=== PATIENT | female | born 1960 | race Caucasian/White ===

== ENCOUNTER → 2016-06-18 | Outpatient (CLI) | payer MEDICARE ==
[~2016-06-18] MED LIST: AMIT25TA PO; ASPI325T PO; ATOR1TAB21 PO; BACL10TA2 PO; BENA25CA2 PO; CIPR500T89 PO; CLOP75TA2 PO; FLAG500T PO; LISI-542 PO; LOMO2.5T PO; METO-207 PO; METO12TA PO; MORP15TASA PO; NEUR300C PO; NORC7.5T PO; OXYB5TA PO; PROA1AER INH; TOPR50TA PO; TRAM50TA2 PO; TYLE1TAB5 PO
== END ==
LOC: M PAIN 14:20
PROVIDERS: ATTEND Anesthesiology
DX: Z53.29 Procedure and treatment not carried out because of patient's decision for other reasons (principal)

== ENCOUNTER → 2016-06-27 | Outpatient (CLI) | payer MEDICARE ==
[~2016-06-27] MED LIST changes: +BUPIVACAINE HCL 0.25% 30 ML VIAL As Ordered ONE; +ISOVUE-M 300 61% 15ML VIAL (Q9967) As Ordered ONE; +LIDOCAINE 1% SDV INJ 30 ML VIAL As Ordered ONE; +TRIAMCINOLONE ACETONIDE SUSP 40 MG/ML VIAL (J3301) As Ordered ONE; +diazePAM 5 MG TAB As Ordered ONE; +oxyCODONE 5MG TAB As Ordered ONE
--- NOTE | 2016-06-27 17:26 | REP ---
FLUOROSCOPIC GUIDANCE FOR PIRIFORMIS MUSCLE BLOCK RIGHT HIP, 06/27/2016. Clinical history. Right hip pain. Four images from C-arm fluoroscopy provided to Dr. Rueda of the pain clinic for piriformis muscle block are reviewed. The needle projects over the greater trochanteric region with contrast evident on the first three images. The needle is removed on the fourth image. There is a right hip arthroplasty evident. Fluoroscopy time 9 seconds. Signed by Jamal Navarro MD 06/27/2016 08:14 P
--- NOTE | 2016-07-05 00:30 | ECWPNPC ---
PATIENT NAME: JUAN MIGUEL VALENCIA : 1960 GENDER: FEMALE VISIT DATE: 06/27/2016 DISCHARGE DATE: 06/27/16 1607 VISIT LOCKED DATE TIME: PHYSICIAN: SUSANNE AMOR RESOURCE: SUSANNE AMOR REASON FOR APPOINTMENT 1. PIRIFORMIS INJECTION HISTORY OF PRESENT ILLNESS HISTORY OF PRESENT ILLNESS: PAIN THE PATIENT DESCRIBES THE PAIN... FALL RISK SCREENING: SCREENING :NO FALLS IN THE PAST YEAR CURRENT MEDICATIONS TAKING OXYBUTYNIN CHLORIDE 5 MG TABLET 1 TABLET ORALLY TWICE A DAY, NOTES: 06-27-16699 TAKING ASPIRIN 325 MG TABLET DELAYED RELEASE 1 TABLET ORALLY ONCE A DAY, NOTES: 06-27-16699 TAKING DIPHENOXYLATE-ATROPINE 2.5-0.025 MG TABLET 5 ML NEEDED ORALLY FOUR TIMES A DAY, NOTES: NONE TAKING DIPHENHYDRAMINE HCL 25 MG CAPSULE 1 CAPSULE NEEDED ORALLY BEFORE BEDTIME, NOTES: NONE TAKING METOPROLOL SUCCINATE ER 50 MG TABLET EXTENDED RELEASE 24 HOUR 1 TABLET ORALLY ONCE A DAY, NOTES: 06-27-16699 TAKING LISINOPRIL 5 MG TABLET 1 TABLET ORALLY ONCE A DAY, NOTES: 06-27-16699 TAKING GABAPENTIN 300 MG CAPSULE 1 CAPSULE ORALLY QID FOR PAIN, NOTES: 06-27-16699 TAKING AMITRIPTYLINE HCL 25 MG TABLET 1 TABLET ORALLY BEFORE BEDTIME NEEDED FOR PAIN MDD1, NOTES: [id number] TAKING NORCO 7.5-325 MG TABLET 1 TABLET NEEDED ORALLY EVERY 6 HRS PRN FOR PAIN MDD3, NOTES: 06-27-16699 TAKING BACLOFEN 10 MG TABLET 1 TABLET WITH FOOD OR MILK ORALLY PRN THREE TIMES A DAY FOR SPASMS AND PAIN, NOTES: 06-27-16699 MEDICATION LIST REVIEWED AND RECONCILED WITH THE PATIENT PAST MEDICAL HISTORY HEPATITIS C SYNCOPE ULCERATIVE COLITIS CHRONIC BACK PAIN MILD HEART ATTACK ACUTE TOXIC ENCEPHALOPATHY SECONDARY TO OPIATES ALLERGIES CEFAZOLIN SODIUM: RASH: ALLERGY SOCIAL HISTORY GENERAL: TOBACCO USE ARE YOU A:NONSMOKER LEARNING BARRIERS / SPECIAL NEEDS ORIENTED TO PLAN OF CARE: PATIENT, PAIN MANAGEMENT PATIENT, ORIENTED TO PLAN OF CARE: PATIENT, PAIN MANAGEMENT PATIENT. NEW PATIENT PAIN DIARY TODAY'S VISITNOTES FROM 0-10, WHAT LEVEL IS YOUR PAIN TODAY?0 PAIN CLINIC PFS, CLERGY, PUBLIC HEALTH REFERRALS PFS REFERRAL NEEDED?NO CLERGY REFERRAL NEEDED?NO PUBLIC HEALTH REFERRAL NEEDED?NO WAS THE PROVIDER NOTIFIED OF ANY PERTINENT INFO?NO PFS REFERRAL NEEDED?NO CLERGY REFERRAL NEEDED?NO PUBLIC HEALTH REFERRAL NEEDED?NO WAS THE PROVIDER NOTIFIED OF ANY PERTINENT INFO?NO REVIEW OF SYSTEMS CONSTITUTIONAL: ANY CHANGE IN YOUR MEDICAL CONDITION? NO . CHILLS NO . FEVER NO . INFECTION: DO YOU HAVE NEW INFECTIONS? NO . DO YOU HAVE HISTORY OF MRSA? NO . MUSCULOSKELETAL: ANY NEW PATTERNS OF PAIN OR NUMBNESS? NO . GASTROENTEROLOGY: ANY NEW CHANGE IN BOWEL CONTROL? NO . GENITOURINARY: ANY NEW CHANGE IN BLADDER CONTROL? NO . IS THERE A CHANCE YOU COULD BE ? NO . HEMATOLOGY/LYMPH: DO YOU TAKE ANY BLOOD THINNERS? (FOR EXAMPLE- COUMADIN, PLAVIX, AGGRENOX, PLATEL, PRADAXA, OR XARELTO) NO . WHEN WAS YOUR LAST DOSE? DATE: TIME: . NEUROLOGY: HAVE YOU FALLEN IN THE PAST 6 MONTHS? NO . ANY NEW EXTREMITY NUMBNESS OR WEAKNESS? NO . CARDIOLOGY: DO YOU HAVE A PACEMAKER OR DEFIBRILLATOR? NO . RESPIRATORY: HAVE YOU BEEN SICK IN THE PAST WEEK? NO . FEVER NO . FLU LIKE SYMPTOMS? NO . COUGH NO . INTEGUMENTARY: DO YOU HAVE ANY RASHES OR OPEN SORES? NO . ALLERGIC/IMMUNO: ARE YOU ALLERGIC TO SHELLFISH OR IV DYE? NO . ANY NEW ALLERGIES? NO . PSYCHIATRIC: DO YOU HAVE THOUGHTS OF HURTING YOURSELF OR SOMEONE ELSE? NO . ARE YOU ABUSED, NEGLECTED, OR IN AN UNSAFE ENVIRONMENT? NO . ENDOCRINOLOGY: ARE YOU DIABETIC? NO . OTHER: DO YOU NEED ANY PRESCRIPTIONS? NO . IF YES, PLEASE LIST: ____ . ANY NEW PROBLEMS WITH YOUR MEDICATIONS? NO . WHEN DID YOU LAST EAT? 06-27-16699 . WHEN DID YOU LAST DRINK? 06-27-16699 . WHAT DID YOU LAST DRINK? WATER WITH MEDS . NAME OF PERSON DRIVING YOU HOME? NAY . DO YOU HAVE ANY OTHER QUESTIONS OR CONCERNS NO . REVIEWED BY: PROVIDER: . VITAL SIGNS WT 162 LBS, HT 69", BMI 23.92 INDEX, BP 152/82 MM HG, HR 96 /MIN, RR 16 /MIN, TEMP 97.4 F, OXYGEN SAT % 100, NA INITIALS TL 1419. 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 PROCEDURES PREOPERATIVE DIAGNOSIS:RIGHT PIRIFORMIS SYNDROME. MYALGIAPOSTOPERATIVE DIAGNOSIS: RIGHT PIRIFORMIS SYNDROME. MYALGIAPROCEDURE: RIGHT PIRIFORMIS MUSCLE BLOCK UNDER FLUOROSCOPIC GUIDANCE.ANESTHESIA: LOCAL.SURGEON: SUSANNE ARREAGA M.D.PREOPERATIVE NOTE: THE PATIENT HAS HISTORY OFCHRONIC LOW BACK PAIN. I EVALUATED THE PATIENT AND REVIEWED THE CHART. WE BOTH AGREED ON PERFORMING A RIGHT PIRIFORMIS MUSCLE BLOCK UNDER FLUOROSCOPIC GUIDANCE. I WENT THROUGH THE RISKS, ALTERNATIVES AND BENEFITS ASSOCIATED WITH THIS PROCEDURE AND THE PATIENT EXPRESSED THAT SHE WOULD LIKE TO PROCEED. THE PATIENT DENIES UNEXPLAINABLE WEIGHT LOSS, FEVER, CHILLS, OR CHANGES IN URINARY OR BOWEL CONTROL.PROCEDURE NOTE: AFTER CONSENT WAS TAKEN, THE PATIENT WAS BROUGHT TO THE PROCEDURE ROOM AND THE PATIENT WAS PLACED IN THE PRONE POSITION. THE LUMBOSACRAL AREA WASCLEANED WITH CHLORAPREP SOLUTION AND DRAPED ASEPTICALLY. THE PROCEDURE WAS DONE UNDER STERILE CONDITIONS. LATERALITY WAS CHECK WITH THE PATIENT AND THE STAFF AT THE TIME OF TIME OUT. UNDER FLUOROSCOPIC GUIDANCE, THE TARGET POINT WAS SELECTED AT THE MIDDLE AREA BETWEEN THE RIGHT GREATER TROCHANTER OF THE FEMUR AND THE BORDER OF THE SACRUM. LIDOCAINE WAS USED TO NUMB THE SKIN AND THESUBCUTANEOUS TISSUE BELOW IT. A SPINAL NEEDLE 22 GAUGE, WAS ADVANCED UNDER FLUOROSCOPIC GUIDANCE TO THE SUBSTANCE OF THE RIGHT PIRIFORMIS MUSCLE. WHEN APPROPRIATE POSITION OF THE NEEDLE WAS ACHIEVED, ISOVUE-M DYE 30%,0.25 ML, WAS INJECTED SHOWING ADEQUATE SPREAD OF THE DYE. THEN A SOLUTION OF 30 ML OF BUPIVACAINE, 0.25%, AND KENALOG 40 MG WAS INJECTED. THERE WAS NO EVIDENCEOF BLOOD, PARESTHESIAS OR CEREBROSPINAL FLUID. THE PATIENT WAS SENT TO THE RECOVERY ROOM WHERE SHE WAS MOVING HER EXTREMITIES AND DOING WELL. THERE WERE NO COMPLICATIONS DURING THE PROCEDURE. FLUOROSCOPY TIME WAS 9 SECONDS.POSTOPERATIVE NOTE: I DISCUSSED ALTERNATIVES WITH THE PATIENT. I AM LOOKING FOR LONG-LASTING PAIN RELIEF WITH THIS INTERVENTION. THERE WERE NO COMPLICATIONS. FURTHER RECOMMENDATIONS DEPEND ON HOW THE PATIENT DOES. INSTRUCTIONS WERE GIVEN QUESTIONS WERE ANSWERED PATIENT REPORTS UNDERSTANDING AND AGREES WITH THE PLAN.INSTRUCTIONS WERE GIVEN, QUESTIONS WERE ANSWERED, PATIENT REPORTS UNDERSTANDING AND AGREES WITH THE PLAN. I, DAMIAN LUNA, DOCUMENTED THE ABOVE INFORMATION ACTING A SCRIBE FOR DR. AMOR. I HAVE REVIEWED THE ABOVE DOCUMENT, WRITTEN BY DAMIAN JOSEPH AND I VERIFY THAT IT IS ACCURATE. [facility] FLUORO GUIDANCE (PAIN)[id number] PROCEDURE CODES 68510 INJ TRIGGER POINT 1/2 MUSCL 07132 NEEDLE LOCALIZATION BY XRAY 6045F RADXPS IN END [id number] PXD FOLLOW UP 3 WEEKS ELECTRONICALLY SIGNED BY SUSANNE AMOR MD ON 07/04/2016 AT 04:28 PM EST DISCLAIMER : THIS IS A VISIT SUMMARY EXTRACTED FROM THE [employer] CHART. IT IS NOT A COPY OF THE [employer] PROGRESS NOTE. MTDD
== END ==
LOC: M PAIN 14:00
PROVIDERS: ATTEND Anesthesiology
DX: G89.29 Other chronic pain (principal); M79.1 Myalgia; M54.5 Low back pain; B20 Human immunodeficiency virus [HIV] disease; Z88.8 Allergy status to other drugs, medicaments and biological substances; Z79.82 Long term (current) use of aspirin; Z79.891 Long term (current) use of opiate analgesic; Z79.899 Other long term (current) drug therapy; Z87.19 Personal history of other diseases of the digestive system; Z86.79 Personal history of other diseases of the circulatory system; Z87.898 Personal history of other specified conditions
CPT/HCPCS: 20552; 77002; J3301; Q9967

== ENCOUNTER → 2016-07-08 | Outpatient (CLI) | payer MEDICARE ==
[~2016-07-08] MED LIST changes: -BUPIVACAINE HCL 0.25% 30 ML VIAL As Ordered ONE; -ISOVUE-M 300 61% 15ML VIAL (Q9967) As Ordered ONE; -LIDOCAINE 1% SDV INJ 30 ML VIAL As Ordered ONE; -TRIAMCINOLONE ACETONIDE SUSP 40 MG/ML VIAL (J3301) As Ordered ONE; -diazePAM 5 MG TAB As Ordered ONE; -oxyCODONE 5MG TAB As Ordered ONE
== END ==
LOC: M PAIN 13:20
PROVIDERS: ATTEND Nurse Practitioner Family
DX: Z09 Encounter for follow-up examination after completed treatment for conditions other than malignant neoplasm (principal); G89.29 Other chronic pain; M96.1 Postlaminectomy syndrome, not elsewhere classified; K51.90 Ulcerative colitis, unspecified, without complications; Z88.8 Allergy status to other drugs, medicaments and biological substances; Z79.82 Long term (current) use of aspirin; Z79.891 Long term (current) use of opiate analgesic; Z79.899 Other long term (current) drug therapy; Z86.19 Personal history of other infectious and parasitic diseases; Z86.79 Personal history of other diseases of the circulatory system; Z86.61 Personal history of infections of the central nervous system

== ENCOUNTER → 2016-09-02 | Outpatient (REF) | payer MEDICARE ==
[2016-09-02 15:49] LABS: BASO % 0.4 % (0.0-1.0); EOS # 0.1 K/mm3 (0.0-0.50); EOS % 2.6 % (0.0-3.0); LARGE UNSTAINED CELL # 0.1 K/mm3 (0.0-0.4); LARGE UNSTAINED CELL % 2.5 % (0.0-4.0); LYMPH # 1.6 K/mm3 (1.5-4.5); LYMPH % 30.7 % (24.0-44.0); MEAN CORPUSCULAR HEMOGLOBIN 33.1 pg (27.0-33.0); MEAN CORPUSCULAR VOLUME 97.3 fl (80.0-96.0); MONO # 0.4 K/mm3 (0.0-0.8); MONO % 6.8 % (0.0-5.0); PLATELET COUNT, AUTOMATED 258 k/mm3 (150-450); RED CELL DISTRIBUTION WIDTH 12.1 % (11.5-14.5); WHITE BLOOD COUNT 5.3 K/mm3 (4.0-10.0)
[2016-09-02 16:07] LABS: ALBUMIN 3.9 GM/DL (3.2-5.2); ALBUMIN/GLOBULIN RATIO 1.05 (1.00-1.93); BILIRUBIN,DIRECT 0.3 MG/DL (0.0-0.2); BILIRUBIN,TOTAL 1.1 MG/DL (0.2-1.0); TOTAL PROTEIN 7.6 GM/DL (6.4-8.2)
[2016-09-05 10:15] LABS: HEPATITIS C QUANTITATION HCV Not Detected IU/mL (.)
== END ==
LOC: M SFHCPLAZ 12:35
PROVIDERS: ATTEND Internal Medicine Infectious Disease
DX: B18.2 Chronic viral hepatitis C (principal)

== ENCOUNTER → 2016-09-05 | Outpatient (CLI) | payer MEDICARE ==
--- NOTE | 2016-09-06 01:58 | ECWPNPC ---
PATIENT NAME: JUAN MIGUEL VALENCIA : 1960 GENDER: FEMALE VISIT DATE: 09/05/2016 DISCHARGE DATE: 09/05/16 1451 VISIT LOCKED DATE TIME: PHYSICIAN: RAGHAVENDRA SAN RESOURCE: RAGHAVENDRA SAN REASON FOR APPOINTMENT 1. BACK HISTORY OF PRESENT ILLNESS HISTORY OF PRESENT ILLNESS: HERE FOR POST PROCEDURE F/U AND MANAGEMENT OF CHRONIC LBP.RATING PAIN VAS 7/10.PAIN RADIATES DOWN RIGHT LEG.HISTORY OF LUMBAR SURGERY 2004.FINDS MEDICATION SOMEWHAT HELPFUL.CONTINUES WITH POOR SLEEP. FALL RISK SCREENING: SCREENING :NO FALLS IN THE PAST YEAR CURRENT MEDICATIONS TAKING GABAPENTIN 300 MG CAPSULE 1 CAPSULE ORALLY QID FOR PAIN TAKING AMITRIPTYLINE HCL 25 MG TABLET 1 TABLET ORALLY ONCE A DAY TAKING NORCO 7.5-325 MG TABLET 1 TABLET NEEDED ORALLY EVERY 6 HRS PRN FOR PAIN MDD3 TAKING BACLOFEN 10 MG TABLET 1 TABLET WITH FOOD OR MILK ORALLY PRN THREE TIMES A DAY FOR SPASMS AND PAIN TAKING METOPROLOL SUCCINATE ER 50 MG TABLET EXTENDED RELEASE 24 HOUR 1 TABLET ORALLY ONCE A DAY TAKING LISINOPRIL 5 MG TABLET 1 TABLET ORALLY ONCE A DAY TAKING OXYBUTYNIN CHLORIDE 5 MG TABLET 1 TABLET ORALLY TWICE A DAY TAKING ASPIRIN 325 MG TABLET DELAYED RELEASE 1 TABLET ORALLY ONCE A DAY TAKING DIPHENOXYLATE-ATROPINE 2.5-0.025 MG TABLET 5 ML NEEDED ORALLY FOUR TIMES A DAY, NOTES: NONE TAKING DIPHENHYDRAMINE HCL 25 MG CAPSULE 1 CAPSULE NEEDED ORALLY BEFORE BEDTIME, NOTES: NONE TAKING HARVONI 90/400 MG TABLET DIRECTED ORALLY ONCE A DAY TAKING ZANTAC 150 MG TABLET 1 TABLET AT BEDTIME ORALLY ONCE A DAY DISCONTINUED HARVONI 90-400 MG TABLET 1 TABLET ORALLY ONCE A DAY MEDICATION LIST REVIEWED AND RECONCILED WITH THE PATIENT PAST MEDICAL HISTORY HEPATITIS C SYNCOPE ULCERATIVE COLITIS CHRONIC BACK PAIN MILD HEART ATTACK ACUTE TOXIC ENCEPHALOPATHY SECONDARY TO OPIATES ALLERGIES CEFAZOLIN SODIUM: RASH: ALLERGY REVIEW OF SYSTEMS CONSTITUTIONAL: ANY CHANGE IN YOUR MEDICAL CONDITION? NO . CHILLS NO . FEVER NO . INFECTION: DO YOU HAVE NEW INFECTIONS? NO . DO YOU HAVE HISTORY OF MRSA? NO . MUSCULOSKELETAL: ANY NEW PATTERNS OF PAIN OR NUMBNESS? YES PT REPORTS SHE HAD RELIEF FROM PIRIFORMIS INJECTION FOR A FEW WEEKS, BUT NOW PAIN HAS RETURNED, NOW FEELS PRESSURE AND PAIN IN GROIN, BUTTOCKS . GASTROENTEROLOGY: ANY NEW CHANGE IN BOWEL CONTROL? NO . GENITOURINARY: ANY NEW CHANGE IN BLADDER CONTROL? NO . IS THERE A CHANCE YOU COULD BE ? NO . HEMATOLOGY/LYMPH: DO YOU TAKE ANY BLOOD THINNERS? (FOR EXAMPLE- COUMADIN, PLAVIX, AGGRENOX, PLATEL, PRADAXA, OR XARELTO) NO . WHEN WAS YOUR LAST DOSE? DATE: TIME: . NEUROLOGY: HAVE YOU FALLEN IN THE PAST 6 MONTHS? NO . ANY NEW EXTREMITY NUMBNESS OR WEAKNESS? NO . CARDIOLOGY: DO YOU HAVE A PACEMAKER OR DEFIBRILLATOR? NO . RESPIRATORY: HAVE YOU BEEN SICK IN THE PAST WEEK? NO . FEVER NO . FLU LIKE SYMPTOMS? NO . COUGH NO . INTEGUMENTARY: DO YOU HAVE ANY RASHES OR OPEN SORES? NO . ALLERGIC/IMMUNO: ARE YOU ALLERGIC TO SHELLFISH OR IV DYE? NO . ANY NEW ALLERGIES? NO . PSYCHIATRIC: DO YOU HAVE THOUGHTS OF HURTING YOURSELF OR SOMEONE ELSE? NO . ARE YOU ABUSED, NEGLECTED, OR IN AN UNSAFE ENVIRONMENT? NO . ENDOCRINOLOGY: ARE YOU DIABETIC? NO . OTHER: DO YOU NEED ANY PRESCRIPTIONS? YES . IF YES, PLEASE LIST: ____GABAPENTIN . ANY NEW PROBLEMS WITH YOUR MEDICATIONS? NO . WHEN DID YOU LAST EAT? ____ . WHEN DID YOU LAST DRINK? ____ . WHAT DID YOU LAST DRINK? ____ . NAME OF PERSON DRIVING YOU HOME? ____ . DO YOU HAVE ANY OTHER QUESTIONS OR CONCERNS NO . REVIEWED BY: PROVIDER: RAGHAVENDRA LE . VITAL SIGNS WT 161 LBS, HT 69", BMI 23.77 INDEX, BP 135/76 MM HG, HR 89 /MIN, RR 18 /MIN, TEMP 99.0 F, OXYGEN SAT % 97%, SAFE IN ENV? (Y/N) YES, NA INITIALS SC 14:14, REVIEWED BY: MEREDITH. ASSESSMENTS POST LAMINECTOMY SYNDROME - M96.1 (PRIMARY) CHRONIC PRESCRIPTION OPIATE USE - Z79.891 TREATMENT POST LAMINECTOMY SYNDROME INCREASE AMITRIPTYLINE HCL TABLET, 25 MG, 2, ORALLY, ONCE A DAY, 30 DAY(S), 60, REFILLS 2 REFILL NORCO TABLET, 7.5-325 MG, 1 TABLET NEEDED, ORALLY, Q6H PRN PAIN MDD4, 30 DAY(S), 120, REFILLS 0 REFILL BACLOFEN TABLET, 10 MG, 1 TABLET WITH FOOD OR MILK, ORALLY PRN, THREE TIMES A DAY FOR SPASMS AND PAIN, 30 DAY(S), 90, REFILLS 2 REFILL GABAPENTIN CAPSULE, 300 MG, 1 CAPSULE, ORALLY, QID FOR PAIN, 30 DAY(S), 120, REFILLS 2 PROCEDURE CODES G8730 PAIN ASSESS POS TOOL F/U PLAN DOC G8427 DOC MEDS VERIFIED W/PT OR RE DISPOSITION & COMMUNICATION FOLLOW UP 2 MONTHS ELECTRONICALLY SIGNED BY REY CROCKETT ON 09/05/2016 AT 02:48 PM EDT DISCLAIMER : THIS IS A VISIT SUMMARY EXTRACTED FROM THE [employer] CHART. IT IS NOT A COPY OF THE [employer] PROGRESS NOTE. ROSY
== END | disposition home or self-care (01) ==
LOC: M PAIN 14:00
PROVIDERS: ATTEND Nurse Practitioner Family
DX: Z09 Encounter for follow-up examination after completed treatment for conditions other than malignant neoplasm (principal); G89.29 Other chronic pain; M96.1 Postlaminectomy syndrome, not elsewhere classified; B19.20 Unspecified viral hepatitis C without hepatic coma; M51.16 Intervertebral disc disorders with radiculopathy, lumbar region; M51.17 Intervertebral disc disorders with radiculopathy, lumbosacral region; M51.36 Other intervertebral disc degeneration, lumbar region; G92 Toxic encephalopathy; Z86.73 Personal history of transient ischemic attack (TIA), and cerebral infarction without residual deficits; Z79.899 Other long term (current) drug therapy; Z79.82 Long term (current) use of aspirin; Z88.8 Allergy status to other drugs, medicaments and biological substances

== ENCOUNTER → 2016-11-05 | Outpatient (CLI) | payer MEDICARE ==
--- NOTE | 2016-11-06 02:48 | ECWPNPC ---
PATIENT NAME: JUAN MIGUEL VALENCIA : 1960 GENDER: FEMALE VISIT DATE: 11/05/2016 DISCHARGE DATE: 11/05/16 1448 VISIT LOCKED DATE TIME: PHYSICIAN: RAGHAVENDRA SAN RESOURCE: RAGHAVENDRA SAN REASON FOR APPOINTMENT 1. FOLLOWUP HISTORY OF PRESENT ILLNESS HISTORY OF PRESENT ILLNESS: HERE FOR POST PROCEDURE F/U AND MANAGEMENT OF CHRONIC LBP.RATING PAIN VAS 7/10.PAIN RADIATES DOWN RIGHT LEG.HISTORY OF LUMBAR SURGERY 2004.FINDS MEDICATION SOMEWHAT HELPFUL.REPORTING IMPROVED SLEEP WITH INCREASE OF AMITRIPTYLINE AT LAST VISIT. PAIN THE PATIENT DESCRIBES THE PAIN... THE PATIENT DESCRIBES THE PAIN... FALL RISK SCREENING: SCREENING :NO FALLS IN THE PAST YEAR CURRENT MEDICATIONS TAKING NORCO 7.5-325 MG TABLET 1 TABLET NEEDED ORALLY Q6H PRN PAIN MDD4 TAKING BACLOFEN 10 MG TABLET 1 TABLET WITH FOOD OR MILK ORALLY PRN THREE TIMES A DAY FOR SPASMS AND PAIN TAKING GABAPENTIN 300 MG CAPSULE 1 CAPSULE ORALLY QID FOR PAIN TAKING AMITRIPTYLINE HCL 25 MG TABLET 2 ORALLY ONCE A DAY TAKING OXYBUTYNIN CHLORIDE 5 MG TABLET 1 TABLET ORALLY TWICE A DAY TAKING DIPHENHYDRAMINE HCL 25 MG CAPSULE 1 CAPSULE NEEDED ORALLY BEFORE BEDTIME, NOTES: NONE TAKING ZANTAC 150 MG TABLET 1 TABLET AT BEDTIME ORALLY ONCE A DAY TAKING TOPAMAX 25 MG TABLET 1 TABLET ORALLY TWICE A DAY TAKING METOPROLOL SUCCINATE ER 50 MG TABLET EXTENDED RELEASE 24 HOUR 1 TABLET ORALLY ONCE A DAY TAKING LISINOPRIL 5 MG TABLET 1 TABLET ORALLY ONCE A DAY TAKING ASPIRIN 81 MG TABLET DELAYED RELEASE 1 TABLET ORALLY ONCE A DAY TAKING CLARITIN 10 MG TABLET 1 TABLET ORALLY ONCE A DAY NOT-TAKING HARVONI 90/400 MG TABLET DIRECTED ORALLY ONCE A DAY NOT-TAKING DIPHENOXYLATE-ATROPINE 2.5-0.025 MG TABLET 5 ML NEEDED ORALLY FOUR TIMES A DAY, NOTES: NONE MEDICATION LIST REVIEWED AND RECONCILED WITH THE PATIENT PAST MEDICAL HISTORY HEPATITIS C ULCERATIVE COLITIS : SHARATH CHRONIC BACK PAIN MILD HEART ATTACK ACUTE TOXIC ENCEPHALOPATHY SECONDARY TO OPIATES ALLERGIES CEFAZOLIN SODIUM: RASH: ALLERGY SURGICAL HISTORY TONSILS/ADENOIDS/TUBES HYSTERECTOMY BILATERAL CARPAL TUNNEL BACK SURGERY DORSAL COLUMN STIMULATOR TOTAL HIP REPLACEMENT RIGHT D & C X2 COLONOSCOPY: SHARATH: DIVERTICULOSIS 05/2016 EGD: SHARATH: SMALL HIATAL HERNIA 05/2016 HOSPITALIZATION/MAJOR DIAGNOSTIC PROCEDURE SYNCOPAL EPISODE 03/09-03/12/2016 JAUNDICE, ELECTROLYTE IMBALANCE 03/2016 REVIEW OF SYSTEMS CONSTITUTIONAL: ANY CHANGE IN YOUR MEDICAL CONDITION? NO . CHILLS NO . FEVER NO . INFECTION: DO YOU HAVE NEW INFECTIONS? NO . DO YOU HAVE HISTORY OF MRSA? NO . MUSCULOSKELETAL: ANY NEW PATTERNS OF PAIN OR NUMBNESS? YES, NECK PAIN. PT STATES SHE HAD INJECTION TO RIGHT HIP A FEW MONTHS AGO, PT STATES INJECTION HELPED PAIN. PT STATES PRE PROCEDURE PAIN WAAS 8/10, THEN POST PROCEDURE PAIN 2-310. PAIN HAS BEEN CREEPING TO BASELINE OF -12/16. . GASTROENTEROLOGY: ANY NEW CHANGE IN BOWEL CONTROL? NO . GENITOURINARY: ANY NEW CHANGE IN BLADDER CONTROL? NO . IS THERE A CHANCE YOU COULD BE ? NO . HEMATOLOGY/LYMPH: DO YOU TAKE ANY BLOOD THINNERS? (FOR EXAMPLE- COUMADIN, PLAVIX, AGGRENOX, PLATEL, PRADAXA, OR XARELTO) NO . WHEN WAS YOUR LAST DOSE? DATE: TIME: . NEUROLOGY: HAVE YOU FALLEN IN THE PAST 6 MONTHS? NO . ANY NEW EXTREMITY NUMBNESS OR WEAKNESS? NO . CARDIOLOGY: DO YOU HAVE A PACEMAKER OR DEFIBRILLATOR? NO . RESPIRATORY: HAVE YOU BEEN SICK IN THE PAST WEEK? YES SINUS CONGESTION . FEVER NO . FLU LIKE SYMPTOMS? NO . COUGH NO . INTEGUMENTARY: DO YOU HAVE ANY RASHES OR OPEN SORES? NO . ALLERGIC/IMMUNO: ARE YOU ALLERGIC TO SHELLFISH OR IV DYE? NO . ANY NEW ALLERGIES? NO . PSYCHIATRIC: DO YOU HAVE THOUGHTS OF HURTING YOURSELF OR SOMEONE ELSE? NO . ARE YOU ABUSED, NEGLECTED, OR IN AN UNSAFE ENVIRONMENT? NO . ENDOCRINOLOGY: ARE YOU DIABETIC? NO . OTHER: DO YOU NEED ANY PRESCRIPTIONS? NO . IF YES, PLEASE LIST: ____ . ANY NEW PROBLEMS WITH YOUR MEDICATIONS? NO . WHEN DID YOU LAST EAT? ____ . WHEN DID YOU LAST DRINK? ____ . WHAT DID YOU LAST DRINK? ____ . NAME OF PERSON DRIVING YOU HOME? ____ . DO YOU HAVE ANY OTHER QUESTIONS OR CONCERNS NO . REVIEWED BY: PROVIDER: RAGHAVENDRA LE . VITAL SIGNS WT 165 LBS, HT 69", BMI 24.36 INDEX, BP 157/86 MM HG, HR 80 /MIN, RR 18 /MIN, TEMP 97.9 F, OXYGEN SAT % 97%, NA INITIALS SC 14:07. EXAMINATION GENERAL EXAMINATION: LUNGS:LUNG SOUNDS ARE CLEAR. HEART:HEART RATE REGULAR. MUSCULOSKELETAL:*, MUSCLE STRENGTH TESTING 4/5 BILATERAL LOWER EXTREMITIES., PALPATION: POSITIVE FOR MILD DISCOMFORT OVER L/S SPINE. POSITIVE FOR MILD DISCOMFORT OVER L/S PARASPINALS.. DIAGNOSTIC: . ASSESSMENTS POST LAMINECTOMY SYNDROME - M96.1 (PRIMARY) CHRONIC PRESCRIPTION OPIATE USE - Z79.891 TREATMENT POST LAMINECTOMY SYNDROME REFILL NORCO TABLET, 7.5-325 MG, 1 TABLET NEEDED, ORALLY, Q6H PRN PAIN MDD4, 30 DAY(S), 120, REFILLS 0 CONTINUE BACLOFEN TABLET, 10 MG, 1 TABLET WITH FOOD OR MILK, ORALLY PRN, THREE TIMES A DAY FOR SPASMS AND PAIN CONTINUE GABAPENTIN CAPSULE, 300 MG, 1 CAPSULE, ORALLY, QID FOR PAIN CONTINUE AMITRIPTYLINE HCL TABLET, 25 MG, 2, ORALLY, ONCE A DAY NOTES: ISTOP REGISTRY REVIEWED AND DEMNOSTRATES COMPLLIANCE. BRINGS IN MEDICATIONS WHICH IS APPROPRIATE FOR WHAT WAS DISPENSED. RECENT URINE TOXICOLOGY REVIEWED. NO UNAUTHORIZED MEDICATIONS. NO ILLICIT SUBSTANCES AND PRESCRIBED MEDICATIONS WERE PRESENT. , RISKS AND BENEFITS OF NARCOTIC/OPIOD MEDICATIONS WERE REVIEWED WITH PATIENT - THIS INCLUDES BUT IS NOT LIMITED TO RISK OF DEPENDANCE/DEVELOPMENT OF ADDICTION, MOOD DISTURBANCE AND DEPRESSION, OSTEOPOROSIS, HORMONAL AND LABIDAL CHANGES, RESPIRATORY DEPRESSION AND . PATIENT IS ADVISED NOT TO DRIVE WHILE ON THESE MEDICATIONSREQUEST RIGHT PRIFORMIS STEROID INJECTION. PROCEDURE CODES FA211 ESTABILISHED PATIENT [facility] FACILITY CHARGE G8585 PAIN ASSESS POS TOOL F/U PLAN DOC G8427 DOC MEDS VERIFIED W/PT OR RE G8783 BP SCR PRFRM RCMDD DEFIND SCR INTVL 3016F PT SCRND UNHLTHY [place] USE 1100F PTFALLS ASSESS-DOC'D GE2+/YR 1124F ACP DISCUSS-NO DSCNMKR DOCD 1036F TOBACCO NON-USER G8420 BMI<30 AND >=22 CALC & DOCU DISPOSITION & COMMUNICATION FOLLOW UP 2 WK POST (REASON: REQUEST RIGHT PRIFORMIS STEROID INJECTION) ELECTRONICALLY SIGNED BY REY CROCKETT ON 11/05/2016 AT 05:30 PM EDT DISCLAIMER : THIS IS A VISIT SUMMARY EXTRACTED FROM THE [facility] CHART. IT IS NOT A COPY OF THE [employer] PROGRESS NOTE. MTDD
== END | disposition home or self-care (01) ==
LOC: M PAIN 14:20
PROVIDERS: ATTEND Nurse Practitioner Family
DX: G89.29 Other chronic pain (principal); M96.1 Postlaminectomy syndrome, not elsewhere classified; B18.2 Chronic viral hepatitis C; Z86.73 Personal history of transient ischemic attack (TIA), and cerebral infarction without residual deficits; F11.21 Opioid dependence, in remission; Z79.899 Other long term (current) drug therapy; Z79.82 Long term (current) use of aspirin; Z88.1 Allergy status to other antibiotic agents

== ENCOUNTER → 2016-11-13 | Outpatient (CLI) | payer MEDICARE ==
[~2016-11-13] MED LIST changes: +BUPIVACAINE HCL 0.25% 30 ML VIAL As Ordered ONE; +ISOVUE-M 300 61% 15ML VIAL (Q9967) As Ordered ONE; +LIDOCAINE 1% SDV INJ 30 ML VIAL As Ordered ONE; +TRIAMCINOLONE ACETONIDE SUSP 40 MG/ML VIAL (J3301) As Ordered ONE; +diazePAM 5 MG TAB As Ordered ONE; +oxyCODONE 5MG TAB As Ordered ONE
--- NOTE | 2016-11-13 15:21 | REP ---
PARTIAL RIGHT HIP SERIES: 14 views presented. HISTORY: Piriformis block for pain. 22 seconds of fluoroscopy time is reported. FINDINGS: A sequence of 14 last image hold fluoroscopic spot radiographs are presented documenting needle position and contrast injection associated with injection procedure. No laterality markers. A prosthetic hip is seen. Signed by Garret Still MD 11/13/2016 04:32 P
--- NOTE | 2016-11-26 01:18 | ECWPNPC ---
PATIENT NAME: JUAN MIGUEL VALENCIA : 1960 GENDER: FEMALE VISIT DATE: 11/13/2016 DISCHARGE DATE: 11/13/16 1306 VISIT LOCKED DATE TIME: PHYSICIAN: SUSANNE AMOR RESOURCE: SUSANNE AMOR REASON FOR APPOINTMENT 1. RIGHT PRIFORMIS STEROID INJECTION HISTORY OF PRESENT ILLNESS HISTORY OF PRESENT ILLNESS: PAIN THE PATIENT DESCRIBES THE PAIN... FALL RISK SCREENING: SCREENING :NO FALLS IN THE PAST YEAR CURRENT MEDICATIONS TAKING OXYBUTYNIN CHLORIDE 5 MG TABLET 1 TABLET ORALLY TWICE A DAY, NOTES: 11/12/162129 TAKING DIPHENHYDRAMINE HCL 25 MG CAPSULE 1 CAPSULE NEEDED ORALLY BEFORE BEDTIME, NOTES: NONE RECENT TAKING ZANTAC 150 MG TABLET 1 TABLET AT BEDTIME ORALLY ONCE A DAY, NOTES: NONE RECENT TAKING TOPAMAX 25 MG TABLET 1 TABLET ORALLY TWICE A DAY, NOTES: 11/12/162129 TAKING METOPROLOL SUCCINATE ER 50 MG TABLET EXTENDED RELEASE 24 HOUR 1 TABLET ORALLY ONCE A DAY, NOTES: TAKING LISINOPRIL 5 MG TABLET 1 TABLET ORALLY ONCE A DAY, NOTES: 11/12/162129 TAKING ASPIRIN 81 MG TABLET DELAYED RELEASE 1 TABLET ORALLY ONCE A DAY, NOTES: 11/12/162129 TAKING CLARITIN 10 MG TABLET 1 TABLET ORALLY ONCE A DAY, NOTES: 11/12/162129 TAKING NORCO 7.5-325 MG TABLET 1 TABLET NEEDED ORALLY Q6H PRN PAIN MDD4, NOTES: 11/13/16299 TAKING BACLOFEN 10 MG TABLET 1 TABLET WITH FOOD OR MILK ORALLY PRN THREE TIMES A DAY FOR SPASMS AND PAIN, NOTES: 11/12/162129 TAKING GABAPENTIN 300 MG CAPSULE 1 CAPSULE ORALLY QID FOR PAIN, NOTES: 11/12/162129 TAKING AMITRIPTYLINE HCL 25 MG TABLET 2 ORALLY ONCE A DAY, NOTES: 11/12/162129 NOT-TAKING HARVONI 90/400 MG TABLET DIRECTED ORALLY ONCE A DAY NOT-TAKING DIPHENOXYLATE-ATROPINE 2.5-0.025 MG TABLET 5 ML NEEDED ORALLY FOUR TIMES A DAY, NOTES: NONE MEDICATION LIST REVIEWED AND RECONCILED WITH THE PATIENT PAST MEDICAL HISTORY HEPATITIS C ULCERATIVE COLITIS : SHARATH CHRONIC BACK PAIN MILD HEART ATTACK ACUTE TOXIC ENCEPHALOPATHY SECONDARY TO OPIATES ALLERGIES CEFAZOLIN SODIUM: RASH: ALLERGY SURGICAL HISTORY TONSILS/ADENOIDS/TUBES HYSTERECTOMY BILATERAL CARPAL TUNNEL BACK SURGERY DORSAL COLUMN STIMULATOR TOTAL HIP REPLACEMENT RIGHT D & C X2 COLONOSCOPY: SHARATH: DIVERTICULOSIS 05/2016 EGD: SHARATH: SMALL HIATAL HERNIA 05/2016 HOSPITALIZATION/MAJOR DIAGNOSTIC PROCEDURE SYNCOPAL EPISODE 03/09-03/12/2016 JAUNDICE, ELECTROLYTE IMBALANCE 03/2016 REVIEW OF SYSTEMS CONSTITUTIONAL: ANY CHANGE IN YOUR MEDICAL CONDITION? NO . CHILLS NO . FEVER NO . INFECTION: DO YOU HAVE NEW INFECTIONS? NO . DO YOU HAVE HISTORY OF MRSA? NO . MUSCULOSKELETAL: ANY NEW PATTERNS OF PAIN OR NUMBNESS? NO . GASTROENTEROLOGY: ANY NEW CHANGE IN BOWEL CONTROL? NO . GENITOURINARY: ANY NEW CHANGE IN BLADDER CONTROL? NO . IS THERE A CHANCE YOU COULD BE ? NO . HEMATOLOGY/LYMPH: DO YOU TAKE ANY BLOOD THINNERS? (FOR EXAMPLE- COUMADIN, PLAVIX, AGGRENOX, PLATEL, PRADAXA, OR XARELTO) NO . WHEN WAS YOUR LAST DOSE? DATE: TIME: . NEUROLOGY: HAVE YOU FALLEN IN THE PAST 6 MONTHS? NO . ANY NEW EXTREMITY NUMBNESS OR WEAKNESS? NO . CARDIOLOGY: DO YOU HAVE A PACEMAKER OR DEFIBRILLATOR? NO . RESPIRATORY: HAVE YOU BEEN SICK IN THE PAST WEEK? NO . FEVER NO . FLU LIKE SYMPTOMS? NO . COUGH NO . INTEGUMENTARY: DO YOU HAVE ANY RASHES OR OPEN SORES? NO . ALLERGIC/IMMUNO: ARE YOU ALLERGIC TO SHELLFISH OR IV DYE? NO . ANY NEW ALLERGIES? NO . PSYCHIATRIC: DO YOU HAVE THOUGHTS OF HURTING YOURSELF OR SOMEONE ELSE? NO . ARE YOU ABUSED, NEGLECTED, OR IN AN UNSAFE ENVIRONMENT? NO . ENDOCRINOLOGY: ARE YOU DIABETIC? NO . OTHER: DO YOU NEED ANY PRESCRIPTIONS? NO . IF YES, PLEASE LIST: ____ . ANY NEW PROBLEMS WITH YOUR MEDICATIONS? NO . WHEN DID YOU LAST EAT? 11/12/16 . WHEN DID YOU LAST DRINK? 11/13/16 0930 . WHAT DID YOU LAST DRINK? SIP OF GATORADE WITH MEDS . NAME OF PERSON DRIVING YOU HOME? FATHER-NAY . DO YOU HAVE ANY OTHER QUESTIONS OR CONCERNS NO . REVIEWED BY: PROVIDER: . VITAL SIGNS WT 160 LBS, HT 69", BMI 23.63 INDEX, BP 132/59 MM HG, HR 70 /MIN, RR 18 /MIN, TEMP 99.1 F, OXYGEN SAT % 97%, NA INITIALS ID [id number], REVIEWED BY: LON. ASSESSMENTS MYALGIA - M79.1 (PRIMARY) TREATMENT MYALGIA NOTES: PREOPERATIVE DIAGNOSIS: RIGHT PIRIFORMIS SYNDROME. MYALGIA POSTOPERATIVE DIAGNOSIS: RIGHT PIRIFORMIS SYNDROME. MYALGIA PROCEDURE: RIGHT PIRIFORMIS MUSCLE BLOCK UNDER FLUOROSCOPIC GUIDANCE. ANESTHESIA: LOCAL. SURGEON: SUSANNE ARREAGA M.D. PREOPERATIVE NOTE: THE PATIENT HAS HISTORY OF CHRONIC LOW BACK PAIN. I EVALUATED THE PATIENT AND REVIEWED THE CHART. WE BOTH AGREED ON PERFORMING A RIGHT PIRIFORMIS MUSCLE BLOCK UNDER FLUOROSCOPIC GUIDANCE. I WENT THROUGH THE RISKS, ALTERNATIVES AND BENEFITS ASSOCIATED WITH THIS PROCEDURE AND THE PATIENT EXPRESSED THAT SHE WOULD LIKE TO PROCEED. THE PATIENT DENIES UNEXPLAINABLE WEIGHT LOSS, FEVER, CHILLS, OR CHANGES IN URINARY OR BOWEL CONTROL. PROCEDURE NOTE: AFTER CONSENT WAS TAKEN, THE PATIENT WAS BROUGHT TO THE PROCEDURE ROOM AND THE PATIENT WAS PLACED IN THE PRONE POSITION. THE LUMBOSACRAL AREA WAS CLEANED WITH CHLORAPREP SOLUTION AND DRAPED ASEPTICALLY. THE PROCEDURE WAS DONE UNDER STERILE CONDITIONS. LATERALITY WAS CHECK WITH THE PATIENT AND THE STAFF AT THE TIME OF TIME OUT. UNDER FLUOROSCOPIC GUIDANCE, THE TARGET POINT WAS SELECTED AT THE MIDDLE AREA BETWEEN THE RIGHT GREATER TROCHANTER OF THE FEMUR AND THE BORDER OF THE SACRUM. LIDOCAINE WAS USED TO NUMB THE SKIN AND THE SUBCUTANEOUS TISSUE BELOW IT. A SPINAL NEEDLE 22 GAUGE, WAS ADVANCED UNDER FLUOROSCOPIC GUIDANCE TO THE SUBSTANCE OF THE LEFT PIRIFORMIS MUSCLE. WHEN APPROPRIATE POSITION OF THE NEEDLE WAS ACHIEVED, ISOVUE-M DYE 30%, 0.25 ML, WAS INJECTED SHOWING ADEQUATE SPREAD OF THE DYE. THEN A SOLUTION OF 30 ML OF BUPIVACAINE, 0.25%, AND KENALOG 40 MG WAS INJECTED. THERE WAS NO EVIDENCE OF BLOOD, PARESTHESIAS OR CEREBROSPINAL FLUID. THE PATIENT WAS SENT TO THE RECOVERY ROOM WHERE SHE WAS MOVING HER EXTREMITIES AND DOING WELL. THERE WERE NO COMPLICATIONS DURING THE PROCEDURE. FLUOROSCOPY TIME WAS 22 SECONDS. POSTOPERATIVE NOTE: I DISCUSSED ALTERNATIVES WITH THE PATIENT. I AM LOOKING FOR LONG-LASTING PAIN RELIEF WITH THIS INTERVENTION. THERE WERE NO COMPLICATIONS. FURTHER RECOMMENDATIONS DEPEND ON HOW THE PATIENT DOES. INSTRUCTIONS WERE GIVEN QUESTIONS WERE ANSWERED PATIENT REPORTS UNDERSTANDING AND AGREES WITH THE PLAN I, LESTER LUCIO, DOCUMENTED THE ABOVE INFORMATION ACTING A SCRIBE FOR DR. AMOR. I HAVE REVIEWED THE ABOVE DOCUMENT, WRITTEN BY LESTER JOSEPH AND I VERIFY THAT IT IS ACCURATE. PROCEDURE CODES 29332 INJ TRIGGER POINT / MUSCL 58450 NEEDLE LOCALIZATION BY XRAY [id number] RADXPS IN END [id number] PXD DISPOSITION & COMMUNICATION FOLLOW UP 3 WEEKS ELECTRONICALLY SIGNED BY SUSANNE AMOR MD ON 11/25/2016 AT 03:15 PM EDT DISCLAIMER : THIS IS A VISIT SUMMARY EXTRACTED FROM THE [facility] CHART. IT IS NOT A COPY OF THE [facility] PROGRESS NOTE. MTDD
== END | disposition home or self-care (01) ==
LOC: M PAIN 11:00
PROVIDERS: ATTEND Anesthesiology
DX: G89.29 Other chronic pain (principal); M79.1 Myalgia; B18.2 Chronic viral hepatitis C; Z79.899 Other long term (current) drug therapy; Z79.82 Long term (current) use of aspirin; Z88.8 Allergy status to other drugs, medicaments and biological substances
CPT/HCPCS: 20552; 77002; J3301; Q9967

== ENCOUNTER → 2016-12-04 | Outpatient (CLI) | payer MEDICARE, OTHER ==
[~2016-12-04] MED LIST changes: -BUPIVACAINE HCL 0.25% 30 ML VIAL As Ordered ONE; +CIPR-249 PO; -CIPR500T89 PO; -ISOVUE-M 300 61% 15ML VIAL (Q9967) As Ordered ONE; -LIDOCAINE 1% SDV INJ 30 ML VIAL As Ordered ONE; -METO-207 PO; -METO12TA PO; +METO1TAB7 PO; +METO1TAB87 PO; -NORC7.5T PO; +NORC7.5T35 PO; -OXYB5TA PO; +OXYB5TAB10 PO; -PROA1AER INH; +PROAAER10 INH; -TRIAMCINOLONE ACETONIDE SUSP 40 MG/ML VIAL (J3301) As Ordered ONE; -diazePAM 5 MG TAB As Ordered ONE; -oxyCODONE 5MG TAB As Ordered ONE
--- NOTE | 2016-12-17 00:28 | ECWPNPC ---
PATIENT NAME: JUAN MIGUEL VALENCIA : 1960 GENDER: FEMALE VISIT DATE: 12/04/2016 DISCHARGE DATE: 12/04/16 1218 VISIT LOCKED DATE TIME: PHYSICIAN: RAGHAVENDRA SAN RESOURCE: RAGHAVENDRA SAN REASON FOR APPOINTMENT 1. POST PROCEDURE HISTORY OF PRESENT ILLNESS HISTORY OF PRESENT ILLNESS: HERE FOR POST PROCEDURE F/U AND MANAGEMENT OF CHRONIC LBP.HAD RIGHT PIRIFORMIS NERVE BLOCK 11-13-16.RATING PAIN VAS 3/10.HISTORY OF LUMBAR SURGERY 2004.CURRENT MEDICATION FOR CHRONIC PAIN:NORCO 7.5/325 Q6H PRN,BACLOFEN 10MG QID,GABAPENTIN 300MG TID,AND AMITRIPTYLINE 25MG TWO TAB. AT HS.FINDS MEDICATION SOMEWHAT HELPFUL .HAS DCS PLACED SEVERAL YEARS AGO AND DOESNT LIKE IT AND WANTS IT REMOVED. PAIN THE PATIENT DESCRIBES THE PAIN... THE PATIENT DESCRIBES THE PAIN... THE PATIENT DESCRIBES THE PAIN... FALL RISK SCREENING: SCREENING :NO FALLS IN THE PAST YEAR CURRENT MEDICATIONS TAKING OXYBUTYNIN CHLORIDE 5 MG TABLET 1 TABLET ORALLY TWICE A DAY TAKING DIPHENHYDRAMINE HCL 25 MG CAPSULE 1 CAPSULE NEEDED ORALLY BEFORE BEDTIME TAKING ZANTAC 150 MG TABLET 1 TABLET AT BEDTIME ORALLY ONCE A DAY TAKING TOPAMAX 25 MG TABLET 1 TABLET ORALLY TWICE A DAY TAKING METOPROLOL SUCCINATE ER 50 MG TABLET EXTENDED RELEASE 24 HOUR 1 TABLET ORALLY ONCE A DAY TAKING LISINOPRIL 5 MG TABLET 1 TABLET ORALLY ONCE A DAY TAKING ASPIRIN 81 MG TABLET DELAYED RELEASE 1 TABLET ORALLY ONCE A DAY TAKING CLARITIN 10 MG TABLET 1 TABLET ORALLY ONCE A DAY TAKING NORCO 7.5-325 MG TABLET 1 TABLET NEEDED ORALLY Q6H PRN PAIN MDD4 TAKING BACLOFEN 10 MG TABLET 1 TABLET WITH FOOD OR MILK ORALLY PRN THREE TIMES A DAY FOR SPASMS AND PAIN TAKING GABAPENTIN 300 MG CAPSULE 1 CAPSULE ORALLY QID FOR PAIN TAKING AMITRIPTYLINE HCL 25 MG TABLET 2 ORALLY ONCE A DAY NOT-TAKING HARVONI 90/400 MG TABLET DIRECTED ORALLY ONCE A DAY NOT-TAKING DIPHENOXYLATE-ATROPINE 2.5-0.025 MG TABLET 5 ML NEEDED ORALLY FOUR TIMES A DAY, NOTES: NONE MEDICATION LIST REVIEWED AND RECONCILED WITH THE PATIENT PAST MEDICAL HISTORY HEPATITIS C ULCERATIVE COLITIS : SHARATH CHRONIC BACK PAIN MILD HEART ATTACK ACUTE TOXIC ENCEPHALOPATHY SECONDARY TO OPIATES ALLERGIES CEFAZOLIN SODIUM: RASH: ALLERGY REVIEW OF SYSTEMS REVIEWED BY: PROVIDER: RAGHAVENDRA LE . CONSTITUTIONAL: ANY CHANGE IN YOUR MEDICAL CONDITION? NO . CHILLS NO . FEVER NO . INFECTION: DO YOU HAVE NEW INFECTIONS? NO . DO YOU HAVE HISTORY OF MRSA? NO . MUSCULOSKELETAL: ANY NEW PATTERNS OF PAIN OR NUMBNESS? NO . GASTROENTEROLOGY: ANY NEW CHANGE IN BOWEL CONTROL? NO . GENITOURINARY: ANY NEW CHANGE IN BLADDER CONTROL? NO . IS THERE A CHANCE YOU COULD BE ? NO . HEMATOLOGY/LYMPH: DO YOU TAKE ANY BLOOD THINNERS? (FOR EXAMPLE- COUMADIN, PLAVIX, AGGRENOX, PLATEL, PRADAXA, OR XARELTO) NO . WHEN WAS YOUR LAST DOSE? DATE: TIME: . NEUROLOGY: HAVE YOU FALLEN IN THE PAST 6 MONTHS? NO . ANY NEW EXTREMITY NUMBNESS OR WEAKNESS? NO . CARDIOLOGY: DO YOU HAVE A PACEMAKER OR DEFIBRILLATOR? NO . RESPIRATORY: HAVE YOU BEEN SICK IN THE PAST WEEK? NO . FEVER NO . FLU LIKE SYMPTOMS? NO . COUGH NO . INTEGUMENTARY: DO YOU HAVE ANY RASHES OR OPEN SORES? NO . ALLERGIC/IMMUNO: ARE YOU ALLERGIC TO SHELLFISH OR IV DYE? NO . ANY NEW ALLERGIES? NO . PSYCHIATRIC: DO YOU HAVE THOUGHTS OF HURTING YOURSELF OR SOMEONE ELSE? NO . ARE YOU ABUSED, NEGLECTED, OR IN AN UNSAFE ENVIRONMENT? NO . ENDOCRINOLOGY: ARE YOU DIABETIC? NO . OTHER: DO YOU NEED ANY PRESCRIPTIONS? YES . IF YES, PLEASE LIST: NORCO, BACLOFEN, GABAPENTIN, AMITRIPTYLINE . ANY NEW PROBLEMS WITH YOUR MEDICATIONS? NO . WHEN DID YOU LAST EAT? ____ . WHEN DID YOU LAST DRINK? ____ . WHAT DID YOU LAST DRINK? ____ . NAME OF PERSON DRIVING YOU HOME? ____ . DO YOU HAVE ANY OTHER QUESTIONS OR CONCERNS NO . VITAL SIGNS WT 164.8 LBS, HT 69", BMI 24.33 INDEX, BP 165/89 MM HG, HR 87 /MIN, RR 18 /MIN, TEMP 97.7 F, OXYGEN SAT % 98%, NA INITIALS SC 11:46. EXAMINATION GENERAL EXAMINATION: LUNGS:LUNG SOUNDS ARE CLEAR. HEART:HEART RATE REGULAR. MUSCULOSKELETAL:*, MUSCLE STRENGTH TESTING 4/5 BILATERAL LOWER EXTREMITIES., PALPATION: POSITIVE FOR MILD DISCOMFORT OVER L/S SPINE. POSITIVE FOR MILD DISCOMFORT OVER L/S PARASPINALS.. DIAGNOSTIC: . ASSESSMENTS POST LAMINECTOMY SYNDROME - M96.1 (PRIMARY) CHRONIC PRESCRIPTION OPIATE USE - Z79.891 TREATMENT POST LAMINECTOMY SYNDROME REFILL NORCO TABLET, 7.5-325 MG, 1 TABLET NEEDED, ORALLY, Q6H PRN PAIN MDD4, 30 DAY(S), 120, REFILLS 0 CONTINUE BACLOFEN TABLET, 10 MG, 1 TABLET WITH FOOD OR MILK, ORALLY PRN, THREE TIMES A DAY FOR SPASMS AND PAIN, 30 DAY(S), 90, REFILLS 2 REFILL GABAPENTIN CAPSULE, 300 MG, 1 CAPSULE, ORALLY, QID FOR PAIN, 30 DAY(S), 120, REFILLS 2 REFILL AMITRIPTYLINE HCL TABLET, 25 MG, 2, ORALLY, ONCE A DAY, 30 DAY(S), 60, REFILLS 2 PROCEDURE CODES FA211 ESTABILISHED PATIENT [facility] CHARGE DISPOSITION & COMMUNICATION FOLLOW UP 2 MONTHS ELECTRONICALLY SIGNED BY REY CROCKETT ON 12/16/2016 AT 04:40 PM EDT DISCLAIMER : THIS IS A VISIT SUMMARY EXTRACTED FROM THE [facility] CHART. IT IS NOT A COPY OF THE [facility] PROGRESS NOTE. MTDD
== END | disposition home or self-care (01) ==
LOC: M PAIN 11:00
PROVIDERS: ATTEND Nurse Practitioner Family
DX: G89.29 Other chronic pain (principal); M96.1 Postlaminectomy syndrome, not elsewhere classified; B18.2 Chronic viral hepatitis C; Z79.899 Other long term (current) drug therapy; Z79.82 Long term (current) use of aspirin; Z88.8 Allergy status to other drugs, medicaments and biological substances

== ENCOUNTER → 2016-12-16 | Outpatient (REF) | payer MEDICARE ==
[2016-12-16 11:56] LABS: BASO % 0.8 % (0.0-1.0); EOS # 0.2 K/mm3 (0.0-0.50); EOS % 3.3 % (0.0-3.0); LARGE UNSTAINED CELL # 0.1 K/mm3 (0.0-0.4); LARGE UNSTAINED CELL % 2.8 % (0.0-4.0); LYMPH # 2.5 K/mm3 (1.5-4.5); LYMPH % 46.7 % (24.0-44.0); MEAN CORPUSCULAR HEMOGLOBIN 33.6 pg (27.0-33.0); MEAN CORPUSCULAR HGB CONC 34.2 g/dl (32.0-36.5); MEAN CORPUSCULAR VOLUME 98.4 fl (80.0-96.0); MONO # 0.4 K/mm3 (0.0-0.8); MONO % 7.6 % (0.0-5.0); NEUTROPHILS % 38.6 % (36.0-66.0); PLATELET COUNT, AUTOMATED 220 k/mm3 (150-450); RED CELL DISTRIBUTION WIDTH 13.4 % (11.5-14.5); WHITE BLOOD COUNT 5.1 K/mm3 (4.0-10.0)
[2016-12-16 12:43] LABS: ALBUMIN 3.6 GM/DL (3.2-5.2); ALBUMIN/GLOBULIN RATIO 0.9 (1.00-1.93); BILIRUBIN,DIRECT 0.2 MG/DL (0.0-0.2); BILIRUBIN,TOTAL 0.7 MG/DL (0.2-1.0); TOTAL PROTEIN 7.6 GM/DL (6.4-8.2)
[2016-12-16 14:26] LABS: FREE T4 1.02 NG/DL (0.76-1.46)
[2016-12-18 14:14] LABS: HEPATITIS C QUANTITATION HCV Not Detected IU/mL (.)
== END ==
LOC: M SFHCPLAZ 09:29
PROVIDERS: ATTEND Nurse Practitioner Family
DX: I10 Essential (primary) hypertension (principal)

== ENCOUNTER → 2017-02-21 | Outpatient (CLI) | payer OTHER ==
--- NOTE | 2017-02-22 00:17 | ECWPNPC ---
PATIENT NAME: JUAN MIGUEL VALENCIA : 1960 GENDER: FEMALE VISIT DATE: 02/21/2017 DISCHARGE DATE: 02/21/17 1403 VISIT LOCKED DATE TIME: PHYSICIAN: RAGHAVENDRA SAN RESOURCE: RAGHAVENDRA SAN REASON FOR APPOINTMENT 1. R HIP AND BACK HISTORY OF PRESENT ILLNESS HISTORY OF PRESENT ILLNESS: HERE FOR POST PROCEDURE F/U AND MANAGEMENT OF CHRONIC LBP.HAD RIGHT PIRIFORMIS NERVE BLOCK 11-13-16.RATING PAIN VAS 3/10.HISTORY OF LUMBAR SURGERY 2004.CURRENT MEDICATION FOR CHRONIC PAIN:NORCO 7.5/325 Q6H PRN,BACLOFEN 10MG QID,GABAPENTIN 300MG TID,AND AMITRIPTYLINE 25MG TWO TAB. AT HS.FINDS MEDICATION SOMEWHAT HELPFUL .HAS DCS PLACED SEVERAL YEARS AGO AND DOESNT LIKE IT AND WANTS IT REMOVED. PAIN THE PATIENT DESCRIBES THE PAIN... THE PATIENT DESCRIBES THE PAIN... THE PATIENT DESCRIBES THE PAIN... THE PATIENT DESCRIBES THE PAIN... PAIN THE PATIENT DESCRIBES THE PAIN... THE PATIENT DESCRIBES THE PAIN... THE PATIENT DESCRIBES THE PAIN... THE PATIENT DESCRIBES THE PAIN... FALL RISK SCREENING: SCREENING :NO FALLS IN THE PAST YEAR CURRENT MEDICATIONS TAKING NORCO 7.5-325 MG TABLET 1 TABLET NEEDED ORALLY EVERY 6 HRS PRN FOR PAIN MDD3 TAKING BACLOFEN 10 MG TABLET 1 TABLET WITH FOOD OR MILK ORALLY PRN THREE TIMES A DAY FOR SPASMS AND PAIN TAKING AMITRIPTYLINE HCL 25 MG TABLET 1 TABLET ORALLY ONCE A DAY TAKING GABAPENTIN 300 MG CAPSULE 1 CAPSULE ORALLY QID FOR PAIN TAKING OXYBUTYNIN CHLORIDE 5 MG TABLET 1 TABLET ORALLY TWICE A DAY TAKING DIPHENHYDRAMINE HCL 25 MG CAPSULE 1 CAPSULE NEEDED ORALLY BEFORE BEDTIME TAKING ZANTAC 150 MG TABLET 1 TABLET AT BEDTIME ORALLY ONCE A DAY TAKING AZITHROMYCIN (5 DAY) 250 MG TABLET 2 TABLETS ON THE FIRST DAY, THEN 1 TABLET DAILY FOR 4 DAYS ORALLY ONCE A DAY, NOTES: [facility] TAKING PREDNISONE 20 MG TABLET 1 TABLET ORALLY THREE TIMES DAILY, NOTES: UCC TAKING ALBUTEROL SULFATE HFA 108 (90 BASE) MCG/ACT AEROSOL SOLUTION 2 PUFFS NEEDED INHALATION EVERY 4 HRS, NOTES: UCC TAKING METOPROLOL SUCCINATE ER 50 MG TABLET EXTENDED RELEASE 24 HOUR 1 TABLET ORALLY ONCE A DAY TAKING LISINOPRIL 5 MG TABLET 1 TABLET ORALLY ONCE A DAY TAKING ASPIRIN 81 MG TABLET DELAYED RELEASE 1 TABLET ORALLY ONCE A DAY TAKING CLARITIN 10 MG TABLET 1 TABLET ORALLY ONCE A DAY TAKING TOPAMAX 50 MG TABLET 1 TABLET ORALLY TWICE A DAY TAKING GUAIFENESIN-CODEINE 100-10 MG/5ML SOLUTION 10 ML NEEDED ORALLY AT BEDTIME MEDICATION LIST REVIEWED AND RECONCILED WITH THE PATIENT PAST MEDICAL HISTORY HEPATITIS C ULCERATIVE COLITIS : SHARATH CHRONIC BACK PAIN MILD HEART ATTACK ACUTE TOXIC ENCEPHALOPATHY SECONDARY TO OPIATES ALLERGIES CEFAZOLIN SODIUM: RASH: ALLERGY SURGICAL HISTORY TONSILS/ADENOIDS/TUBES HYSTERECTOMY BILATERAL CARPAL TUNNEL BACK SURGERY DORSAL COLUMN STIMULATOR TOTAL HIP REPLACEMENT RIGHT D & C X2 COLONOSCOPY: SHARATH: DIVERTICULOSIS 05/2016 EGD: SHARATH: SMALL HIATAL HERNIA 05/2016 PARAFOMIS INJ - DR. AMOR HOSPITALIZATION/MAJOR DIAGNOSTIC PROCEDURE SYNCOPAL EPISODE 03/09-03/12/2016 JAUNDICE, ELECTROLYTE IMBALANCE 03/2016 REVIEW OF SYSTEMS REVIEWED BY: PROVIDER: RAGHAVENDRA LE . CONSTITUTIONAL: ANY CHANGE IN YOUR MEDICAL CONDITION? NO . CHILLS NO . FEVER NO . INFECTION: DO YOU HAVE NEW INFECTIONS? NO . DO YOU HAVE HISTORY OF MRSA? NO . MUSCULOSKELETAL: ANY NEW PATTERNS OF PAIN OR NUMBNESS? NO . GASTROENTEROLOGY: ANY NEW CHANGE IN BOWEL CONTROL? NO . GENITOURINARY: ANY NEW CHANGE IN BLADDER CONTROL? NO . IS THERE A CHANCE YOU COULD BE ? NO . HEMATOLOGY/LYMPH: DO YOU TAKE ANY BLOOD THINNERS? (FOR EXAMPLE- COUMADIN, PLAVIX, AGGRENOX, PLATEL, PRADAXA, OR XARELTO) NO . WHEN WAS YOUR LAST DOSE? DATE: TIME: . NEUROLOGY: HAVE YOU FALLEN IN THE PAST 6 MONTHS? NO . ANY NEW EXTREMITY NUMBNESS OR WEAKNESS? NO . CARDIOLOGY: DO YOU HAVE A PACEMAKER OR DEFIBRILLATOR? NO . RESPIRATORY: HAVE YOU BEEN SICK IN THE PAST WEEK? NO . FEVER NO . FLU LIKE SYMPTOMS? NO . COUGH NO . INTEGUMENTARY: DO YOU HAVE ANY RASHES OR OPEN SORES? NO . ALLERGIC/IMMUNO: ARE YOU ALLERGIC TO SHELLFISH OR IV DYE? NO . ANY NEW ALLERGIES? NO . PSYCHIATRIC: DO YOU HAVE THOUGHTS OF HURTING YOURSELF OR SOMEONE ELSE? NO . ARE YOU ABUSED, NEGLECTED, OR IN AN UNSAFE ENVIRONMENT? NO . ENDOCRINOLOGY: ARE YOU DIABETIC? NO . OTHER: DO YOU NEED ANY PRESCRIPTIONS? NO . IF YES, PLEASE LIST: ____ . ANY NEW PROBLEMS WITH YOUR MEDICATIONS? NO . WHEN DID YOU LAST EAT? ____ . WHEN DID YOU LAST DRINK? ____ . WHAT DID YOU LAST DRINK? ____ . NAME OF PERSON DRIVING YOU HOME? ____ . DO YOU HAVE ANY OTHER QUESTIONS OR CONCERNS NO . VITAL SIGNS WT 160 LBS, HT 69", BMI 23.63 INDEX, BP 146/71 MM HG, HR 99 /MIN, RR 18 /MIN, TEMP 96.3 F, OXYGEN SAT % 99%, NA INITIALS SC 13:24, REVIEWED BY: EM. EXAMINATION GENERAL EXAMINATION: LUNGS:LUNG SOUNDS ARE CLEAR. HEART:HEART RATE REGULAR. MUSCULOSKELETAL:*, MUSCLE STRENGTH TESTING 4/5 BILATERAL LOWER EXTREMITIES., PALPATION: POSITIVE FOR MILD DISCOMFORT OVER L/S SPINE. POSITIVE FOR MILD DISCOMFORT OVER L/S PARASPINALS.SPECIFIC POINT TENDERNESS OVER RIGHT PIRIFORMIS.. DIAGNOSTIC: . ASSESSMENTS POST LAMINECTOMY SYNDROME - M96.1 (PRIMARY) CHRONIC PRESCRIPTION OPIATE USE - Z79.891 PIRIFORMIS MUSCLE PAIN - M79.1 TREATMENT POST LAMINECTOMY SYNDROME REFILL NORCO TABLET, 7.5-325 MG, 1 TABLET NEEDED, ORALLY, EVERY 6 HRS PRN FOR PAIN MDD3, 30 DAY(S), 100, REFILLS 0 INCREASE AMITRIPTYLINE HCL TABLET, 25 MG, 2, ORALLY, BEFORE BEDTIME, 30 DAY(S), 60, REFILLS 2 CONTINUE BACLOFEN TABLET, 10 MG, 1 TABLET WITH FOOD OR MILK, ORALLY PRN, THREE TIMES A DAY FOR SPASMS AND PAIN NOTES: RIGHT PIRIFORMIS INJECTION, ISTOP REGISTRY REVIEWED AND DEMNOSTRATES COMPLLIANCE. BRINGS IN MEDICATIONS WHICH IS APPROPRIATE FOR WHAT WAS DISPENSED. RECENT URINE TOXICOLOGY REVIEWED. NO UNAUTHORIZED MEDICATIONS. NO ILLICIT SUBSTANCES AND PRESCRIBED MEDICATIONS WERE PRESENT. , RISKS AND BENEFITS OF NARCOTIC/OPIOD MEDICATIONS WERE REVIEWED WITH PATIENT - THIS INCLUDES BUT IS NOT LIMITED TO RISK OF DEPENDANCE/DEVELOPMENT OF ADDICTION, MOOD DISTURBANCE AND DEPRESSION, OSTEOPOROSIS, HORMONAL AND LABIDAL CHANGES, RESPIRATORY DEPRESSION AND . PATIENT IS ADVISED NOT TO DRIVE WHILE ON THESE MEDICATIONS. PROCEDURE CODES FA211 ESTABILISHED PATIENT [facility] CHARGE DISPOSITION & COMMUNICATION FOLLOW UP 2WK POST (REASON: RIGHT PIRIFORMIS INJECTION) ELECTRONICALLY SIGNED BY REY CROCKETT ON 02/21/2017 AT 01:58 PM EDT DISCLAIMER : THIS IS A VISIT SUMMARY EXTRACTED FROM THE [facility] CHART. IT IS NOT A COPY OF THE [facility] PROGRESS NOTE. ROSY
== END | disposition home or self-care (01) ==
LOC: M PAIN 13:15
PROVIDERS: ATTEND Nurse Practitioner Family
DX: G89.29 Other chronic pain (principal); M96.1 Postlaminectomy syndrome, not elsewhere classified; M79.1 Myalgia; B18.2 Chronic viral hepatitis C; Z79.899 Other long term (current) drug therapy; Z79.82 Long term (current) use of aspirin; Z88.8 Allergy status to other drugs, medicaments and biological substances

== ENCOUNTER → 2017-03-12 | Outpatient (CLI) | payer OTHER ==
[~2017-03-12] MED LIST changes: +BUPIVACAINE HCL 0.25% 30 ML VIAL As Ordered ONE; +ISOVUE-M 300 61% 15ML VIAL (Q9967) As Ordered ONE; +LIDOCAINE 1% SDV INJ 30 ML VIAL As Ordered ONE; +TRIAMCINOLONE ACETONIDE SUSP 40 MG/ML VIAL (J3301) As Ordered ONE; +diazePAM 5 MG TAB As Ordered ONE; +oxyCODONE 5MG TAB As Ordered ONE
--- NOTE | 2017-03-12 16:34 | REP ---
Partial hip x-ray: Five views. History: Right piriformis injection for pain. 8 seconds of fluoroscopy time is reported. Findings: A sequence of five last image hold fluoroscopic spot radiographs of the right hip area document needle position and contrast injection associated with injection procedure. Signed by Garret Still MD 03/12/2017 05:04 P
--- NOTE | 2017-03-18 00:18 | ECWPNPC ---
PATIENT NAME: JUAN MIGUEL VALENCIA : 1960 GENDER: FEMALE VISIT DATE: 03/12/2017 DISCHARGE DATE: 03/12/17 1554 VISIT LOCKED DATE TIME: PHYSICIAN: SUSANNE AMOR RESOURCE: SUSANNE AMOR REASON FOR APPOINTMENT 1. RIGHT PIRIFORMIS INJECTION HISTORY OF PRESENT ILLNESS HISTORY OF PRESENT ILLNESS: PAIN THE PATIENT DESCRIBES THE PAIN... FALL RISK SCREENING: SCREENING :NO FALLS IN THE PAST YEAR CURRENT MEDICATIONS TAKING ALBUTEROL SULFATE HFA 108 (90 BASE) MCG/ACT AEROSOL SOLUTION 2 PUFFS NEEDED INHALATION EVERY 4 HRS, NOTES: 03/11/17 NOT-TAKING AZITHROMYCIN (5 DAY) 250 MG TABLET 2 TABLETS ON THE FIRST DAY, THEN 1 TABLET DAILY FOR 4 DAYS ORALLY ONCE A DAY, NOTES: U[facility] NOT-TAKING PREDNISONE 20 MG TABLET 1 TABLET ORALLY THREE TIMES DAILY, NOTES: UCC UNKNOWN GABAPENTIN 300 MG CAPSULE 1 CAPSULE ORALLY QID FOR PAIN, NOTES: 03/11/172299 UNKNOWN OXYBUTYNIN CHLORIDE 5 MG TABLET 1 TABLET ORALLY TWICE A DAY, NOTES: 03/11/172299 UNKNOWN DIPHENHYDRAMINE HCL 25 MG CAPSULE 1 CAPSULE NEEDED ORALLY BEFORE BEDTIME, NOTES: 03/11/172299 UNKNOWN ZANTAC 150 MG TABLET 1 TABLET AT BEDTIME ORALLY ONCE A DAY, NOTES: 03/11/172299 UNKNOWN METOPROLOL SUCCINATE ER 50 MG TABLET EXTENDED RELEASE 24 HOUR 1 TABLET ORALLY ONCE A DAY, NOTES: 03/11/172299 UNKNOWN LISINOPRIL 5 MG TABLET 1 TABLET ORALLY ONCE A DAY, NOTES: 03/11/172299 UNKNOWN ASPIRIN 81 MG TABLET DELAYED RELEASE 1 TABLET ORALLY ONCE A DAY, NOTES: 03/11/172299 UNKNOWN CLARITIN 10 MG TABLET 1 TABLET ORALLY ONCE A DAY, NOTES: 03/09/2017 UNKNOWN TOPAMAX 50 MG TABLET 1 TABLET ORALLY TWICE A DAY, NOTES: 03/11/17 UNKNOWN GUAIFENESIN-CODEINE 100-10 MG/5ML SOLUTION 10 ML NEEDED ORALLY AT BEDTIME, NOTES: 03/09/17 UNKNOWN NORCO 7.5-325 MG TABLET 1 TABLET NEEDED ORALLY EVERY 6 HRS PRN FOR PAIN MDD3, NOTES: 03/11/17 UNKNOWN AMITRIPTYLINE HCL 25 MG TABLET 2 ORALLY BEFORE BEDTIME, NOTES: 03/11/172299 UNKNOWN BACLOFEN 10 MG TABLET 1 TABLET WITH FOOD OR MILK ORALLY PRN THREE TIMES A DAY FOR SPASMS AND PAIN, NOTES: 03/11/17 2300 MEDICATION LIST REVIEWED AND RECONCILED WITH THE PATIENT PAST MEDICAL HISTORY HEPATITIS C ULCERATIVE COLITIS : SHARATH CHRONIC BACK PAIN MILD HEART ATTACK ACUTE TOXIC ENCEPHALOPATHY SECONDARY TO OPIATES ALLERGIES CEFAZOLIN SODIUM: RASH: ALLERGY SURGICAL HISTORY TONSILS/ADENOIDS/TUBES HYSTERECTOMY BILATERAL CARPAL TUNNEL BACK SURGERY DORSAL COLUMN STIMULATOR TOTAL HIP REPLACEMENT RIGHT D & C X2 COLONOSCOPY: SHARATH: DIVERTICULOSIS 05/2016 EGD: SHARATH: SMALL HIATAL HERNIA 05/2016 PARAFOMIS INJ - DR. AMOR HOSPITALIZATION/MAJOR DIAGNOSTIC PROCEDURE SYNCOPAL EPISODE 03/09-03/12/2016 JAUNDICE, ELECTROLYTE IMBALANCE 03/2016 REVIEW OF SYSTEMS REVIEWED BY: PROVIDER: . CONSTITUTIONAL: ANY CHANGE IN YOUR MEDICAL CONDITION? NO . CHILLS NO . FEVER NO . INFECTION: DO YOU HAVE NEW INFECTIONS? NO . DO YOU HAVE HISTORY OF MRSA? NO . MUSCULOSKELETAL: ANY NEW PATTERNS OF PAIN OR NUMBNESS? NO . GASTROENTEROLOGY: ANY NEW CHANGE IN BOWEL CONTROL? NO . GENITOURINARY: ANY NEW CHANGE IN BLADDER CONTROL? NO . IS THERE A CHANCE YOU COULD BE ? NO . HEMATOLOGY/LYMPH: DO YOU TAKE ANY BLOOD THINNERS? (FOR EXAMPLE- COUMADIN, PLAVIX, AGGRENOX, PLATEL, PRADAXA, OR XARELTO) NO . WHEN WAS YOUR LAST DOSE? DATE: TIME: . NEUROLOGY: HAVE YOU FALLEN IN THE PAST 6 MONTHS? NO . ANY NEW EXTREMITY NUMBNESS OR WEAKNESS? NO . CARDIOLOGY: DO YOU HAVE A PACEMAKER OR DEFIBRILLATOR? NO . RESPIRATORY: HAVE YOU BEEN SICK IN THE PAST WEEK? NO . FEVER NO . FLU LIKE SYMPTOMS? NO . COUGH NO . INTEGUMENTARY: DO YOU HAVE ANY RASHES OR OPEN SORES? NO . ALLERGIC/IMMUNO: ARE YOU ALLERGIC TO SHELLFISH OR IV DYE? NO . ANY NEW ALLERGIES? NO . PSYCHIATRIC: DO YOU HAVE THOUGHTS OF HURTING YOURSELF OR SOMEONE ELSE? NO . ARE YOU ABUSED, NEGLECTED, OR IN AN UNSAFE ENVIRONMENT? NO . ENDOCRINOLOGY: ARE YOU DIABETIC? NO . OTHER: DO YOU NEED ANY PRESCRIPTIONS? YES, GABAPENTIN 300 TID . IF YES, PLEASE LIST: ____ . ANY NEW PROBLEMS WITH YOUR MEDICATIONS? NO . WHEN DID YOU LAST EAT? 03/11/17 1800 . WHEN DID YOU LAST DRINK? 03/11/17 2300 . WHAT DID YOU LAST DRINK? TEA . NAME OF PERSON DRIVING YOU HOME? PARENTS . DO YOU HAVE ANY OTHER QUESTIONS OR CONCERNS NO . VITAL SIGNS WT 160 LBS, HT 69", BMI 23.63 INDEX, BP 162/70 MM HG, HR 98 /MIN, RR 18 /MIN, TEMP 99.3 F, OXYGEN SAT % 100%, NA INITIALS AW 1346. ASSESSMENTS MYALGIA - M79.1 (PRIMARY) TREATMENT MYALGIA NOTES: PREOPERATIVE DIAGNOSIS: RIGHT PIRIFORMIS SYNDROME. MYALGIA POSTOPERATIVE DIAGNOSIS: RIGHT PIRIFORMIS SYNDROME. MYALGIA PROCEDURE: RIGHT PIRIFORMIS MUSCLE BLOCK UNDER FLUOROSCOPIC GUIDANCE. ANESTHESIA: LOCAL. SURGEON: SUSANNE ARREAGA M.D. PREOPERATIVE NOTE: THE PATIENT HAS HISTORY OF CHRONIC LOW BACK PAIN. I EVALUATED THE PATIENT AND REVIEWED THE CHART. WE BOTH AGREED ON PERFORMING A RIGHT PIRIFORMIS MUSCLE BLOCK UNDER FLUOROSCOPIC GUIDANCE. I WENT THROUGH THE RISKS, ALTERNATIVES AND BENEFITS ASSOCIATED WITH THIS PROCEDURE AND THE PATIENT EXPRESSED THAT SHE WOULD LIKE TO PROCEED. THE PATIENT DENIES UNEXPLAINABLE WEIGHT LOSS, FEVER, CHILLS, OR CHANGES IN URINARY OR BOWEL CONTROL. PROCEDURE NOTE: AFTER CONSENT WAS TAKEN, THE PATIENT WAS BROUGHT TO THE PROCEDURE ROOM AND THE PATIENT WAS PLACED IN THE PRONE POSITION. THE LUMBOSACRAL AREA WAS CLEANED WITH CHLORAPREP SOLUTION AND DRAPED ASEPTICALLY. THE PROCEDURE WAS DONE UNDER STERILE CONDITIONS. LATERALITY WAS CHECK WITH THE PATIENT AND THE STAFF AT THE TIME OF TIME OUT. UNDER FLUOROSCOPIC GUIDANCE, THE TARGET POINT WAS SELECTED AT THE MIDDLE AREA BETWEEN THE RIGHT GREATER TROCHANTER OF THE FEMUR AND THE BORDER OF THE SACRUM. LIDOCAINE WAS USED TO NUMB THE SKIN AND THE SUBCUTANEOUS TISSUE BELOW IT. A SPINAL NEEDLE 22 GAUGE, WAS ADVANCED UNDER FLUOROSCOPIC GUIDANCE TO THE SUBSTANCE OF THE LEFT PIRIFORMIS MUSCLE. WHEN APPROPRIATE POSITION OF THE NEEDLE WAS ACHIEVED, ISOVUE-M DYE 30%, 0.25 ML, WAS INJECTED SHOWING ADEQUATE SPREAD OF THE DYE. THEN A SOLUTION OF 30 ML OF BUPIVACAINE, 0.25%, AND KENALOG 40 MG WAS INJECTED. THERE WAS NO EVIDENCE OF BLOOD, PARESTHESIAS OR CEREBROSPINAL FLUID. THE PATIENT WAS SENT TO THE RECOVERY ROOM WHERE SHE WAS MOVING HER EXTREMITIES AND DOING WELL. THERE WERE NO COMPLICATIONS DURING THE PROCEDURE. FLUOROSCOPY TIME WAS 8 SECONDS. POSTOPERATIVE NOTE: I DISCUSSED ALTERNATIVES WITH THE PATIENT. I AM LOOKING FOR LONG-LASTING PAIN RELIEF WITH THIS INTERVENTION. THERE WERE NO COMPLICATIONS. FURTHER RECOMMENDATIONS DEPEND ON HOW THE PATIENT DOES. INSTRUCTIONS WERE GIVEN QUESTIONS WERE ANSWERED PATIENT REPORTS UNDERSTANDING AND AGREES WITH THE PLAN I, LESTER LUCIO, DOCUMENTED THE ABOVE INFORMATION ACTING A SCRIBE FOR DR. AMOR. I HAVE REVIEWED THE ABOVE DOCUMENT, WRITTEN BY LESTER LUCIO SCRIBMaria T AND I VERIFY THAT IT IS ACCURATE. DIAGNOSTIC IMAGING [facility] FLUORO GUIDANCE (PAIN)5997614 PROCEDURE CODES 91648 INJ TRIGGER POINT 1/2 [facility] [address]509 NEEDLE LOCALIZATION BY XRAY, MODIFIERS: 26 [id number] RADXPS IN END [id number] PXD DISPOSITION & COMMUNICATION FOLLOW UP 3 WEEKS ELECTRONICALLY SIGNED BY SUSANNE AMOR MD ON 03/17/2017 AT 03:26 PM EDT DISCLAIMER : THIS IS A VISIT SUMMARY EXTRACTED FROM THE [facility] CHART. IT IS NOT A COPY OF THE [facility] PROGRESS NOTE. MTDD
== END ==
LOC: M PAIN 13:45
PROVIDERS: ATTEND Anesthesiology
DX: M79.1 Myalgia (principal); G89.29 Other chronic pain; M54.5 Low back pain; I10 Essential (primary) hypertension; Z79.82 Long term (current) use of aspirin; Z79.891 Long term (current) use of opiate analgesic; Z79.899 Other long term (current) drug therapy; Z88.1 Allergy status to other antibiotic agents
CPT/HCPCS: 20552; J3301; Q9967

== ENCOUNTER → 2017-06-23 | Outpatient (REF) | payer OTHER ==
[2017-06-23 15:43] LABS: BASO % 0.7 % (0.0-1.0); EOS % 0.7 % (0.0-3.0); HEMATOCRIT 39.5 % (36.0-47.0); HEMOGLOBIN 13.5 g/dl (12.0-16.0); IMMATURE GRANULOCYTE % 0.7 % (0-0); LYMPH # 0.9 10^3/uL (1.5-4.5); LYMPH % 19.2 % (24.0-44.0); MEAN CORPUSCULAR HEMOGLOBIN 32.5 pg (27.0-33.0); MEAN CORPUSCULAR HGB CONC 34.2 g/dl (32.0-36.5); MEAN CORPUSCULAR VOLUME 95.2 fl (80.0-96.0); MONO # 0.4 10^3/uL (0.0-0.8); MONO % 8.1 % (0.0-5.0); NEUTROPHILS # 3.2 10^3/uL (1.8-7.7); NEUTROPHILS % 70.6 % (36.0-66.0); PLATELET COUNT, AUTOMATED 215 10^3/uL (150-450); RED BLOOD COUNT 4.15 10^6/uL (4.00-5.40); RED CELL DISTRIBUTION WIDTH 12.5 % (11.5-14.5); WHITE BLOOD COUNT 4.5 10^3/uL (4.0-10.0)
[2017-06-23 15:46] LABS: ALBUMIN 4.2 GM/DL (3.2-5.2); ALBUMIN/GLOBULIN RATIO 1.17 (1.00-1.93); ALKALINE PHOSPHATASE 84 U/L (45-117); ALT/SGPT 12 U/L (12-78); AST/SGOT 17 U/L (7-37); BILIRUBIN,DIRECT 0.3 MG/DL (0.0-0.2); TOTAL PROTEIN 7.8 GM/DL (6.4-8.2)
[2017-06-26 10:14] LABS: HEPATITIS C QUANTITATION HCV Not Detected IU/mL (.)
== END ==
LOC: M SFHCPLAZ 13:11
DX: B18.2 Chronic viral hepatitis C (principal)
CPT/HCPCS: 80076

== ENCOUNTER → 2017-08-05 | Outpatient (CLI) | payer OTHER | LOC: M PAIN 14:30 | DX: M51.36 Other intervertebral disc degeneration, lumbar region (principal); G89.29 Other chronic pain; R21 Rash and other nonspecific skin eruption; Z79.82 Long term (current) use of aspirin; Z79.891 Long term (current) use of opiate analgesic; Z79.899 Other long term (current) drug therapy; Z88.8 Allergy status to other drugs, medicaments and biological substances | CPT/HCPCS: G0463 ==

== ENCOUNTER → 2017-09-16 | Outpatient (CLI) | payer OTHER | LOC: M PAIN 11:15 | DX: G57.01 Lesion of sciatic nerve, right lower limb (principal); M51.36 Other intervertebral disc degeneration, lumbar region; G89.29 Other chronic pain; K51.90 Ulcerative colitis, unspecified, without complications; I25.10 Atherosclerotic heart disease of native coronary artery without angina pectoris; G43.909 Migraine, unspecified, not intractable, without status migrainosus; Z79.891 Long term (current) use of opiate analgesic; Z79.82 Long term (current) use of aspirin; Z79.899 Other long term (current) drug therapy; Z88.8 Allergy status to other drugs, medicaments and biological substances; Z96.641 Presence of right artificial hip joint; Z86.19 Personal history of other infectious and parasitic diseases | CPT/HCPCS: G0463 ==

== ENCOUNTER → 2017-09-25 | Outpatient (CLI) | payer OTHER ==
[~2017-09-25] MED LIST changes: -AMIT25TA PO; -ASPI325T PO; -ATOR1TAB21 PO; -BACL10TA2 PO; -BENA25CA2 PO; +BUPIVACAINE HCL 0.25% 30 ML VIAL As Ordered; -BUPIVACAINE HCL 0.25% 30 ML VIAL As Ordered ONE; -CIPR-249 PO; -CLOP75TA2 PO; -FLAG500T PO; +ISOVUE-M 300 61% 15ML VIAL (Q9967) As Ordered; -ISOVUE-M 300 61% 15ML VIAL (Q9967) As Ordered ONE; +LIDOCAINE 1% SDV INJ 30 ML VIAL As Ordered; -LIDOCAINE 1% SDV INJ 30 ML VIAL As Ordered ONE; -LISI-542 PO; -LOMO2.5T PO; -METO1TAB7 PO; -METO1TAB87 PO; -MORP15TASA PO; -NEUR300C PO; -NORC7.5T35 PO; -OXYB5TAB10 PO; -PROAAER10 INH; -TOPR50TA PO; -TRAM50TA2 PO; +TRIAMCINOLONE ACETONIDE SUSP 40 MG/ML VIAL (J3301) As Ordered; -TRIAMCINOLONE ACETONIDE SUSP 40 MG/ML VIAL (J3301) As Ordered ONE; -TYLE1TAB5 PO; +diazePAM 5 MG TAB As Ordered; -diazePAM 5 MG TAB As Ordered ONE; +oxyCODONE 5MG TAB As Ordered; -oxyCODONE 5MG TAB As Ordered ONE
== END ==
LOC: M PAIN 10:15
DX: G89.29 Other chronic pain (principal); M79.1 Myalgia; G57.01 Lesion of sciatic nerve, right lower limb; K51.90 Ulcerative colitis, unspecified, without complications; G43.909 Migraine, unspecified, not intractable, without status migrainosus; I25.2 Old myocardial infarction; Z79.82 Long term (current) use of aspirin; Z79.899 Other long term (current) drug therapy; Z88.8 Allergy status to other drugs, medicaments and biological substances
CPT/HCPCS: J3301

== ENCOUNTER → 2017-10-08 | Outpatient (REF) | payer OTHER ==
[2017-10-08 16:22] LABS: ANION GAP 9 MEQ/L (8-16); BLOOD UREA NITROGEN 18 MG/DL (7-18); CALCIUM LEVEL 9.6 MG/DL (8.5-10.1); CARBON DIOXIDE LEVEL 23 MEQ/L (21-32); CHLORIDE LEVEL 108 MEQ/L (98-107); GLOMERULAR FILTRATION RATE > 60.0 (>51); GLUCOSE, FASTING 81 MG/DL (70-100); POTASSIUM SERUM 4.6 MEQ/L (3.5-5.1); SODIUM LEVEL 140 MEQ/L (136-145)
== END ==
LOC: M SFHCPLAZ 13:43
DX: I10 Essential (primary) hypertension (principal)
CPT/HCPCS: 80048

== ENCOUNTER → 2017-10-14 | Outpatient (CLI) | payer OTHER | LOC: M PAIN 13:45 | DX: G57.01 Lesion of sciatic nerve, right lower limb (principal); M51.36 Other intervertebral disc degeneration, lumbar region; G89.29 Other chronic pain; I25.2 Old myocardial infarction; G43.909 Migraine, unspecified, not intractable, without status migrainosus; Z79.82 Long term (current) use of aspirin; Z79.891 Long term (current) use of opiate analgesic; Z79.899 Other long term (current) drug therapy; Z88.8 Allergy status to other drugs, medicaments and biological substances; Z86.19 Personal history of other infectious and parasitic diseases | CPT/HCPCS: G0463 ==

== ENCOUNTER → 2017-11-20 | Outpatient (CLI) | payer OTHER | LOC: M PAIN 09:45 | DX: G57.01 Lesion of sciatic nerve, right lower limb (principal); M51.36 Other intervertebral disc degeneration, lumbar region; I10 Essential (primary) hypertension; Z79.82 Long term (current) use of aspirin; Z79.891 Long term (current) use of opiate analgesic; Z79.899 Other long term (current) drug therapy; Z88.8 Allergy status to other drugs, medicaments and biological substances; Z86.19 Personal history of other infectious and parasitic diseases | CPT/HCPCS: G0463 ==

== ENCOUNTER → 2017-12-11 | Outpatient (CLI) | payer OTHER | LOC: M RAD 08:39 | DX: Z12.31 Encounter for screening mammogram for malignant neoplasm of breast (principal) | CPT/HCPCS: 77067 ==

== ENCOUNTER → 2017-12-15 | Outpatient (CLI) | payer OTHER ==
[~2017-12-15] MED LIST changes: -TRIAMCINOLONE ACETONIDE SUSP 40 MG/ML VIAL (J3301) As Ordered; -diazePAM 5 MG TAB As Ordered; -oxyCODONE 5MG TAB As Ordered
== END ==
LOC: M PAIN 11:45
DX: G89.29 Other chronic pain (principal); M47.817 Spondylosis without myelopathy or radiculopathy, lumbosacral region; I25.2 Old myocardial infarction; G43.909 Migraine, unspecified, not intractable, without status migrainosus; Z79.82 Long term (current) use of aspirin; Z79.899 Other long term (current) drug therapy; Z88.8 Allergy status to other drugs, medicaments and biological substances; Z86.19 Personal history of other infectious and parasitic diseases; Z96.641 Presence of right artificial hip joint
CPT/HCPCS: Q9967

== ENCOUNTER → 2018-01-08 | Outpatient (CLI) | payer OTHER | LOC: M PAIN 15:15 | DX: G57.01 Lesion of sciatic nerve, right lower limb (principal); M51.36 Other intervertebral disc degeneration, lumbar region; G43.909 Migraine, unspecified, not intractable, without status migrainosus; K51.90 Ulcerative colitis, unspecified, without complications; Z79.891 Long term (current) use of opiate analgesic; Z79.82 Long term (current) use of aspirin; Z79.899 Other long term (current) drug therapy; I25.2 Old myocardial infarction; Z88.8 Allergy status to other drugs, medicaments and biological substances | CPT/HCPCS: G0463 ==

== ENCOUNTER → 2018-01-26 | Outpatient (REF) | payer OTHER | LOC: M SFHCPLAZ 09:58 | DX: Z13.220 Encounter for screening for lipoid disorders (principal); Z53.9 Procedure and treatment not carried out, unspecified reason ==

== ENCOUNTER → 2018-03-12 | Outpatient (CLI) | payer OTHER ==
[~2018-03-12] MED LIST changes: +TRIAMCINOLONE ACETONIDE SUSP 40 MG/ML VIAL (J3301) As Ordered; +diazePAM 5 MG TAB As Ordered; +diphenhydrAMINE 25 MG CAP As Ordered; +oxyCODONE 5MG TAB As Ordered
== END ==
LOC: M PAIN 14:15
DX: M79.18 Myalgia, other site (principal); G57.01 Lesion of sciatic nerve, right lower limb; G43.909 Migraine, unspecified, not intractable, without status migrainosus; I25.2 Old myocardial infarction; I10 Essential (primary) hypertension; Z79.82 Long term (current) use of aspirin; Z79.891 Long term (current) use of opiate analgesic; Z79.899 Other long term (current) drug therapy; Z88.8 Allergy status to other drugs, medicaments and biological substances
CPT/HCPCS: J3301

== ENCOUNTER → 2018-03-26 | Outpatient (CLI) | payer OTHER | LOC: M PAIN 13:00 | DX: G57.01 Lesion of sciatic nerve, right lower limb (principal); M51.36 Other intervertebral disc degeneration, lumbar region; M25.551 Pain in right hip; G89.29 Other chronic pain; I25.2 Old myocardial infarction; G43.909 Migraine, unspecified, not intractable, without status migrainosus; I10 Essential (primary) hypertension; Z79.82 Long term (current) use of aspirin; Z79.899 Other long term (current) drug therapy; Z88.8 Allergy status to other drugs, medicaments and biological substances; Z87.19 Personal history of other diseases of the digestive system; Z86.19 Personal history of other infectious and parasitic diseases | CPT/HCPCS: G0463 ==

== ENCOUNTER → 2018-04-23 | Outpatient (CLI) | payer OTHER | LOC: M RAD 13:22 | DX: M25.551 Pain in right hip (principal); Z13.220 Encounter for screening for lipoid disorders; Z98.890 Other specified postprocedural states | CPT/HCPCS: 73502 ==

== ENCOUNTER → 2018-04-23 | Outpatient (CLI) | payer OTHER ==
[2018-04-23 14:57] LABS: CHOLESTEROL LEVEL 147 MG/DL (<200); HDL CHOLESTEROL 60 MG/DL (>40); LDL CHOLESTEROL 73 MG/DL (<100); NON-HDL-C 87 MG/DL; TRIGLYCERIDES LEVEL 72 MG/DL (<150)
== END ==
LOC: M LAB 13:11
DX: Z13.220 Encounter for screening for lipoid disorders (principal)

== ENCOUNTER → 2018-04-24 | Outpatient (CLI) | payer OTHER | LOC: M PAIN 11:15 | DX: M51.16 Intervertebral disc disorders with radiculopathy, lumbar region (principal); M96.1 Postlaminectomy syndrome, not elsewhere classified; K51.90 Ulcerative colitis, unspecified, without complications; G43.909 Migraine, unspecified, not intractable, without status migrainosus; I10 Essential (primary) hypertension; I25.2 Old myocardial infarction; Z96.641 Presence of right artificial hip joint; Z79.82 Long term (current) use of aspirin; Z79.899 Other long term (current) drug therapy; Z88.1 Allergy status to other antibiotic agents | CPT/HCPCS: G0463 ==

== ENCOUNTER → 2018-06-25 | Outpatient (CLI) | payer OTHER ==
[~2018-06-25] MED LIST changes: +AMIT25TA PO; +ASPI325T PO; +ATOR1TAB21 PO; +BACL10TA2 PO; +BENA25CA2 PO; -BUPIVACAINE HCL 0.25% 30 ML VIAL As Ordered; +BUPIVACAINE HCL 0.25% 30 ML VIAL As Ordered ONE; +CIPR-249 PO; +CLOP75TA2 PO; +FLAG500T PO; -ISOVUE-M 300 61% 15ML VIAL (Q9967) As Ordered; +ISOVUE-M 300 61% 15ML VIAL (Q9967) As Ordered ONE; -LIDOCAINE 1% SDV INJ 30 ML VIAL As Ordered; +LIDOCAINE 1% SDV INJ 30 ML VIAL As Ordered ONE; +LISI-542 PO; +LOMO2.5T PO; +METO1TAB7 PO; +METO1TAB87 PO; +MORP15TASA PO; +NEUR300C PO; +NORC7.5T35 PO; +OXYB5TAB10 PO; +PROAAER10 INH; +TOPR50TA23 PO; +TRAM50TA2 PO; -TRIAMCINOLONE ACETONIDE SUSP 40 MG/ML VIAL (J3301) As Ordered; +TRIAMCINOLONE ACETONIDE SUSP 40 MG/ML VIAL (J3301) As Ordered ONE; +TYLE1TAB5 PO; -diazePAM 5 MG TAB As Ordered; +diazePAM 5 MG TAB As Ordered ONE; -diphenhydrAMINE 25 MG CAP As Ordered; +diphenhydrAMINE 25 MG CAP As Ordered ONE; -oxyCODONE 5MG TAB As Ordered; +oxyCODONE 5MG TAB As Ordered ONE
--- NOTE | 2018-06-25 16:15 | REP ---
Partial right hip series: Eight views. History: Right piriformis injection for pain. 20 seconds of fluoroscopy time is reported. Findings: A sequence of eight last image hold fluoroscopically obtained spot radiographs of the right hip document needle position and contrast injection associated with piriformis injection procedure. Electronically Signed by Garret Still MD 06/25/2018 06:17 P
--- NOTE | 2018-07-13 00:36 | ECWPNPC ---
PATIENT NAME: JUAN MIGUEL VALENCIA : 1960 GENDER: FEMALE VISIT DATE: 06/25/2018 DISCHARGE DATE: 06/25/18 1450 VISIT LOCKED DATE TIME: PHYSICIAN: SUSANNE AMOR MD RESOURCE: SUSANNE AMOR MD REASON FOR APPOINTMENT 1. RIGHT PIRIFORMIS INJECTION HISTORY OF PRESENT ILLNESS HISTORY OF PRESENT ILLNESS: PAIN THE PATIENT DESCRIBES THE PAIN... FALL RISK SCREENING: SCREENING :NO FALLS IN THE PAST YEAR CURRENT MEDICATIONS TAKING LIDOCAINE 2 % GEL ONE APPLICATION EXTERNALLY/LOW BACK TWICE DAILY NEEDED, NOTES: WEEKS AGO TAKING CLARITIN 10 MG TABLET 1 TABLET ORALLY ONCE A DAY IN AM, NOTES: 2 WEEKS AGO TAKING ASPERCREME W/LIDOCAINE 4 % CREAM 1 APPLICATION TO AFFECTED AREA ON CHEST WALL EXTERNALLY 4 TIMES A DAY NEEDED, NOTES: MONTH AGO TAKING LEVOCETIRIZINE DIHYDROCHLORIDE 5 MG TABLET 1 TABLET IN THE EVENING ORALLY ONCE A DAY NEEDED, NOTES: MONTHS AGO TAKING METOPROLOL SUCCINATE ER 50 MG TABLET EXTENDED RELEASE 24 HOUR 1 TABLET ORALLY ONCE A DAY, NOTES: 06/24/181999 TAKING ASPIRIN 81 MG TABLET DELAYED RELEASE 1 TABLET ORALLY ONCE A DAY, NOTES: 06/24/181999 TAKING GABAPENTIN 300 MG CAPSULE 1 CAPSULE ORALLY QID FOR PAIN, NOTES: 06/24/181999 TAKING HYDROXYZINE HCL 50 MG TABLET 1 TABLET NEEDED ORALLY BEFORE BEDTIME, NOTES: 06/24/181999 TAKING LISINOPRIL 5 MG TABLET 1 TABLET ORALLY ONCE A DAY, NOTES: 06/24/181999 TAKING TOPIRAMATE 50 MG TABLET 1 TABLET ORALLY TWICE A DAY, NOTES: 06/24/181999 TAKING NORCO 7.5-325 MG TABLET 1 TABLET NEEDED ORALLY Q6H PRN MDD4, NOTES: 0600 TAKING BACLOFEN 10 MG TABLET 1 TABLET WITH FOOD OR MILK ORALLY PRN THREE TIMES A DAY FOR SPASMS AND PAIN, NOTES: 06/24/181999 TAKING AMITRIPTYLINE HCL 25 MG TABLET 2 TABLET ORALLY BEFORE BEDTIME, NOTES: 06/24/181999 MEDICATION LIST REVIEWED AND RECONCILED WITH THE PATIENT PAST MEDICAL HISTORY HEPATITIS C - DR. FATIMA TREATED WITH 8 WEEKS HARVONI EORX 12/2016, GENOTYPE 1A HCV RNA 1110 ULCERATIVE COLITIS- DR. EARLY CHRONIC BACK PAIN - FOLLOWS WITH PAIN CLINIC "MILD" VT DUE TO HIGH BP WITH SUBSEQUENT NORMAL STRESS TEST H/O ACUTE TOXIC ENCEPHALOPATHY SECONDARY TO OPIATES MIGRAINE HEADACHES H/O SHINGLES HYPERTENSION ALLERGIES CEFAZOLIN SODIUM: RASH: ALLERGY SURGICAL HISTORY TONSILS/ADENOIDS/TUBES HYSTERECTOMY FOR MENORRHAGIA BILATERAL CARPAL TUNNEL BACK SURGERY DORSAL COLUMN STIMULATOR TOTAL HIP REPLACEMENT RIGHT D & C X2 COLONOSCOPY: SHARATH: DIVERTICULOSIS 05/2016 EGD: SHARATH: SMALL HIATAL HERNIA 05/2016 PARAFORMIS INJ - DR. AMOR FAMILY HISTORY FATHER: ALIVE 82 YRS, COPD, GWEN CELL, DIAGNOSED WITH HYPERTENSION MOTHER: ALIVE 81 YRS, DIAGNOSED WITH HYPERTENSION SIBLINGS: BROTHER: HTN SISTER: HEP C, HTN SON(S): ANXIETY AND DEPRESSION DAUGHTER(S): PITUITARY TUMOR, MIGRAINE, SEIZURE DISORDER 1 BROTHER(S) , 1 SISTER(S) . 1 SON(S) , 1 DAUGHTER(S) . SOCIAL HISTORY GENERAL: TOBACCO USE ARE YOU A:NONSMOKER ALCOHOL SCREENING DID YOU HAVE A DRINK CONTAINING ALCOHOL IN THE PAST YEAR?YES HOW MANY DRINKS DID YOU HAVE ON A TYPICAL DAY WHEN YOU WERE DRINKING IN THE PAST YEAR?1 OR 2 (0 POINTS) HOW OFTEN DID YOU HAVE A DRINK CONTAINING ALCOHOL IN THE PAST YEAR?TWO TO FOUR TIMES A MONTH (2 POINTS) POINTS2 INTERPRETATIONNEGATIVE RECREATIONAL DRUG USE DRUG USE?NO PATIENT DENIES ABUSE OR MISSUSED OF ANY MEDICATION. PATIENT DENIES USE OF ANY ILLEGAL SUBSTANCE INCLUDING MARIJUANA OR COCAINE. CAFFEINE CAFFEINE USE?YES HOW OFTEN AND HOW MUCH? DAILY SEXUAL HX HAD SEX IN THE LAST 12 MONTHS (VAGINAL, ORAL, OR ANAL)?NO HAVE YOU EVER HAD AN STD?NO HIV / HEP-C SCREENING HIV TEST OFFERED TO PATIENT:YES DATE OFFERED:09/02/2016 TEST ACCEPTED: PREV TESTED HEP-C TEST OFFERED TO PATIENT:YES DATE OFFERED:09/02/2016 TEST ACCEPTED: PREV TESTED AMISH [id number] [employer] LANGUAGE LANGUAGES SPOKEN:LIBY[place] EDUCATION LEVEL OF EDUCATION:COLLEGE LEARNING BARRIERS / SPECIAL NEEDS CHANGE FROM LAST VISIT?NO BARRIERS TO LEARNING?NO HEARING IMPAIRED?NO VISION IMPAIRED?YES COGNITIVELY IMPAIRED?NO :CORRECTIVE LENSES READINESS TO LEARN?YES LEARNING PREFERENCES?NO LEARNING CAPABILITIES PRESENT?YES EMOTIONAL BARRIERS?NO SPECIAL DEVICES?NO HOUSING COURT JUDGE NEEDED?NO OCCUPATION: DIABLED. DIET: REGULAR. EXERCISE: WALKS. MARITAL STATUS: .. OTHERS AT HOME: CHILDREN. NEW PATIENT PAIN DIARY TODAY'S VISIT NOTES, FROM 0-10, WHAT LEVEL IS YOUR PAIN TODAY? 0. PAIN CLINIC PFS, CLERGY, PUBLIC HEALTH REFERRALS HAS THE PATIENT BEEN EDUCATED REGARDING HIS/HER PLAN OF CARE?YES HAS THE PATIENT BEEN EDUCATED REGARDING PAIN, THE RISK FOR PAIN, THE IMPORTANCE OF EFFECTIVE PAIN MANAGEMENT, AND THE PAIN ASSESSMENT PROCESS?YES ADVANCE DIRECTIVE ADVANCE DIRECTIVE DISCUSSED WITH PATIENT:YES PT HAS NO ADVANCED DIRECTIVES, DECLINES HCP INFORMATION AT THIS TIME REVIEWED WITH PT 03/12/18 1507 LASREVIEWED WITH PATIENT 03/26/18 1332 JSREVIEWED WITH PATIENT 05/26/18 1358 JSREVIEWED WITH PATIENT 06/25/18 1320 JS. HOSPITALIZATION/MAJOR DIAGNOSTIC PROCEDURE SYNCOPAL EPISODE 03/09-03/12/2016 JAUNDICE, ELECTROLYTE IMBALANCE 03/2016 REVIEW OF SYSTEMS REVIEWED BY: PROVIDER: . CONSTITUTIONAL: ANY CHANGE IN YOUR MEDICAL CONDITION? NO . CHILLS NO . FEVER NO . INFECTION: DO YOU HAVE NEW INFECTIONS? NO . DO YOU HAVE HISTORY OF MRSA? NO . MUSCULOSKELETAL: ANY NEW PATTERNS OF PAIN OR NUMBNESS? NO . GASTROENTEROLOGY: ANY NEW CHANGE IN BOWEL CONTROL? NO . GENITOURINARY: ANY NEW CHANGE IN BLADDER CONTROL? NO . IS THERE A CHANCE YOU COULD BE ? NO . HEMATOLOGY/LYMPH: DO YOU TAKE ANY BLOOD THINNERS? (FOR EXAMPLE- COUMADIN, PLAVIX, AGGRENOX, PLATEL, PRADAXA, OR XARELTO) NO . WHEN WAS YOUR LAST DOSE? DATE: TIME: . NEUROLOGY: HAVE YOU FALLEN IN THE PAST 12 MONTHS? NO . ANY NEW EXTREMITY NUMBNESS OR WEAKNESS? NO . CARDIOLOGY: DO YOU HAVE A PACEMAKER OR DEFIBRILLATOR? NO . RESPIRATORY: HAVE YOU BEEN SICK IN THE PAST WEEK? NO . FEVER NO . FLU LIKE SYMPTOMS? NO . COUGH NO . INTEGUMENTARY: DO YOU HAVE ANY RASHES OR OPEN SORES? NO . ALLERGIC/IMMUNO: ARE YOU ALLERGIC TO IV DYE? NO . ANY NEW ALLERGIES? NO . PSYCHIATRIC: DO YOU HAVE THOUGHTS OF HURTING YOURSELF OR SOMEONE ELSE? NO . ARE YOU ABUSED, NEGLECTED, OR IN AN UNSAFE ENVIRONMENT? NO . ENDOCRINOLOGY: ARE YOU DIABETIC? NO . OTHER: DO YOU NEED ANY PRESCRIPTIONS? NO . IF YES, PLEASE LIST: ____ . ANY NEW PROBLEMS WITH YOUR MEDICATIONS? NO . WHEN DID YOU LAST EAT? ____06/24/18 1800 . WHEN DID YOU LAST DRINK? ____06/24/18 2300 . WHAT DID YOU LAST DRINK? ____WATER, DIET COKE . NAME OF PERSON DRIVING YOU HOME? ____FATHER . DO YOU HAVE ANY OTHER QUESTIONS OR CONCERNS NO . VITAL SIGNS WT 159.6 LBS, HT 69 IN, BMI 23.57 INDEX, BP 134/77 MM HG, HR 71 /MIN, RR 18 /MIN, TEMP 97.7 F, OXYGEN SAT % 99%, SAFE IN ENV? (Y/N) YES, NA INITIALS WA 11:35, REVIEWED BY: HOLDEN. 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 MYALGIAPOSTOPERATIVE DIAGNOSIS: RIGHT PIRIFORMIS SYNDROME. MYALGIAPROCEDURE: RIGHT PIRIFORMIS MUSCLE BLOCK UNDER FLUOROSCOPIC GUIDANCE.ANESTHESIA: LOCAL.SURGEON: SUSANNE ARREAGA M.D.PREOPERATIVE NOTE: THE PATIENT HAS HISTORY OF CHRONIC LOW BACK PAIN. I EVALUATED THE PATIENT AND REVIEWED THE CHART. WE BOTH AGREED ON PERFORMING A RIGHT PIRIFORMIS MUSCLE BLOCK UNDER FLUOROSCOPIC GUIDANCE. I WENT THROUGH THE RISKS, ALTERNATIVES AND BENEFITS ASSOCIATED WITH THIS PROCEDURE AND THE PATIENTEXPRESSED THAT SHE WOULD LIKE TO PROCEED. THE PATIENT DENIES UNEXPLAINABLE WEIGHT LOSS, FEVER, CHILLS, OR CHANGES IN URINARY OR BOWEL CONTROL.PROCEDURE NOTE: AFTER CONSENT WAS TAKEN, THE PATIENT WAS BROUGHT TO THE PROCEDURE ROOM AND THE PATIENT WAS PLACED IN THE PRONE POSITION. THE LUMBOSACRAL AREA WAS CLEANED WITH CHLORAPREP SOLUTION AND DRAPED ASEPTICALLY. THE PROCEDURE WAS DONE UNDER STERILE CONDITIONS. LATERALLITY WAS CHECK WITH THE PATIENT AND THE STAFF AT THE TIME OF TIME OUT. UNDER FLUOROSCOPIC GUIDANCE, THE TARGET POINT WAS SELECTED AT THE MIDDLE AREA BETWEEN THE RIGHT GREATER TROCHANTER OF THE FEMUR AND THE BORDER OF THE SACRUM. LIDOCAINE WAS USED TO NUMB THE SKIN AND THE SUBCUTANEOUS TISSUE BELOW IT. A SPINAL NEEDLE 22 GAUGE, WAS ADVANCED UNDER FLUOROSCOPIC GUIDANCE TO THE SUBSTANCE OF THE RIGHT PIRIFORMIS MUSCLE. WHEN APPROPRIATE POSITION OF THE NEEDLE WAS ACHIEVED, ISOVUE-M DYE 30%, 0.25 ML, WAS INJECTED SHOWING ADEQUATE SPREAD OF THE DYE. THEN A SOLUTION OF 30 ML OF BUPIVACAINE, 0.25%, AND KENALOG 40 MG WAS INJECTED. THERE WAS NO EVIDENCE OF BLOOD, PARESTHESIAS OR CEREBROSPINAL FLUID. THE PATIENT WAS SENT TO THE RECOVERY ROOM WHERE SHE WAS MOVING HER EXTREMITIES AND DOING WELL. THERE WERE NO COMPLICATIONS DURING THE PROCEDURE. FLUOROSCOPY TIME WAS 20 SECONDS.POSTOPERATIVE NOTE: I DISCUSSED ALTERNATIVES WITH THE PATIENT. I AM LOOKING FOR LONG-LASTING PAIN RELIEF WITH THIS INTERVENTION. THERE WERE NO COMPLICATIONS. FURTHER RECOMMENDATIONS DEPEND ON HOW THE PATIENT DOES. INSTRUCTIONS WERE GIVEN QUESTIONS WERE ANSWERED PATIENT REPORTS UNDERSTANDING AND AGREES WITH THE PLAN. I, IBETH DOTY, DOCUMENTED THE ABOVE INFORMATION ACTING A SCRIBE FOR DR. AMOR. I HAVE REVIEWED THE ABOVE DOCUMENT, WRITTEN BY IBETH ARAIZAIBMaria T AND I VERIFY THAT IT IS ACCURATE. DIAGNOSTIC IMAGING [facility] FLUORO GUIDANCE (PAIN)[id number] PROCEDURE CODES 6045F RADXPS IN END [id number] PXD 72518 INJ TRIGGER POINT 06/10 [facility] 92973 NEEDLE LOCALIZATION BY REGINA, MODIFIERS: 26 DISPOSITION & COMMUNICATION FOLLOW UP 3 WEEKS ELECTRONICALLY SIGNED BY SUSANNE AMOR MD, ON 07/12/2018 AT 05:47 PM EST DISCLAIMER : THIS IS A VISIT SUMMARY EXTRACTED FROM THE [facility] CHART. IT IS NOT A COPY OF THE [facility] PROGRESS NOTE. MTDBetty
== END ==
LOC: M PAIN 11:15
PROVIDERS: ATTEND Anesthesiology
DX: M79.18 Myalgia, other site (principal); G57.01 Lesion of sciatic nerve, right lower limb; I10 Essential (primary) hypertension; G43.909 Migraine, unspecified, not intractable, without status migrainosus; Z79.82 Long term (current) use of aspirin; Z79.899 Other long term (current) drug therapy; Z88.8 Allergy status to other drugs, medicaments and biological substances; Z96.641 Presence of right artificial hip joint; Z86.19 Personal history of other infectious and parasitic diseases; Z87.19 Personal history of other diseases of the digestive system
CPT/HCPCS: 20552; 77002; J3301; Q9967

== ENCOUNTER 2018-07-26 19:14 | Emergency (ER) | payer MEDICARE, OTHER ==
[~2018-07-26] VITALS: Ht 154.9 cm; Wt 70.5 kg
[~2018-07-26 19:14] MED LIST changes: -BUPIVACAINE HCL 0.25% 30 ML VIAL As Ordered ONE; -ISOVUE-M 300 61% 15ML VIAL (Q9967) As Ordered ONE; -LIDOCAINE 1% SDV INJ 30 ML VIAL As Ordered ONE; -TRIAMCINOLONE ACETONIDE SUSP 40 MG/ML VIAL (J3301) As Ordered ONE; -diazePAM 5 MG TAB As Ordered ONE; -diphenhydrAMINE 25 MG CAP As Ordered ONE; -oxyCODONE 5MG TAB As Ordered ONE
[2018-07-26] MEDS ORDERED: HYDRO50TAB (19:29)
[2018-07-26] MEDS ORDERED: HYDR-3716 (19:29)
[2018-07-26] MEDS ORDERED: TOPI50TA9 (19:29)
[2018-07-26 19:46] LABS: BASO % 0.5 % (0.0-1.0); EOS # 0.2 10^3/uL (0.0-0.50); EOS % 2.2 % (0.0-3.0); HEMATOCRIT 35.4 % (36.0-47.0); HEMOGLOBIN 12.4 g/dl (12.0-15.5); LYMPH # 2.7 10^3/uL (1.5-4.5); LYMPH % 35.4 % (24.0-44.0); MEAN CORPUSCULAR HEMOGLOBIN 33.1 pg (27.0-33.0); MEAN CORPUSCULAR VOLUME 94.4 fl (80.0-96.0); MONO # 0.6 10^3/uL (0.0-0.8); MONO % 7.4 % (0.0-5.0); NEUTROPHILS # 4.1 10^3/uL (1.8-7.7); NEUTROPHILS % 54.1 % (36.0-66.0); PLATELET COUNT, AUTOMATED 218 10^3/uL (150-450); RED BLOOD COUNT 3.75 10^6/uL (4.00-5.40); WHITE BLOOD COUNT 7.6 10^3/uL (4.0-10.0)
[2018-07-26] MEDS ORDERED: NS 1,000 ML IV ONE ×2 (20:00→22:00)
[2018-07-26 20:02] LABS: INR 1.02; PROTHROMBIN TIME 13.5 SECONDS (12.1-14.4)
[2018-07-26 20:05] LABS: D-DIMER QUANT 539.3 ng/ml (<500)
[2018-07-26] MEDS ORDERED: ONDANSETRON 4MG/2ML VIAL (J2405) IV ONE (20:15)
[2018-07-26 20:16] LABS: ALBUMIN 3.8 GM/DL (3.2-5.2); ALT/SGPT 20 U/L (12-78); BILIRUBIN,TOTAL 0.5 MG/DL (0.2-1.0); BLOOD UREA NITROGEN 15 MG/DL (7-18); CALCIUM LEVEL 9.1 MG/DL (8.5-10.1); CARBON DIOXIDE LEVEL 24 MEQ/L (21-32); CHLORIDE LEVEL 104 MEQ/L (98-107); CPK CREATINE PHOSPHOKINASE 70 U/L (26-192); CREATININE FOR GFR 1.46 MG/DL (0.55-1.30); ETHYL ALCOHOL (ETHANOL) 0.031 % (0.000-0.010); GLOMERULAR FILTRATION RATE 39.2 (>51); GLUCOSE, FASTING 80 MG/DL (70-100); LIPASE 106 U/L (73-393); MB/CK RELATIVE INDEX 2.29 (< OR =4); POTASSIUM SERUM 3.6 MEQ/L (3.5-5.1); SODIUM LEVEL 138 MEQ/L (136-145); TOTAL PROTEIN 7.4 GM/DL (6.4-8.2); TROPONIN I < 0.02 NG/ML (< 0.10)
[2018-07-26] MEDS ORDERED: ISOVUE-370 76% 100ML VIAL (Q9967) As Ordered ONE (20:32)
--- NOTE | 2018-07-26 21:37 | REPVR ---
EXAM: CT Angiography Chest With Contrast EXAM DATE/TIME: 07/26/2018 8:39 PM CLINICAL HISTORY: 58 years old, female; Pain; Chest pain; Additional info: Chest pain, d-dimer TECHNIQUE: Axial computed tomographic angiography images of the chest with intravenous contrast using CT angiography protocol. All CT scans at this facility use at least one of these dose optimization techniques: automated exposure control; mA and/or kV adjustment per patient size (includes targeted exams where dose is matched to clinical indication); or iterative reconstruction. Coronal and sagittal reformatted images were created and reviewed. MIP reconstructed images were created and reviewed. CONTRAST: 75 ml of ISO 370 administered intravenously. COMPARISON: CT Chest with contrast 03/09/2016 2:02 AM FINDINGS: Tubes, catheters and devices: A neuro stimulating device is noted within the spinal canal at level T8- Pulmonary arteries: Normal. No pulmonary emboli. Aorta: Normal. No aortic aneurysm. No aortic dissection. Lungs: 3.7 mm pulmonary nodule in the right midlung field adjacent to the minor fissure. No change. 2 mm pulmonary nodule adjacent to the major fissure in the left midlung field. No change. Pleural space: Normal. No pneumothorax. No pleural effusion. Heart: Normal. No cardiomegaly. No pericardial effusion. Mediastinum: A small air-fluid level noted within the distal esophagus suggests gastroesophageal reflux. Upper abdomen: Bulla noted in the left lower lobe at the level of the diaphragm. Lymph nodes: Unremarkable. No enlarged lymph nodes. Bones/joints: There is a bony bridge between the anterior seventh and eighth ribs. Focal deformity of the mid sternal body represents a healed fracture. A sternal fracture was demonstrated on CT scan dated 03/09/2016. 7 mm area of sclerosis noted in the spinous process of the T5 unchanged from previous. Soft tissues: Unremarkable. IMPRESSION: 1. No acute pulmonary embolism. 2. Bilateral pulmonary nodules that are unchanged from previous. No additional followup required 3. Air-fluid levels distal esophagus suggests gastroesophageal reflux. Electronically signed by: Kenna Martínez On 07/26/2018 21:36:49 PM
[2018-07-26 23:36] LABS: CPK CREATINE PHOSPHOKINASE 91 U/L (26-192); MB/CK RELATIVE INDEX 2.86 (< OR =4); TROPONIN I < 0.02 NG/ML (< 0.10)
[2018-07-27 00:34] VITALS: BP 127/64
--- NOTE | 2018-07-27 08:09 | REP ---
AP PORTABLE CHEST: 07/26/2018. Clinical history: Chest pain. Comparison: CT chest 03/09/2016. Findings: Two dorsal column stimulator leads extend to the mid thoracic region as on previous CT chest. The lung phan are well inflated. Some patchy zone of fibrosis or atelectatic change in the left CP angle. Bases are otherwise clear. There is no definite infiltrate or atelectasis elsewhere. Heart is not grossly enlarged for portable technique. There is no pulmonary edema. The aorta is mildly tortuous. Aorta intact. Airway midline. No mediastinal or hilar mass. Bones unremarkable. Impression: 1. Some patchy atelectasis or scarring of the left CP angle without definite acute infiltrate or effusion. No other fibrotic or atelectatic changes, parenchymal masses or pleural thickening. 2. No cardiomegaly or edema. 3. Dorsal column stimulator leads in the mid chest as before. Electronically Signed by Jamal Navarro MD 07/27/2018 09:27 A
--- NOTE | 2018-07-27 20:54 | ECGEPIP ---
Stationary ECG Study [facility] - ED Test Date: 2018-07-26 Pat Name: JUAN MIGUEL VALENCIA Department: Room: - Gender: F Director Social Welfare: [place] : 1960 Requested By: GAGE Hernández Order Number: [id number] Reading MD: Yesenia Light Measurements Intervals [place] Rate: 78 P: 43 NV: 202 QRS: 1 QRSD: 98 T: 19 QT: 404 QTc: 462 Interpretive Statements SINUS RHYTHM POSSIBLE ANTERIOR MYOCARDIAL INFARCTION, PROBABLY OLD INFERIOR MYOCARDIAL INFARCTION, PROBABLY OLD CLINICAL CORRELATION Electronically Signed On 07-27-2018 20:54:01 EST by Yesenia Light
--- NOTE | 2018-07-27 20:56 | ECGEPIP ---
Stationary ECG Study [facility] - ED Test Date: 2018-07-26 Pat Name: JUAN MIGUEL VALENCIA Department: Room: - Gender: F Office Clinician: [facility] : 1960 Requested By: GAGE Hernández Order Number: [id number] Reading MD: Yesenia Light Measurements Intervals [place] Rate: 77 P: 51 [place]: 214 QRS: -10 QRSD: 98 T: 3 QT: 404 QTc: 459 Interpretive Statements SINUS RHYTHM WITH FIRST DEGREE AV BLOCK LOW QRS VOLTAGE IN PRECORDIAL LEADS POSSIBLE ANTERIOR MYOCARDIAL INFARCTION, PROBABLY OLD INFERIOR MYOCARDIAL INFARCTION, PROBABLY OLD SIMILAR 19:25 Electronically Signed On 07-27-2018 20:55:56 EST by Yesenia Light
== END 2018-07-27 00:44 | disposition home or self-care (01) ==
LOC: M ED 19:14
DX: E86.0 Dehydration (principal); I10 Essential (primary) hypertension; R07.89 Other chest pain; I44.0 Atrioventricular block, first degree; R91.8 Other nonspecific abnormal finding of lung field; Z96.9 Presence of functional implant, unspecified; I25.2 Old myocardial infarction; G89.29 Other chronic pain; M54.9 Dorsalgia, unspecified; J30.2 Other seasonal allergic rhinitis; Z87.891 Personal history of nicotine dependence; Z79.82 Long term (current) use of aspirin; Z79.899 Other long term (current) drug therapy; Z88.1 Allergy status to other antibiotic agents
CPT/HCPCS: 71045; 71275; 80053; 82550; 82553; 83605; 83690; 84484; 85025; 85379; 85610; 93005; 93041; 94760; 96374; 99285; G0480; J2405; Q9967

== ENCOUNTER → 2018-07-29 | Outpatient (REF) | payer MEDICARE ==
[~2018-07-29] MED LIST changes: +HYDR-3716; +HYDRO50TAB; +TOPI50TA9
[2018-07-29 13:51] LABS: BLOOD UREA NITROGEN 11 MG/DL (7-18); CALCIUM LEVEL 9.3 MG/DL (8.5-10.1); CARBON DIOXIDE LEVEL 28 MEQ/L (21-32); CHLORIDE LEVEL 106 MEQ/L (98-107); CREATININE FOR GFR 0.54 MG/DL (0.55-1.30); GLOMERULAR FILTRATION RATE > 60.0 (>51); GLUCOSE, FASTING 68 MG/DL (70-100); POTASSIUM SERUM 4.1 MEQ/L (3.5-5.1); SODIUM LEVEL 140 MEQ/L (136-145)
[2018-07-31 00:08] LABS: Lyme Disease IgG/IgM Antibodie <0.91 ISR (0.00-0.90); Lyme Disease IgM Ab Quantitati <0.80 index (0.00-0.79)
== END ==
LOC: M SFHCPLAZ 11:43
PROVIDERS: ATTEND Family Medicine
DX: M25.562 Pain in left knee (principal); N17.9 Acute kidney failure, unspecified
CPT/HCPCS: 36415; 80048; 86617; G0463

== ENCOUNTER → 2018-08-10 | Outpatient (CLI) | payer MEDICARE ==
--- NOTE | 2018-08-10 18:36 | REP ---
Clinical: Pain and swelling without injury. Technique: AP, lateral, bilateral oblique and sunrise views left knee . Findings: Significant soft tissue swelling and moderate suprapatellar effusion are identified without evidence for acute fracture dislocation. Mild/moderate tricompartmental degenerative changes include subchondral sclerosis and small marginal spurring. Impression: Swelling and suprapatellar effusion. Mild/moderate tricompartmental degenerative changes. Electronically Signed by Jatin Rice MD 08/10/2018 06:28 P
== END ==
LOC: M WUC 11:57
PROVIDERS: ATTEND Physician Assistant
DX: M25.462 Effusion, left knee (principal); M17.12 Unilateral primary osteoarthritis, left knee

== ENCOUNTER → 2018-09-18 | Outpatient (CLI) | payer MEDICARE ==
[~2018-09-18] MED LIST changes: +ASPI-1 PO; -ASPI325T PO; +NORC1TAB8 PO; -NORC7.5T35 PO; +TOPR50TA PO; -TOPR50TA23 PO
--- NOTE | 2018-09-18 23:42 | ECWPNPC ---
PATIENT NAME: JUAN MIGUEL VALENCIA : 1960 GENDER: FEMALE VISIT DATE: 09/18/2018 DISCHARGE DATE: 09/18/18 1421 VISIT LOCKED DATE TIME: PHYSICIAN: RAGHAVENDRA SAN RESOURCE: RAGHAVENDRA SAN REASON FOR APPOINTMENT 1. BACK/HIP HISTORY OF PRESENT ILLNESS HISTORY OF PRESENT ILLNESS: HERE FOR F/U OF CHRONIC LOW BACK PAIN AND RIGHT HIP PAIN.RECENT XRAY OF HIPS WNL.RATING PAIN VAS 4/10.HERE FOR POST PROCEDURE F/U.HAD RIGHT PRIFORMIS INJECTION 06/25/18.REPORTING APPROXIMATLEY 6 WEEKS IMPROVEMENT THEN PAIN GRADUALLY RETURNED TO BASELINE. PAIN THE PATIENT DESCRIBES THE PAIN... FALL RISK SCREENING: SCREENING :NO FALLS REPORTED IN THE LAST YEAR CURRENT MEDICATIONS TAKING LIDOCAINE 2 % GEL ONE APPLICATION EXTERNALLY/LOW BACK TWICE DAILY NEEDED TAKING CLARITIN 10 MG TABLET 1 TABLET ORALLY ONCE A DAY NEEED TAKING ASPERCREME W/LIDOCAINE 4 % CREAM 1 APPLICATION TO AFFECTED AREA ON CHEST WALL EXTERNALLY 4 TIMES A DAY NEEDED TAKING LEVOCETIRIZINE DIHYDROCHLORIDE 5 MG TABLET 1 TABLET IN THE EVENING ORALLY ONCE A DAY NEEDED TAKING ASPIRIN 81 MG TABLET DELAYED RELEASE 1 TABLET ORALLY ONCE A DAY TAKING GABAPENTIN 300 MG CAPSULE 1 CAPSULE ORALLY QID FOR PAIN TAKING TOPIRAMATE 50 MG TABLET 1 TABLET ORALLY TWICE A DAY TAKING BACLOFEN 10 MG TABLET 1 TABLET WITH FOOD OR MILK ORALLY PRN THREE TIMES A DAY FOR SPASMS AND PAIN TAKING AMITRIPTYLINE HCL 25 MG TABLET 2 TABLET ORALLY BEFORE BEDTIME TAKING HYDROXYZINE HCL 50 MG TABLET 1 TABLET NEEDED ORALLY BEFORE BEDTIME TAKING NORCO 7.5-325 MG TABLET 1 TABLET NEEDED ORALLY Q6H PRN MDD4 TAKING OXYBUTYNIN CHLORIDE 5 MG TABLET 1 TABLET ORALLY TWICE A DAY TAKING COLACE 100 MG CAPSULE 1 CAPSULE NEEDED ORALLY ONCE A DAY TAKING METOPROLOL SUCCINATE ER 50 MG TABLET EXTENDED RELEASE 24 HOUR 1 TABLET ORALLY ONCE A DAY TAKING IBUPROFEN 800 MG TABLET 1 TABLET WITH FOOD OR MILK NEEDED ORALLY THREE TIMES A DAY MEDICATION LIST REVIEWED AND RECONCILED WITH THE PATIENT PAST MEDICAL HISTORY HEPATITIS C - DR. FATIMA TREATED WITH 8 WEEKS HARVONI EORX 12/2016, GENOTYPE 1A HCV RNA 1110 ULCERATIVE COLITIS- DR. EARLY CHRONIC BACK PAIN - FOLLOWS WITH PAIN CLINIC "MILD" [place] DUE TO HIGH BP WITH SUBSEQUENT NORMAL STRESS TEST H/O ACUTE TOXIC ENCEPHALOPATHY SECONDARY TO OPIATES MIGRAINE HEADACHES H/O SHINGLES HYPERTENSION ASCVD 10-YEAR RISK 1.9% IN 04/2018. HYPOTENSIVE EPISODE - 08/2018 ALLERGIES CEFAZOLIN SODIUM: RASH - ALLERGY SURGICAL HISTORY TONSILS/ADENOIDS/TUBES HYSTERECTOMY FOR MENORRHAGIA BILATERAL CARPAL TUNNEL BACK SURGERY DORSAL COLUMN STIMULATOR TOTAL HIP REPLACEMENT RIGHT D & C X2 COLONOSCOPY: SHARATH: DIVERTICULOSIS 05/2016 EGD: SHARATH: SMALL HIATAL HERNIA 05/2016 PARAFORMIS INJ - DR. AMOR FAMILY HISTORY FATHER: ALIVE 82 YRS, COPD, GWEN CELL, DIAGNOSED WITH HYPERTENSION MOTHER: ALIVE 81 YRS, HYPERTENSION SIBLINGS: BROTHER: HTN SISTER: HEP C, HTN SON(S): ANXIETY AND DEPRESSION DAUGHTER(S): PITUITARY TUMOR, MIGRAINE, SEIZURE DISORDER 1 BROTHER(S) , 1 SISTER(S) . 1 SON(S) , 1 DAUGHTER(S) . SOCIAL HISTORY GENERAL: TOBACCO USE ARE YOU A:NONSMOKER LATEX QUESTIONNAIRE LATEX ALLERGY : HAVE YOU EVER DEVELOPED ANY TYPE OF REACTION AFTER HANDLING LATEX PRODUCTS SUCH RUBBER GLOVES, CONDOMS, DIAPHRAGMS, BALLOONS, SOCKS, OR UNDERWEAR?NO LATEX ALLERGY : HAVE YOU EVER DEVELOPED ANY TYPE OF REACTION DURING OR AFTER DENTAL APPOINTMENT, VAGINAL/RECTAL EXAMINATION, SURGICAL PROCEDURE, OR ANY OTHER EXPOSURE?NO LATEX RISK : HAVE YOU EVER HAD ANY DIFFICULTY BREATHING OR HIVES AFTER EATING OR HANDLING ANY FRUITS, OR VEGETABLES; SUCH KIWI, BANANAS, STONE FRUITS, OR CHESTNUTSNO LATEX RISK : DO YOU HAVE A PREVIOUS PERSONAL HISTORY OF MORE THAN NINE SURGERIES, SPINA BIFIDA, OR REPEATED CATHERTIZATIONS? NO LATEX RISK : ARE YOU FREQUENTLY EXPOSED TO LATEX PRODUCTS IN YOUR OCCUPATION?NO DATE ASKED : 09/18/2018 ALCOHOL SCREENING DID YOU HAVE A DRINK CONTAINING ALCOHOL IN THE PAST YEAR?YES HOW MANY DRINKS DID YOU HAVE ON A TYPICAL DAY WHEN YOU WERE DRINKING IN THE PAST YEAR?1 OR 2 (0 POINTS) HOW OFTEN DID YOU HAVE A DRINK CONTAINING ALCOHOL IN THE PAST YEAR?TWO TO FOUR TIMES A MONTH (2 POINTS) POINTS2 INTERPRETATIONNEGATIVE RECREATIONAL DRUG USE DRUG USE?NO PATIENT DENIES ABUSE OR MISSUSED OF ANY MEDICATION. PATIENT DENIES USE OF ANY ILLEGAL SUBSTANCE INCLUDING MARIJUANA OR COCAINE. CAFFEINE CAFFEINE USE?YES HOW OFTEN AND HOW MUCH? DAILY SEXUAL HX HAD SEX IN THE LAST 12 MONTHS (VAGINAL, ORAL, OR ANAL)?NO HAVE YOU EVER HAD AN STD?NO HIV / HEP-C SCREENING HIV TEST OFFERED TO PATIENT:YES DATE OFFERED:09/02/2016 TEST ACCEPTED: PREV TESTED HEP-C TEST OFFERED TO PATIENT:YES DATE OFFERED:09/02/2016 TEST ACCEPTED: PREV TESTED DENOMINATIONAL [id number] SHINTO LANGUAGE LANGUAGES SPOKEN:GIBRALTARIAN EDUCATION LEVEL OF EDUCATION:COLLEGE LEARNING BARRIERS / SPECIAL NEEDS CHANGE FROM LAST VISIT?NO BARRIERS TO LEARNING?NO HEARING IMPAIRED?NO VISION IMPAIRED?YES COGNITIVELY IMPAIRED?NO :CORRECTIVE LENSES READINESS TO LEARN?YES LEARNING PREFERENCES?NO LEARNING CAPABILITIES PRESENT?YES EMOTIONAL BARRIERS?NO SPECIAL DEVICES?NO TETRYL BOILING TUB OPERATOR NEEDED?NO DOMESTIC VIOLENCE STATUS: OCCUPATION: DIABLED. DIET: REGULAR. EXERCISE: WALKS. MARITAL STATUS: .. OTHERS AT HOME: CHILDREN. NEW PATIENT PAIN DIARY TODAY'S VISIT NOTES, FROM 0-10, WHAT LEVEL IS YOUR PAIN TODAY? 0. PAIN CLINIC PFS, CLERGY, PUBLIC HEALTH REFERRALS HAS THE PATIENT BEEN EDUCATED REGARDING HIS/HER PLAN OF CARE?YES HAS THE PATIENT BEEN EDUCATED REGARDING PAIN, THE RISK FOR PAIN, THE IMPORTANCE OF EFFECTIVE PAIN MANAGEMENT, AND THE PAIN ASSESSMENT PROCESS?YES ADVANCE DIRECTIVE ADVANCE DIRECTIVE DISCUSSED WITH PATIENT:YES PT HAS NO ADVANCED DIRECTIVES, DECLINES HCP INFORMATION AT THIS TIME. REVIEWED WITH PT 03/12/18 1507 LASREVIEWED WITH PATIENT 03/26/18 1332 JSREVIEWED WITH PATIENT 05/26/18 1358 JSREVIEWED WITH PATIENT 06/25/18 1320 JSREVIEWED WITH PATIENT 09/18/18 1324 JS. HOSPITALIZATION/MAJOR DIAGNOSTIC PROCEDURE SYNCOPAL EPISODE 03/09-03/12/2016 JAUNDICE, ELECTROLYTE IMBALANCE 03/2016 REVIEW OF SYSTEMS REVIEWED BY: PROVIDER: RAGHAVENDRA LE . CONSTITUTIONAL: ANY CHANGE IN YOUR MEDICAL CONDITION? YES, HYPOTENSIVE EPISODE IN AUGUST, WAS SEEN ED, BP DROPPED INTO 70/50. FOLLOWED UP WITH DR. ENGLAND, STOPPED LISINOPRIL . CHILLS NO . FEVER NO . INFECTION: DO YOU HAVE NEW INFECTIONS? NO . DO YOU HAVE HISTORY OF MRSA? NO . MUSCULOSKELETAL: ANY NEW PATTERNS OF PAIN OR NUMBNESS? NO . GASTROENTEROLOGY: ANY NEW CHANGE IN BOWEL CONTROL? NO . GENITOURINARY: ANY NEW CHANGE IN BLADDER CONTROL? NO . IS THERE A CHANCE YOU COULD BE ? NO . HEMATOLOGY/LYMPH: DO YOU TAKE ANY BLOOD THINNERS? (FOR EXAMPLE- COUMADIN, PLAVIX, AGGRENOX, PLATEL, PRADAXA, OR XARELTO) NO . WHEN WAS YOUR LAST DOSE? DATE: TIME: . NEUROLOGY: HAVE YOU FALLEN IN THE PAST 12 MONTHS? NO . ANY NEW EXTREMITY NUMBNESS OR WEAKNESS? NO . CARDIOLOGY: DO YOU HAVE A PACEMAKER OR DEFIBRILLATOR? NO . RESPIRATORY: HAVE YOU BEEN SICK IN THE PAST WEEK? NO . FEVER NO . FLU LIKE SYMPTOMS? NO . COUGH NO . INTEGUMENTARY: DO YOU HAVE ANY RASHES OR OPEN SORES? NO . ALLERGIC/IMMUNO: ARE YOU ALLERGIC TO IV DYE? NO . ANY NEW ALLERGIES? NO . PSYCHIATRIC: DO YOU HAVE THOUGHTS OF HURTING YOURSELF OR SOMEONE ELSE? NO . ARE YOU ABUSED, NEGLECTED, OR IN AN UNSAFE ENVIRONMENT? NO . ENDOCRINOLOGY: ARE YOU DIABETIC? NO . OTHER: DO YOU NEED ANY PRESCRIPTIONS? YES . IF YES, PLEASE LIST: ____NORCO, LIDOCAINE GEL . ANY NEW PROBLEMS WITH YOUR MEDICATIONS? NO . WHEN DID YOU LAST EAT? ____ . WHEN DID YOU LAST DRINK? ____ . WHAT DID YOU LAST DRINK? ____ . NAME OF PERSON DRIVING YOU HOME? ____ . DO YOU HAVE ANY OTHER QUESTIONS OR CONCERNS NO, SHINGLES AND PNEUMONIA VACCINES 2 WEEKS AGO . VITAL SIGNS WT 164.4 LBS, HT 69 IN, BMI 24.27 INDEX, BP 142/85 MM HG, HR 77 /MIN, RR 18 /MIN, TEMP 97.6 F, OXYGEN SAT % 96%, SAFE IN ENV? (Y/N) YES, NA INITIALS SC 13:11, REVIEWED BY: HOLDEN. EXAMINATION GENERAL EXAMINATION: LUNGS:LUNG SOUNDS ARE CLEAR. HEART:HEART RATE REGULAR. MUSCULOSKELETAL:*, MUSCLE STRENGTH TESTING 4/5 BILATERAL LOWER EXTREMITIES., PALPATION: POSITIVE FOR MILD DISCOMFORT OVER L/S SPINE. POSITIVE FOR MILD DISCOMFORT OVER L/S PARASPINALS.SPECIFIC POINT TENDERNESS OVER RIGHT BILAT. L3/4-L4/5 LUMBAR FACETS W FACET LOADING R>L.TENDERNESS OVER RIGHT RIGHT PRIFORMIS. 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 BRINGS IN MEDICATIONS WHICH IS APPROPRIATE FOR WHAT WAS DISPENSED. RECENT URINE TOXICOLOGY REVIEWED. NO UNAUTHORIZED MEDICATIONS. NO ILLICIT SUBSTANCES AND PRESCRIBED MEDICATIONS WERE PRESENT. , RISKS AND BENEFITS OF NARCOTIC/OPIOD MEDICATIONS WERE REVIEWED WITH PATIENT - THIS INCLUDES BUT IS NOT LIMITED TO RISK OF DEPENDANCE/DEVELOPMENT OF ADDICTION, MOOD DISTURBANCE AND DEPRESSION, OSTEOPOROSIS, HORMONAL AND LABIDAL CHANGES, RESPIRATORY DEPRESSION AND . PATIENT IS ADVISED NOT TO DRIVE OR DRINK ALCOHOL WHILE ON THESE MEDICATIONS. PROCEDURE CODES FA211 ESTABILISHED PATIENT [facility] CHARGE DISPOSITION & COMMUNICATION FOLLOW UP POST (REASON: RIGHT PIRIFORMIS INJECTION) ELECTRONICALLY SIGNED BY REY MANJARREZ ON 09/18/2018 AT 03:16 PM EDT DISCLAIMER : THIS IS A VISIT SUMMARY EXTRACTED FROM THE [employer] CHART. IT IS NOT A COPY OF THE [employer] PROGRESS NOTE. JOSÉ MIGUELD
== END ==
LOC: M PAIN 13:00
PROVIDERS: ATTEND Nurse Practitioner Family
DX: G57.01 Lesion of sciatic nerve, right lower limb (principal); G89.29 Other chronic pain; I10 Essential (primary) hypertension; I25.2 Old myocardial infarction; G43.909 Migraine, unspecified, not intractable, without status migrainosus; Z79.82 Long term (current) use of aspirin; Z79.899 Other long term (current) drug therapy; Z88.8 Allergy status to other drugs, medicaments and biological substances; Z96.641 Presence of right artificial hip joint; Z86.19 Personal history of other infectious and parasitic diseases; Z86.79 Personal history of other diseases of the circulatory system

== ENCOUNTER → 2018-10-21 | Outpatient (CLI) | payer MEDICARE ==
[~2018-10-21] MED LIST changes: +BUPIVACAINE HCL 0.25% 30 ML VIAL As Ordered ONE; +ISOVUE-M 300 61% 15ML VIAL (Q9967) As Ordered ONE; +LIDOCAINE 1% SDV INJ 30 ML VIAL As Ordered ONE; +TRIAMCINOLONE ACETONIDE SUSP 40 MG/ML VIAL (J3301) As Ordered ONE; +diazePAM 5 MG TAB As Ordered ONE; +diphenhydrAMINE 25 MG CAP As Ordered ONE; +oxyCODONE 5MG TAB As Ordered ONE
--- NOTE | 2018-10-21 16:53 | REP ---
Partial right hip series: Seven views. History: Right piriformis injection for pain. 7 seconds of fluoroscopy time is reported. Findings: A sequence of seven last image hold fluoroscopically obtained spot radiographs of the right pelvis document needle position and contrast injection associated with injection procedure. Electronically Signed by Garret Still MD 10/21/2018 07:05 P
--- NOTE | 2018-11-02 00:13 | ECWPNPC ---
PATIENT NAME: JUAN MIGUEL VALENCIA : 1960 GENDER: FEMALE VISIT DATE: 10/21/2018 DISCHARGE DATE: 10/21/18 1625 VISIT LOCKED DATE TIME: PHYSICIAN: SUSANNE AMOR MD RESOURCE: SUSANNE AMOR MD REASON FOR APPOINTMENT 1. RIGHT PIRIFORMIS INJECTION HISTORY OF PRESENT ILLNESS HISTORY OF PRESENT ILLNESS: PAIN THE PATIENT DESCRIBES THE PAIN... FALL RISK SCREENING: SCREENING :NO FALLS REPORTED IN THE LAST YEAR CURRENT MEDICATIONS TAKING CLARITIN 10 MG TABLET 1 TABLET ORALLY ONCE A DAY NEEED, NOTES: WEEKS AGO TAKING ASPERCREME W/LIDOCAINE 4 % CREAM 1 APPLICATION TO AFFECTED AREA ON CHEST WALL EXTERNALLY 4 TIMES A DAY NEEDED, NOTES: WEEKS AGO TAKING ASPIRIN 81 MG TABLET DELAYED RELEASE 1 TABLET ORALLY ONCE A DAY, NOTES: 0600 TAKING GABAPENTIN 300 MG CAPSULE 1 CAPSULE ORALLY QID FOR PAIN, NOTES: 10/20/18 PM TAKING TOPIRAMATE 50 MG TABLET 1 TABLET ORALLY TWICE A DAY, NOTES: 10/20/18 PM TAKING HYDROXYZINE HCL 50 MG TABLET 1 TABLET NEEDED ORALLY BEFORE BEDTIME, NOTES: 10/20/18 PM TAKING OXYBUTYNIN CHLORIDE 5 MG TABLET 1 TABLET ORALLY TWICE A DAY, NOTES: 10/20/18 PM TAKING COLACE 100 MG CAPSULE 1 CAPSULE NEEDED ORALLY ONCE A DAY, NOTES: WEEKS AGO TAKING METOPROLOL SUCCINATE ER 50 MG TABLET EXTENDED RELEASE 24 HOUR 1 TABLET ORALLY ONCE A DAY, NOTES: 10/20/18 PM TAKING IBUPROFEN 800 MG TABLET 1 TABLET WITH FOOD OR MILK NEEDED ORALLY THREE TIMES A DAY, NOTES: 5 DAYS AGO TAKING NORCO 7.5-325 MG TABLET 1 TABLET NEEDED ORALLY Q6H PRN MDD4, NOTES: 10/20/18 PM TAKING BACLOFEN 10 MG TABLET 1 TABLET WITH FOOD OR MILK ORALLY PRN THREE TIMES A DAY FOR SPASMS AND PAIN, NOTES: 10/20/18 PM TAKING AMITRIPTYLINE HCL 25 MG TABLET 2 TABLET ORALLY BEFORE BEDTIME, NOTES: 10/20/18 PM TAKING LIDOCAINE 2 % GEL ONE APPLICATION EXTERNALLY/LOW BACK TWICE DAILY NEEDED, NOTES: WEEKS AGO NOT-TAKING LEVOCETIRIZINE DIHYDROCHLORIDE 5 MG TABLET 1 TABLET IN THE EVENING ORALLY ONCE A DAY NEEDED MEDICATION LIST REVIEWED AND RECONCILED WITH THE PATIENT PAST MEDICAL HISTORY ULCERATIVE COLITIS- DR. EARLY HEPATITIS C - DR. FATIMA TREATED WITH 8 WEEKS HARVONI EORX 12/2016, GENOTYPE 1A HCV RNA 1110 CHRONIC BACK PAIN - FOLLOWS WITH PAIN CLINIC "MILD" [place] DUE TO HIGH BP WITH SUBSEQUENT NORMAL STRESS TEST H/O ACUTE TOXIC ENCEPHALOPATHY SECONDARY TO OPIATES MIGRAINE HEADACHES H/O SHINGLES HYPERTENSION ASCVD 10-YEAR RISK 1.9% IN 04/2018. HYPOTENSIVE EPISODE - 08/2018 LEFT KNEE ARTHRITIS ALLERGIES CEFAZOLIN SODIUM: RASH - ALLERGY SURGICAL HISTORY TONSILS/ADENOIDS/TUBES HYSTERECTOMY FOR MENORRHAGIA BILATERAL CARPAL TUNNEL BACK SURGERY DORSAL COLUMN STIMULATOR TOTAL HIP REPLACEMENT RIGHT D & C X2 COLONOSCOPY: SHARATH: DIVERTICULOSIS 05/2016 EGD: SHARATH: SMALL HIATAL HERNIA 05/2016 PARAFORMIS INJ - DR. AMOR FAMILY HISTORY FATHER: ALIVE 82 YRS, COPD, GWEN CELL, DIAGNOSED WITH HYPERTENSION MOTHER: ALIVE 81 YRS, HYPERTENSION SIBLINGS: BROTHER: HTN SISTER: HEP C, HTN SON(S): ANXIETY AND DEPRESSION DAUGHTER(S): PITUITARY TUMOR, MIGRAINE, SEIZURE DISORDER 1 BROTHER(S) , 1 SISTER(S) . 1 SON(S) , 1 DAUGHTER(S) . SOCIAL HISTORY GENERAL: TOBACCO USE ARE YOU A:NONSMOKER HIV / HEP-C SCREENING HIV TEST OFFERED TO PATIENT:YES DATE OFFERED:09/02/2016 TEST ACCEPTED: PREV TESTED HEP-C TEST OFFERED TO PATIENT:YES DATE OFFERED:09/02/2016 TEST ACCEPTED: PREV TESTED OTHERS AT HOME: CHILDREN. EDUCATION LEVEL OF EDUCATION:COLLEGE DIET: REGULAR. LANGUAGE LANGUAGES SPOKEN:SIERRA LEONEAN DOMESTIC VIOLENCE STATUS: NEW PATIENT PAIN DIARY TODAY'S VISIT NOTES, FROM 0-10, WHAT LEVEL IS YOUR PAIN TODAY? 0. RECREATIONAL DRUG USE DRUG USE?NO PATIENT DENIES ABUSE OR MISSUSED OF ANY MEDICATION. PATIENT DENIES USE OF ANY ILLEGAL SUBSTANCE INCLUDING MARIJUANA OR COCAINE. EXERCISE: WALKS. LEARNING BARRIERS / SPECIAL NEEDS CHANGE FROM LAST VISIT?NO BARRIERS TO LEARNING?NO HEARING IMPAIRED?NO VISION IMPAIRED?YES COGNITIVELY IMPAIRED?NO :CORRECTIVE LENSES READINESS TO LEARN?YES LEARNING PREFERENCES?NO LEARNING CAPABILITIES PRESENT?YES EMOTIONAL BARRIERS?NO SPECIAL DEVICES?NO BEHAVIORAL HEALTH TECH NEEDED?NO PAIN CLINIC PFS, CLERGY, PUBLIC HEALTH REFERRALS HAS THE PATIENT BEEN EDUCATED REGARDING HIS/HER PLAN OF CARE?YES HAS THE PATIENT BEEN EDUCATED REGARDING PAIN, THE RISK FOR PAIN, THE IMPORTANCE OF EFFECTIVE PAIN MANAGEMENT, AND THE PAIN ASSESSMENT PROCESS?YES LATEX QUESTIONNAIRE LATEX ALLERGY : HAVE YOU EVER DEVELOPED ANY TYPE OF REACTION AFTER HANDLING LATEX PRODUCTS SUCH RUBBER GLOVES, CONDOMS, DIAPHRAGMS, BALLOONS, SOCKS, OR UNDERWEAR?NO LATEX ALLERGY : HAVE YOU EVER DEVELOPED ANY TYPE OF REACTION DURING OR AFTER DENTAL APPOINTMENT, VAGINAL/RECTAL EXAMINATION, SURGICAL PROCEDURE, OR ANY OTHER EXPOSURE?NO DATE ASKED : 09/18/2018 LATEX RISK : HAVE YOU EVER HAD ANY DIFFICULTY BREATHING OR HIVES AFTER EATING OR HANDLING ANY FRUITS, OR VEGETABLES; SUCH KIWI, BANANAS, STONE FRUITS, OR CHESTNUTSNO LATEX RISK : DO YOU HAVE A PREVIOUS PERSONAL HISTORY OF MORE THAN NINE SURGERIES, SPINA BIFIDA, OR REPEATED CATHERTIZATIONS? NO LATEX RISK : ARE YOU FREQUENTLY EXPOSED TO LATEX PRODUCTS IN YOUR OCCUPATION?NO CAFFEINE CAFFEINE USE?YES HOW OFTEN AND HOW MUCH? DAILY ADVANCE DIRECTIVE ADVANCE DIRECTIVE DISCUSSED WITH PATIENT:YES PT HAS NO ADVANCED DIRECTIVES, DECLINES HCP INFORMATION AT THIS TIME. LATTER DAY [id number] YAZIDI MARITAL STATUS: .. ALCOHOL SCREENING DID YOU HAVE A DRINK CONTAINING ALCOHOL IN THE PAST YEAR?YES HOW MANY DRINKS DID YOU HAVE ON A TYPICAL DAY WHEN YOU WERE DRINKING IN THE PAST YEAR?1 OR 2 (0 POINTS) HOW OFTEN DID YOU HAVE A DRINK CONTAINING ALCOHOL IN THE PAST YEAR?TWO TO FOUR TIMES A MONTH (2 POINTS) POINTS2 INTERPRETATIONNEGATIVE OCCUPATION: DIABLED. SEXUAL HX HAD SEX IN THE LAST 12 MONTHS (VAGINAL, ORAL, OR ANAL)?NO HAVE YOU EVER HAD AN STD?NO REVIEWED WITH PT 03/12/18 1507 LASREVIEWED WITH PATIENT 03/26/18 1332 JSREVIEWED WITH PATIENT 05/26/18 1358 JSREVIEWED WITH PATIENT 06/25/18 1320 JSREVIEWED WITH PATIENT 09/18/18 1324 JSREVIEWED WITH PATIENT 10/21/18 1439 JS. HOSPITALIZATION/MAJOR DIAGNOSTIC PROCEDURE SYNCOPAL EPISODE 03/09-03/12/2016 JAUNDICE, ELECTROLYTE IMBALANCE 03/2016 REVIEW OF SYSTEMS REVIEWED BY: PROVIDER: . CONSTITUTIONAL: ANY CHANGE IN YOUR MEDICAL CONDITION? YES, LEFT KNEE ARTHRITIS . CHILLS NO . FEVER NO . INFECTION: DO YOU HAVE NEW INFECTIONS? NO . DO YOU HAVE HISTORY OF MRSA? NO . MUSCULOSKELETAL: ANY NEW PATTERNS OF PAIN OR NUMBNESS? NO . GASTROENTEROLOGY: ANY NEW CHANGE IN BOWEL CONTROL? NO . GENITOURINARY: ANY NEW CHANGE IN BLADDER CONTROL? NO . IS THERE A CHANCE YOU COULD BE ? NO . HEMATOLOGY/LYMPH: DO YOU TAKE ANY BLOOD THINNERS? (FOR EXAMPLE- COUMADIN, PLAVIX, AGGRENOX, PLATEL, PRADAXA, OR XARELTO) NO . WHEN WAS YOUR LAST DOSE? DATE: TIME: . NEUROLOGY: HAVE YOU FALLEN IN THE PAST 12 MONTHS? YES, STATES FALL DUE TO TRIPPING ON THE SIDEWALK, STATES NO INJURIES, NO ED VISIT . ANY NEW EXTREMITY NUMBNESS OR WEAKNESS? NO . CARDIOLOGY: DO YOU HAVE A PACEMAKER OR DEFIBRILLATOR? NO . RESPIRATORY: HAVE YOU BEEN SICK IN THE PAST WEEK? NO . FEVER NO . FLU LIKE SYMPTOMS? NO . COUGH NO . INTEGUMENTARY: DO YOU HAVE ANY RASHES OR OPEN SORES? NO . ALLERGIC/IMMUNO: ARE YOU ALLERGIC TO IV DYE? NO . ANY NEW ALLERGIES? NO . PSYCHIATRIC: DO YOU HAVE THOUGHTS OF HURTING YOURSELF OR SOMEONE ELSE? NO . ARE YOU ABUSED, NEGLECTED, OR IN AN UNSAFE ENVIRONMENT? NO . ENDOCRINOLOGY: ARE YOU DIABETIC? NO . OTHER: DO YOU NEED ANY PRESCRIPTIONS? NO . IF YES, PLEASE LIST: ____ . ANY NEW PROBLEMS WITH YOUR MEDICATIONS? NO . WHEN DID YOU LAST EAT? ____10/20/18 2300 . WHEN DID YOU LAST DRINK? ____10/21/18 0600 . WHAT DID YOU LAST DRINK? ____WATER . NAME OF PERSON DRIVING YOU HOME? ____NAY BELL . DO YOU HAVE ANY OTHER QUESTIONS OR CONCERNS NO . VITAL SIGNS WT 165.2 LBS, HT 69 IN, BMI 24.39 INDEX, BP 147/100 MM HG, REPEAT BP 147/85MANUAL, HR 77 /MIN, RR 18 /MIN, TEMP 96.6 F, OXYGEN SAT % 97%, SAFE IN ENV? (Y/N) YES, NA INITIALS OK 13:02, REVIEWED BY: HOLDEN. 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 MYALGIAPOSTOPERATIVE DIAGNOSIS: RIGHT PIRIFORMIS SYNDROME. MYALGIAPROCEDURE: RIGHT PIRIFORMIS MUSCLE BLOCK UNDER FLUOROSCOPIC GUIDANCE.ANESTHESIA: LOCAL.SURGEON: Hector SANTOSD.PREOPERATIVE NOTE: THE PATIENT HAS HISTORY OF CHRONIC LOW BACK PAIN. I EVALUATED THE PATIENT AND REVIEWED THE CHART. WE BOTH AGREED ON PERFORMING A RIGHT PIRIFORMIS MUSCLE BLOCK UNDER FLUOROSCOPIC GUIDANCE. I WENT THROUGH THE RISKS, ALTERNATIVES AND BENEFITS ASSOCIATED WITH THIS PROCEDURE AND THE PATIENTEXPRESSED THAT SHE WOULD LIKE TO PROCEED. THE PATIENT DENIES UNEXPLAINABLE WEIGHT LOSS, FEVER, CHILLS, OR CHANGES IN URINARY OR BOWEL CONTROL.PROCEDURE NOTE: AFTER CONSENT WAS TAKEN, THE PATIENT WAS BROUGHT TO THE PROCEDURE ROOM AND THE PATIENT WAS PLACED IN THE PRONE POSITION. THE LUMBOSACRAL AREA WAS CLEANED WITH CHLORAPREP SOLUTION AND DRAPED ASEPTICALLY. THE PROCEDURE WAS DONE UNDER STERILE CONDITIONS. LATERALLITY WAS CHECK WITH THE PATIENT AND THE STAFF AT THE TIME OF TIME OUT. UNDER FLUOROSCOPIC GUIDANCE, THE TARGET POINT WAS SELECTED AT THE MIDDLE AREA BETWEEN THE RIGHT GREATER TROCHANTER OF THE FEMUR AND THE BORDER OF THE SACRUM. LIDOCAINE WAS USED TO NUMB THE SKIN AND THE SUBCUTANEOUS TISSUE BELOW IT. A SPINAL NEEDLE 22 GAUGE, WAS ADVANCED UNDER FLUOROSCOPIC GUIDANCE TO THE SUBSTANCE OF THE RIGHT PIRIFORMIS MUSCLE. WHEN APPROPRIATE POSITION OF THE NEEDLE WAS ACHIEVED, ISOVUE-M DYE 30%, 0.25 ML, WAS INJECTED SHOWING ADEQUATE SPREAD OF THE DYE. THEN A SOLUTION OF 30 ML OF BUPIVACAINE, 0.25%, AND KENALOG 40 MG WAS INJECTED. THERE WAS NO EVIDENCE OF BLOOD, PARESTHESIAS OR CEREBROSPINAL FLUID. THE PATIENT WAS SENT TO THE RECOVERY ROOM WHERE SHE WAS MOVING HER EXTREMITIES AND DOING WELL. THERE WERE NO COMPLICATIONS DURING THE PROCEDURE. FLUOROSCOPY TIME WAS 7 SECONDS.POSTOPERATIVE NOTE: I DISCUSSED ALTERNATIVES WITH THE PATIENT. I AM LOOKING FOR LONG-LASTING PAIN RELIEF WITH THIS INTERVENTION. THERE WERE NO COMPLICATIONS. FURTHER RECOMMENDATIONS DEPEND ON HOW THE PATIENT DOES. INSTRUCTIONS WERE GIVEN QUESTIONS WERE ANSWERED PATIENT REPORTS UNDERSTANDING AND AGREES WITH THE PLAN. I, IBETH DOTY, DOCUMENTED THE ABOVE INFORMATION ACTING A SCRIBE FOR DR. AMOR. I HAVE REVIEWED THE ABOVE DOCUMENT, WRITTEN BY IBETH JOSEPH AND I VERIFY THAT IT IS ACCURATE. PROCEDURE CODES 6045F RADXPS IN END [id number] PXD [id number] NEEDLE LOCALIZATION BY XRAY, MODIFIERS: INJ TRIGGER POINT 06/10 MUSCL, MODIFIERS: RT DISPOSITION & COMMUNICATION FOLLOW UP 3 WEEKS ELECTRONICALLY SIGNED BY SUSANNE AMOR MD, MD ON 11/01/2018 AT 06:53 AM EDT DISCLAIMER : THIS IS A VISIT SUMMARY EXTRACTED FROM THE [employer] CHART. IT IS NOT A COPY OF THE [employer] PROGRESS NOTE. ROSY
== END ==
LOC: M PAIN 13:00
PROVIDERS: ATTEND Anesthesiology
DX: M79.18 Myalgia, other site (principal); G57.01 Lesion of sciatic nerve, right lower limb; I25.2 Old myocardial infarction; I10 Essential (primary) hypertension; G43.909 Migraine, unspecified, not intractable, without status migrainosus; M17.12 Unilateral primary osteoarthritis, left knee; Z79.82 Long term (current) use of aspirin; Z79.899 Other long term (current) drug therapy; Z88.8 Allergy status to other drugs, medicaments and biological substances; Z86.19 Personal history of other infectious and parasitic diseases; Z87.738 Personal history of other specified (corrected) congenital malformations of digestive system
CPT/HCPCS: 20552; 77002; J3301; Q9967

== ENCOUNTER → 2018-11-12 | Outpatient (CLI) | payer MEDICARE ==
[~2018-11-12] MED LIST changes: -BUPIVACAINE HCL 0.25% 30 ML VIAL As Ordered ONE; -ISOVUE-M 300 61% 15ML VIAL (Q9967) As Ordered ONE; -LIDOCAINE 1% SDV INJ 30 ML VIAL As Ordered ONE; -TRIAMCINOLONE ACETONIDE SUSP 40 MG/ML VIAL (J3301) As Ordered ONE; -diazePAM 5 MG TAB As Ordered ONE; -diphenhydrAMINE 25 MG CAP As Ordered ONE; -oxyCODONE 5MG TAB As Ordered ONE
--- NOTE | 2018-12-01 01:31 | ECWPNPC ---
PATIENT NAME: JUAN MIGUEL VALENCIA : 1960 GENDER: FEMALE VISIT DATE: 11/12/2018 DISCHARGE DATE: 11/12/18 1423 VISIT LOCKED DATE TIME: PHYSICIAN: RAGHAVENDRA SAN RESOURCE: RAGHAVENDRA SAN REASON FOR APPOINTMENT 1. POST PROCEDURE HISTORY OF PRESENT ILLNESS HISTORY OF PRESENT ILLNESS: HERE FOR POST PROCEDURE F/U.HAD RIGHT PRIFORMIS INJECTION 1 MONTH AGO AND REPORTS SHORT TERM IMPROVEMENT FOR A FEW DAYS.RATING RIGHT LBP 4/10.REPORTS THAT MEDICATION IS SOMEWHAT HELPFYL.IS SCHEDULED TO HAVE DCS REMOVED. PAIN THE PATIENT DESCRIBES THE PAIN... FALL RISK SCREENING: SCREENING :NO FALLS REPORTED IN THE LAST YEAR CURRENT MEDICATIONS TAKING ASPERCREME W/LIDOCAINE 4 % CREAM 1 APPLICATION TO AFFECTED AREA ON CHEST WALL EXTERNALLY 4 TIMES A DAY NEEDED TAKING ASPIRIN 81 MG TABLET DELAYED RELEASE 1 TABLET ORALLY ONCE A DAY TAKING GABAPENTIN 300 MG CAPSULE 1 CAPSULE ORALLY QID FOR PAIN TAKING TOPIRAMATE 50 MG TABLET 1 TABLET ORALLY TWICE A DAY TAKING HYDROXYZINE HCL 50 MG TABLET 1 TABLET NEEDED ORALLY BEFORE BEDTIME TAKING OXYBUTYNIN CHLORIDE 5 MG TABLET 1 TABLET ORALLY TWICE A DAY TAKING COLACE 100 MG CAPSULE 1 CAPSULE NEEDED ORALLY ONCE A DAY TAKING METOPROLOL SUCCINATE ER 50 MG TABLET EXTENDED RELEASE 24 HOUR 1 TABLET ORALLY ONCE A DAY TAKING BACLOFEN 10 MG TABLET 1 TABLET WITH FOOD OR MILK ORALLY PRN THREE TIMES A DAY FOR SPASMS AND PAIN TAKING AMITRIPTYLINE HCL 25 MG TABLET 2 TABLET ORALLY BEFORE BEDTIME TAKING LIDOCAINE 2 % GEL ONE APPLICATION EXTERNALLY/LOW BACK TWICE DAILY NEEDED TAKING IBUPROFEN 800 MG TABLET 1 TABLET WITH FOOD OR MILK NEEDED ORALLY THREE TIMES A DAY TAKING NORCO 7.5-325 MG TABLET 1 TABLET NEEDED ORALLY Q6H PRN MDD4 NOT-TAKING CLARITIN 10 MG TABLET 1 TABLET ORALLY ONCE A DAY NEEED NOT-TAKING LEVOCETIRIZINE DIHYDROCHLORIDE 5 MG TABLET 1 TABLET IN THE EVENING ORALLY ONCE A DAY NEEDED MEDICATION LIST REVIEWED AND RECONCILED WITH THE PATIENT PAST MEDICAL HISTORY ULCERATIVE COLITIS- DR. EARLY HEPATITIS C - DR. FATIMA TREATED WITH 8 WEEKS HARVONI EORX 12/2016, GENOTYPE 1A HCV RNA 1110 CHRONIC BACK PAIN - FOLLOWS WITH PAIN CLINIC "MILD" NC DUE TO HIGH BP WITH SUBSEQUENT NORMAL STRESS TEST H/O ACUTE TOXIC ENCEPHALOPATHY SECONDARY TO OPIATES MIGRAINE HEADACHES H/O SHINGLES HYPERTENSION ASCVD 10-YEAR RISK 1.9% IN 04/2018. HYPOTENSIVE EPISODE - 08/2018 LEFT KNEE ARTHRITIS ALLERGIES CEFAZOLIN SODIUM: RASH - ALLERGY SURGICAL HISTORY TONSILS/ADENOIDS/TUBES HYSTERECTOMY FOR MENORRHAGIA BILATERAL CARPAL TUNNEL BACK SURGERY DORSAL COLUMN STIMULATOR TOTAL HIP REPLACEMENT RIGHT D & C X2 COLONOSCOPY: SHARATH: DIVERTICULOSIS 05/2016 EGD: SHARATH: SMALL HIATAL HERNIA 05/2016 PARAFORMIS INJ - DR. AMOR FAMILY HISTORY FATHER: ALIVE 82 YRS, COPD, GWEN CELL, DIAGNOSED WITH HYPERTENSION MOTHER: ALIVE 81 YRS, HYPERTENSION SIBLINGS: BROTHER: HTN SISTER: HEP C, HTN SON(S): ANXIETY AND DEPRESSION DAUGHTER(S): PITUITARY TUMOR, MIGRAINE, SEIZURE DISORDER 1 BROTHER(S) , 1 SISTER(S) . 1 SON(S) , 1 DAUGHTER(S) . SOCIAL HISTORY GENERAL: TOBACCO USE ARE YOU A:NONSMOKER HIV / HEP-C SCREENING HIV TEST OFFERED TO PATIENT:YES DATE OFFERED:09/02/2016 TEST ACCEPTED: PREV TESTED HEP-C TEST OFFERED TO PATIENT:YES DATE OFFERED:09/02/2016 TEST ACCEPTED: PREV TESTED OTHERS AT HOME: CHILDREN. EDUCATION LEVEL OF EDUCATION:COLLEGE DIET: REGULAR. LANGUAGE LANGUAGES SPOKEN:SETSWANA DOMESTIC VIOLENCE STATUS: NEW PATIENT PAIN DIARY TODAY'S VISIT NOTES, FROM 0-10, WHAT LEVEL IS YOUR PAIN TODAY? 0. RECREATIONAL DRUG USE DRUG USE?NO PATIENT DENIES ABUSE OR MISSUSED OF ANY MEDICATION. PATIENT DENIES USE OF ANY ILLEGAL SUBSTANCE INCLUDING MARIJUANA OR COCAINE. EXERCISE: WALKS. LEARNING BARRIERS / SPECIAL NEEDS CHANGE FROM LAST VISIT?NO BARRIERS TO LEARNING?NO HEARING IMPAIRED?NO VISION IMPAIRED?YES COGNITIVELY IMPAIRED?NO :CORRECTIVE LENSES READINESS TO LEARN?YES LEARNING PREFERENCES?NO LEARNING CAPABILITIES PRESENT?YES EMOTIONAL BARRIERS?NO SPECIAL DEVICES?NO CREDIT PROCESSOR NEEDED?NO PAIN CLINIC PFS, CLERGY, PUBLIC HEALTH REFERRALS HAS THE PATIENT BEEN EDUCATED REGARDING HIS/HER PLAN OF CARE?YES HAS THE PATIENT BEEN EDUCATED REGARDING PAIN, THE RISK FOR PAIN, THE IMPORTANCE OF EFFECTIVE PAIN MANAGEMENT, AND THE PAIN ASSESSMENT PROCESS?YES LATEX QUESTIONNAIRE LATEX ALLERGY : HAVE YOU EVER DEVELOPED ANY TYPE OF REACTION AFTER HANDLING LATEX PRODUCTS SUCH RUBBER GLOVES, CONDOMS, DIAPHRAGMS, BALLOONS, SOCKS, OR UNDERWEAR?NO LATEX ALLERGY : HAVE YOU EVER DEVELOPED ANY TYPE OF REACTION DURING OR AFTER DENTAL APPOINTMENT, VAGINAL/RECTAL EXAMINATION, SURGICAL PROCEDURE, OR ANY OTHER EXPOSURE?NO DATE ASKED : 09/18/2018 LATEX RISK : HAVE YOU EVER HAD ANY DIFFICULTY BREATHING OR HIVES AFTER EATING OR HANDLING ANY FRUITS, OR VEGETABLES; SUCH KIWI, BANANAS, STONE FRUITS, OR CHESTNUTSNO LATEX RISK : DO YOU HAVE A PREVIOUS PERSONAL HISTORY OF MORE THAN NINE SURGERIES, SPINA BIFIDA, OR REPEATED CATHERTIZATIONS? NO LATEX RISK : ARE YOU FREQUENTLY EXPOSED TO LATEX PRODUCTS IN YOUR OCCUPATION?NO CAFFEINE CAFFEINE USE?YES HOW OFTEN AND HOW MUCH? DAILY ADVANCE DIRECTIVE ADVANCE DIRECTIVE DISCUSSED WITH PATIENT:YES PT HAS NO ADVANCED DIRECTIVES, DECLINES HCP INFORMATION AT THIS TIME. EVANGELICAL [id number] RASTAFARIAN MARITAL STATUS: .. ALCOHOL SCREENING DID YOU HAVE A DRINK CONTAINING ALCOHOL IN THE PAST YEAR?YES HOW MANY DRINKS DID YOU HAVE ON A TYPICAL DAY WHEN YOU WERE DRINKING IN THE PAST YEAR?1 OR 2 (0 POINTS) HOW OFTEN DID YOU HAVE A DRINK CONTAINING ALCOHOL IN THE PAST YEAR?TWO TO FOUR TIMES A MONTH (2 POINTS) POINTS2 INTERPRETATIONNEGATIVE OCCUPATION: DIABLED. SEXUAL HX HAD SEX IN THE LAST 12 MONTHS (VAGINAL, ORAL, OR ANAL)?NO HAVE YOU EVER HAD AN STD?NO REVIEWED WITH PT 03/12/18 1507 LASREVIEWED WITH PATIENT 03/26/18 1332 JSREVIEWED WITH PATIENT 05/26/18 1358 JSREVIEWED WITH PATIENT 06/25/18 1320 JSREVIEWED WITH PATIENT 09/18/18 1324 JSREVIEWED WITH PATIENT 10/21/18 1439 JS. HOSPITALIZATION/MAJOR DIAGNOSTIC PROCEDURE SYNCOPAL EPISODE 03/09-03/12/2016 JAUNDICE, ELECTROLYTE IMBALANCE 03/2016 REVIEW OF SYSTEMS REVIEWED BY: PROVIDER: RAGHAVENDRA LE . CONSTITUTIONAL: ANY CHANGE IN YOUR MEDICAL CONDITION? NO . CHILLS NO . FEVER NO . INFECTION: DO YOU HAVE NEW INFECTIONS? NO . DO YOU HAVE HISTORY OF MRSA? NO . MUSCULOSKELETAL: ANY NEW PATTERNS OF PAIN OR NUMBNESS? NO . GASTROENTEROLOGY: ANY NEW CHANGE IN BOWEL CONTROL? NO . GENITOURINARY: ANY NEW CHANGE IN BLADDER CONTROL? NO . IS THERE A CHANCE YOU COULD BE ? NO . HEMATOLOGY/LYMPH: DO YOU TAKE ANY BLOOD THINNERS? (FOR EXAMPLE- COUMADIN, PLAVIX, AGGRENOX, PLATEL, PRADAXA, OR XARELTO) NO . WHEN WAS YOUR LAST DOSE? DATE: TIME: . NEUROLOGY: HAVE YOU FALLEN IN THE PAST 12 MONTHS? YES, PRIOR TO LAST VISIT . ANY NEW EXTREMITY NUMBNESS OR WEAKNESS? NO . CARDIOLOGY: DO YOU HAVE A PACEMAKER OR DEFIBRILLATOR? NO . RESPIRATORY: HAVE YOU BEEN SICK IN THE PAST WEEK? NO . FEVER NO . FLU LIKE SYMPTOMS? NO . COUGH NO . INTEGUMENTARY: DO YOU HAVE ANY RASHES OR OPEN SORES? NO . ALLERGIC/IMMUNO: ARE YOU ALLERGIC TO IV DYE? NO . ANY NEW ALLERGIES? NO . PSYCHIATRIC: DO YOU HAVE THOUGHTS OF HURTING YOURSELF OR SOMEONE ELSE? NO . ARE YOU ABUSED, NEGLECTED, OR IN AN UNSAFE ENVIRONMENT? NO . ENDOCRINOLOGY: ARE YOU DIABETIC? NO . OTHER: DO YOU NEED ANY PRESCRIPTIONS? NO . IF YES, PLEASE LIST: ____ . ANY NEW PROBLEMS WITH YOUR MEDICATIONS? NO . WHEN DID YOU LAST EAT? ____ . WHEN DID YOU LAST DRINK? ____ . WHAT DID YOU LAST DRINK? ____ . NAME OF PERSON DRIVING YOU HOME? ____ . DO YOU HAVE ANY OTHER QUESTIONS OR CONCERNS NO . VITAL SIGNS WT 164.4 LBS, HT 69 IN, BMI 24.27 INDEX, BP 159/70 MM HG, HR 90 /MIN, RR 18 /MIN, TEMP 96.3 F, OXYGEN SAT % 99%, NA INITIALS SC 13:57, REVIEWED BY: GÓMEZ. EXAMINATION GENERAL EXAMINATION: GENERAL APPEARANCE:AWAKE,ALERT ,PLEAASANT . PSYCHAFFECT NORMAL . LUNGS:LUNG RODRIGUEZ ARE CLEAR TO AUSCULTATION BILATERALLY. GOOD MOVEMENT OF AIR . HEART:S1, S2 IN A REGULAR RATE AND RHYTHM. NO SIGNIFICANT MURMURS, RUBS OR GALLOPS NOTED . 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 BRINGS IN MEDICATIONS WHICH IS APPROPRIATE FOR WHAT WAS DISPENSED. RECENT URINE TOXICOLOGY REVIEWED. NO UNAUTHORIZED MEDICATIONS. NO ILLICIT SUBSTANCES AND PRESCRIBED MEDICATIONS WERE PRESENT. , RISKS AND BENEFITS OF NARCOTIC/OPIOD MEDICATIONS WERE REVIEWED WITH PATIENT - THIS INCLUDES BUT IS NOT LIMITED TO RISK OF DEPENDANCE/DEVELOPMENT OF ADDICTION, MOOD DISTURBANCE AND DEPRESSION, OSTEOPOROSIS, HORMONAL AND LABIDAL CHANGES, RESPIRATORY DEPRESSION AND . PATIENT IS ADVISED NOT TO DRIVE OR DRINK ALCOHOL WHILE ON THESE MEDICATIONS. PROCEDURE CODES FA211 ESTABILISHED PATIENT [facility] CHARGE DISPOSITION & COMMUNICATION FOLLOW UP 2 MONTHS ELECTRONICALLY SIGNED BY REY MANJARREZ ON 11/30/2018 AT 08:02 AM EDT DISCLAIMER : THIS IS A VISIT SUMMARY EXTRACTED FROM THE [employer] CHART. IT IS NOT A COPY OF THE [employer] PROGRESS NOTE. ROSY
== END ==
LOC: M PAIN 13:45
PROVIDERS: ATTEND Nurse Practitioner Family
DX: M79.18 Myalgia, other site (principal); G57.01 Lesion of sciatic nerve, right lower limb; I10 Essential (primary) hypertension; Z79.82 Long term (current) use of aspirin; Z79.891 Long term (current) use of opiate analgesic; Z79.899 Other long term (current) drug therapy; Z88.8 Allergy status to other drugs, medicaments and biological substances

== ENCOUNTER → 2019-01-12 | Outpatient (CLI) | payer MEDICARE ==
[~2019-01-12] MED LIST changes: +HYDR1TAB33; -HYDRO50TAB
--- NOTE | 2019-01-27 00:03 | ECWPNPC ---
PATIENT NAME: JUAN MIGUEL VALENCIA : 1960 GENDER: FEMALE VISIT DATE: 01/12/2019 DISCHARGE DATE: 01/12/19 1426 VISIT LOCKED DATE TIME: PHYSICIAN: RAGHAVENDRA SAN RESOURCE: RAGHAVENDRA SAN REASON FOR APPOINTMENT 1. 2 MONTHS HISTORY OF PRESENT ILLNESS HISTORY OF PRESENT ILLNESS: HERE FOR F/U OF CHRONIC LBP AND RIGHT HIP PAIN.RATING PAIN VAS 8/10.HAD DCS REMOVED AND NOW CAN HAVE MRI'S.DISCUSSED TREATMENT OPTIONS. PAIN THE PATIENT DESCRIBES THE PAIN... FALL RISK SCREENING: SCREENING :NO FALLS REPORTED IN THE LAST YEAR CURRENT MEDICATIONS TAKING ASPERCREME W/LIDOCAINE 4 % CREAM 1 APPLICATION TO AFFECTED AREA ON CHEST WALL EXTERNALLY 4 TIMES A DAY NEEDED TAKING TOPIRAMATE 50 MG TABLET 1 TABLET ORALLY TWICE A DAY TAKING HYDROXYZINE HCL 50 MG TABLET 1 TABLET NEEDED ORALLY BEFORE BEDTIME TAKING BACLOFEN 10 MG TABLET 1 TABLET WITH FOOD OR MILK ORALLY PRN THREE TIMES A DAY FOR SPASMS AND PAIN TAKING LIDOCAINE 2 % GEL ONE APPLICATION EXTERNALLY/LOW BACK TWICE DAILY NEEDED TAKING GABAPENTIN 300 MG CAPSULE 1 CAPSULE ORALLY QID FOR PAIN TAKING AMITRIPTYLINE HCL 25 MG TABLET 2 TABLET ORALLY BEFORE BEDTIME TAKING NORCO 7.5-325 MG TABLET 1 TABLET NEEDED ORALLY Q6H PRN MDD4 TAKING METOPROLOL SUCCINATE ER 50 MG TABLET EXTENDED RELEASE 24 HOUR 1 TABLET ORALLY ONCE A DAY TAKING OXYBUTYNIN CHLORIDE 5 MG TABLET 1 TABLET ORALLY TWICE A DAY TAKING COLACE 100 MG CAPSULE 1 CAPSULE NEEDED ORALLY ONCE A DAY TAKING HYDROCHLOROTHIAZIDE 12.5 MG TABLET 1 TABLET IN THE MORNING ORALLY ONCE A DAY TAKING PERCOCET 5-325 MG TABLET 1 TABLET NEEDED ORALLY EVERY 6 HRS, NOTES: AFTER SURGERY NOT-TAKING CLARITIN 10 MG TABLET 1 TABLET ORALLY ONCE A DAY NEEED NOT-TAKING LEVOCETIRIZINE DIHYDROCHLORIDE 5 MG TABLET 1 TABLET IN THE EVENING ORALLY ONCE A DAY NEEDED NOT-TAKING ASPIRIN 81 MG TABLET DELAYED RELEASE 1 TABLET ORALLY ONCE A DAY NOT-TAKING IBUPROFEN 800 MG TABLET 1 TABLET WITH FOOD OR MILK NEEDED ORALLY THREE TIMES A DAY MEDICATION LIST REVIEWED AND RECONCILED WITH THE PATIENT PAST MEDICAL HISTORY ULCERATIVE COLITIS- DR. EARLY HEPATITIS C - DR. FATIMA TREATED WITH 8 WEEKS HARVONI EORX 12/2016, GENOTYPE 1A HCV RNA 1110 CHRONIC BACK PAIN - FOLLOWS WITH PAIN CLINIC "MILD" IN DUE TO HIGH BP WITH SUBSEQUENT NORMAL STRESS TEST H/O ACUTE TOXIC ENCEPHALOPATHY SECONDARY TO OPIATES MIGRAINE HEADACHES H/O SHINGLES HYPERTENSION ASCVD 10-YEAR RISK 1.9% IN 04/2018. HYPOTENSIVE EPISODE - 08/2018 LEFT KNEE ARTHRITIS ALLERGIES CEFAZOLIN SODIUM: RASH - ALLERGY SURGICAL HISTORY TONSILS/ADENOIDS/TUBES HYSTERECTOMY FOR MENORRHAGIA BILATERAL CARPAL TUNNEL BACK SURGERY DORSAL COLUMN STIMULATOR TOTAL HIP REPLACEMENT RIGHT D & C X2 COLONOSCOPY: SHARATH: DIVERTICULOSIS 05/2016 EGD: SHARATH: SMALL HIATAL HERNIA 05/2016 PARAFORMIS INJ - DR. AMOR DORSAL COLUM STIMULATOER REMOVED 12/17/2018 FAMILY HISTORY FATHER: ALIVE 82 YRS, COPD, GWEN CELL, DIAGNOSED WITH HYPERTENSION MOTHER: ALIVE 81 YRS, HYPERTENSION SIBLINGS: BROTHER: HTN SISTER: HEP C, HTN SON(S): ANXIETY AND DEPRESSION DAUGHTER(S): PITUITARY TUMOR, MIGRAINE, SEIZURE DISORDER 1 BROTHER(S) , 1 SISTER(S) . 1 SON(S) , 1 DAUGHTER(S) . SOCIAL HISTORY GENERAL: TOBACCO USE ARE YOU A:NONSMOKER HIV / HEP-C SCREENING HIV TEST OFFERED TO PATIENT:YES DATE OFFERED:09/02/2016 TEST ACCEPTED: PREV TESTED HEP-C TEST OFFERED TO PATIENT:YES DATE OFFERED:09/02/2016 TEST ACCEPTED: PREV TESTED OTHERS AT HOME: CHILDREN. EDUCATION LEVEL OF EDUCATION:COLLEGE DIET: REGULAR. LANGUAGE LANGUAGES SPOKEN:VINCENTIAN DOMESTIC VIOLENCE STATUS: NEW PATIENT PAIN DIARY TODAY'S VISIT NOTES, FROM 0-10, WHAT LEVEL IS YOUR PAIN TODAY? 0. RECREATIONAL DRUG USE DRUG USE?NO PATIENT DENIES ABUSE OR MISSUSED OF ANY MEDICATION. PATIENT DENIES USE OF ANY ILLEGAL SUBSTANCE INCLUDING MARIJUANA OR COCAINE. EXERCISE: WALKS. LEARNING BARRIERS / SPECIAL NEEDS CHANGE FROM LAST VISIT?NO BARRIERS TO LEARNING?NO HEARING IMPAIRED?NO VISION IMPAIRED?YES COGNITIVELY IMPAIRED?NO :CORRECTIVE LENSES READINESS TO LEARN?YES LEARNING PREFERENCES?NO LEARNING CAPABILITIES PRESENT?YES EMOTIONAL BARRIERS?NO SPECIAL DEVICES?YES :CANE PAINTER AND GRADER CORK NEEDED?NO PAIN CLINIC PFS, CLERGY, PUBLIC HEALTH REFERRALS HAS THE PATIENT BEEN EDUCATED REGARDING HIS/HER PLAN OF CARE?YES HAS THE PATIENT BEEN EDUCATED REGARDING PAIN, THE RISK FOR PAIN, THE IMPORTANCE OF EFFECTIVE PAIN MANAGEMENT, AND THE PAIN ASSESSMENT PROCESS?YES LATEX QUESTIONNAIRE LATEX ALLERGY : HAVE YOU EVER DEVELOPED ANY TYPE OF REACTION AFTER HANDLING LATEX PRODUCTS SUCH RUBBER GLOVES, CONDOMS, DIAPHRAGMS, BALLOONS, SOCKS, OR UNDERWEAR?NO LATEX ALLERGY : HAVE YOU EVER DEVELOPED ANY TYPE OF REACTION DURING OR AFTER DENTAL APPOINTMENT, VAGINAL/RECTAL EXAMINATION, SURGICAL PROCEDURE, OR ANY OTHER EXPOSURE?NO DATE ASKED : 09/18/2018 LATEX RISK : HAVE YOU EVER HAD ANY DIFFICULTY BREATHING OR HIVES AFTER EATING OR HANDLING ANY FRUITS, OR VEGETABLES; SUCH KIWI, BANANAS, STONE FRUITS, OR CHESTNUTSNO LATEX RISK : DO YOU HAVE A PREVIOUS PERSONAL HISTORY OF MORE THAN NINE SURGERIES, SPINA BIFIDA, OR REPEATED CATHERIZATIONS? NO LATEX RISK : ARE YOU FREQUENTLY EXPOSED TO LATEX PRODUCTS IN YOUR OCCUPATION?NO CAFFEINE CAFFEINE USE?YES HOW OFTEN AND HOW MUCH? DAILY ADVANCE DIRECTIVE ADVANCE DIRECTIVE DISCUSSED WITH PATIENT:YES PT HAS NO ADVANCED DIRECTIVES, DECLINES HCP INFORMATION AT THIS TIME. TEMPLE [id number] SABIANISM MARITAL STATUS: .. ALCOHOL SCREENING DID YOU HAVE A DRINK CONTAINING ALCOHOL IN THE PAST YEAR?YES HOW MANY DRINKS DID YOU HAVE ON A TYPICAL DAY WHEN YOU WERE DRINKING IN THE PAST YEAR?1 OR 2 (0 POINTS) HOW OFTEN DID YOU HAVE A DRINK CONTAINING ALCOHOL IN THE PAST YEAR?TWO TO FOUR TIMES A MONTH (2 POINTS) POINTS2 INTERPRETATIONNEGATIVE OCCUPATION: DIABLED. SEXUAL HX HAD SEX IN THE LAST 12 MONTHS (VAGINAL, ORAL, OR ANAL)?NO HAVE YOU EVER HAD AN STD?NO REVIEWED WITH PT 03/12/18 1507 LASREVIEWED WITH PATIENT 03/26/18 1332 JSREVIEWED WITH PATIENT 05/26/18 1358 JSREVIEWED WITH PATIENT 06/25/18 1320 JSREVIEWED WITH PATIENT 09/18/18 1324 JSREVIEWED WITH PATIENT 01/12/19 1400 LASREVIEWED WITH PATIENT 10/21/18 1439 JS. HOSPITALIZATION/MAJOR DIAGNOSTIC PROCEDURE SYNCOPAL EPISODE 03/09-03/12/2016 JAUNDICE, ELECTROLYTE IMBALANCE 03/2016 REVIEW OF SYSTEMS REVIEWED BY: PROVIDER: RAGHAVENDRA LE . CONSTITUTIONAL: ANY CHANGE IN YOUR MEDICAL CONDITION? NO . CHILLS NO . FEVER NO . INFECTION: DO YOU HAVE NEW INFECTIONS? NO . DO YOU HAVE HISTORY OF MRSA? NO . MUSCULOSKELETAL: ANY NEW PATTERNS OF PAIN OR NUMBNESS? NO . GASTROENTEROLOGY: ANY NEW CHANGE IN BOWEL CONTROL? NO . GENITOURINARY: ANY NEW CHANGE IN BLADDER CONTROL? NO . IS THERE A CHANCE YOU COULD BE ? NO . HEMATOLOGY/LYMPH: DO YOU TAKE ANY BLOOD THINNERS? (FOR EXAMPLE- COUMADIN, PLAVIX, AGGRENOX, PLATEL, PRADAXA, OR XARELTO) NO . WHEN WAS YOUR LAST DOSE? DATE: TIME: . NEUROLOGY: HAVE YOU FALLEN IN THE PAST 12 MONTHS? YES PT REPORTS SHE FELL BACKWARDS HITTING HER HEAD ON A WALL, THIS HAPPENED 5 MONTHS AGO . ANY NEW EXTREMITY NUMBNESS OR WEAKNESS? NO . CARDIOLOGY: DO YOU HAVE A PACEMAKER OR DEFIBRILLATOR? NO . RESPIRATORY: HAVE YOU BEEN SICK IN THE PAST WEEK? NO . FEVER NO . FLU LIKE SYMPTOMS? NO . COUGH NO . INTEGUMENTARY: DO YOU HAVE ANY RASHES OR OPEN SORES? NO . ALLERGIC/IMMUNO: ARE YOU ALLERGIC TO IV DYE? NO . ANY NEW ALLERGIES? NO . PSYCHIATRIC: DO YOU HAVE THOUGHTS OF HURTING YOURSELF OR SOMEONE ELSE? NO . ARE YOU ABUSED, NEGLECTED, OR IN AN UNSAFE ENVIRONMENT? NO . ENDOCRINOLOGY: ARE YOU DIABETIC? NO . OTHER: DO YOU NEED ANY PRESCRIPTIONS? YES GABAPENTIN . IF YES, PLEASE LIST: ____ . ANY NEW PROBLEMS WITH YOUR MEDICATIONS? NO . WHEN DID YOU LAST EAT? ____ . WHEN DID YOU LAST DRINK? ____ . WHAT DID YOU LAST DRINK? ____ . NAME OF PERSON DRIVING YOU HOME? ____ . DO YOU HAVE ANY OTHER QUESTIONS OR CONCERNS NO . VITAL SIGNS WT 167.8 LBS, HT 69 IN, BMI 24.78 INDEX, BP 127/73 MM HG, HR 97 /MIN, RR 18 /MIN, TEMP 97.6 F, OXYGEN SAT % 99%, SAFE IN ENV? (Y/N) YES, NA INITIALS WV 13:54, REVIEWED BY: MEREDITH. EXAMINATION GENERAL EXAMINATION: LUNGS:LUNG SOUNDS ARE CLEAR. HEART:HEART RATE REGULAR. MUSCULOSKELETAL:*, MUSCLE STRENGTH TESTING 4/5 BILATERAL LOWER EXTREMITIES., PALPATION: POSITIVE FOR MILD DISCOMFORT OVER L/S SPINE. POSITIVE FOR MILD DISCOMFORT OVER L/S PARASPINALS.SPECIFIC POINT TENDERNESS OVER RIGHT BILAT. L3/4-L4/5 LUMBAR FACETS W FACET LOADING R>L.TENDERNESS OVER RIGHT RIGHT PRIFORMIS. 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 PROCEDURE CODES FA211 ESTABILISHED PATIENT [facility] CHARGE DISPOSITION & COMMUNICATION FOLLOW UP 4-6 WKS (REASON: MRI L/S SPINE EVAL) ELECTRONICALLY SIGNED BY REY MANJARREZ ON 01/26/2019 AT 03:05 PM EDT DISCLAIMER : THIS IS A VISIT SUMMARY EXTRACTED FROM THE [employer] CHART. IT IS NOT A COPY OF THE [employer] PROGRESS NOTE. JOSÉ MIGUELD
== END ==
LOC: M PAIN 13:45
PROVIDERS: ATTEND Nurse Practitioner Family
DX: G57.01 Lesion of sciatic nerve, right lower limb (principal); M96.1 Postlaminectomy syndrome, not elsewhere classified; G43.909 Migraine, unspecified, not intractable, without status migrainosus; I10 Essential (primary) hypertension; Z96.641 Presence of right artificial hip joint; Z88.1 Allergy status to other antibiotic agents; Z79.899 Other long term (current) drug therapy

== ENCOUNTER → 2019-01-15 | Outpatient (CLI) | payer MEDICARE ==
[2019-01-15 12:43] LABS: BLOOD UREA NITROGEN 14 MG/DL (7-18); CALCIUM LEVEL 9.6 MG/DL (8.5-10.1); CARBON DIOXIDE LEVEL 29 MEQ/L (21-32); CHLORIDE LEVEL 104 MEQ/L (98-107); CREATININE FOR GFR 0.85 MG/DL (0.55-1.30); GLOMERULAR FILTRATION RATE > 60.0 (>51); GLUCOSE, FASTING 78 MG/DL (70-100); POTASSIUM SERUM 3.9 MEQ/L (3.5-5.1); SODIUM LEVEL 138 MEQ/L (136-145)
== END ==
LOC: M LAB 11:19
PROVIDERS: ATTEND Family Medicine
DX: I10 Essential (primary) hypertension (principal)

== ENCOUNTER → 2019-03-08 | Outpatient (CLI) | payer MEDICARE | LOC: M PAIN 13:15 | PROVIDERS: ATTEND Nurse Practitioner Family | DX: G57.01 Lesion of sciatic nerve, right lower limb (principal); I10 Essential (primary) hypertension; Z79.891 Long term (current) use of opiate analgesic; Z79.899 Other long term (current) drug therapy; Z88.8 Allergy status to other drugs, medicaments and biological substances ==

== ENCOUNTER → 2019-04-15 | Outpatient (CLI) | payer MEDICARE ==
[~2019-04-15] MED LIST changes: +BUPIVACAINE HCL 0.25% 30 ML VIAL As Ordered ONE; +ISOVUE-M 300 61% 15ML VIAL (Q9967) As Ordered ONE; +LIDOCAINE 1% SDV INJ 30 ML VIAL As Ordered ONE; +TRIAMCINOLONE ACETONIDE SUSP 40 MG/ML VIAL (J3301) As Ordered ONE; +diazePAM 5 MG TAB As Ordered ONE; +diphenhydrAMINE 25 MG CAP As Ordered ONE; +oxyCODONE 5MG TAB As Ordered ONE
--- NOTE | 2019-04-16 08:13 | REP ---
Right pelvis series: Five views intra procedural imaging. History: Right piriformis muscle block for pain. 8 seconds of fluoroscopy time is reported. Findings: A sequence of eight last image hold fluoroscopically obtained spot radiographs of the right pelvis document needle position and contrast injection associated with injection procedure. Electronically Signed by Garret Still MD 04/16/2019 08:05 A
--- NOTE | 2019-04-28 02:10 | ECWPNPC ---
PATIENT NAME: JUAN MIGUEL VALENCIA : 1960 GENDER: FEMALE VISIT DATE: 04/15/2019 DISCHARGE DATE: 04/15/191742 VISIT LOCKED DATE TIME: PHYSICIAN: SUSANNE AMOR MD RESOURCE: SUSANNE AMOR MD REASON FOR APPOINTMENT 1. RIGHT PIRIFORMIS STEROID INJECTION HISTORY OF PRESENT ILLNESS HISTORY OF PRESENT ILLNESS: PAIN THE PATIENT DESCRIBES THE PAIN... FALL RISK SCREENING: SCREENING :NO FALLS REPORTED IN THE LAST YEAR CURRENT MEDICATIONS TAKING TOPIRAMATE 50 MG TABLET 1 TABLET ORALLY TWICE A DAY TAKING OXYBUTYNIN CHLORIDE 5 MG TABLET 1 TABLET ORALLY TWICE A DAY TAKING COLACE 100 MG CAPSULE 1 CAPSULE NEEDED ORALLY ONCE A DAY TAKING GABAPENTIN 300 MG CAPSULE 1 CAPSULE ORALLY QID FOR PAIN, NOTES: 04/14/19 240 TAKING OMEPRAZOLE 20 MG CAPSULE DELAYED RELEASE 1 CAPSULE ORALLY ONCE A DAY TAKING HYDROXYZINE HCL 50 MG TABLET 1 TABLET NEEDED ORALLY BEFORE BEDTIME TAKING BACLOFEN 10 MG TABLET 1 TABLET WITH FOOD OR MILK ORALLY PRN THREE TIMES A DAY FOR SPASMS AND PAIN, NOTES: 04/14/19 240 TAKING AMITRIPTYLINE HCL 25 MG TABLET 2 TABLET ORALLY BEFORE BEDTIME, NOTES: 04/14/19 240 TAKING METOPROLOL SUCCINATE ER 50 MG TABLET EXTENDED RELEASE 24 HOUR 1 TABLET ORALLY ONCE A DAY TAKING AMLODIPINE BESYLATE 2.5 MG TABLET 1 TABLET ORALLY ONCE A DAY TAKING NORCO 7.5-325 MG TABLET 1 TABLET NEEDED ORALLY Q6H PRN MDD4, NOTES: 04/15/19 0700 NOT-TAKING CLARITIN 10 MG TABLET 1 TABLET ORALLY ONCE A DAY NEEED NOT-TAKING LEVOCETIRIZINE DIHYDROCHLORIDE 5 MG TABLET 1 TABLET IN THE EVENING ORALLY ONCE A DAY NEEDED NOT-TAKING ASPERCREME W/LIDOCAINE 4 % CREAM 1 APPLICATION TO AFFECTED AREA ON CHEST WALL EXTERNALLY 4 TIMES A DAY NEEDED NOT-TAKING LIDOCAINE 2 % GEL ONE APPLICATION EXTERNALLY/LOW BACK TWICE DAILY NEEDED MEDICATION LIST REVIEWED AND RECONCILED WITH THE PATIENT PAST MEDICAL HISTORY ULCERATIVE COLITIS- DR. EARLY HEPATITIS C - DR. FATIMA TREATED WITH 8 WEEKS HARVONI EORX 12/2016, GENOTYPE 1A HCV RNA 1110 CHRONIC BACK PAIN - FOLLOWS WITH PAIN CLINIC "MILD" CA DUE TO HIGH BP WITH SUBSEQUENT NORMAL STRESS TEST H/O ACUTE TOXIC ENCEPHALOPATHY SECONDARY TO OPIATES MIGRAINE HEADACHES H/O SHINGLES HYPERTENSION ASCVD 10-YEAR RISK 1.9% IN 04/2018. HYPOTENSIVE EPISODE - 08/2018 LEFT KNEE ARTHRITIS ALLERGIES CEFAZOLIN SODIUM: RASH - ALLERGY SURGICAL HISTORY TONSILS/ADENOIDS/TUBES HYSTERECTOMY FOR MENORRHAGIA BILATERAL CARPAL TUNNEL BACK SURGERY DORSAL COLUMN STIMULATOR TOTAL HIP REPLACEMENT RIGHT D & C X2 COLONOSCOPY: SHARATH: DIVERTICULOSIS 05/2016 EGD: SHARATH: SMALL HIATAL HERNIA 05/2016 PARAFORMIS INJ - DR. AMOR DORSAL COLUM STIMULATOER REMOVED 12/17/2018 FAMILY HISTORY FATHER: ALIVE 82 YRS, COPD, GWEN CELL, DIAGNOSED WITH HYPERTENSION MOTHER: ALIVE 81 YRS, HYPERTENSION SIBLINGS: BROTHER: HTN SISTER: HEP C, HTN SON(S): ANXIETY AND DEPRESSION DAUGHTER(S): PITUITARY TUMOR, MIGRAINE, SEIZURE DISORDER 1 BROTHER(S) , 1 SISTER(S) . 1 SON(S) , 1 DAUGHTER(S) . SOCIAL HISTORY GENERAL: TOBACCO USE ARE YOU A:NONSMOKER HIV / HEP-C SCREENING HIV TEST OFFERED TO PATIENT:YES DATE OFFERED:09/02/2016 TEST ACCEPTED: PREV TESTED HEP-C TEST OFFERED TO PATIENT:YES DATE OFFERED:09/02/2016 TEST ACCEPTED: PREV TESTED OTHERS AT HOME: CHILDREN. EDUCATION LEVEL OF EDUCATION:COLLEGE DIET: REGULAR. LANGUAGE LANGUAGES SPOKEN:CZECH DOMESTIC VIOLENCE STATUS: NEW PATIENT PAIN DIARY TODAY'S VISIT NOTES, FROM 0-10, WHAT LEVEL IS YOUR PAIN TODAY? 0. RECREATIONAL DRUG USE DRUG USE?NO PATIENT DENIES ABUSE OR MISSUSED OF ANY MEDICATION. PATIENT DENIES USE OF ANY ILLEGAL SUBSTANCE INCLUDING MARIJUANA OR COCAINE. EXERCISE: WALKS. LEARNING BARRIERS / SPECIAL NEEDS CHANGE FROM LAST VISIT?NO BARRIERS TO LEARNING?NO HEARING IMPAIRED?NO VISION IMPAIRED?YES COGNITIVELY IMPAIRED?NO :CORRECTIVE LENSES READINESS TO LEARN?YES LEARNING PREFERENCES?NO LEARNING CAPABILITIES PRESENT?YES EMOTIONAL BARRIERS?NO SPECIAL DEVICES?YES :CANE PEACE OFFICER NEEDED?NO PAIN CLINIC PFS, CLERGY, PUBLIC HEALTH REFERRALS HAS THE PATIENT BEEN EDUCATED REGARDING HIS/HER PLAN OF CARE?YES HAS THE PATIENT BEEN EDUCATED REGARDING PAIN, THE RISK FOR PAIN, THE IMPORTANCE OF EFFECTIVE PAIN MANAGEMENT, AND THE PAIN ASSESSMENT PROCESS?YES LATEX QUESTIONNAIRE LATEX ALLERGY : HAVE YOU EVER DEVELOPED ANY TYPE OF REACTION AFTER HANDLING LATEX PRODUCTS SUCH RUBBER GLOVES, CONDOMS, DIAPHRAGMS, BALLOONS, SOCKS, OR UNDERWEAR?NO LATEX ALLERGY : HAVE YOU EVER DEVELOPED ANY TYPE OF REACTION DURING OR AFTER DENTAL APPOINTMENT, VAGINAL/RECTAL EXAMINATION, SURGICAL PROCEDURE, OR ANY OTHER EXPOSURE?NO DATE ASKED : 09/18/2018 LATEX RISK : HAVE YOU EVER HAD ANY DIFFICULTY BREATHING OR HIVES AFTER EATING OR HANDLING ANY FRUITS, OR VEGETABLES; SUCH KIWI, BANANAS, STONE FRUITS, OR CHESTNUTSNO LATEX RISK : DO YOU HAVE A PREVIOUS PERSONAL HISTORY OF MORE THAN NINE SURGERIES, SPINA BIFIDA, OR REPEATED CATHERIZATIONS? NO LATEX RISK : ARE YOU FREQUENTLY EXPOSED TO LATEX PRODUCTS IN YOUR OCCUPATION?NO CAFFEINE CAFFEINE USE?YES HOW OFTEN AND HOW MUCH? DAILY ADVANCE DIRECTIVE ADVANCE DIRECTIVE DISCUSSED WITH PATIENT:YES PT HAS NO ADVANCED DIRECTIVES, DECLINES HCP INFORMATION AT THIS TIME. SIKH [id number] TAOISM MARITAL STATUS: .. ALCOHOL SCREENING DID YOU HAVE A DRINK CONTAINING ALCOHOL IN THE PAST YEAR?YES HOW MANY DRINKS DID YOU HAVE ON A TYPICAL DAY WHEN YOU WERE DRINKING IN THE PAST YEAR?1 OR 2 (0 POINTS) HOW OFTEN DID YOU HAVE A DRINK CONTAINING ALCOHOL IN THE PAST YEAR?TWO TO FOUR TIMES A MONTH (2 POINTS) POINTS2 INTERPRETATIONNEGATIVE OCCUPATION: DIABLED. SEXUAL HX HAD SEX IN THE LAST 12 MONTHS (VAGINAL, ORAL, OR ANAL)?NO HAVE YOU EVER HAD AN STD?NO REVIEWED WITH PT 03/12/18 1507 LASREVIEWED WITH PATIENT 03/26/18 1332 JSREVIEWED WITH PATIENT 05/26/18 1358 JSREVIEWED WITH PATIENT 06/25/18 1320 JSREVIEWED WITH PATIENT 09/18/18 1324 JSREVIEWED WITH PATIENT 01/12/19 1400 LASREVIEWED WITH PATIENT 10/21/18 1439 JSREVIEWED WITH PT 03/08/19 1340 NLJ. HOSPITALIZATION/MAJOR DIAGNOSTIC PROCEDURE SYNCOPAL EPISODE 03/09-03/12/2016 JAUNDICE, ELECTROLYTE IMBALANCE 03/2016 SURGERY RELATED REVIEW OF SYSTEMS REVIEWED BY: PROVIDER: . CONSTITUTIONAL: ANY CHANGE IN YOUR MEDICAL CONDITION? NO . CHILLS NO . FEVER NO . INFECTION: DO YOU HAVE NEW INFECTIONS? NO . DO YOU HAVE HISTORY OF MRSA? NO . MUSCULOSKELETAL: ANY NEW PATTERNS OF PAIN OR NUMBNESS? NO . GASTROENTEROLOGY: ANY NEW CHANGE IN BOWEL CONTROL? NO . GENITOURINARY: ANY NEW CHANGE IN BLADDER CONTROL? NO . IS THERE A CHANCE YOU COULD BE ? NO . HEMATOLOGY/LYMPH: DO YOU TAKE ANY BLOOD THINNERS? (FOR EXAMPLE- COUMADIN, PLAVIX, AGGRENOX, PLATEL, PRADAXA, OR XARELTO) NO . WHEN WAS YOUR LAST DOSE? DATE: TIME: . NEUROLOGY: HAVE YOU FALLEN IN THE PAST 12 MONTHS? NO . ANY NEW EXTREMITY NUMBNESS OR WEAKNESS? NO . CARDIOLOGY: DO YOU HAVE A PACEMAKER OR DEFIBRILLATOR? NO . RESPIRATORY: HAVE YOU BEEN SICK IN THE PAST WEEK? NO . FEVER NO . FLU LIKE SYMPTOMS? NO . COUGH NO . INTEGUMENTARY: DO YOU HAVE ANY RASHES OR OPEN SORES? NO . ALLERGIC/IMMUNO: ARE YOU ALLERGIC TO IV DYE? NO . ANY NEW ALLERGIES? NO . PSYCHIATRIC: DO YOU HAVE THOUGHTS OF HURTING YOURSELF OR SOMEONE ELSE? NO . ARE YOU ABUSED, NEGLECTED, OR IN AN UNSAFE ENVIRONMENT? NO . ENDOCRINOLOGY: ARE YOU DIABETIC? NO . OTHER: DO YOU NEED ANY PRESCRIPTIONS? NO . IF YES, PLEASE LIST: ____ . ANY NEW PROBLEMS WITH YOUR MEDICATIONS? NO . WHEN DID YOU LAST EAT? ____04/14/191999 . WHEN DID YOU LAST DRINK? ____04/15/19629 . WHAT DID YOU LAST DRINK? ____WATER . NAME OF PERSON DRIVING YOU HOME? ____DAD NAY HILLMANN . DO YOU HAVE ANY OTHER QUESTIONS OR CONCERNS NO . VITAL SIGNS WT 178.0 LBS, HT 69 IN, BMI 26.28 INDEX, BP 167/91 MM HG, HR 80 /MIN, RR 18 /MIN, TEMP 98.2 F, OXYGEN SAT % 98%, SAFE IN ENV? 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 MYALGIAPOSTOPERATIVE DIAGNOSIS: RIGHT PIRIFORMIS SYNDROME. MYALGIAPROCEDURE: RIGHT PIRIFORMIS MUSCLE BLOCK UNDER FLUOROSCOPIC GUIDANCE.ANESTHESIA: LOCAL.SURGEON: SUSANNE ARREAGA M.D.PREOPERATIVE NOTE: THE PATIENT HAS HISTORY OFCHRONIC LOW BACK PAIN. I EVALUATED THE PATIENT AND REVIEWED THE CHART. WE BOTH AGREED ON PERFORMING A RIGHT PIRIFORMIS MUSCLE BLOCK UNDER FLUOROSCOPIC GUIDANCE. I WENT THROUGH THE RISKS, ALTERNATIVES AND BENEFITS ASSOCIATED WITH THIS PROCEDURE AND THE PATIENT EXPRESSED THAT SHE WOULD LIKE TO PROCEED. THE PATIENT DENIES UNEXPLAINABLE WEIGHT LOSS, FEVER, CHILLS, OR CHANGES IN URINARY OR BOWEL CONTROL.PROCEDURE NOTE: AFTER CONSENT WAS TAKEN, THE PATIENT WAS BROUGHT TO THE PROCEDURE ROOM AND THE PATIENT WAS PLACED IN THE PRONE POSITION. THE LUMBOSACRAL AREA WAS CLEANED WITH CHLORAPREP SOLUTION AND DRAPED ASEPTICALLY. THE PROCEDURE WAS DONE UNDER STERILE CONDITIONS. LATERALITY WAS CHECK WITH THE PATIENT AND THE STAFF AT THE TIME OF TIME OUT. UNDER FLUOROSCOPIC GUIDANCE, THE TARGET POINT WAS SELECTED AT THE MIDDLE AREA BETWEEN THE RIGHT GREATER TROCHANTER OF THE FEMUR AND THE BORDER OF THE SACRUM. LIDOCAINE WAS USED TO NUMB THE SKIN AND THE SUBCUTANEOUS TISSUE BELOW IT. A SPINAL NEEDLE 22 GAUGE, WAS ADVANCED UNDER FLUOROSCOPIC GUIDANCE TO THE SUBSTANCE OF THE RIGHT PIRIFORMIS MUSCLE. WHEN APPROPRIATE POSITION OF THE NEEDLE WAS ACHIEVED, ISOVUE-M DYE 30%, 0.25 ML, WAS INJECTED SHOWING ADEQUATE SPREAD OF THE DYE. THEN A SOLUTION OF 30 ML OF BUPIVACAINE, 0.25%, AND KENALOG 40 MG WAS INJECTED. THERE WAS NO EVIDENCE OF BLOOD, PARESTHESIA, OR CEREBROSPINAL FLUID. THE PATIENT WAS SENT TO THE RECOVERY ROOM WHERE SHE WAS MOVING HER EXTREMITIES AND DOING WELL. THERE WERE NO COMPLICATIONS DURING THE PROCEDURE. FLUOROSCOPY TIME WAS 8 SECONDS.POSTOPERATIVE NOTE: I DISCUSSED ALTERNATIVES WITH THE PATIENT. I AM LOOKING FOR LONG-LASTING PAIN RELIEF WITH THIS INTERVENTION. THERE WERE NO COMPLICATIONS. FURTHER RECOMMENDATIONS DEPEND ON HOW THE PATIENT DOES. INSTRUCTIONS WERE GIVEN QUESTIONS WERE ANSWERED PATIENT REPORTS UNDERSTANDING AND AGREES WITH THE PLAN. I, GRACE MICHAEL, DOCUMENTED THE ABOVE INFORMATION ACTING A SCRIBE FOR DR. AMOR. I HAVE REVIEWED THE ABOVE DOCUMENT, WRITTEN BY GRACE MICHAEL SCRIBMaria T AND I VERIFY THAT IT IS ACCURATE. PROCEDURE CODES 6045F RADXPS IN END [id number] PXD [id number] NEEDLE LOCALIZATION BY XRAY, MODIFIERS: [id number] INJ TRIGGER POINT 06/10 MUSCL, MODIFIERS: RT DISPOSITION & COMMUNICATION FOLLOW UP 3 WEEKS ELECTRONICALLY SIGNED BY SUSANNE AMOR MD, MD ON 04/27/2019 AT 01:35 PM EST DISCLAIMER : THIS IS A VISIT SUMMARY EXTRACTED FROM THE [employer] CHART. IT IS NOT A COPY OF THE [employer] PROGRESS NOTE. MTDD
== END ==
LOC: M PAIN 15:00
PROVIDERS: ATTEND Anesthesiology
DX: M79.18 Myalgia, other site (principal); G57.01 Lesion of sciatic nerve, right lower limb; I10 Essential (primary) hypertension; M17.12 Unilateral primary osteoarthritis, left knee; Z79.891 Long term (current) use of opiate analgesic; Z79.899 Other long term (current) drug therapy; Z88.8 Allergy status to other drugs, medicaments and biological substances
CPT/HCPCS: 20552; 77002; J3301; Q9967

== ENCOUNTER → 2019-05-14 | Outpatient (CLI) | payer MEDICARE ==
[~2019-05-14] MED LIST changes: -BUPIVACAINE HCL 0.25% 30 ML VIAL As Ordered ONE; -ISOVUE-M 300 61% 15ML VIAL (Q9967) As Ordered ONE; -LIDOCAINE 1% SDV INJ 30 ML VIAL As Ordered ONE; -TRIAMCINOLONE ACETONIDE SUSP 40 MG/ML VIAL (J3301) As Ordered ONE; -diazePAM 5 MG TAB As Ordered ONE; -diphenhydrAMINE 25 MG CAP As Ordered ONE; -oxyCODONE 5MG TAB As Ordered ONE
--- NOTE | 2019-05-21 01:19 | ECWPNPC ---
PATIENT NAME: JUAN MIGUEL VALENCIA : 1960 GENDER: FEMALE VISIT DATE: 05/14/2019 DISCHARGE DATE: 05/14/19 1507 VISIT LOCKED DATE TIME: PHYSICIAN: RAGHAVENDRA SAN RESOURCE: RAGHAVENDRA SAN REASON FOR APPOINTMENT 1. POST PIRIFORMIS HISTORY OF PRESENT ILLNESS HISTORY OF PRESENT ILLNESS: HERE FOR F/U OF CHRONIC RIGHT LOW BACK PAIN.HAD RIGHT PIRIFORMIS INJECTION ON 04/15/19.FEELS LIKE PAIN REDUCED FOR 1 MONTH.CONTINUES WITH SIGNIFICANT RIGHT LOW BACK AND LEG PAIN.WALKS WITH ASSIST OF CANE MANY TIMES DUE TO RIGHT LEG WEAKNESS.RATING VAS 3/10. PAIN THE PATIENT DESCRIBES THE PAIN... FALL RISK SCREENING: SCREENING :NO FALLS REPORTED IN THE LAST YEAR CURRENT MEDICATIONS TAKING CLARITIN 10 MG TABLET 1 TABLET ORALLY ONCE A DAY NEEED TAKING TOPIRAMATE 50 MG TABLET 1 TABLET ORALLY TWICE A DAY TAKING OXYBUTYNIN CHLORIDE 5 MG TABLET 1 TABLET ORALLY TWICE A DAY TAKING COLACE 100 MG CAPSULE 1 CAPSULE NEEDED ORALLY ONCE A DAY TAKING GABAPENTIN 300 MG CAPSULE 1 CAPSULE ORALLY QID FOR PAIN, NOTES: 04/14/19 2400 TAKING OMEPRAZOLE 20 MG CAPSULE DELAYED RELEASE 1 CAPSULE ORALLY ONCE A DAY TAKING HYDROXYZINE HCL 50 MG TABLET 1 TABLET NEEDED ORALLY BEFORE BEDTIME TAKING BACLOFEN 10 MG TABLET 1 TABLET WITH FOOD OR MILK ORALLY PRN THREE TIMES A DAY FOR SPASMS AND PAIN, NOTES: 04/14/19 2400 TAKING AMITRIPTYLINE HCL 25 MG TABLET 2 TABLET ORALLY BEFORE BEDTIME, NOTES: 04/14/19 2400 TAKING METOPROLOL SUCCINATE ER 50 MG TABLET EXTENDED RELEASE 24 HOUR 1 TABLET ORALLY ONCE A DAY TAKING AMLODIPINE BESYLATE 2.5 MG TABLET 1 TABLET ORALLY ONCE A DAY TAKING NORCO 7.5-325 MG TABLET 1 TABLET NEEDED ORALLY Q6H PRN MDD4, NOTES: 04/15/19 0700 UNKNOWN LEVOCETIRIZINE DIHYDROCHLORIDE 5 MG TABLET 1 TABLET IN THE EVENING ORALLY ONCE A DAY NEEDED UNKNOWN ASPERCREME W/LIDOCAINE 4 % CREAM 1 APPLICATION TO AFFECTED AREA ON CHEST WALL EXTERNALLY 4 TIMES A DAY NEEDED UNKNOWN LIDOCAINE 2 % GEL ONE APPLICATION EXTERNALLY/LOW BACK TWICE DAILY NEEDED MEDICATION LIST REVIEWED AND RECONCILED WITH THE PATIENT PAST MEDICAL HISTORY ULCERATIVE COLITIS- DR. EARLY HEPATITIS C - DR. FATIMA TREATED WITH 8 WEEKS HARVONI EORX 12/2016, GENOTYPE 1A HCV RNA 1110 CHRONIC BACK PAIN - FOLLOWS WITH PAIN CLINIC "MILD" ID DUE TO HIGH BP WITH SUBSEQUENT NORMAL STRESS TEST H/O ACUTE TOXIC ENCEPHALOPATHY SECONDARY TO OPIATES MIGRAINE HEADACHES H/O SHINGLES HYPERTENSION ASCVD 10-YEAR RISK 1.9% IN 04/2018. HYPOTENSIVE EPISODE - 08/2018 LEFT KNEE ARTHRITIS ALLERGIES CEFAZOLIN SODIUM: RASH - ALLERGY SURGICAL HISTORY TONSILS/ADENOIDS/TUBES HYSTERECTOMY FOR MENORRHAGIA BILATERAL CARPAL TUNNEL BACK SURGERY DORSAL COLUMN STIMULATOR TOTAL HIP REPLACEMENT RIGHT D & C X2 COLONOSCOPY: SHARATH: DIVERTICULOSIS 05/2016 EGD: SHARATH: SMALL HIATAL HERNIA 05/2016 PARAFORMIS INJ - DR. AMOR DORSAL COLUM STIMULATOER REMOVED 12/17/2018 HOSPITALIZATION/MAJOR DIAGNOSTIC PROCEDURE SYNCOPAL EPISODE 03/09-03/12/2016 JAUNDICE, ELECTROLYTE IMBALANCE 03/2016 SURGERY RELATED REVIEW OF SYSTEMS REVIEWED BY: PROVIDER: RAGHAVENDRA LE . CONSTITUTIONAL: ANY CHANGE IN YOUR MEDICAL CONDITION? NO . CHILLS NO . FEVER NO . INFECTION: DO YOU HAVE NEW INFECTIONS? NO . DO YOU HAVE HISTORY OF MRSA? NO . MUSCULOSKELETAL: ANY NEW PATTERNS OF PAIN OR NUMBNESS? NO . GASTROENTEROLOGY: ANY NEW CHANGE IN BOWEL CONTROL? NO . GENITOURINARY: ANY NEW CHANGE IN BLADDER CONTROL? NO . IS THERE A CHANCE YOU COULD BE ? NO . HEMATOLOGY/LYMPH: DO YOU TAKE ANY BLOOD THINNERS? (FOR EXAMPLE- COUMADIN, PLAVIX, AGGRENOX, PLATEL, PRADAXA, OR XARELTO) NO . WHEN WAS YOUR LAST DOSE? DATE: TIME: . NEUROLOGY: HAVE YOU FALLEN IN THE PAST 12 MONTHS? NO . ANY NEW EXTREMITY NUMBNESS OR WEAKNESS? NO . CARDIOLOGY: DO YOU HAVE A PACEMAKER OR DEFIBRILLATOR? NO . RESPIRATORY: HAVE YOU BEEN SICK IN THE PAST WEEK? NO . FEVER NO . FLU LIKE SYMPTOMS? NO . COUGH NO . INTEGUMENTARY: DO YOU HAVE ANY RASHES OR OPEN SORES? NO . ALLERGIC/IMMUNO: ARE YOU ALLERGIC TO IV DYE? NO . ANY NEW ALLERGIES? NO . PSYCHIATRIC: DO YOU HAVE THOUGHTS OF HURTING YOURSELF OR SOMEONE ELSE? NO . ARE YOU ABUSED, NEGLECTED, OR IN AN UNSAFE ENVIRONMENT? NO . ENDOCRINOLOGY: ARE YOU DIABETIC? NO . OTHER: DO YOU NEED ANY PRESCRIPTIONS? HYDROCODONE, BACLOFEN GABAPENTIN , AMITRIPTOLEN . IF YES, PLEASE LIST: ____ . ANY NEW PROBLEMS WITH YOUR MEDICATIONS? NO . WHEN DID YOU LAST EAT? ____ . WHEN DID YOU LAST DRINK? ____ . WHAT DID YOU LAST DRINK? ____ . NAME OF PERSON DRIVING YOU HOME? ____ . DO YOU HAVE ANY OTHER QUESTIONS OR CONCERNS NO . VITAL SIGNS WT 167.2 LBS, HT 69 IN, BMI 24.69 INDEX, BP 165/84 MM HG, HR 99 /MIN, RR 18 /MIN, TEMP 97.1 F, OXYGEN SAT % 99%, NA INITIALS SC 14:23, REVIEWED BY: KG. EXAMINATION GENERAL EXAMINATION: GENERAL ALERT,NO DISTRESS . PSYCH AFFECT NORMAL . LUNGS: LUNG SOUNDS ARE CLEAR . HEART: HEART RATE REGULAR . MUSCULOSKELETAL: MST 5/5 BILAT. LOWER EXTREMITIES . FOR BILAT. SIJ TENDERNESS BILAT. SIJ . DIAGNOSTIC TESTS REVIEWEDMRI L/S [id number] . ASSESSMENTS SACROILIITIS - M46.1 (PRIMARY) TREATMENT SACROILIITIS REFILL TOPIRAMATE TABLET, 50 MG, 1 TABLET, ORALLY, TWICE A DAY, 30, 60 TABLET, REFILLS 0 REFILL COLACE CAPSULE, 100 MG, 1 CAPSULE NEEDED, ORALLY, ONCE A DAY, 30 DAYS, 30 CAPSULE, REFILLS 5 REFILL GABAPENTIN CAPSULE, 300 MG, 1 CAPSULE, ORALLY, QID FOR PAIN, 30 DAYS, 120, REFILLS 5, NOTES: 04/14/19 2400 REFILL BACLOFEN TABLET, 10 MG, 1 TABLET WITH FOOD OR MILK, ORALLY PRN, THREE TIMES A DAY FOR SPASMS AND PAIN, 30 DAY(S), 90, REFILLS 5, NOTES: 04/14/19 2400 REFILL AMITRIPTYLINE HCL TABLET, 25 MG, 2 TABLET, ORALLY, BEFORE BEDTIME, 30 DAYS, 60, REFILLS 5, NOTES: 04/14/19 2400 REFILL NORCO TABLET, 7.5-325 MG, 1 TABLET NEEDED, ORALLY, Q6H PRN MDD4, 30 DAYS, 120, REFILLS 0, NOTES: 04/15/19 0700 NOTES: BILAT SIJ, ISTOP REGISTRY REVIEWED AND DEMONSTRATES COMPLLIANCE. BRINGS IN MEDICATIONS WHICH IS APPROPRIATE FOR WHAT WAS DISPENSED. RECENT URINE TOXICOLOGY REVIEWED. NO UNAUTHORIZED MEDICATIONS. NO ILLICIT SUBSTANCES AND PRESCRIBED MEDICATIONS WERE PRESENT. URINE TOX TODAY, RISKS OF NARCOTIC/OPIOD MEDICATIONS INCLUDES BUT IS NOT LIMITED TO RISK OF DEPENDANCE/DEVELOPMENT OF ADDICTION, MOOD DISTURBANCE AND DEPRESSION, OSTEOPOROSIS, HORMONAL AND LABIDAL CHANGES, RESPIRATORY DEPRESSION AND . PATIENT IS ADVISED NOT TO DRIVE OR DRINK ALCOHOL WHILE ON THESE MEDICATIONS. PROCEDURE CODES FA211 ESTABILISHED PATIENT [facility] CHARGE DISPOSITION & COMMUNICATION FOLLOW UP POST (REASON: BILAT SIJ) ELECTRONICALLY SIGNED BY RAGHAVENDRA LE, REY ON 05/20/2019 AT 10:04 AM EST DISCLAIMER : THIS IS A VISIT SUMMARY EXTRACTED FROM THE [employer] CHART. IT IS NOT A COPY OF THE [employer] PROGRESS NOTE. ROSY
== END ==
LOC: M PAIN 14:30
PROVIDERS: ATTEND Nurse Practitioner Family
DX: M46.1 Sacroiliitis, not elsewhere classified (principal); G89.29 Other chronic pain; Z86.19 Personal history of other infectious and parasitic diseases; G43.909 Migraine, unspecified, not intractable, without status migrainosus; I10 Essential (primary) hypertension; Z96.641 Presence of right artificial hip joint; Z88.1 Allergy status to other antibiotic agents; Z79.899 Other long term (current) drug therapy

== ENCOUNTER → 2019-05-28 | Outpatient (CLI) | payer MEDICARE ==
[~2019-05-28] MED LIST changes: +E-Z-GAS II EFFERVESCENT PACKET (SODIUM BICARB./CITRIC ACID/SIMETHICONE) As Ordered ONE; +E-Z-HD 98% w/w 340GM SUSP BTL As Ordered ONE; +E-Z-PAQUE 96% w/w SUSP 176GM BTL As Ordered ONE
--- NOTE | 2019-05-31 09:04 | REP ---
Examination Requested: Esophagram Barium Swallow Reason For Exam/Comment: Dysphasia Esophagram: The procedure was performed MARCO Engle, under the direct supervision of Dr. Owen. The images were reviewed with Dr. Owen. A single PA chest x-ray is submitted as a presser and shaper knitted goods film. The superior mediastinal structures are midline. The heart size is within normal limits. The lungs are clear. Liquid barium and gas producing granules were given in the erect position as well as liquid barium in the prone oblique position, in order to perform a double contrast esophagram examination. Oral and pharyngeal stages of the examination were unremarkable. Esophageal transport is efficient and there is no esophagitis, stricture, or mucosal ring noted. However tertiary contractions were noted throughout the exam. There is no hiatal hernia noted. Gastroesophageal reflux was not visualized throughout the course of the exam. Impression: 1. Tertiary contractions. 0.9 minutes of fluoroscopy time was utilized for this procedure. Some fluoroscopic images are performed with last image hold technology. These images require no additional radiation. Reviewed by MARCO Emerson 05/28/2019 05:41 P Electronically Signed by Sahil Owen MD 05/31/2019 08:55 A
== END ==
LOC: M RAD 08:10
PROVIDERS: ATTEND Internal Medicine Gastroenterology
DX: K22.4 Dyskinesia of esophagus (principal); R13.10 Dysphagia, unspecified

== ENCOUNTER 2019-06-29 20:32 | Inpatient (IN) | payer MEDICARE ==
[~2019-06-29] VITALS: Ht 175.3 cm; Wt 75.0 kg
[~2019-06-29 20:32] MED LIST changes: -E-Z-GAS II EFFERVESCENT PACKET (SODIUM BICARB./CITRIC ACID/SIMETHICONE) As Ordered ONE; -E-Z-HD 98% w/w 340GM SUSP BTL As Ordered ONE; -E-Z-PAQUE 96% w/w SUSP 176GM BTL As Ordered ONE
[2019-06-29] MEDS ORDERED: ASPI81TA85 PO (20:55)
[2019-06-29] MEDS ORDERED: OMEP40CA97 PO (20:55)
[2019-06-29] MEDS ORDERED: NS 1,000 ML IV ONE (21:45)
[2019-06-29] MEDS ORDERED: MORPHINE 10 MG/ML 1ML VIAL (J2270) IV ONE (21:45)
[2019-06-29 22:14] LABS: BASO % 0.3 % (0.0-1.0); EOS % 0.4 % (0.0-3.0); HEMATOCRIT 37.7 % (36.0-47.0); LYMPH # 1.5 10^3/uL (1.5-5.0); LYMPH % 22.2 % (24.0-44.0); MEAN CORPUSCULAR HEMOGLOBIN 32.8 pg (27.0-33.0); MEAN CORPUSCULAR HGB CONC 34.5 g/dl (32.0-36.5); MEAN CORPUSCULAR VOLUME 95.2 fl (80.0-96.0); MONO # 0.8 10^3/uL (0.0-0.8); MONO % 11.9 % (0.0-5.0); NEUTROPHILS # 4.4 10^3/uL (1.5-8.5); NEUTROPHILS % 64.8 % (36.0-66.0); PLATELET COUNT, AUTOMATED 131 10^3/uL (150-450); RED BLOOD COUNT 3.96 10^6/uL (4.00-5.40); WHITE BLOOD COUNT 6.7 10^3/uL (4.0-10.0)
[2019-06-29 22:41] LABS: INFLUENZA A AMPLIFICATION NEGATIVE (NEGATIVE); INFLUENZA B AMPLIFICATION NEGATIVE (NEGATIVE)
[2019-06-29 22:45] LABS: BLOOD UREA NITROGEN 11 MG/DL (7-18); CARBON DIOXIDE LEVEL 27 MEQ/L (21-32); CHLORIDE LEVEL 106 MEQ/L (98-107); CREATININE FOR GFR 0.63 MG/DL (0.55-1.30); GLOMERULAR FILTRATION RATE > 60.0 (>51); GLUCOSE, FASTING 113 MG/DL (70-100); POTASSIUM SERUM 2.6 MEQ/L (3.5-5.1); SODIUM LEVEL 140 MEQ/L (136-145)
[2019-06-29 22:59] LABS: APPEARANCE, URINE CLEAR (CLEAR); BACTERIA, URINE AUTO NEGATIVE (NEGATIVE); BILIRUBIN, URINE AUTO NEGATIVE (NEGATIVE); BLOOD, URINE BLOOD NEGATIVE (NEGATIVE); COLOR, URINE YELLOW (YELLOW); GLUCOSE, URINE (UA) AUTO NEGATIVE (NEGATIVE); KETONE, URINE AUTO NEGATIVE (NEGATIVE); LEUKOCYTE ESTERASE, URINE AUTO NEGATIVE (NEGATIVE); MUCUS, URINE SMALL (NEGATIVE); NITRITE, URINE AUTO NEGATIVE (NEGATIVE); PROTEIN, URINE AUTO NEGATIVE (NEGATIVE); RBC, URINE AUTO 1 /HPF (0-3); SPECIFIC GRAVITY URINE AUTO 1.018 (1.002-1.035); SQUAMOUS EPITHELIAL CELL UR AU 0 /HPF (0-6); WBC, URINE AUTO 1 /HPF (0-3)
[2019-06-29] MEDS ORDERED: POTASSIUM CHLORIDE 10 MEQ SR TABLET PO ONE (23:00)
--- NOTE | 2019-06-29 23:27 | REPVR ---
PROCEDURE INFORMATION: Exam: US Duplex Right Lower Extremity Veins, Limited Exam date and time: 06/29/2019 11:13 PM Age: 59 years old Clinical indication: Pain; Leg, upper and leg, lower; Right TECHNIQUE: Imaging protocol: Real-time Duplex ultrasound of the Right Lower Extremity with 2-D cheney scale, color Doppler flow and spectral waveform analysis with image documentation. Limited exam was focused on the right lower extremity veins. COMPARISON: No relevant prior studies available. FINDINGS: Right deep veins: Unremarkable. The common femoral, femoral, proximal profunda femoral and popliteal veins are patent without thrombus. Normal Doppler waveforms. Normal compressibility and/or augmentation response. Right superficial veins: Unremarkable. Saphenofemoral junction is patent without thrombus. Soft tissues: Unremarkable. IMPRESSION: Negative right lower extremity venous duplex exam without evidence of deep venous thrombosis. Electronically signed by: Emanuel Carrion On 06/29/2019 23:26:49 PM
[2019-06-30] MEDS ORDERED: NORCO, ANEXSIA 5/325MG TABLET (HYDROcodone/ACETAMINOPHEN) PO ONE
[2019-06-30] MEDS ORDERED: IBUP1TAB7 PO (01:03)
[2019-06-30] MEDS ORDERED: OMEP-221 PO (01:03)
[2019-06-30] MEDS ORDERED: TOPI50TA9 PO (01:03)
[2019-06-30] MEDS ORDERED: HYDR50TA70 PO (01:03)
[2019-06-30] MEDS ORDERED: ASPI81TA85 PO (01:03)
[2019-06-30] MEDS ORDERED: ARTIDRO2 OU (01:03)
[2019-06-30] MEDS ORDERED: PROAAER10 INH (01:03)
[2019-06-30] MEDS ORDERED: METO1TAB7 PO (01:03)
[2019-06-30] MEDS ORDERED: IBUPROFEN 800 MG TAB PO PRN (01:45)
[2019-06-30] MEDS ORDERED: POLYVINYL ALCOHOL OPHTH SOLN 15 ML(LIQUITEARS) OU PRN (01:45)
[2019-06-30] MEDS ORDERED: BACLOFEN 10 MG TAB PO PRN (01:45)
[2019-06-30] MEDS ORDERED: ANEXSIA, NORCO 7.5MG/325MG TABLET(HYDROCODONE/APAP) PO PRN (01:45)
[2019-06-30] MEDS ORDERED: ACETAMINOPHEN TAB 650MG DOSE (2X325MG) PO PRN (01:45)
[2019-06-30] MEDS: AMITRIPTYLINE 25 MG TAB PO SCH ×2 (03:16→21:42)
[2019-06-30] MEDS: hydrOXYzine 50 MG TAB PO SCH ×2 (03:17→21:45)
[2019-06-30] MEDS: METOPROLOL SUCC (TopROL XL) 50MG **XL** TAB PO SCH ×2 (03:18→21:44)
[2019-06-30 04:56] VITALS: BP 146/94
[2019-06-30] MEDS ORDERED: POTASSIUM CHLORIDE 10 MEQ SR TABLET PO ONE (05:45)
--- NOTE | 2019-06-30 07:44 | HPEPDOC ---
General Date of Admission Jun 29, 2019 at 20:33 Date of Service: Jun 29, 2019 Attending Physician: PETER STARKS MD Chief Complaint The patient is a 59-year-old female admitted with a reason for visit of Unable To Ambulate. History of Present Illness 59 yo woman with a history of chronic back pain s/p back surgery, fibromyalgia, osteoporosis, s/p R hip arthoplasty, follows with the pain clinic with steroid injections most recently to her left piriformis who presented to the ED with R leg spasm pain that she could not walk. While she is due to be seen in the pain clinic this morning by Dr. Varma, her pain and inability to ambulate while in the ED precipitated the admission with plan to have the pain service see her as an inpatient since she could not ambulate to be safely discharged home where she lives alone. In the ED she was hemodynamically stable and afebrile. Her BMP was remarkable for K 2.6 that was repleted with 40meqs in the ED and work up was otherwise showed a normal CBC and negative RLE doppler venous ultrasound. While in the ED, she was given morphine 4 IV without much relief and then restarted on her home meds and admitted to the floor. Home Medications Scheduled Amitriptyline HCl (Amitriptyline HCl) 25 Mg Tab, 50 MG PO QHS, (Reported) Aspirin (Aspir 81) 81 Mg Tablet.dr, 81 MG PO QHS, (Reported) Gabapentin (Neurontin) 300 Mg Cap, 300 MG PO TID, (Reported) Hydroxyzine HCl (Hydroxyzine HCl) 50 Mg Tablet, 50 MG PO QHS, (Reported) Metoprolol Succinate (Metoprolol Succinate) 50 Mg Tab.er.24h, 50 MG PO QHS, (Reported) Omeprazole (Omeprazole) 40 Mg Capsule.dr, 40 MG PO BID, (Reported) Topiramate (Topiramate) 50 Mg Tablet, 50 MG PO BID, (Reported) Scheduled PRN Albuterol Sulfate (Proair Hfa) 8.5 Gm Hfa.aer.ad, 2 PUFF INH QID PRN for SHORTN ESS OF BREATH, (Reported) Baclofen (Baclofen) 10 Mg Tab, 10 MG PO TID PRN for MUSCLE SPASMS, (Reported) Hydrocodone/Acetaminophen (Goodrich 7.5-325 Tablet) 1 Tab Tab, 1 TAB PO BID PRN for PAIN, (Reported) Ibuprofen (Ibuprofen) 800 Mg Tablet, 800 MG PO TID PRN for PAIN, (Reported) Polyvinyl Alcohol (Artificial Tears) 15 Ml Drops, 1 DROP OU QID PRN for DRY EYES, (Reported) Allergies Coded Allergies: SEASONAL ALLERGIES (Verified Allergy, Unknown, 09/01/06) cefazolin (Verified Allergy, Unknown, hives, 06/29/19) Past Medical History Medical History Hypertension Chronic back pain s/p back surgery, follows with the pain clinic with steroid injections most recently to her left piriformis CAD HTN GERD Migraines Asthma Osteoporosis Fibromylagia Surgical History Hysterectomy Tonsillectomy Back surgery Bilateral carpal tunnel repair R hip replacement Family History Mother has a history of hypertension Father has a a history of hypertension and Celestina cell carcinoma Social History * Smoker: Denies Alcohol: Denies Drugs: denies Recent Travel/Sick Contacts: Denies: Recent travel, Recent sick contacts Psychosocial History: No pertinent psych hx - Denies the use of tobacco or illicit drugs; Reports that she drinks alcohol socially - Denies recent travel - Lives alone daughter and her parents visit frequently - On disability, worked as a nurse A-FIB/CHADSVASC A-FIB History Current/History of A-Fib/PAF?: No Current PO Anticoag Therapy: No Age/Risk Factor Scoring CHADSVASC: CHADSVASC Response (Comments) Value Age Risk Factor Age < 65 years old 0 Gender Risk Factor Female 1 Hx of HTN Yes 1 Hx of Stroke/TIA/or VTE No 0 Hx of Diabetes No 0 Hx of Vascular Disease Yes 1 Total 3 Treatment Treatment ordered: NONE Reason Anticoagulant not given: Not indicated/[id number] Review of Systems Constitutional: Denies: Chills, Fever, Night Sweats Eyes: Denies: Pain, Vision change ENT: Denies: Head Aches, Ear Pain, Dysphagia Skin: Denies: Rash, Lesions, Breakdown Pulmonary: Denies: Dyspnea, Cough Cardiovascular: Denies: Chest Pain, Palpitations, Orthopnea, Paroxysmal Noc. Dyspnea, Lt Headedness Gastrointestinal: Denies: Nausea, Vomiting, Abdominal Pain, Diarrhea Genitourinary: Denies: Dysuria, Frequency, Incontinence, Retention Hematologic: Denies: Bruising, Bleeding Excessively Endocrine: Denies: Polydipsia, Polyphagia, Polyuria, Heat Intolerance, Cold Intolerance, Other Endocrine Sx Musculoskeletal: Reports: Back Pain, Leg Pain (Left leg spasms, so severe that she could not walk) Neurological: Denies: Weakness, Numbness, Change in speech, Confusion Psych: Reports: Mood Normal; Denies: Depression, Memory Issues Physical Examination General Exam: Positive: Alert, No Acute Distress Eye Exam: Positive: PERRLA, Conjunctiva & lids normal, EOMI; Negative: Sclera icteric ENT Exam: Positive: Atraumatic, Mucous membr. moist/pink, Pharynx Normal Neck Exam: Positive: Supple; Negative: JVD, thyromegaly Chest Exam: Positive: Clear to auscultation, Normal air movement Heart Exam: Positive: Rate Normal, Regular Rhythm, Normal S1, Normal S2; Negative: Murmurs, Rubs Telemetry: Positive: No significant arrhythmia Abdomen Exam: Positive: Normal bowel sounds, Soft; Negative: Tenderness, Hepatospenomegaly Extremity Exam: Positive: Normal pulses; Negative: Clubbing, Cyanosis, Edema, Tenderness, Swelling Skin Exam: Positive: Nl turgor and temperature; Negative: Breakdown, Lesion Neuro Exam: Positive: Normal Speech, Strength at 5/5 X4 ext (left lower extremity exam limited by pain, but with otherwise full strength), Cranial Nerves 3-12 NL Psych Exam: Positive: Mental status NL, Mood NL, Oriented x 3 Vital Signs Vital Signs Date Time Temp Pulse Resp B/P (MAP) Pulse Ox O2 Delivery O2 Flow Rate FiO2 06/30/19 01:00 78 147/86 (106) 96 Room Air 06/30/19 00:45 16 06/29/19 20:38 100.4 Laboratory Data Labs 24H Laboratory Tests 2 06/29/19 22:03: Immature Granulocyte % (Auto) 0.4, Neutrophils (%) (Auto) 64.8, Lymphocytes (%) (Auto) 22.2L, Monocytes (%) (Auto) 11.9H, Eosinophils (%) (Auto) 0.4, Basophils (%) (Auto) 0.3, Neutrophils # (Auto) 4.4, Lymphocytes # (Auto) 1.5, Monocytes # (Auto) 0.8, Eosinophils # (Auto) 0.0, Basophils # (Auto) 0.0, Nucleated Red Blood Cells % (auto) 0.0, Anion Gap 7L, Glomerular Filtration Rate > 60.0, Lactic Acid Level 1.3, Calcium Level 10.0, Influenza Type A (RT-PCR) NEGATIVE, Influenza Type B (RT-PCR) NEGATIVE 06/29/19 22:28: Urine Color YELLOW, Urine Appearance CLEAR, Urine pH 6.0, Urine Specific [place] 1.018, Urine Protein NEGATIVE, Urine Glucose (Auto)(UA) NEGATIVE, Urine Ketones (Auto) NEGATIVE, Urine Blood NEGATIVE, Urine Nitrite NEGATIVE, Urine Bilirubin NEGATIVE, Urine Urobilinogen 2.0H, Urine Leukocyte Esterase (Auto) NEGATIVE, Urine WBC (Auto) 1, Urine RBC (Auto) 1, Urine Hyaline Casts (Auto) 0, Urine Bacteria (Auto) NEGATIVE, Urine Squamous Epithelial Cells 0, Urine Mucus (Auto) SMALL, Urine Sperm (Auto) CBC/BMP Laboratory Tests 06/29/19 22:03 Microbiology Microbiology 06/29/19 Urine Culture, Received Pending 06/29/19 Blood Culture, Received Pending Assessment/Plan 59 yo woman with a history of fibromyalgia, CBP s/p back surgeries and R hip surgery who follows with the pain clinic where she was recently getting injections to her piriformis who is due in pain clinic tomorrow for injection treatment but came to the ED with horrible LLE cramping that she could not walk and is therefore being admitted to medicine for pain management and will consult pain management hopefully to receive her treatment before she can be discharged home. Plan: Chronic back pain with severe left lower extremity spasm pain: reports feeling ok when she is supine but is horrible when she attempts to stand. -to continue home meds of Goodrich, amitriptyline, baclofen, gabapentin and topamax -consulted Dr. Varma from pain clinic to see her as she is due for an injection today, day team to call him in the AM Fibromyalgia: -continue home meds as above HTN: -continue home metoprolol Migraines: -continue home elavil ad topamax Hypokalemia: -s/p 40meq last night, and 40meq this AM, monitor DVT ppx: Lovenox Dispo: obs medsurg, pending PT, OT and pain consult Plan / VTE VTE Prophylaxis Ordered?: Yes PETER STARKS MD Jun 30, 2019 03:06
[2019-06-30] MEDS ORDERED: NORCO, ANEXSIA 5/325MG TABLET (HYDROcodone/ACETAMINOPHEN) PO PRN (08:00)
[2019-06-30] MEDS: OMEPRAZOLE 20 MG CAP PO SCH ×2 (08:34→21:44)
[2019-06-30] MEDS: NORCO, ANEXSIA 5/325MG TABLET (HYDROcodone/ACETAMINOPHEN) PO PRN (08:35)
[2019-06-30] MEDS: TOPIRAMATE (TopAMAX) 25 MG TAB PO SCH ×2 (08:36→21:43)
[2019-06-30] MEDS: ENOXAPARIN 40 MG/0.4 ML SYRINGE (J1650) SC SCH (08:37)
[2019-06-30 08:54] LABS: BASO % 0.5 % (0.0-1.0); EOS # 0.1 10^3/uL (0.0-0.5); EOS % 1.7 % (0.0-3.0); HEMATOCRIT 34.2 % (36.0-47.0); HEMOGLOBIN 12.1 g/dl (12.0-15.5); LYMPH # 1.8 10^3/uL (1.5-5.0); LYMPH % 29.5 % (24.0-44.0); MEAN CORPUSCULAR HEMOGLOBIN 33.3 pg (27.0-33.0); MEAN CORPUSCULAR HGB CONC 35.4 g/dl (32.0-36.5); MEAN CORPUSCULAR VOLUME 94.2 fl (80.0-96.0); MONO # 0.9 10^3/uL (0.0-0.8); MONO % 15.3 % (0.0-5.0); NEUTROPHILS # 3.1 10^3/uL (1.5-8.5); NEUTROPHILS % 52.7 % (36.0-66.0); PLATELET COUNT, AUTOMATED 151 10^3/uL (150-450); RED BLOOD COUNT 3.63 10^6/uL (4.00-5.40); WHITE BLOOD COUNT 5.9 10^3/uL (4.0-10.0)
[2019-06-30] MEDS ORDERED: IBUPROFEN 800 MG TAB PO SCH (09:00)
[2019-06-30] MEDS ORDERED: GABAPENTIN 300 MG CAP PO SCH (09:00)
[2019-06-30 09:21] LABS: BLOOD UREA NITROGEN 10 MG/DL (7-18); CALCIUM LEVEL 9.3 MG/DL (8.5-10.1); CARBON DIOXIDE LEVEL 29 MEQ/L (21-32); CHLORIDE LEVEL 108 MEQ/L (98-107); CREATININE FOR GFR 0.54 MG/DL (0.55-1.30); GLOMERULAR FILTRATION RATE > 60.0 (>51); GLUCOSE, FASTING 115 MG/DL (70-100); POTASSIUM SERUM 3.8 MEQ/L (3.5-5.1); SODIUM LEVEL 141 MEQ/L (136-145)
--- NOTE | 2019-06-30 09:51 | REP ---
CT BRAIN WITHOUT CONTRAST: HISTORY: Head trauma. Comparison head CT study March 09, 2016. C T FINDINGS: Digital preliminary extruder operator vertical radiograph is unremarkable. Bone window settings demonstrate an intact bony calvarium. No skull fracture is seen. No significant scalp hematoma is appreciated. No intraorbital abnormality is seen. The visualized paranasal sinuses are clear. There is minimal distal internal carotid artery vascular calcification. On soft tissue window settings, the lateral, third, and fourth ventricles are normal in size and position. Owen/white differentiation pattern is normal above and below the tentorium. There is no evidence of intracranial hemorrhage. No mass, infarct, extra-axial fluid collection, contusion or midline shift is seen. IMPRESSION: Negative brain CT. No skull fracture or intracranial injury seen. Electronically Signed by Garret Still MD 06/30/2019 01:15 P
--- NOTE | 2019-06-30 10:26 | REP ---
Bilateral hips including AP pelvis, five views: There is a total right hip arthroplasty with the components tightly applied and in satisfactory position and alignment. There is no acute fracture. There is no dislocation. The left hip demonstrates normal mineralization. The joint space is normal. There are no calcifications. There is no fracture or dislocation. The AP view of the pelvis demonstrates no pelvic fractures otherwise. There are postsurgical changes in the inferior lumbar spine. There are multiple phleboliths inferiorly in the pelvis, likely phleboliths. Impression: Total right hip arthroplasty without evidence of acute fracture or dislocation. Otherwise, negative bilateral hip series. Electronically Signed by Sahil Anthony MD 06/30/2019 10:18 A
[2019-06-30 14:00] VITALS: BP 132/68
[2019-06-30] MEDS ORDERED: PILL CUTTER 1 EACH XX PRN (15:30)
[2019-06-30] MEDS: GABAPENTIN 400 MG CAP PO SCH ×2 (15:37→21:45)
[2019-06-30] MEDS: tiZANidine 4 MG TAB PO SCH ×2 (15:37→21:45)
[2019-06-30] MEDS: KETOROLAC 30 MG/ML VIAL (J1885) IV PRN ×2 (16:32→22:37)
[2019-06-30] MEDS: ASPIRIN 81 MG ENTERIC TAB PO SCH (21:45)
[2019-06-30 22:00] VITALS: BP 144/87
[2019-07-01] MEDS: KETOROLAC 30 MG/ML VIAL (J1885) IV PRN ×3 (04:48→23:34)
[2019-07-01] MEDS: tiZANidine 4 MG TAB PO SCH ×3 (05:25→21:20)
[2019-07-01 06:00] VITALS: BP 138/77
[2019-07-01 06:05] LABS: BASO % 0.5 % (0.0-1.0); EOS # 0.1 10^3/uL (0.0-0.5); EOS % 1.7 % (0.0-3.0); HEMATOCRIT 32.4 % (36.0-47.0); HEMOGLOBIN 11.5 g/dl (12.0-15.5); LYMPH # 1.1 10^3/uL (1.5-5.0); LYMPH % 17.7 % (24.0-44.0); MEAN CORPUSCULAR HEMOGLOBIN 33.5 pg (27.0-33.0); MEAN CORPUSCULAR HGB CONC 35.5 g/dl (32.0-36.5); MEAN CORPUSCULAR VOLUME 94.5 fl (80.0-96.0); MONO # 0.8 10^3/uL (0.0-0.8); MONO % 11.8 % (0.0-5.0); NEUTROPHILS # 4.4 10^3/uL (1.5-8.5); NEUTROPHILS % 67.7 % (36.0-66.0); PLATELET COUNT, AUTOMATED 145 10^3/uL (150-450); RED BLOOD COUNT 3.43 10^6/uL (4.00-5.40); WHITE BLOOD COUNT 6.4 10^3/uL (4.0-10.0)
[2019-07-01 06:25] LABS: BLOOD UREA NITROGEN 12 MG/DL (7-18); CALCIUM LEVEL 9.3 MG/DL (8.5-10.1); CARBON DIOXIDE LEVEL 23 MEQ/L (21-32); CHLORIDE LEVEL 107 MEQ/L (98-107); CREATININE FOR GFR 0.59 MG/DL (0.55-1.30); GLOMERULAR FILTRATION RATE > 60.0 (>51); GLUCOSE, FASTING 143 MG/DL (70-100); POTASSIUM SERUM 3.2 MEQ/L (3.5-5.1); SODIUM LEVEL 136 MEQ/L (136-145)
[2019-07-01] MEDS ORDERED: POTASSIUM CHLORIDE 10 MEQ SR TABLET PO ONE (09:00)
[2019-07-01] MEDS: POTASSIUM CHLORIDE 10 MEQ SR TABLET PO SCH (09:22)
[2019-07-01] MEDS: OMEPRAZOLE 20 MG CAP PO SCH ×2 (09:23→21:21)
[2019-07-01] MEDS: TOPIRAMATE (TopAMAX) 25 MG TAB PO SCH ×2 (09:23→21:21)
[2019-07-01] MEDS: GABAPENTIN 400 MG CAP PO SCH ×3 (09:23→21:20)
[2019-07-01] MEDS: ENOXAPARIN 40 MG/0.4 ML SYRINGE (J1650) SC SCH (09:23)
[2019-07-01] MEDS: NORCO, ANEXSIA 5/325MG TABLET (HYDROcodone/ACETAMINOPHEN) PO PRN ×2 (09:25→21:19)
--- NOTE | 2019-07-01 09:34 | IPNPDOC ---
Subjective Date Seen The patient was seen on 07/01/19. Subjective Chief Complaint/HPI Says as long as she does not move the pain is controlled as soon as she starts moving her right leg goes into spasm then nothing helps Objective Physical Examination General Exam: Positive: Alert, Cooperative, Mild Distress (due to muscle spasm) Eye Exam: Positive: PERRLA, Conjunctiva & lids normal, EOMI; Negative: Sclera icteric ENT Exam: Positive: Atraumatic, Mucous membr. moist/pink, Pharynx Normal Neck Exam: Positive: Supple; Negative: JVD, thyromegaly Chest Exam: Positive: Clear to auscultation, Normal air movement Heart Exam: Positive: Rate Normal, Regular Rhythm, Normal S1, Normal S2; Negative: Murmurs, Rubs Abdomen Exam: Positive: Normal bowel sounds, Soft; Negative: Tenderness, Hepatospenomegaly Extremity Exam: Positive: Normal pulses; Negative: Clubbing, Cyanosis, Edema, Tenderness, Swelling Skin Exam: Positive: Nl turgor and temperature; Negative: Breakdown, Lesion Neuro Exam: Positive: Normal Speech, Strength at 5/5 X4 ext (left lower extremity exam limited by pain, but with otherwise full strength), Cranial Nerves 3-12 NL Psych Exam: Positive: Mental status NL, Mood NL, Oriented x 3 Assessment /Plan Assessment 59 yo woman with a history of fibromyalgia, CBP s/p back surgeries and R hip ORIF who follows with the pain clinic where she was recently getting injections to her piriformis who is due in pain clinic tomorrow for injection treatment but came to the ED with horrible Right LE cramping that she could not walk and is therefore being admitted to medicine for pain management and will consult pain management hopefully to receive her treatment before she can be discharged home. Acute on Chronic back pain with severe right lower extremity severe spasm pain will give methyl pred cotinue ketorolac and tizanidine. increase gabapentin, stop baclofen Xray of the hips ok Fibromyalgia: -continue home meds HTN: -continue home metoprolol Migraines: -continue home elavil ad topamax Hypokalemia replaced DVT ppx: Lovenox Dispo: obs medsurg, pending PT, OT and pain consult Plan/VTE VTE Prophylaxis Ordered?: Yes VS, I&O, 24H, Fishbone Vital Signs/I&O Vital Signs Date Time Temp Pulse Resp B/P (MAP) Pulse Ox O2 Delivery O2 Flow Rate FiO2 07/01/19 09:25 97.4 84 18 138/77 97 Room Air I&O- Last 24 Hours up to 6 AM 07/01/19 06:00 Intake Total 1095 ml Output Total 0 ml Balance 1095 ml Laboratory Data 24H LABS Laboratory Tests 2 07/01/19 05:34: Immature Granulocyte % (Auto) 0.6, Neutrophils (%) (Auto) 67.7H, Lymphocytes (%) (Auto) 17.7L, Monocytes (%) (Auto) 11.8H, Eosinophils (%) (Auto) 1.7, Basophils (%) (Auto) 0.5, Neutrophils # (Auto) 4.4, Lymphocytes # (Auto) 1.1L, Monocytes # (Auto) 0.8, Eosinophils # (Auto) 0.1, Basophils # (Auto) 0.0, Nucleated Red Blood Cells % (auto) 0.0, Anion Gap 6L, Glomerular Filtration Rate > 60.0, Calcium Level 9.3 CBC/BMP Laboratory Tests 07/01/19 05:34 Microbiology Microbiology 06/29/19 Urine Culture - Final, Complete 06/29/19 Blood Culture - Preliminary, Resulted No growth after 24 hours . All specim... TYRONE ARMAS MD Jul 01, 2019 09:34
[2019-07-01] MEDS ORDERED: methylPREDNISolone INJ 40 MG/1 ML VIAL (J2920) IV ONE (10:00)
[2019-07-01 14:00] VITALS: BP 136/83
[2019-07-01] MEDS: ASPIRIN 81 MG ENTERIC TAB PO SCH (21:17)
[2019-07-01] MEDS: AMITRIPTYLINE 25 MG TAB PO SCH (21:20)
[2019-07-01] MEDS: METOPROLOL SUCC (TopROL XL) 50MG **XL** TAB PO SCH (21:20)
[2019-07-01] MEDS: hydrOXYzine 50 MG TAB PO SCH (21:25)
[2019-07-01 22:00] VITALS: BP 125/70
[2019-07-02] MEDS: tiZANidine 4 MG TAB PO SCH ×3 (05:01→21:45)
[2019-07-02] MEDS: NORCO, ANEXSIA 5/325MG TABLET (HYDROcodone/ACETAMINOPHEN) PO PRN ×2 (05:01→11:04)
[2019-07-02 06:00] VITALS: BP 137/74
[2019-07-02 06:04] LABS: BASO % 0.4 % (0.0-1.0); EOS # 0.1 10^3/uL (0.0-0.5); EOS % 1.2 % (0.0-3.0); HEMATOCRIT 37.4 % (36.0-47.0); HEMOGLOBIN 12.3 g/dl (12.0-15.5); LYMPH # 2.6 10^3/uL (1.5-5.0); LYMPH % 32.2 % (24.0-44.0); MEAN CORPUSCULAR HEMOGLOBIN 32.3 pg (27.0-33.0); MEAN CORPUSCULAR HGB CONC 32.9 g/dl (32.0-36.5); MEAN CORPUSCULAR VOLUME 98.2 fl (80.0-96.0); MONO # 1.2 10^3/uL (0.0-0.8); MONO % 14.9 % (0.0-5.0); NEUTROPHILS # 4.1 10^3/uL (1.5-8.5); NEUTROPHILS % 50.6 % (36.0-66.0); PLATELET COUNT, AUTOMATED 177 10^3/uL (150-450); RED BLOOD COUNT 3.81 10^6/uL (4.00-5.40)
[2019-07-02 06:33] LABS: BLOOD UREA NITROGEN 17 MG/DL (7-18); CALCIUM LEVEL 9.1 MG/DL (8.5-10.1); CARBON DIOXIDE LEVEL 23 MEQ/L (21-32); CHLORIDE LEVEL 110 MEQ/L (98-107); CREATININE FOR GFR 0.61 MG/DL (0.55-1.30); GLOMERULAR FILTRATION RATE > 60.0 (>51); GLUCOSE, FASTING 97 MG/DL (70-100); POTASSIUM SERUM 3.9 MEQ/L (3.5-5.1); SODIUM LEVEL 141 MEQ/L (136-145)
[2019-07-02] MEDS: TOPIRAMATE (TopAMAX) 25 MG TAB PO SCH ×2 (09:46→21:45)
[2019-07-02] MEDS: GABAPENTIN 400 MG CAP PO SCH ×3 (09:46→21:45)
[2019-07-02] MEDS: OMEPRAZOLE 20 MG CAP PO SCH ×2 (09:46→21:45)
[2019-07-02] MEDS: KETOROLAC 30 MG/ML VIAL (J1885) IV PRN ×3 (09:47→23:13)
[2019-07-02] MEDS: ENOXAPARIN 40 MG/0.4 ML SYRINGE (J1650) SC SCH (09:47)
[2019-07-02] MEDS: POTASSIUM CHLORIDE 10 MEQ SR TABLET PO SCH (09:48)
[2019-07-02] MEDS ORDERED: methylPREDNISolone INJ 40 MG/1 ML VIAL (J2920) IV ONE (13:45)
--- NOTE | 2019-07-02 13:45 | IPNPDOC ---
Subjective Date Seen The patient was seen on 07/02/19. Subjective Chief Complaint/HPI Says the pain and spasms are a little better and she is able to move the right leg a little and extend and flex her toes which is an improvement from yesterday. derian said that she was able to walk to the bathroom yesterday afternoon but during the night she could not walk after standing up as she went into severe spasm. She said she is willing to work with therapy today Objective Physical Examination General Exam: Positive: Alert, Cooperative, Mild Distress (due to muscle spasm) Eye Exam: Positive: PERRLA, Conjunctiva & lids normal, EOMI; Negative: Sclera icteric ENT Exam: Positive: Atraumatic, Mucous membr. moist/pink, Pharynx Normal Neck Exam: Positive: Supple; Negative: JVD, thyromegaly Chest Exam: Positive: Clear to auscultation, Normal air movement Heart Exam: Positive: Rate Normal, Regular Rhythm, Normal S1, Normal S2; Negative: Murmurs, Rubs Abdomen Exam: Positive: Normal bowel sounds, Soft; Negative: Tenderness, Hepatospenomegaly Extremity Exam: Positive: Normal pulses; Negative: Clubbing, Cyanosis, Edema, Tenderness, Swelling Skin Exam: Positive: Nl turgor and temperature; Negative: Breakdown, Lesion Neuro Exam: Positive: Normal Speech, Strength at 5/5 X4 ext (left lower extremity exam limited by pain, but with otherwise full strength), Cranial Nerves 3-12 NL Psych Exam: Positive: Mental status NL, Mood NL, Oriented x 3 Assessment /Plan Assessment 59 yo woman with a history of fibromyalgia, CBP s/p back surgeries and R hip ORIF who follows with the pain clinic where she was recently getting injections to her piriformis who is due in pain clinic tomorrow for injection treatment but came to the ED with horrible Right LE cramping that she could not walk and is therefore being admitted to medicine for pain management and will consult pain management hopefully to receive her treatment before she can be discharged home. Acute on Chronic back pain with severe right lower extremity severe spasm pain will continue with methyl pred today also continue ketorolac and increase tizanidine. increase gabapentin Xray of the hips ok Fibromyalgia: -continue home meds HTN: -continue home metoprolol Migraines: -continue home elavil ad topamax Hypokalemia replaced DVT ppx: Lovenox Dispo: obs medsurg, pending PT, OT and pain consult Plan/VTE VTE Prophylaxis Ordered?: Yes VS, I&O, 24H, Fishbone Vital Signs/I&O Vital Signs Date Time Temp Pulse Resp B/P (MAP) Pulse Ox O2 Delivery O2 Flow Rate FiO2 07/02/19 11:34 98.4 87 20 137/74 98 Room Air I&O- Last 24 Hours up to 6 AM 07/02/19 06:00 Intake Total 1940 ml Output Total 0 ml Balance 1940 ml Laboratory Data 24H LABS Laboratory Tests 2 07/02/19 05:25: Immature Granulocyte % (Auto) 0.7, Neutrophils (%) (Auto) 50.6, Lymphocytes (%) (Auto) 32.2, Monocytes (%) (Auto) 14.9H, Eosinophils (%) (Auto) 1.2, Basophils (%) (Auto) 0.4, Neutrophils # (Auto) 4.1, Lymphocytes # (Auto) 2.6, Monocytes # (Auto) 1.2H, Eosinophils # (Auto) 0.1, Basophils # (Auto) 0.0, Nucleated Red Blood Cells % (auto) 0.0, Anion Gap 8, Glomerular Filtration Rate > 60.0, Calcium Level 9.1 CBC/BMP Laboratory Tests 07/02/19 05:25 Microbiology Microbiology 06/29/19 Urine Culture - Final, Complete 06/29/19 Blood Culture - Preliminary, Resulted No Growth after 48 hours. All Specime... TYRONE ARMAS MD Jul 02, 2019 13:45
[2019-07-02 14:00] VITALS: BP 110/64
[2019-07-02] MEDS: AMITRIPTYLINE 25 MG TAB PO SCH (21:44)
[2019-07-02] MEDS: hydrOXYzine 50 MG TAB PO SCH (21:45)
[2019-07-02] MEDS: ASPIRIN 81 MG ENTERIC TAB PO SCH (21:45)
[2019-07-02] MEDS: METOPROLOL SUCC (TopROL XL) 50MG **XL** TAB PO SCH (21:46)
[2019-07-02 22:00] VITALS: BP 136/73
[2019-07-03] MEDS: NORCO, ANEXSIA 5/325MG TABLET (HYDROcodone/ACETAMINOPHEN) PO PRN ×4 (03:42→23:05)
[2019-07-03] MEDS: KETOROLAC 30 MG/ML VIAL (J1885) IV PRN ×3 (05:37→18:38)
[2019-07-03] MEDS: tiZANidine 4 MG TAB PO SCH ×3 (05:37→21:13)
[2019-07-03 05:59] LABS: HEMATOCRIT 31.9 % (36.0-47.0); MEAN CORPUSCULAR HEMOGLOBIN 33.1 pg (27.0-33.0); MEAN CORPUSCULAR HGB CONC 34.5 g/dl (32.0-36.5); MEAN CORPUSCULAR VOLUME 96.1 fl (80.0-96.0); PLATELET COUNT, AUTOMATED 242 10^3/uL (150-450); RED BLOOD COUNT 3.32 10^6/uL (4.00-5.40); WHITE BLOOD COUNT 8.1 10^3/uL (4.0-10.0)
[2019-07-03 06:00] VITALS: BP 155/85
[2019-07-03 06:14] LABS: BLOOD UREA NITROGEN 19 MG/DL (7-18); CALCIUM LEVEL 9.1 MG/DL (8.5-10.1); CARBON DIOXIDE LEVEL 21 MEQ/L (21-32); CHLORIDE LEVEL 110 MEQ/L (98-107); CREATININE FOR GFR 0.69 MG/DL (0.55-1.30); GLOMERULAR FILTRATION RATE > 60.0 (>51); GLUCOSE, FASTING 139 MG/DL (70-100); POTASSIUM SERUM 3.7 MEQ/L (3.5-5.1); SODIUM LEVEL 139 MEQ/L (136-145)
[2019-07-03 06:59] LABS: ATYPICAL LYMPH 2 % (0-5); EOSINOPHILS 2 % (0-3); LYMPHOCYTES 35 % (16-44); MONOCYTES 8 % (0-5); NEUTROPHILS 52 % (28-66)
[2019-07-03 07:00] LABS: ANISOCYTOSIS 1+; PLATELET ESTIMATE NORMAL (NORMAL)
--- NOTE | 2019-07-03 08:44 | IPNPDOC ---
Subjective Date Seen The patient was seen on 07/03/19. Subjective Chief Complaint/HPI Patient did work with PT yesterday and said got out of bed several times. SO this morning she feels sore and her low back is spasming more. Pateint had back surgery several years ago and had a dorsal column stimulator which was removed in march 2019 as she was not using it. Objective Physical Examination General Exam: Positive: Alert, Cooperative, Mild Distress (due to muscle spasm) Eye Exam: Positive: PERRLA, Conjunctiva & lids normal, EOMI; Negative: Sclera icteric ENT Exam: Positive: Atraumatic, Mucous membr. moist/pink, Pharynx Normal Neck Exam: Positive: Supple; Negative: JVD, thyromegaly Chest Exam: Positive: Clear to auscultation, Normal air movement Heart Exam: Positive: Rate Normal, Regular Rhythm, Normal S1, Normal S2; Negative: Murmurs, Rubs Abdomen Exam: Positive: Normal bowel sounds, Soft; Negative: Tenderness, Hepatospenomegaly Extremity Exam: Positive: Normal pulses; Negative: Clubbing, Cyanosis, Edema, Tenderness, Swelling Skin Exam: Positive: Nl turgor and temperature; Negative: Breakdown, Lesion Neuro Exam: Positive: Normal Speech, Strength at 5/5 X4 ext (left lower extremity exam limited by pain, but with otherwise full strength), Cranial Nerves 3-12 NL Psych Exam: Positive: Mental status NL, Mood NL, Oriented x 3 Assessment /Plan Assessment 59 yo woman with a history of fibromyalgia, CBP s/p back surgeries and R hip ORIF who follows with the pain clinic where she was recently getting injections to her piriformis who is due in pain clinic tomorrow for injection treatment but came to the ED with horrible Right LE cramping that she could not walk and is therefore being admitted to medicine for pain management and will consult pain management hopefully to receive her treatment before she can be discharged home. Acute on Chronic back pain with severe right lower extremity severe spasm pain got 2 doses of IV methyl pred. continue ketorolac and increase tizanidine. increase gabapentin Xray of the hips ok will give medrol taper. refused to see pain management before . Bu;t now agreable , consider consulting them on Friday. Consider MRI if she can tolerate it. SHe refused it before. Fibromyalgia: -continue home meds HTN: -continue home metoprolol Migraines: -continue home elavil ad topamax Hypokalemia replaced DVT ppx: Lovenox Dispo: PT, pain consult. Plan/VTE VTE Prophylaxis Ordered?: Yes VS, I&O, 24H, Fishbone Vital Signs/I&O Vital Signs Date Time Temp Pulse Resp B/P (MAP) Pulse Ox O2 Delivery O2 Flow Rate FiO2 07/03/19 06:00 97.7 68 20 155/85 (108) 98 Room Air I&O- Last 24 Hours up to 6 AM 07/03/19 06:00 Intake Total 1220 ml Output Total 0 ml Balance 1220 ml Laboratory Data 24H LABS Laboratory Tests 2 07/03/19 05:31: Nucleated Red Blood Cells % (auto) 0.0, Neutrophils 52, Band Neutrophils 1, Lymphocytes (Manual) 35, Monocytes (Manual) 8H, Eosinophils (Manual) 2, Atypical Lymphocytes 2, Anisocytosis 1+, Macrocytosis 1+, Platelet Estimate NORMAL, Anion Gap 8, Glomerular Filtration Rate > 60.0, Calcium Level 9.1 CBC/BMP Laboratory Tests 07/03/19 05:31 Microbiology Microbiology 06/29/19 Urine Culture - Final, Complete 06/29/19 Blood Culture - Preliminary, Resulted No Growth after 72 hours. All specime... TYRONE ARMAS MD Jul 03, 2019 08:44
[2019-07-03] MEDS ORDERED: methylPREDNISolone 4 MG TAB PO ONE (09:00)
[2019-07-03] MEDS: ENOXAPARIN 40 MG/0.4 ML SYRINGE (J1650) SC SCH (09:06)
[2019-07-03] MEDS: POTASSIUM CHLORIDE 10 MEQ SR TABLET PO SCH (09:06)
[2019-07-03] MEDS: OMEPRAZOLE 20 MG CAP PO SCH ×2 (09:06→21:12)
[2019-07-03] MEDS: GABAPENTIN 400 MG CAP PO SCH ×3 (09:06→21:13)
[2019-07-03] MEDS: TOPIRAMATE (TopAMAX) 25 MG TAB PO SCH ×2 (09:07→21:12)
[2019-07-03 14:00] VITALS: BP 142/84
[2019-07-03] MEDS: hydrOXYzine 50 MG TAB PO SCH (21:12)
[2019-07-03] MEDS: ASPIRIN 81 MG ENTERIC TAB PO SCH (21:12)
[2019-07-03] MEDS: AMITRIPTYLINE 25 MG TAB PO SCH (21:13)
[2019-07-03] MEDS: METOPROLOL SUCC (TopROL XL) 50MG **XL** TAB PO SCH (21:13)
[2019-07-03 22:00] VITALS: BP 142/84
[2019-07-04] MEDS: KETOROLAC 30 MG/ML VIAL (J1885) IV PRN ×4 (01:59→19:06)
[2019-07-04 06:00] VITALS: BP 150/81
[2019-07-04] MEDS: tiZANidine 4 MG TAB PO SCH ×3 (06:22→21:23)
[2019-07-04] MEDS: GABAPENTIN 400 MG CAP PO SCH ×3 (08:08→21:24)
[2019-07-04] MEDS: POTASSIUM CHLORIDE 10 MEQ SR TABLET PO SCH (08:08)
[2019-07-04] MEDS: TOPIRAMATE (TopAMAX) 25 MG TAB PO SCH ×2 (08:08→21:24)
[2019-07-04] MEDS: OMEPRAZOLE 20 MG CAP PO SCH ×2 (08:08→21:24)
[2019-07-04] MEDS: ENOXAPARIN 40 MG/0.4 ML SYRINGE (J1650) SC SCH (08:19)
[2019-07-04] MEDS ORDERED: methylPREDNISolone 4 MG TAB PO ONE (09:00)
[2019-07-04] MEDS: NORCO, ANEXSIA 5/325MG TABLET (HYDROcodone/ACETAMINOPHEN) PO PRN ×3 (11:10→23:43)
[2019-07-04] MEDS: LIDOCAINE 5% (LIDODERM) PATCH TD SCH (11:44)
[2019-07-04 14:00] VITALS: BP 135/77
[2019-07-04] MEDS: MORPHINE 2 MG/ML 1ML VIAL (J2270) IV PRN ×2 (17:38→21:26)
--- NOTE | 2019-07-04 19:24 | IPNPDOC ---
Text Note Date of Service The patient was seen on 07/04/19. NOTE Subjective: Patient continues to have severe lower back pain with increased spasm. Patient described pain as a dull, 10 out of 10. Patient denies fever, chills, nausea, vomiting, chest pain, palpitations, diarrhea or dysuria Objective: VITAL SIGNS: Please see below. GENERAL APPEARANCE: Well-nourished, well-developed, not in apparent distress HEENT: Normocephalic, atraumatic. Mucous members moist and pink CARDIOVASCULAR: Regular rate and rhythm. No murmurs, rubs or gallops. Radial pulses are intact. There is no lower extremity edema LUNGS: Diminished lung sounds ABDOMEN: Abdomen is soft and nontender. MUSCULOSKELETAL: Range of motion is intact in all 4 extremities NEUROLOGICAL: Cranial nerves II-12 are grossly intact. Speech is not dysarthric Assessment and plan: Patient's 59 years old female with history of fibromyalgia, CBP s/p back surgeries and R hip ORIF was admitted to hospital with intractable lower back pain with radiation to the right leg associated with severe spasm Acute on Chronic back pain with severe right lower extremity severe spasm pain Continue IV steroids per neurologist recommendations Continue pain medications with muscle relaxants MRI of the lower spine Appreciate/agree with pain specialist consult PT/OT I added lidocaine patch Fibromyalgia: -continue home meds HTN: -continue home medications Migraines: -continue home meds DVT ppx: Lovenox VS,Fishbone, I+O VS, Fishbone, I+O Vital Signs Date Time Temp Pulse Resp B/P (MAP) Pulse Ox O2 Delivery O2 Flow Rate FiO2 07/04/19 18:00 16 07/04/19 14:00 98.0 75 135/77 (96) 96 Room Air I&O- Last 24 Hours up to 6 AM 07/04/19 06:00 Intake Total 1520 ml Output Total 0 ml Balance 1520 ml SHLOMO RANKIN DO Jul 04, 2019 19:24
[2019-07-04] MEDS: ASPIRIN 81 MG ENTERIC TAB PO SCH (21:23)
[2019-07-04] MEDS: AMITRIPTYLINE 25 MG TAB PO SCH (21:23)
[2019-07-04] MEDS: hydrOXYzine 50 MG TAB PO SCH (21:24)
[2019-07-04] MEDS: **NOTE PATIENT COMMENT** MISC XX SCH (21:25)
[2019-07-04] MEDS: METOPROLOL SUCC (TopROL XL) 50MG **XL** TAB PO SCH (21:28)
[2019-07-04 22:00] VITALS: BP 122/65
[2019-07-05] MEDS: KETOROLAC 30 MG/ML VIAL (J1885) IV PRN ×3 (01:56→14:57)
[2019-07-05] MEDS: tiZANidine 4 MG TAB PO SCH ×3 (05:44→21:20)
[2019-07-05] MEDS: MORPHINE 2 MG/ML 1ML VIAL (J2270) IV PRN ×2 (05:44→11:58)
[2019-07-05 06:00] VITALS: BP 146/86
[2019-07-05 06:03] LABS: HEMATOCRIT 37.6 % (36.0-47.0); HEMOGLOBIN 12.5 g/dl (12.0-15.5); MEAN CORPUSCULAR HEMOGLOBIN 32.6 pg (27.0-33.0); MEAN CORPUSCULAR HGB CONC 33.2 g/dl (32.0-36.5); MEAN CORPUSCULAR VOLUME 98.2 fl (80.0-96.0); PLATELET COUNT, AUTOMATED 326 10^3/uL (150-450); RED BLOOD COUNT 3.83 10^6/uL (4.00-5.40); WHITE BLOOD COUNT 8.6 10^3/uL (4.0-10.0)
[2019-07-05 06:23] LABS: BLOOD UREA NITROGEN 17 MG/DL (7-18); CALCIUM LEVEL 9.8 MG/DL (8.5-10.1); CARBON DIOXIDE LEVEL 26 MEQ/L (21-32); CHLORIDE LEVEL 106 MEQ/L (98-107); CREATININE FOR GFR 0.78 MG/DL (0.55-1.30); GLOMERULAR FILTRATION RATE > 60.0 (>51); GLUCOSE, FASTING 97 MG/DL (70-100); MAGNESIUM LEVEL 2.2 MG/DL (1.8-2.4); SODIUM LEVEL 135 MEQ/L (136-145)
[2019-07-05] MEDS: NORCO, ANEXSIA 5/325MG TABLET (HYDROcodone/ACETAMINOPHEN) PO PRN ×2 (06:46→19:44)
[2019-07-05] MEDS: methylPREDNISolone 4 MG TAB PO SCH (08:41)
[2019-07-05] MEDS: OMEPRAZOLE 20 MG CAP PO SCH ×2 (08:41→21:21)
[2019-07-05] MEDS: POTASSIUM CHLORIDE 10 MEQ SR TABLET PO SCH (08:41)
[2019-07-05] MEDS: GABAPENTIN 400 MG CAP PO SCH ×3 (08:41→21:20)
[2019-07-05] MEDS: LIDOCAINE 5% (LIDODERM) PATCH TD SCH (08:42)
[2019-07-05] MEDS: TOPIRAMATE (TopAMAX) 25 MG TAB PO SCH ×2 (08:42→21:20)
[2019-07-05] MEDS: ENOXAPARIN 40 MG/0.4 ML SYRINGE (J1650) SC SCH (08:42)
[2019-07-05] MEDS ORDERED: methylPREDNISolone 4 MG TAB PO ONE (09:00)
[2019-07-05 10:00] VITALS: BP 148/68
--- NOTE | 2019-07-05 14:29 | IPNPDOC ---
Text Note Date of Service The patient was seen on 07/05/19. NOTE Subjective: Patient continues to have severe lower back pain with increased spasm. She described the pain as agonizing pain, frontal low back down to the knee Patient denies fever, chills, nausea, vomiting, chest pain, palpitations, diarrhea or dysuria Objective: VITAL SIGNS: Please see below. GENERAL APPEARANCE: Well-nourished, well-developed, not in apparent distress HEENT: Normocephalic, atraumatic. Mucous members moist and pink CARDIOVASCULAR: Regular rate and rhythm. No murmurs, rubs or gallops. Radial pulses are intact. There is no lower extremity edema LUNGS: Diminished lung sounds ABDOMEN: Abdomen is soft and nontender. MUSCULOSKELETAL: Range of motion is intact in all 4 extremities NEUROLOGICAL: Cranial nerves II-12 are grossly intact. Speech is not dysarthric Assessment and plan: Patient's 59 years old female with history of fibromyalgia, CBP s/p back surgeries and R hip ORIF was admitted to hospital with intractable lower back pain with radiation to the right leg associated with severe spasm Acute on Chronic back pain with severe right lower extremity severe spasm pain Continue IV steroids per neurologist recommendations Continue pain medications with muscle relaxants MRI of the lower spine pending Appreciate/agree with pain specialist consult PT/OT I added lidocaine patch Fibromyalgia: -continue home meds HTN: -continue home medications Migraines: -continue home meds DVT ppx: Lovenox VS,Fishbone, I+O VS, Fishbone, I+O Laboratory Tests 07/05/19 05:27 Vital Signs Date Time Temp Pulse Resp B/P (MAP) Pulse Ox O2 Delivery O2 Flow Rate FiO2 07/05/19 12:08 97.9 63 17 146/86 Room Air 07/05/19 10:00 99 I&O- Last 24 Hours up to 6 AM 07/05/19 05:59 Intake Total 1380 ml Output Total 0 ml Balance 1380 ml SHLOMO RANKIN DO Jul 05, 2019 14:29
[2019-07-05] MEDS: carisoprodoL 350 MG TAB PO SCH ×2 (16:40→21:21)
--- NOTE | 2019-07-05 17:33 | CR ---
DATE OF CONSULTATION: 07/05/2019 REFERRING PHYSICIAN: Errol Rodriges DO CHIEF COMPLAINT: Right low back pain, right leg weakness. HISTORY OF PRESENT ILLNESS: 59-year-old female known to chronic pain management clinic presented to the ER and was admitted on 06/29/2019 due to inability to use her right leg and severe pain. History of right hip arthroplasty in 2013. Receives injection therapy periodically for chronic low back pain. History of lumbar surgeries. States that this began after bending over to machine pecan picker something off the floor a week ago. States she could not walk. Denies injury. Denies bowel or bladder incontinence. History of having a dorsal column stimulator placed for post laminectomy pain syndrome and then having it removed within the past year as she felt it was ineffective and she has not used it for many years. She is on chronic opioid therapy to include hydrocodone 7.5-325 four tablets a day for many years. Accompanied in the room with her parents. Appears comfortable. Finds it very difficult to move from a laying to a sitting position. PAST MEDICAL HISTORY: Hypertension, chronic back pain status post back surgery, status post dorsal column stimulator, coronary artery disease, hypertension, gastroesophageal reflux disease, migraines, asthma, osteoporosis, fibromyalgia. PAST SURGICAL HISTORY: Hysterectomy, tonsillectomy, back surgery, bilateral carpal tunnel repair, right hip replacement. FAMILY HISTORY: Mother with history of hypertension. Father history of hypertension and Stiven cell carcinoma. SOCIAL HISTORY: Smoking history: Denies. Alcohol history: Denies. Drug history: Denies. History of work as a nurse. She is on disability. PHYSICAL EXAMINATION: Awake, alert, moves in a very slow fashion to get from a reclining to a sitting position at bedside. Neuromuscular: Normal sensation to light touch bilateral lower extremities. Active range of joint motion of the lower extremities with some weakness noted over right leg. Left leg is 4/5. Inspection of spine: Marked tenderness noted over right SIJ region. Well-healed surgical scars noted. IMAGING STUDIES: Pending MRI LS spine. ASSESSMENT: Acute on chronic right low back pain. PLAN: I have spoken with the referring physician and recommended Soma 350 mg every 8 hours three times a day for muscle relaxation. Recommend increasing hydrocodone [id number] to two tablets every 6 hours as needed for pain. Recommend discontinuing IV morphine. Plans will be for the patient to be evaluated for injections at pain center in the next few weeks after discharge.
[2019-07-05] MEDS: AMITRIPTYLINE 25 MG TAB PO SCH (21:20)
[2019-07-05] MEDS: hydrOXYzine 50 MG TAB PO SCH (21:20)
[2019-07-05] MEDS: METOPROLOL SUCC (TopROL XL) 50MG **XL** TAB PO SCH (21:21)
[2019-07-05] MEDS: ASPIRIN 81 MG ENTERIC TAB PO SCH (21:21)
[2019-07-05] MEDS: **NOTE PATIENT COMMENT** MISC XX SCH (21:21)
[2019-07-05 22:00] VITALS: BP 139/76
[2019-07-05] MEDS ORDERED: PROHANCE 279.3MG/ML 15ML VIAL (A9576) As Ordered ONE (22:56)
--- NOTE | 2019-07-06 00:01 | REPVR ---
PROCEDURE INFORMATION: Exam: MR Lumbar Spine Without and With Contrast. Exam date and time: 07/05/2019 11:10 PM Age: 59 years old Clinical indication: Low back pain and lumbago; Prior surgery; Surgery date: 6+ months; Additional info: Intractable back pain, spondylolysis TECHNIQUE: Imaging protocol: Multiplanar magnetic resonance images of the lumbar spine without and with intravenous contrast. Contrast material: PROHANCE; Contrast volume: 15 ml; Contrast route: IV; COMPARISON: CT Spine, lumbar w/o contrast 2017-11-12 09:41 FINDINGS: Tubes, catheters and devices: Catheters enter the spinal canal at approximately L1-L2. Vertebrae: Normal lumbar lordosis, vertebral body heights, and alignments. Left-sided L4-L5 pedicle fusion, and L4-S1 interbody and right posterior pedicle fusion. Minimal level convex lumbar curvature. Small scattered osseous hemangioma is and focal areas of fat. Mild degenerative L3-L4 T2 hyperintense marrow signal. Spinal cord: Normal signal. No cord compression. L1-L2: No significant disc disease. No significant spinal canal stenosis. No neural foraminal stenosis. L2-L3: No significant disc disease. No significant spinal canal stenosis. No neural foraminal stenosis. L3-L4: Disc bulging and mild facet arthropathy causes mild spinal and mild to moderate foraminal stenosis. Mild enhancement along the periphery of the L3-L4 annular disc bulge. L4-L5: Fused. No significant spinal canal stenosis. No neural foraminal stenosis. L5-S1: Fused. No significant spinal canal stenosis. No neural foraminal stenosis. Soft tissues: Unremarkable. IMPRESSION: Adjacent level degenerative disc and joint disease at L3-L4. T2 hyperintensity within the intervertebral disc and endplates, likely degenerative, although early discitis/osteomyelitis could appear similar. Electronically signed by: Siva Hayes On 07/06/2019 00:01:32 AM
[2019-07-06] MEDS: NORCO, ANEXSIA 5/325MG TABLET (HYDROcodone/ACETAMINOPHEN) PO PRN ×4 (02:49→22:22)
[2019-07-06] MEDS: tiZANidine 4 MG TAB PO SCH ×3 (05:47→21:00)
[2019-07-06 06:00] VITALS: BP 123/73
[2019-07-06 06:30] LABS: HEMATOCRIT 38.9 % (36.0-47.0); HEMOGLOBIN 12.8 g/dl (12.0-15.5); MEAN CORPUSCULAR HEMOGLOBIN 32.2 pg (27.0-33.0); MEAN CORPUSCULAR HGB CONC 32.9 g/dl (32.0-36.5); MEAN CORPUSCULAR VOLUME 97.7 fl (80.0-96.0); PLATELET COUNT, AUTOMATED 352 10^3/uL (150-450); RED BLOOD COUNT 3.98 10^6/uL (4.00-5.40); WHITE BLOOD COUNT 9.8 10^3/uL (4.0-10.0)
[2019-07-06 06:45] LABS: BLOOD UREA NITROGEN 17 MG/DL (7-18); CALCIUM LEVEL 9.8 MG/DL (8.5-10.1); CARBON DIOXIDE LEVEL 23 MEQ/L (21-32); CHLORIDE LEVEL 107 MEQ/L (98-107); CREATININE FOR GFR 0.66 MG/DL (0.55-1.30); GLOMERULAR FILTRATION RATE > 60.0 (>51); GLUCOSE, FASTING 97 MG/DL (70-100); MAGNESIUM LEVEL 2.4 MG/DL (1.8-2.4); SODIUM LEVEL 136 MEQ/L (136-145)
[2019-07-06] MEDS: LIDOCAINE 5% (LIDODERM) PATCH TD SCH (08:33)
[2019-07-06] MEDS: POTASSIUM CHLORIDE 10 MEQ SR TABLET PO SCH (08:34)
[2019-07-06] MEDS: carisoprodoL 350 MG TAB PO SCH ×3 (08:34→20:59)
[2019-07-06] MEDS: TOPIRAMATE (TopAMAX) 25 MG TAB PO SCH ×2 (08:34→21:01)
[2019-07-06] MEDS: ENOXAPARIN 40 MG/0.4 ML SYRINGE (J1650) SC SCH (08:34)
[2019-07-06] MEDS: OMEPRAZOLE 20 MG CAP PO SCH ×2 (08:35→21:00)
[2019-07-06] MEDS: GABAPENTIN 400 MG CAP PO SCH ×3 (08:35→21:00)
[2019-07-06] MEDS: methylPREDNISolone 4 MG TAB PO SCH (08:35)
[2019-07-06] MEDS ORDERED: methylPREDNISolone 4 MG TAB PO ONE (09:00)
[2019-07-06] MEDS: ONDANSETRON 4MG/2ML VIAL (J2405) IV PRN ×2 (10:19→16:28)
[2019-07-06 14:00] VITALS: BP 143/87
--- NOTE | 2019-07-06 16:12 | IPNPDOC ---
Text Note Date of Service The patient was seen on 07/06/19. NOTE Subjective: Patient continues to have severe lower back pain with increased s pasm. Patient stated that she cannot participate in physical therapy session due to pain Patient denies fever, chills, nausea, vomiting, chest pain, palpitations, diarrhea or dysuria Objective: VITAL SIGNS: Please see below. GENERAL APPEARANCE:in moderate distress HEENT: Normocephalic, atraumatic. Mucous members moist and pink CARDIOVASCULAR: Regular rate and rhythm. No murmurs, rubs or gallops. Radial pulses are intact. There is no lower extremity edema LUNGS: Diminished lung sounds ABDOMEN: Abdomen is soft and nontender. MUSCULOSKELETAL: Range of motion of right leg is limited NEUROLOGICAL: Cranial nerves II-12 are grossly intact. Speech is not dysarthric Assessment and plan: Patient's 59 years old female with history of fibromyalgia, CBP s/p back surgeries and R hip ORIF was admitted to hospital with intractable lower back pain with radiation to the right leg associated with severe spasm Acute on Chronic back pain with severe right lower extremity severe spasm pain Continue pain medications with muscle relaxants MRI of the lower spine shows L3-L4 disc bulging and stenosis PT/OT lidocaine patch I added Soma 3 times a day Fibromyalgia: -continue home meds HTN: -continue home medications Migraines: -continue home meds VS,Fishbone, I+O VS, Fishbone, I+O Laboratory Tests 07/06/19 06:02 Vital Signs Date Time Temp Pulse Resp B/P (MAP) Pulse Ox O2 Delivery O2 Flow Rate FiO2 07/06/19 14:00 98.7 84 16 143/87 (105) 97 Room Air I&O- Last 24 Hours up to 6 AM 07/06/19 06:00 Intake Total 960 ml Balance 960 ml SHLOMO RANKIN DO Jul 06, 2019 16:12
[2019-07-06] MEDS: ASPIRIN 81 MG ENTERIC TAB PO SCH (20:59)
[2019-07-06] MEDS: AMITRIPTYLINE 25 MG TAB PO SCH (21:00)
[2019-07-06] MEDS: hydrOXYzine 50 MG TAB PO SCH (21:00)
[2019-07-06] MEDS: METOPROLOL SUCC (TopROL XL) 50MG **XL** TAB PO SCH (21:00)
[2019-07-06] MEDS: **NOTE PATIENT COMMENT** MISC XX SCH (21:01)
[2019-07-06 22:00] VITALS: BP 110/58
[2019-07-07] MEDS: tiZANidine 4 MG TAB PO SCH ×3 (05:36→21:42)
[2019-07-07] MEDS: NORCO, ANEXSIA 5/325MG TABLET (HYDROcodone/ACETAMINOPHEN) PO PRN ×3 (05:37→18:17)
[2019-07-07 06:00] VITALS: BP 132/73
[2019-07-07 06:18] LABS: HEMATOCRIT 36.9 % (36.0-47.0); HEMOGLOBIN 12.5 g/dl (12.0-15.5); MEAN CORPUSCULAR HEMOGLOBIN 32.7 pg (27.0-33.0); MEAN CORPUSCULAR HGB CONC 33.9 g/dl (32.0-36.5); MEAN CORPUSCULAR VOLUME 96.6 fl (80.0-96.0); PLATELET COUNT, AUTOMATED 406 10^3/uL (150-450); RED BLOOD COUNT 3.82 10^6/uL (4.00-5.40); WHITE BLOOD COUNT 9.6 10^3/uL (4.0-10.0)
[2019-07-07 06:34] LABS: BLOOD UREA NITROGEN 16 MG/DL (7-18); CALCIUM LEVEL 9.6 MG/DL (8.5-10.1); CARBON DIOXIDE LEVEL 23 MEQ/L (21-32); CHLORIDE LEVEL 107 MEQ/L (98-107); CREATININE FOR GFR 0.62 MG/DL (0.55-1.30); GLOMERULAR FILTRATION RATE > 60.0 (>51); GLUCOSE, FASTING 105 MG/DL (70-100); MAGNESIUM LEVEL 2.5 MG/DL (1.8-2.4); POTASSIUM SERUM 3.8 MEQ/L (3.5-5.1); SODIUM LEVEL 136 MEQ/L (136-145)
[2019-07-07] MEDS: ENOXAPARIN 40 MG/0.4 ML SYRINGE (J1650) SC SCH (09:08)
[2019-07-07] MEDS: LIDOCAINE 5% (LIDODERM) PATCH TD SCH (09:08)
[2019-07-07] MEDS: methylPREDNISolone 4 MG TAB PO SCH (09:08)
[2019-07-07] MEDS: TOPIRAMATE (TopAMAX) 25 MG TAB PO SCH ×2 (09:09→21:41)
[2019-07-07] MEDS: OMEPRAZOLE 20 MG CAP PO SCH ×2 (09:09→21:42)
[2019-07-07] MEDS: POTASSIUM CHLORIDE 10 MEQ SR TABLET PO SCH (09:09)
[2019-07-07] MEDS: GABAPENTIN 400 MG CAP PO SCH ×3 (09:10→21:42)
[2019-07-07] MEDS: carisoprodoL 350 MG TAB PO SCH ×3 (09:10→21:42)
[2019-07-07] MEDS: ONDANSETRON 4 MG TAB (S0181) PO PRN (13:33)
[2019-07-07 14:00] VITALS: BP 128/71
--- NOTE | 2019-07-07 14:02 | IPNPDOC ---
Text Note Date of Service The patient was seen on 07/07/19. NOTE Subjective: Patient continues to have severe lower back pain with increased s pasm. Patient denied participation in physical therapy session due to pain. Also, pt c/o nausea. Patient denies fever, chills, nausea, vomiting, chest pain, palpitations, diarrhea or dysuria Objective: VITAL SIGNS: Please see below. GENERAL APPEARANCE:in moderate distress HEENT: Normocephalic, atraumatic. Mucous members moist and pink CARDIOVASCULAR: Regular rate and rhythm. No murmurs, rubs or gallops. Radial pulses are intact. There is no lower extremity edema LUNGS: Diminished lung sounds ABDOMEN: Abdomen is soft and nontender. MUSCULOSKELETAL: Range of motion of right leg is limited NEUROLOGICAL: Cranial nerves II-12 are grossly intact. Speech is not dysarthric Assessment and plan: Patient's 59 years old female with history of fibromyalgia, CBP s/p back surgeries and R hip ORIF was admitted to hospital with intractable lower back pain with radiation to the right leg associated with severe spasm Acute on Chronic back pain with severe right lower extremity severe spasm pain Continue pain medications with muscle relaxants MRI of the lower spine shows L3-L4 disc bulging and stenosis. There is question for discitis, however patient doesn't have leukocytosis, she is afebrile, blood culture negative. PT/OT lidocaine patch I added Soma 3 times a day Fibromyalgia: -continue home meds HTN: -continue home medications Migraines: -continue home meds VS,Fishbone, I+O VS, Fishbone, I+O Laboratory Tests 07/07/19 05:20 Vital Signs Date Time Temp Pulse Resp B/P (MAP) Pulse Ox O2 Delivery O2 Flow Rate FiO2 07/07/19 12:57 16 07/07/19 12:01 Room Air 07/07/19 06:00 98.8 74 132/73 (92) 97 I&O- Last 24 Hours up to 6 AM 07/07/19 05:59 Intake Total 2810 ml Output Total 975 ml Balance 1835 ml SHLOMO RANKIN DO Jul 07, 2019 14:02
[2019-07-07 21:00] VITALS: BP 100/60
[2019-07-07] MEDS ORDERED: AMITRIPTYLINE 50 MG TAB PO SCH (21:00)
[2019-07-07] MEDS: METOPROLOL SUCC (TopROL XL) 50MG **XL** TAB PO SCH (21:00)
[2019-07-07] MEDS: hydrOXYzine 50 MG TAB PO SCH (21:42)
[2019-07-07] MEDS: ASPIRIN 81 MG ENTERIC TAB PO SCH (21:42)
[2019-07-07] MEDS: **NOTE PATIENT COMMENT** MISC XX SCH (21:43)
[2019-07-07 22:00] VITALS: BP 104/58
[2019-07-08] MEDS: NORCO, ANEXSIA 5/325MG TABLET (HYDROcodone/ACETAMINOPHEN) PO PRN ×3 (00:16→12:37)
[2019-07-08 05:49] LABS: HEMATOCRIT 36.3 % (36.0-47.0); HEMOGLOBIN 12.1 g/dl (12.0-15.5); MEAN CORPUSCULAR HEMOGLOBIN 32.4 pg (27.0-33.0); MEAN CORPUSCULAR HGB CONC 33.3 g/dl (32.0-36.5); MEAN CORPUSCULAR VOLUME 97.3 fl (80.0-96.0); PLATELET COUNT, AUTOMATED 413 10^3/uL (150-450); RED BLOOD COUNT 3.73 10^6/uL (4.00-5.40); WHITE BLOOD COUNT 9.8 10^3/uL (4.0-10.0)
[2019-07-08 06:00] VITALS: BP 120/69
[2019-07-08 06:12] LABS: BLOOD UREA NITROGEN 20 MG/DL (7-18); CALCIUM LEVEL 9.7 MG/DL (8.5-10.1); CARBON DIOXIDE LEVEL 26 MEQ/L (21-32); CHLORIDE LEVEL 106 MEQ/L (98-107); CREATININE FOR GFR 0.69 MG/DL (0.55-1.30); GLOMERULAR FILTRATION RATE > 60.0 (>51); GLUCOSE, FASTING 93 MG/DL (70-100); MAGNESIUM LEVEL 2.2 MG/DL (1.8-2.4); SODIUM LEVEL 136 MEQ/L (136-145)
[2019-07-08] MEDS: tiZANidine 4 MG TAB PO SCH (06:20)
[2019-07-08] MEDS: ENOXAPARIN 40 MG/0.4 ML SYRINGE (J1650) SC SCH (08:09)
[2019-07-08] MEDS: TOPIRAMATE (TopAMAX) 25 MG TAB PO SCH (08:09)
[2019-07-08] MEDS: carisoprodoL 350 MG TAB PO SCH (08:09)
[2019-07-08] MEDS: LIDOCAINE 5% (LIDODERM) PATCH TD SCH (08:09)
[2019-07-08] MEDS: OMEPRAZOLE 20 MG CAP PO SCH (08:10)
[2019-07-08] MEDS: GABAPENTIN 400 MG CAP PO SCH (08:10)
[2019-07-08] MEDS: POTASSIUM CHLORIDE 10 MEQ SR TABLET PO SCH (08:10)
[2019-07-08] MEDS: methylPREDNISolone 4 MG TAB PO SCH (08:10)
[2019-07-08] MEDS ORDERED: HYDR-3715 PO (10:31)
[2019-07-08] MEDS ORDERED: CARI1TAB7 PO (10:31)
[2019-07-08] MEDS ORDERED: ONDA-83 PO (10:31)
[2019-07-08] MEDS: ONDANSETRON 4 MG TAB (S0181) PO PRN (11:00)
--- NOTE | 2019-07-08 15:47 | DS.PDOC ---
Discharge Summary General Date of Admission Jun 30, 2019 at 18:13 Date of Discharge 07/08/19 Discharge Summary PROCEDURES PERFORMED DURING STAY: [None]. ADMITTING DIAGNOSES: Acute on Chronic back pain with severe right lower extremity severe spasm pain Fibromyalgia HTN Migraines DISCHARGE DIAGNOSES: Acute on Chronic back pain with severe right lower extremity severe spasm pain Fibromyalgia HTN Migraines COMPLICATIONS/CHIEF COMPLAINT: Unable To Ambulate. HISTORY OF PRESENT ILLNESS:59-year-old female known to chronic pain management clinic presented to the ER and was admitted on 06/29/2019 due to inability to use her right leg and severe pain. History of right hip arthroplasty in 2013. Receives injection therapy periodically for chronic low back pain. History of lumbar surgeries. States that this began after bending over to olive picker something off the floor a week ago. States she could not walk. Denies injury. Denies bowel or bladder incontinence. History of having a dorsal column stimulator placed for post laminectomy pain syndrome and then having it removed within the past year as she felt it was ineffective and she has not used it for many years. She is on chronic opioid therapy to include hydrocodone 7.5-325 four tablets a day for many years. Accompanied in the room with her parents. Appears comfortable. Finds it very difficult to move from a laying to a sitting position. HOSPITAL COURSE: During hospital stay following issues addressed Acute on Chronic back pain with severe right lower extremity severe spasm pain Continue pain medications with muscle relaxants MRI of the lower spine shows L3-L4 disc bulging and stenosis. There is question for discitis, however patient doesn't have leukocytosis, she is afebrile, blood culture negative. PT/OT lidocaine patch I added Soma 3 times a day Fibromyalgia: -continue home meds HTN: -continue home medications Migraines: -continue home meds DISCHARGE MEDICATIONS: Please see below. ALLERGIES: Please see below. PHYSICAL EXAMINATION ON DISCHARGE: VITAL SIGNS: Please see below. Objective: VITAL SIGNS: Please see below. GENERAL APPEARANCE:in moderate distress HEENT: Normocephalic, atraumatic. Mucous members moist and pink CARDIOVASCULAR: Regular rate and rhythm. No murmurs, rubs or gallops. Radial pu lses are intact. There is no lower extremity edema LUNGS: Diminished lung sounds ABDOMEN: Abdomen is soft and nontender. MUSCULOSKELETAL: Range of motion of right leg is limited NEUROLOGICAL: Cranial nerves II-12 are grossly intact. Speech is not dysarthric LABORATORY DATA: Please see below. IMAGING: PROCEDURE INFORMATION: Exam: MR Lumbar Spine Without and With Contrast. Exam date and time: 07/05/2019 11:10 PM Age: 59 years old Clinical indication: Low back pain and lumbago; Prior surgery; Surgery date: 6+ months; Additional info: Intractable back pain, spondylolysis TECHNIQUE: Imaging protocol: Multiplanar magnetic resonance images of the lumbar spine without and with intravenous contrast. Contrast material: PROHANCE; Contrast volume: 15 ml; Contrast route: IV; COMPARISON: CT Spine, lumbar w/o contrast 2017-11-12 09:41 FINDINGS: Tubes, catheters and devices: Catheters enter the spinal canal at approximately L1-L2. Vertebrae: Normal lumbar lordosis, vertebral body heights, and alignments. Left-sided L4-L5 pedicle fusion, and L4-S1 interbody and right posterior pedicle fusion. Minimal level convex lumbar curvature. Small scattered osseous hemangioma is and focal areas of fat. Mild degenerative L3-L4 T2 hyperintense marrow signal. Spinal cord: Normal signal. No cord compression. L1-L2: No significant disc disease. No significant spinal canal stenosis. No neural foraminal stenosis. L2-L3: No significant disc disease. No significant spinal canal stenosis. No neural foraminal stenosis. L3-L4: Disc bulging and mild facet arthropathy causes mild spinal and mild to moderate foraminal stenosis. Mild enhancement along the periphery of the L3-L4 annular disc bulge. L4-L5: Fused. No significant spinal canal stenosis. No neural foraminal stenosis. L5-S1: Fused. No significant spinal canal stenosis. No neural foraminal stenosis. Soft tissues: Unremarkable. IMPRESSION: Adjacent level degenerative disc and joint disease at L3-L4. T2 hyperintensity within the intervertebral disc and endplates, likely degenerative, although early discitis/osteomyelitis could appear similar. PROGNOSIS: Favorable ACTIVITY: [As tolerated]. DIET: Regular DISCHARGE PLAN: Home DISPOSITION: 01 Home, Self-Care. DISCHARGE INSTRUCTIONS: Take prescribed medications ITEMS TO FOLLOWUP ON ON OUTPATIENT: Follow-up with orthopedic surgeon and pain clinic DISCHARGE CONDITION: [Stable]. TIME SPENT ON DISCHARGE: Greater than 20 minutes. Vital Signs/I&Os Vital Signs Date Time Temp Pulse Resp B/P (MAP) Pulse Ox O2 Delivery O2 Flow Rate FiO2 07/08/19 12:37 20 Room Air 07/08/19 06:00 97.4 68 120/69 (86) 98 I&O- Last 24 Hours up to 6 AM 07/08/19 06:00 Intake Total 1200 ml Output Total 0 ml Balance 1200 ml Laboratory Data Labs 24H Laboratory Tests 2 07/08/19 05:28: Nucleated Red Blood Cells % (auto) 0.0, Anion Gap 4L, Glomerular Filtration Rate > 60.0, Calcium Level 9.7, Magnesium Level 2.2 CBC/BMP Laboratory Tests 07/08/19 05:28 Microbiology Microbiology 06/29/19 Urine Culture - Final, Complete 06/29/19 Blood Culture - Final, Complete NO GROWTH AFTER 5 DAYS Discharge Medications Scheduled Amitriptyline HCl (Amitriptyline HCl) 25 Mg Tab, 50 MG PO QHS, (Reported) Aspirin (Aspir 81) 81 Mg Tablet.dr, 81 MG PO QHS, (Reported) Carisoprodol (Carisoprodol) 350 Mg Tablet, 350 MG PO TID Gabapentin (Neurontin) 300 Mg Cap, 300 MG PO TID, (Reported) Hydroxyzine HCl (Hydroxyzine HCl) 50 Mg Tablet, 50 MG PO QHS, (Reported) Metoprolol Succinate (Metoprolol Succinate) 50 Mg Tab.er.24h, 50 MG PO QHS, (Reported) Omeprazole (Omeprazole) 40 Mg Capsule.dr, 40 MG PO BID, (Reported) Topiramate (Topiramate) 50 Mg Tablet, 50 MG PO BID, (Reported) Scheduled PRN Albuterol Sulfate (Proair Hfa) 8.5 Gm Hfa.aer.ad, 2 PUFF INH QID PRN for SHORTNESS OF BREATH, (Reported) Baclofen (Baclofen) 10 Mg Tab, 10 MG PO TID PRN for MUSCLE SPASMS, (Reported) Hydrocodone/Acetaminophen (Hydrocodone-Acetamin 5-325 mg) 1 Each Tablet, 2 TAB PO Q6HP PRN for SEVERE PAIN (PS 8-10) Ibuprofen (Ibuprofen) 800 Mg Tablet, 800 MG PO TID PRN for PAIN, (Reported) Ondansetron HCl (Ondansetron HCl) 4 Mg Tablet, 4 MG PO Q6HP PRN for NAUSEA OR VOMITING Polyvinyl Alcohol (Artificial Tears) 15 Ml Drops, 1 DROP OU QID PRN for DRY EYES, (Reported) Allergies Coded Allergies: SEASONAL ALLERGIES (Verified Allergy, Unknown, 09/01/06) cefazolin (Verified Allergy, Unknown, hives, 06/29/19) SHLOMO RANKIN DO Jul 08, 2019 15:47
== END 2019-07-08 12:52 | disposition home health service (06) | DRG 556 ==
LOC: EDBD 20:32 → M ED 20:32 → M ED INP 20:33 → ENRESERV 06-30 03:40 → M MSPAV 06-30 04:53 → OBSVTOIN 06-30 18:13
PROVIDERS: ADMIT Internal Medicine; ATTEND Internal Medicine
DX: M79.604 Pain in right leg (principal); I25.10 Atherosclerotic heart disease of native coronary artery without angina pectoris; K21.9 Gastro-esophageal reflux disease without esophagitis; G43.909 Migraine, unspecified, not intractable, without status migrainosus; I10 Essential (primary) hypertension; J45.909 Unspecified asthma, uncomplicated; M62.838 Other muscle spasm; E87.6 Hypokalemia; M81.0 Age-related osteoporosis without current pathological fracture; M79.7 Fibromyalgia; Z96.641 Presence of right artificial hip joint; Z88.1 Allergy status to other antibiotic agents; Z79.82 Long term (current) use of aspirin; Z79.899 Other long term (current) drug therapy; M62.830 Muscle spasm of back; M51.26 Other intervertebral disc displacement, lumbar region; Z79.891 Long term (current) use of opiate analgesic; M48.061 Spinal stenosis, lumbar region without neurogenic claudication

== ENCOUNTER → 2019-07-08 | Outpatient (CLI) | payer MEDICARE ==
[~2019-07-08] MED LIST changes: +ASPI81TA85 PO; +CARI1TAB7 PO; +HYDR-3715 PO; +HYDR-3719 PO; +HYDR50TA70 PO; +IBUP1TAB7 PO; +OMEP-221 PO; +OMEP40CA97 PO; +ONDA-83 PO; +POLYOPD OU; +SOMA350T PO; +TOPI50TA9 PO; +TRIAMCINOLONE ACETONIDE SUSP 40 MG/ML VIAL (J3301) As Ordered ONE
--- NOTE | 2019-07-27 02:33 | ECWPNPC ---
PATIENT NAME: JUAN MIGUEL VALENCIA : 1960 GENDER: FEMALE VISIT DATE: 07/08/2019 DISCHARGE DATE: 07/08/19 1447 VISIT LOCKED DATE TIME: PHYSICIAN: RAGHAVENDRA SAN RESOURCE: RAGHAVENDRA SAN REASON FOR APPOINTMENT 1. BACK/LEG PAIN F/UP PER DR Dillard HISTORY OF PRESENT ILLNESS HISTORY OF PRESENT ILLNESS: BEING SEEN ON AN URGENT BASIS AND WAS JUST DISCHARGED FROM HOSPITAL TODAY. ADMITTED 5 DAYS AGO FOR INTRACTABLE LOW BACK PAIN AND RIGHT LEG WEAKNESS. STATES OF A WEEK BEFORE ADMISSION SHE BENT OVER AND BEGAN TO HAVE EXCRUCIATING PAIN. DR. AMOR SPOKE WITH ATTENDING, AND HE AGREED TO DO AN INJECTION TOMORROW. PATIENT IS IN A WHEELCHAIR. DISCUSSED TREATMENT OPTIONS. SHE HAS BEEN RECEIVING HYDROCODONE AND SOMA IN THE HOSPITAL AFTER RECENTLY BEING TAKEN OFF OF IT DUE TO ABNORMAL URINE TOXICOLOGY. OUR PLAN WILL BE TO REDUCE AND DISCONTINUE PAIN MEDICATIONS AFTER WE SEE HER BACK POST PROCEDURE. RATING PAIN VAS 10+ OVER 10. HE IS LOCATED ACROSS LOW BACK AND RADIATES INTO RIGHT LATERAL THIGH. DESCRIBES PAIN CONTINUOUS, SHARP AND ACHING. PAIN THE PATIENT DESCRIBES THE PAIN... FALL RISK SCREENING: SCREENING :NO FALLS REPORTED IN THE LAST YEAR CURRENT MEDICATIONS TAKING OXYBUTYNIN CHLORIDE 5 MG TABLET 1 TABLET ORALLY TWICE A DAY TAKING OMEPRAZOLE 20 MG CAPSULE DELAYED RELEASE 1 CAPSULE ORALLY TWICE A DAY TAKING HYDROXYZINE HCL 50 MG TABLET 1 TABLET NEEDED ORALLY BEFORE BEDTIME TAKING TOPIRAMATE 50 MG TABLET 1 TABLET ORALLY TWICE A DAY TAKING COLACE 100 MG CAPSULE 1 CAPSULE NEEDED ORALLY ONCE A DAY TAKING GABAPENTIN 300 MG CAPSULE 1 CAPSULE ORALLY QID FOR PAIN, NOTES: 04/14/192399 TAKING BACLOFEN 10 MG TABLET 1 TABLET WITH FOOD OR MILK ORALLY PRN THREE TIMES A DAY FOR SPASMS AND PAIN, NOTES: 04/14/192399 TAKING AMITRIPTYLINE HCL 25 MG TABLET 2 TABLET ORALLY BEFORE BEDTIME, NOTES: 04/14/192399 TAKING IBUPROFEN 800 MG TABLET 1 TABLET WITH FOOD OR MILK NEEDED ORALLY THREE TIMES A DAY TAKING METOPROLOL SUCCINATE ER 50 MG TABLET EXTENDED RELEASE 24 HOUR 1 TABLET ORALLY ONCE A DAY TAKING AMLODIPINE BESYLATE 2.5 MG TABLET 1 TABLET ORALLY ONCE A DAY TAKING SOMA 350 MG TABLET 1 TABLET NEEDED ORALLY FOUR TIMES A DAY TAKING NORCO 5-325 MG TABLET 2 TABLET NEEDED ORALLY EVERY 6 HRS TAKING ZOFRAN 4 MG TABLET 1 TABLET ORALLY Q6 HRS PRN TAKING ALBUTEROL SULFATE HFA 108 (90 BASE) MCG/ACT AEROSOL SOLUTION 1 PUFF NEEDED INHALATION EVERY 4 HRS TAKING ASPIR-LOW 81 MG TABLET DELAYED RELEASE 1 TABLET ORALLY ONCE A DAY NOT-TAKING CLARITIN 10 MG TABLET 1 TABLET ORALLY ONCE A DAY NEEED DISCONTINUED NORCO 7.5-325 MG TABLET 1 TABLET NEEDED ORALLY Q6H PRN MDD4, NOTES: 04/15/19 0700 MEDICATION LIST REVIEWED AND RECONCILED WITH THE PATIENT PAST MEDICAL HISTORY ULCERATIVE COLITIS- DR. EARLY HEPATITIS C - DR. FATIMA TREATED WITH 8 WEEKS HARVONI EORX 12/2016, GENOTYPE 1A HCV RNA 1110 CHRONIC BACK PAIN - FOLLOWS WITH PAIN CLINIC "MILD" MO DUE TO HIGH BP WITH SUBSEQUENT NORMAL STRESS TEST H/O ACUTE TOXIC ENCEPHALOPATHY SECONDARY TO OPIATES MIGRAINE HEADACHES H/O SHINGLES HYPERTENSION ASCVD 10-YEAR RISK 1.9% IN 04/2018. HYPOTENSIVE EPISODE - 08/2018 LEFT KNEE ARTHRITIS ALLERGIES CEFAZOLIN SODIUM: RASH - ALLERGY SURGICAL HISTORY TONSILS/ADENOIDS/TUBES HYSTERECTOMY FOR MENORRHAGIA BILATERAL CARPAL TUNNEL BACK SURGERY DORSAL COLUMN STIMULATOR TOTAL HIP REPLACEMENT RIGHT D & C X2 COLONOSCOPY: SHARATH: DIVERTICULOSIS 05/2016 EGD: SHARATH: SMALL HIATAL HERNIA 05/2016 PARAFORMIS INJ - DR. AMOR DORSAL COLUM STIMULATOER REMOVED 12/17/2018 FAMILY HISTORY FATHER: ALIVE 83 YRS, COPD, GWEN CELL, DIAGNOSED WITH HYPERTENSION MOTHER: ALIVE 82 YRS, HYPERTENSION SIBLINGS: BROTHER: HTN SISTER: HEP C, HTN SON(S): ANXIETY AND DEPRESSION DAUGHTER(S): PITUITARY TUMOR, MIGRAINE, SEIZURE DISORDER 1 BROTHER(S) , 1 SISTER(S) . 1 SON(S) , 1 DAUGHTER(S) . SOCIAL HISTORY GENERAL: TOBACCO USE ARE YOU A:NONSMOKER HIV / HEP-C SCREENING HIV TEST OFFERED TO PATIENT:YES DATE OFFERED:09/02/2016 TEST ACCEPTED: PREV TESTED HEP-C TEST OFFERED TO PATIENT:YES DATE OFFERED:09/02/2016 TEST ACCEPTED: PREV TESTED OTHERS AT HOME: CHILDREN. EDUCATION LEVEL OF EDUCATION:COLLEGE DIET: REGULAR. LANGUAGE LANGUAGES SPOKEN:PASHTO DOMESTIC VIOLENCE STATUS: NEW PATIENT PAIN DIARY TODAY'S VISIT NOTES, FROM 0-10, WHAT LEVEL IS YOUR PAIN TODAY? 0. RECREATIONAL DRUG USE DRUG USE?NO PATIENT DENIES ABUSE OR MISSUSED OF ANY MEDICATION. PATIENT DENIES USE OF ANY ILLEGAL SUBSTANCE INCLUDING MARIJUANA OR COCAINE. EXERCISE: WALKS. LEARNING BARRIERS / SPECIAL NEEDS CHANGE FROM LAST VISIT?NO BARRIERS TO LEARNING?NO HEARING IMPAIRED?NO VISION IMPAIRED?YES COGNITIVELY IMPAIRED?NO :CORRECTIVE LENSES READINESS TO LEARN?YES LEARNING PREFERENCES?NO LEARNING CAPABILITIES PRESENT?YES EMOTIONAL BARRIERS?NO SPECIAL DEVICES?YES :CANE COMMUNICATIONS SCIENTIST NEEDED?NO PAIN CLINIC PFS, CLERGY, PUBLIC HEALTH REFERRALS HAS THE PATIENT BEEN EDUCATED REGARDING HIS/HER PLAN OF CARE?YES HAS THE PATIENT BEEN EDUCATED REGARDING PAIN, THE RISK FOR PAIN, THE IMPORTANCE OF EFFECTIVE PAIN MANAGEMENT, AND THE PAIN ASSESSMENT PROCESS?YES LATEX QUESTIONNAIRE LATEX ALLERGY : HAVE YOU EVER DEVELOPED ANY TYPE OF REACTION AFTER HANDLING LATEX PRODUCTS SUCH RUBBER GLOVES, CONDOMS, DIAPHRAGMS, BALLOONS, SOCKS, OR UNDERWEAR?NO LATEX ALLERGY : HAVE YOU EVER DEVELOPED ANY TYPE OF REACTION DURING OR AFTER DENTAL APPOINTMENT, VAGINAL/RECTAL EXAMINATION, SURGICAL PROCEDURE, OR ANY OTHER EXPOSURE?NO DATE ASKED : 09/18/2018 LATEX RISK : HAVE YOU EVER HAD ANY DIFFICULTY BREATHING OR HIVES AFTER EATING OR HANDLING ANY FRUITS, OR VEGETABLES; SUCH KIWI, BANANAS, STONE FRUITS, OR CHESTNUTSNO LATEX RISK : DO YOU HAVE A PREVIOUS PERSONAL HISTORY OF MORE THAN NINE SURGERIES, SPINA BIFIDA, OR REPEATED CATHERIZATIONS? NO LATEX RISK : ARE YOU FREQUENTLY EXPOSED TO LATEX PRODUCTS IN YOUR OCCUPATION?NO CAFFEINE CAFFEINE USE?YES HOW OFTEN AND HOW MUCH? DAILY ADVANCE DIRECTIVE ADVANCE DIRECTIVE DISCUSSED WITH PATIENT:YES PT HAS NO ADVANCED DIRECTIVES, DECLINES HCP INFORMATION AT THIS TIME. CONGREGATIONAL [id number] PROTESTANT MARITAL STATUS: .. ALCOHOL SCREENING DID YOU HAVE A DRINK CONTAINING ALCOHOL IN THE PAST YEAR?YES HOW MANY DRINKS DID YOU HAVE ON A TYPICAL DAY WHEN YOU WERE DRINKING IN THE PAST YEAR?1 OR 2 (0 POINTS) HOW OFTEN DID YOU HAVE A DRINK CONTAINING ALCOHOL IN THE PAST YEAR?TWO TO FOUR TIMES A MONTH (2 POINTS) POINTS2 INTERPRETATIONNEGATIVE OCCUPATION: DIABLED. SEXUAL HX HAD SEX IN THE LAST 12 MONTHS (VAGINAL, ORAL, OR ANAL)?NO HAVE YOU EVER HAD AN STD?NO REVIEWED WITH PT 03/12/18 1507 LASREVIEWED WITH PATIENT 03/26/18 1332 JSREVIEWED WITH PATIENT 05/26/18 1358 JSREVIEWED WITH PATIENT 06/25/18 1320 JSREVIEWED WITH PATIENT 09/18/18 1324 JSREVIEWED WITH PATIENT 01/12/19 1400 LASREVIEWED WITH PATIENT 10/21/18 1439 JSREVIEWED WITH PT 03/08/19 1340 NLJ. HOSPITALIZATION/MAJOR DIAGNOSTIC PROCEDURE SYNCOPAL EPISODE 03/09-03/12/2016 JAUNDICE, ELECTROLYTE IMBALANCE 03/2016 SURGERY RELATED REVIEW OF SYSTEMS REVIEWED BY: PROVIDER: RAGHAVENDRA LE . CONSTITUTIONAL: ANY CHANGE IN YOUR MEDICAL CONDITION? YES, BULDGING DISC L3 . CHILLS NO . FEVER NO . INFECTION: DO YOU HAVE NEW INFECTIONS? NO . DO YOU HAVE HISTORY OF MRSA? NO . MUSCULOSKELETAL: ANY NEW PATTERNS OF PAIN OR NUMBNESS? YES, LBP . GASTROENTEROLOGY: ANY NEW CHANGE IN BOWEL CONTROL? NO . GENITOURINARY: ANY NEW CHANGE IN BLADDER CONTROL? NO . IS THERE A CHANCE YOU COULD BE ? NO . HEMATOLOGY/LYMPH: DO YOU TAKE ANY BLOOD THINNERS? (FOR EXAMPLE- COUMADIN, PLAVIX, AGGRENOX, PLATEL, PRADAXA, OR XARELTO) NO . WHEN WAS YOUR LAST DOSE? DATE: TIME: . NEUROLOGY: HAVE YOU FALLEN IN THE PAST 12 MONTHS? YES, FELL LAST WEEK FROM SYNCOPE LAST WEEK, PT HOSPITALIZED FOR THIS . ANY NEW EXTREMITY NUMBNESS OR WEAKNESS? NO . CARDIOLOGY: DO YOU HAVE A PACEMAKER OR DEFIBRILLATOR? NO . RESPIRATORY: HAVE YOU BEEN SICK IN THE PAST WEEK? NO . FEVER NO . FLU LIKE SYMPTOMS? NO . COUGH NO . INTEGUMENTARY: DO YOU HAVE ANY RASHES OR OPEN SORES? NO . ALLERGIC/IMMUNO: ARE YOU ALLERGIC TO IV DYE? NO . ANY NEW ALLERGIES? NO . PSYCHIATRIC: DO YOU HAVE THOUGHTS OF HURTING YOURSELF OR SOMEONE ELSE? NO . ARE YOU ABUSED, NEGLECTED, OR IN AN UNSAFE ENVIRONMENT? NO . ENDOCRINOLOGY: ARE YOU DIABETIC? NO . OTHER: DO YOU NEED ANY PRESCRIPTIONS? YES, TO DISCUSS . IF YES, PLEASE LIST: ____ . ANY NEW PROBLEMS WITH YOUR MEDICATIONS? NO . WHEN DID YOU LAST EAT? ____ . WHEN DID YOU LAST DRINK? ____ . WHAT DID YOU LAST DRINK? ____ . NAME OF PERSON DRIVING YOU HOME? ____ . DO YOU HAVE ANY OTHER QUESTIONS OR CONCERNS NO . VITAL SIGNS WT 163 LBS, HT 69 IN, BMI 24.07 INDEX, BP 116/63 MM HG, HR 95 /MIN, RR 16 /MIN, TEMP 98.9 F, OXYGEN SAT % 98, REVIEWED BY: CALDERON. EXAMINATION GENERAL EXAMINATION: GENERAL ALERT,NO DISTRESS . PSYCH AFFECT NORMAL . LUNGS: LUNG SOUNDS ARE CLEAR . HEART: HEART RATE REGULAR . MUSCULOSKELETAL: MST :MILD WEAKNESS NOTED OVER RIGHT LEG. NEUROMUSCULAR: NORMAL SENSATION TO LIGHT TOUCH LOWER EXTREMITIES BILATERALLY. LUMBAR: TENDERNESS BILAT. SIJ . DIAGNOSTIC TESTS REVIEWEDMRI L/S [id number] . ASSESSMENTS SACROILIITIS - M46.1 (PRIMARY) PIRIFORMIS MUSCLE PAIN - M79.18 TREATMENT SACROILIITIS CONTINUE GABAPENTIN CAPSULE, 300 MG, 1 CAPSULE, ORALLY, QID FOR PAIN, NOTES: 04/14/192399 STOP BACLOFEN TABLET, 10 MG, 1 TABLET WITH FOOD OR MILK, ORALLY PRN, THREE TIMES A DAY FOR SPASMS AND PAIN, NOTES: 04/14/192399 CONTINUE AMITRIPTYLINE HCL TABLET, 25 MG, 2 TABLET, ORALLY, BEFORE BEDTIME, NOTES: 04/14/192399 CONTINUE IBUPROFEN TABLET, 800 MG, 1 TABLET WITH FOOD OR MILK NEEDED, ORALLY, THREE TIMES A DAY REFILL SOMA TABLET, 350 MG, 1 TABLET NEEDED, ORALLY, FOUR TIMES A DAY, 30 DAYS, 120 TABLET, REFILLS 1 INCREASE NORCO TABLET, 10-325 MG, 1 TAB, ORALLY, EVERY 6 HRS MDD4, 30 DAYS, 120, REFILLS 0 NOTES: RIGHT PIRIFORMIS VS RIGHT SIJ, ISTOP REGISTRY REVIEWED AND DEMONSTRATES COMPLLIANCE. DISPOSITION & COMMUNICATION FOLLOW UP SCHEDULE TOMOROW AT [address] Dillard (REASON: RIGHT PIRIFORMIS VS RIGHT SIJ) ELECTRONICALLY SIGNED BY REY MANJARREZ ON 07/26/2019 AT 01:51 PM EST DISCLAIMER : THIS IS A VISIT SUMMARY EXTRACTED FROM THE [employer] CHART. IT IS NOT A COPY OF THE [employer] PROGRESS NOTE. MTDD
== END ==
LOC: M PAIN 14:00
PROVIDERS: ATTEND Nurse Practitioner Family
DX: M46.1 Sacroiliitis, not elsewhere classified (principal); M79.18 Myalgia, other site
CPT/HCPCS: G0463; J3301

== ENCOUNTER → 2019-07-09 | Outpatient (CLI) | payer MEDICARE ==
[~2019-07-09] MED LIST changes: +BUPIVACAINE HCL 0.25% 30 ML VIAL As Ordered ONE; -HYDR-3719 PO; +ISOVUE-M 300 61% 15ML VIAL (Q9967) As Ordered ONE; +LIDOCAINE 1% SDV INJ 30 ML VIAL As Ordered ONE; -SOMA350T PO; +diazePAM 5 MG TAB As Ordered ONE; +diphenhydrAMINE 25 MG CAP As Ordered ONE; +oxyCODONE 5MG TAB As Ordered ONE
--- NOTE | 2019-07-12 09:36 | REP ---
SI joint series: Eight views. History: Bilateral SI joint injection for pain. 35 seconds of fluoroscopy time is reported. Findings: A sequence of eight last image hold fluoroscopically obtained spot radiographs of the SI joints document various needle positions and contrast injections associated with SI joint injection procedure. Electronically Signed by Garret Still MD 07/12/2019 11:44 A
--- NOTE | 2019-07-17 00:55 | ECWPNPC ---
PATIENT NAME: JUAN MIGUEL VALENCIA : 1960 GENDER: FEMALE VISIT DATE: 07/09/2019 DISCHARGE DATE: 07/09/19 0000 VISIT LOCKED DATE TIME: PHYSICIAN: SUSANNE AMOR MD RESOURCE: SUSANNE AMOR MD REASON FOR APPOINTMENT 1. SIJ/ PIRIFORMIS PER DR Dillard HISTORY OF PRESENT ILLNESS HISTORY OF PRESENT ILLNESS: PAIN THE PATIENT DESCRIBES THE PAIN... FALL RISK SCREENING: SCREENING :NO FALLS REPORTED IN THE LAST YEAR CURRENT MEDICATIONS TAKING ALBUTEROL SULFATE HFA 108 (90 BASE) MCG/ACT AEROSOL SOLUTION 1 PUFF NEEDED INHALATION EVERY 4 HRS, NOTES: 07/09/19 AM TAKING AMITRIPTYLINE HCL 25 MG TABLET 2 TABLET ORALLY BEFORE BEDTIME, NOTES: 07/09/19 AM TAKING ASPIR-LOW 81 MG TABLET DELAYED RELEASE 1 TABLET ORALLY ONCE A DAY, NOTES: 07/09/19 AM TAKING CARISOPRODOL 350 MG TABLET 1 TABLET ORALLY THREE TIMES DAILY MDD 3 TABLETS, NOTES: 07/09/19 AM TAKING GABAPENTIN 300 MG CAPSULE 1 CAPSULE ORALLY THREE TIMES DAILY, NOTES: 07/09/19 AM TAKING HYDROCODONE-ACETAMINOPHEN 5-325 MG TABLET 2 TABLETS NEEDED ORALLY EVERY 6 HRS, NOTES: 07/09/19 AM TAKING HYDROXYZINE HCL 50 MG TABLET 1 TABLET ORALLY BEFORE BEDTIME, NOTES: 07/08/19 TAKING IBUPROFEN 800 MG TABLET 1 TABLET WITH FOOD OR MILK NEEDED ORALLY THREE TIMES A DAY, NOTES: 07/08/19 TAKING METOPROLOL SUCCINATE ER 50 MG TABLET EXTENDED RELEASE 24 HOUR 1 TABLET ORALLY ONCE A DAY, NOTES: 07/08/19 TAKING OMEPRAZOLE 20 MG CAPSULE DELAYED RELEASE 1 CAPSULE ORALLY TWICE A DAY, NOTES: 07/08/19 TAKING TOPIRAMATE 50 MG TABLET 1 TABLET ORALLY TWICE A DAY, NOTES: 07/08/19 TAKING ZOFRAN 4 MG TABLET 1 TABLET ORALLY Q6 HRS PRN, NOTES: 07/08/19 NOT-TAKING CLARITIN 10 MG TABLET 1 TABLET ORALLY ONCE A DAY NEEED NOT-TAKING AMLODIPINE BESYLATE 2.5 MG TABLET 1 TABLET ORALLY ONCE A DAY NOT-TAKING COLACE 100 MG CAPSULE 1 CAPSULE NEEDED ORALLY ONCE A DAY NOT-TAKING OXYBUTYNIN CHLORIDE 5 MG TABLET 1 TABLET ORALLY TWICE A DAY NOT-TAKING SOMA 350 MG TABLET 1 TABLET NEEDED ORALLY FOUR TIMES A DAY NOT-TAKING BACLOFEN 10 MG TABLET 1 TABLET WITH FOOD OR MILK NEEDED ORALLY THREE TIMES A DAY DISCONTINUED POLYVINYL ALCOHOL 1.4 % SOLUTION 1 DROP INTO EACH EYE OPHTHALMIC FOUR TIMES DAILY NEEDED MEDICATION LIST REVIEWED AND RECONCILED WITH THE PATIENT PAST MEDICAL HISTORY ULCERATIVE COLITIS- DR. EARLY HEPATITIS C - DR. FATIMA TREATED WITH 8 WEEKS HARVONI EORX 12/2016, GENOTYPE 1A HCV RNA 1110 CHRONIC BACK PAIN - FOLLOWS WITH PAIN CLINIC "MILD" RI DUE TO HIGH BP WITH SUBSEQUENT NORMAL STRESS TEST H/O ACUTE TOXIC ENCEPHALOPATHY SECONDARY TO OPIATES MIGRAINE HEADACHES H/O SHINGLES HYPERTENSION ASCVD 10-YEAR RISK 1.9% IN 04/2018. HYPOTENSIVE EPISODE - 08/2018 LEFT KNEE ARTHRITIS ALLERGIES CEFAZOLIN SODIUM: RASH - ALLERGY SURGICAL HISTORY TONSILS/ADENOIDS/TUBES HYSTERECTOMY FOR MENORRHAGIA BILATERAL CARPAL TUNNEL BACK SURGERY DORSAL COLUMN STIMULATOR TOTAL HIP REPLACEMENT RIGHT D & C X2 COLONOSCOPY: SHARATH: DIVERTICULOSIS 05/2016 EGD: SHARATH: SMALL HIATAL HERNIA 05/2016 PARAFORMIS INJ - DR. AMOR DORSAL COLUM STIMULATOER REMOVED 12/17/2018 FAMILY HISTORY FATHER: ALIVE 83 YRS, COPD, GWEN CELL, DIAGNOSED WITH HYPERTENSION MOTHER: ALIVE 82 YRS, HYPERTENSION SIBLINGS: BROTHER: HTN SISTER: HEP C, HTN SON(S): ANXIETY AND DEPRESSION DAUGHTER(S): PITUITARY TUMOR, MIGRAINE, SEIZURE DISORDER 1 BROTHER(S) , 1 SISTER(S) . 1 SON(S) , 1 DAUGHTER(S) . SOCIAL HISTORY GENERAL: TOBACCO USE ARE YOU A:NONSMOKER HIV / HEP-C SCREENING HIV TEST OFFERED TO PATIENT:YES DATE OFFERED:09/02/2016 TEST ACCEPTED: PREV TESTED HEP-C TEST OFFERED TO PATIENT:YES DATE OFFERED:09/02/2016 TEST ACCEPTED: PREV TESTED OTHERS AT HOME: CHILDREN. EDUCATION LEVEL OF EDUCATION:COLLEGE DIET: REGULAR. LANGUAGE LANGUAGES SPOKEN:SETSWANA DOMESTIC VIOLENCE STATUS: NEW PATIENT PAIN DIARY TODAY'S VISIT NOTES, FROM 0-10, WHAT LEVEL IS YOUR PAIN TODAY? 0. RECREATIONAL DRUG USE DRUG USE?NO PATIENT DENIES ABUSE OR MISSUSED OF ANY MEDICATION. PATIENT DENIES USE OF ANY ILLEGAL SUBSTANCE INCLUDING MARIJUANA OR COCAINE. EXERCISE: WALKS. LEARNING BARRIERS / SPECIAL NEEDS CHANGE FROM LAST VISIT?NO BARRIERS TO LEARNING?NO HEARING IMPAIRED?NO VISION IMPAIRED?YES COGNITIVELY IMPAIRED?NO :CORRECTIVE LENSES READINESS TO LEARN?YES LEARNING PREFERENCES?NO LEARNING CAPABILITIES PRESENT?YES EMOTIONAL BARRIERS?NO SPECIAL DEVICES?YES :CANE JANITORIAL SUPERVISOR NEEDED?NO PAIN CLINIC PFS, CLERGY, PUBLIC HEALTH REFERRALS HAS THE PATIENT BEEN EDUCATED REGARDING HIS/HER PLAN OF CARE?YES HAS THE PATIENT BEEN EDUCATED REGARDING PAIN, THE RISK FOR PAIN, THE IMPORTANCE OF EFFECTIVE PAIN MANAGEMENT, AND THE PAIN ASSESSMENT PROCESS?YES LATEX QUESTIONNAIRE LATEX ALLERGY : HAVE YOU EVER DEVELOPED ANY TYPE OF REACTION AFTER HANDLING LATEX PRODUCTS SUCH RUBBER GLOVES, CONDOMS, DIAPHRAGMS, BALLOONS, SOCKS, OR UNDERWEAR?NO LATEX ALLERGY : HAVE YOU EVER DEVELOPED ANY TYPE OF REACTION DURING OR AFTER DENTAL APPOINTMENT, VAGINAL/RECTAL EXAMINATION, SURGICAL PROCEDURE, OR ANY OTHER EXPOSURE?NO DATE ASKED : 09/18/2018 LATEX RISK : HAVE YOU EVER HAD ANY DIFFICULTY BREATHING OR HIVES AFTER EATING OR HANDLING ANY FRUITS, OR VEGETABLES; SUCH KIWI, BANANAS, STONE FRUITS, OR CHESTNUTSNO LATEX RISK : DO YOU HAVE A PREVIOUS PERSONAL HISTORY OF MORE THAN NINE SURGERIES, SPINA BIFIDA, OR REPEATED CATHERIZATIONS? NO LATEX RISK : ARE YOU FREQUENTLY EXPOSED TO LATEX PRODUCTS IN YOUR OCCUPATION?NO CAFFEINE CAFFEINE USE?YES HOW OFTEN AND HOW MUCH? DAILY ADVANCE DIRECTIVE ADVANCE DIRECTIVE DISCUSSED WITH PATIENT:YES PT HAS NO ADVANCED DIRECTIVES, DECLINES HCP INFORMATION AT THIS TIME. HOAHAOISM [id number] MORAVIAN MARITAL STATUS: .. ALCOHOL SCREENING DID YOU HAVE A DRINK CONTAINING ALCOHOL IN THE PAST YEAR?YES HOW MANY DRINKS DID YOU HAVE ON A TYPICAL DAY WHEN YOU WERE DRINKING IN THE PAST YEAR?1 OR 2 (0 POINTS) HOW OFTEN DID YOU HAVE A DRINK CONTAINING ALCOHOL IN THE PAST YEAR?TWO TO FOUR TIMES A MONTH (2 POINTS) POINTS2 INTERPRETATIONNEGATIVE OCCUPATION: DIABLED. SEXUAL HX HAD SEX IN THE LAST 12 MONTHS (VAGINAL, ORAL, OR ANAL)?NO HAVE YOU EVER HAD AN STD?NO REVIEWED WITH PT 03/12/18 1507 LASREVIEWED WITH PATIENT 03/26/18 1332 JSREVIEWED WITH PATIENT 05/26/18 1358 JSREVIEWED WITH PATIENT 06/25/18 1320 JSREVIEWED WITH PATIENT 09/18/18 1324 JSREVIEWED WITH PATIENT 01/12/19 1400 LASREVIEWED WITH PATIENT 10/21/18 1439 JSREVIEWED WITH PT 03/08/19 1340 NLJ. HOSPITALIZATION/MAJOR DIAGNOSTIC PROCEDURE SYNCOPAL EPISODE 03/09-03/12/2016 JAUNDICE, ELECTROLYTE IMBALANCE 03/2016 SURGERY RELATED LBP WITH SYNCOPE 06/2019 REVIEW OF SYSTEMS REVIEWED BY: PROVIDER: . CONSTITUTIONAL: ANY CHANGE IN YOUR MEDICAL CONDITION? YES, LUMBAR DISC DISPLACED . CHILLS NO . FEVER NO . INFECTION: DO YOU HAVE NEW INFECTIONS? NO . DO YOU HAVE HISTORY OF MRSA? NO . MUSCULOSKELETAL: ANY NEW PATTERNS OF PAIN OR NUMBNESS? NO . GASTROENTEROLOGY: ANY NEW CHANGE IN BOWEL CONTROL? NO . GENITOURINARY: ANY NEW CHANGE IN BLADDER CONTROL? NO . IS THERE A CHANCE YOU COULD BE ? NO . HEMATOLOGY/LYMPH: DO YOU TAKE ANY BLOOD THINNERS? (FOR EXAMPLE- COUMADIN, PLAVIX, AGGRENOX, PLATEL, PRADAXA, OR XARELTO) NO . WHEN WAS YOUR LAST DOSE? DATE: TIME: . NEUROLOGY: HAVE YOU FALLEN IN THE PAST 12 MONTHS? YES, FELL LAST WEEK WITH LBP AND SYNCOPE, PT HOSPITALIZED FOR THIS . ANY NEW EXTREMITY NUMBNESS OR WEAKNESS? YES, RIGHT LEG PAIN . CARDIOLOGY: DO YOU HAVE A PACEMAKER OR DEFIBRILLATOR? NO . RESPIRATORY: HAVE YOU BEEN SICK IN THE PAST WEEK? NO . FEVER NO . FLU LIKE SYMPTOMS? NO . COUGH NO . INTEGUMENTARY: DO YOU HAVE ANY RASHES OR OPEN SORES? NO . ALLERGIC/IMMUNO: ARE YOU ALLERGIC TO IV DYE? NO . ANY NEW ALLERGIES? NO . PSYCHIATRIC: DO YOU HAVE THOUGHTS OF HURTING YOURSELF OR SOMEONE ELSE? NO . ARE YOU ABUSED, NEGLECTED, OR IN AN UNSAFE ENVIRONMENT? NO . ENDOCRINOLOGY: ARE YOU DIABETIC? NO . OTHER: DO YOU NEED ANY PRESCRIPTIONS? NO . IF YES, PLEASE LIST: ____ . ANY NEW PROBLEMS WITH YOUR MEDICATIONS? NO . WHEN DID YOU LAST EAT? 07/08/19 2300 . WHEN DID YOU LAST DRINK? 07/09/19 . WHAT DID YOU LAST DRINK? WATER . NAME OF PERSON DRIVING YOU HOME? FATHER . DO YOU HAVE ANY OTHER QUESTIONS OR CONCERNS NO . ASSESSMENTS SACROILIITIS, NOT ELSEWHERE CLASSIFIED - M46.1 (PRIMARY) PROCEDURES PN SI PRE PROCEDURE DIAGNOSIS SACROILIITIS, SACROILIAC JOINT DYSFUNCTION POST PROCEDURE DIAGNOSIS SACROILIITIS, SACROILIAC JOINT DYSFUNCTION PROCEDURE BILATERAL SACROILIAC JOINT BLOCK SURGEON DR. SUSANNE AMOR NAPPER RUNNER NONE ANESTHESIA LOCAL PRE PROCEDURE NOTE PATIENT WITH HISTORY OF CHRONIC LOW BACK PAIN. I EVALUATED THE PATIENT AND REVIEWED THE CHART. I WENT OVER THE RISKS, ALTERNATIVES, AND BENEFITS ASSOCIATED WITH THIS PROCEDURE. THE PATIENT WOULD LIKE TO PROCEED AND GAVE CONSENT TO PERFORM THE PROCEDURE. THE PATIENT DENIES UNEXPLAINABLE WEIGHT LOSS, FEVER, CHILLS, OR NEW CHANGES IN URINARY OR BOWEL CONTROL DESCRIPTION OF PROCEDURE THE PATIENT WAS BROUGHT TO THE PROCEDURE ROOM AND PLACED IN THE PRONE POSITION. THE LUMBOSACRAL AREA WAS CLEANED WITH CHLORAPREP SOLUTION AND DRAPED ASEPTICALLY. THE PROCEDURE WAS DONE UNDER STERILE CONDITIONS. I CHECKED LATERALITY AND THE LEVEL WHERE THE PROCEDURE WAS GOING TO BE PERFORMED WITH THE PATIENT AND THE SUPPORTING STAFF AT THE MOMENT OF THE TIME OUT IN THE PROCEDURE ROOM. UNDER FLUOROSCOPIC GUIDANCE, TARGET POINT WAS SELECTED AT THE LOWER BORDER OF THE RIGHT AND LEFT SACROILIAC JOINT. TARGET POINT WAS SELECTED AFTER MEDIAL ROTATION AND TILT OF THE MAGNIFIER OF THE C-ARM. LIDOCAINE WAS USED TO NUMB THE SKIN AND SUBCUTANEOUS TISSUE BELOW IT. A SPINAL NEEDLE, 22-GAUGE, WAS ADVANCED UNDER FLUOROSCOPIC GUIDANCE AND FOLLOWING PATIENT FEEDBACK UNTIL THE TARGET AREA WAS TOUCHED. THE POSITION OF THE NEEDLE WAS VERIFIED WITH AP AND LATERAL VIEWS. AFTER PROPER POSITION OF THE NEEDLE WAS ACHIEVED, ISOVUE M DYE 30%, 0.25 ML, WAS INJECTED SHOWING SPREAD OF THE DYE. THEN, A SOLUTION OF 30 MG OF KENALOG WAS INJECTED IN RIGHT AND LEFT JOINT WITH 3 ML OF BUPIVACAINE 0.125%. THERE WAS NO EVIDENCE OF BLOOD, PARESTHESIA OR CEREBROSPINAL FLUID DURING THE PROCEDURE. THE PATIENT WAS SENT TO THE RECOVERY ROOM. THE PATIENT WAS MOVING THE EXTREMITIES AND DOING WELL. THERE WAS NO COMPLICATION DURING THE PROCEDURE. FLUOROSCOPY TIME WAS 34 SECONDS POST PROCEDURE NOTE THE PATIENT WILL BE SEEN IN A FOLLOW UP IN THE NEXT FEW WEEKS. I AM LOOKING FOR LONG LASTING PAIN RELIEF WITH THIS INJECTION. INSTRUCTIONS WERE GIVEN, QUESTIONS WERE ANSWERED, AND THE PATIENT EXPRESSED UNDERSTANDING AND AGREED WITH THE PLAN. I, GRACE MICHAEL, DOCUMENTED THE ABOVE INFORMATION ACTING A SCRIBE FOR DR. AMOR. I HAVE REVIEWED THE ABOVE DOCUMENT, WRITTEN BY GRACE JOSEPH AND I VERIFY THAT IT IS ACCURATE. DIAGNOSTIC IMAGING [facility] FLUORO GUIDANCE (PAIN)[id number] PROCEDURE CODES 82080 INJECT SACROILIAC JOINT, MODIFIERS: 50 [id number] RADXPS IN END [id number] PXD DISPOSITION & COMMUNICATION FOLLOW UP 3 WEEKS ELECTRONICALLY SIGNED BY SUSANNE AMOR MD, MD ON 07/16/2019 AT 03:44 PM EST DISCLAIMER : THIS IS A VISIT SUMMARY EXTRACTED FROM THE [employer] CHART. IT IS NOT A COPY OF THE [employer] PROGRESS NOTE. ROSY
== END ==
LOC: M PAIN 14:00
PROVIDERS: ATTEND Anesthesiology
DX: M46.1 Sacroiliitis, not elsewhere classified (principal)
CPT/HCPCS: G0260; J3301; Q9967

== ENCOUNTER → 2019-07-14 | Outpatient (REF) | payer MEDICARE ==
[~2019-07-14] MED LIST changes: -BUPIVACAINE HCL 0.25% 30 ML VIAL As Ordered ONE; -ISOVUE-M 300 61% 15ML VIAL (Q9967) As Ordered ONE; -LIDOCAINE 1% SDV INJ 30 ML VIAL As Ordered ONE; -TRIAMCINOLONE ACETONIDE SUSP 40 MG/ML VIAL (J3301) As Ordered ONE; -diazePAM 5 MG TAB As Ordered ONE; -diphenhydrAMINE 25 MG CAP As Ordered ONE; -oxyCODONE 5MG TAB As Ordered ONE
[2019-07-14 14:06] LABS: BASO # 0.1 10^3/uL (0.0-0.2); BASO % 0.7 % (0.0-1.0); EOS # 0.1 10^3/uL (0.0-0.5); EOS % 0.9 % (0.0-3.0); HEMATOCRIT 37.6 % (36.0-47.0); HEMOGLOBIN 12.5 g/dl (12.0-15.5); LYMPH % 22.2 % (24.0-44.0); MEAN CORPUSCULAR HEMOGLOBIN 32.7 pg (27.0-33.0); MEAN CORPUSCULAR HGB CONC 33.2 g/dl (32.0-36.5); MEAN CORPUSCULAR VOLUME 98.4 fl (80.0-96.0); MONO # 0.5 10^3/uL (0.0-0.8); MONO % 5.7 % (0.0-5.0); NEUTROPHILS # 6.2 10^3/uL (1.5-8.5); NEUTROPHILS % 69.6 % (36.0-66.0); PLATELET COUNT, AUTOMATED 327 10^3/uL (150-450); RED BLOOD COUNT 3.82 10^6/uL (4.00-5.40); WHITE BLOOD COUNT 8.9 10^3/uL (4.0-10.0)
[2019-07-14 15:06] LABS: BLOOD UREA NITROGEN 16 MG/DL (7-18); CALCIUM LEVEL 10.2 MG/DL (8.5-10.1); CARBON DIOXIDE LEVEL 24 MEQ/L (21-32); CHLORIDE LEVEL 104 MEQ/L (98-107); CREATININE FOR GFR 0.48 MG/DL (0.55-1.30); FREE T4 1.29 NG/DL (0.76-1.46); GLOMERULAR FILTRATION RATE > 60.0 (>51); GLUCOSE, FASTING 69 MG/DL (70-100); POTASSIUM SERUM 4.2 MEQ/L (3.5-5.1); SODIUM LEVEL 138 MEQ/L (136-145); THYROID STIMULATING HORMONE 0.354 uIU/ML (0.358-3.740)
== END ==
LOC: M SFHCPLAZ 11:49
PROVIDERS: ATTEND Family Medicine
DX: R23.2 Flushing (principal); E87.6 Hypokalemia; Z79.899 Other long term (current) drug therapy
CPT/HCPCS: 36415; 80048; 84439; 84443; 85025; G0463

== ENCOUNTER → 2019-07-21 | Outpatient (CLI) | payer MEDICARE ==
[~2019-07-21] MED LIST changes: +HYDR-3719 PO; +SOMA350T PO
--- NOTE | 2019-08-06 04:05 | ECWPNPC ---
PATIENT NAME: JUAN MIGUEL VALENCIA : 1960 GENDER: FEMALE VISIT DATE: 07/21/2019 DISCHARGE DATE: 07/21/19 1120 VISIT LOCKED DATE TIME: PHYSICIAN: RAGHAVENDRA SAN RESOURCE: RAGHAVENDRA SAN HISTORY OF PRESENT ILLNESS HISTORY OF PRESENT ILLNESS: HERE FOR POST PROCEDURE FOLLOW-UP. HAD BILATERAL SIJ ON 07/09/2019. REPORTING SIGNIFICANT REDUCTION IN HER PAIN 1 WEEK. PAIN ABRUPTLY RETURNED. REPORTS EPISODES OF RIGHT LEG SPASMS. MEDICATION IS SOMEWHAT HELPFUL. DESCRIBES PAIN CONTINUOUS, SHARP AND ACHING. PAIN IS ACROSS THE LOWER BACK AND DOWN THE RIGHT LEG. REVIEWED MRI OF THE LS-SPINE WHICH IS NOT SHOWING ANY PATHOLOGY THAT COULD CAUSE THIS SIGNIFICANT DEGREE OF PAIN AND WEAKNESS IN HER RIGHT LOWER LEG. RECOMMENDED THAT SHE BE SEEN BY NEUROLOGY. PAIN THE PATIENT DESCRIBES THE PAIN... FALL RISK SCREENING: SCREENING :NO FALLS REPORTED IN THE LAST YEAR CURRENT MEDICATIONS TAKING ALBUTEROL SULFATE HFA 108 (90 BASE) MCG/ACT AEROSOL SOLUTION 1 PUFF NEEDED INHALATION EVERY 4 HRS TAKING AMITRIPTYLINE HCL 25 MG TABLET 2 TABLET ORALLY BEFORE BEDTIME TAKING HYDROXYZINE HCL 50 MG TABLET 1 TABLET ORALLY BEFORE BEDTIME TAKING METOPROLOL SUCCINATE ER 50 MG TABLET EXTENDED RELEASE 24 HOUR 1 TABLET ORALLY ONCE A DAY TAKING OMEPRAZOLE 20 MG CAPSULE DELAYED RELEASE 1 CAPSULE ORALLY TWICE A DAY TAKING TOPIRAMATE 50 MG TABLET 1 TABLET ORALLY TWICE A DAY TAKING ZOFRAN 4 MG TABLET 1 TABLET ORALLY Q6 HRS PRN TAKING AMLODIPINE BESYLATE 2.5 MG TABLET 1 TABLET ORALLY ONCE A DAY TAKING CARISOPRODOL 350 MG TABLET 1 TABLET ORALLY THREE TIMES DAILY MDD 3 TABLETS TAKING GABAPENTIN 300 MG CAPSULE 1 CAPSULE ORALLY THREE TIMES DAILY TAKING HYDROCODONE-ACETAMINOPHEN 10-325 MG TABLET 1 TABLETS NEEDED ORALLY EVERY 6 HRS TAKING IBUPROFEN 800 MG TABLET 1 TABLET WITH FOOD OR MILK NEEDED ORALLY THREE TIMES A DAY NOT-TAKING CLARITIN 10 MG TABLET 1 TABLET ORALLY ONCE A DAY NEEED NOT-TAKING COLACE 100 MG CAPSULE 1 CAPSULE NEEDED ORALLY ONCE A DAY MEDICATION LIST REVIEWED AND RECONCILED WITH THE PATIENT PAST MEDICAL HISTORY ULCERATIVE COLITIS- DR. EARLY HEPATITIS C - DR. FATIMA TREATED WITH 8 WEEKS HARVONI EORX 12/2016, GENOTYPE 1A HCV RNA 1110 CHRONIC BACK PAIN - FOLLOWS WITH PAIN CLINIC "MILD" [place] DUE TO HIGH BP WITH SUBSEQUENT NORMAL STRESS TEST H/O ACUTE TOXIC ENCEPHALOPATHY SECONDARY TO OPIATES MIGRAINE HEADACHES H/O SHINGLES HYPERTENSION ASCVD 10-YEAR RISK 1.9% IN 04/2018. HYPOTENSIVE EPISODE - 08/2018 LEFT KNEE ARTHRITIS ALLERGIES CEFAZOLIN SODIUM: RASH - ALLERGY SURGICAL HISTORY TONSILS/ADENOIDS/TUBES HYSTERECTOMY FOR MENORRHAGIA BILATERAL CARPAL TUNNEL BACK SURGERY DORSAL COLUMN STIMULATOR TOTAL HIP REPLACEMENT RIGHT D & C X2 COLONOSCOPY: SHARATH: DIVERTICULOSIS 05/2016 EGD: SHARATH: SMALL HIATAL HERNIA 05/2016 PARAFORMIS INJ - DR. AMOR DORSAL COLUM STIMULATOER REMOVED 12/17/2018 FAMILY HISTORY FATHER: ALIVE 83 YRS, COPD, GWEN CELL, DIAGNOSED WITH HYPERTENSION MOTHER: ALIVE 82 YRS, HYPERTENSION SIBLINGS: BROTHER: HTN SISTER: HEP C, HTN SON(S): ANXIETY AND DEPRESSION DAUGHTER(S): PITUITARY TUMOR, MIGRAINE, SEIZURE DISORDER 1 BROTHER(S) , 1 SISTER(S) . 1 SON(S) , 1 DAUGHTER(S) . SOCIAL HISTORY GENERAL: TOBACCO USE ARE YOU A:NONSMOKER HIV / HEP-C SCREENING HIV TEST OFFERED TO PATIENT:YES DATE OFFERED:09/02/2016 TEST ACCEPTED: PREV TESTED HEP-C TEST OFFERED TO PATIENT:YES DATE OFFERED:09/02/2016 TEST ACCEPTED: PREV TESTED OTHERS AT HOME: CHILDREN. EDUCATION LEVEL OF EDUCATION:COLLEGE DIET: REGULAR. LANGUAGE LANGUAGES SPOKEN:SLOVENIAN DOMESTIC VIOLENCE STATUS: NEW PATIENT PAIN DIARY TODAY'S VISIT NOTES, FROM 0-10, WHAT LEVEL IS YOUR PAIN TODAY? 0. RECREATIONAL DRUG USE DRUG USE?NO PATIENT DENIES ABUSE OR MISSUSED OF ANY MEDICATION. PATIENT DENIES USE OF ANY ILLEGAL SUBSTANCE INCLUDING MARIJUANA OR COCAINE. EXERCISE: WALKS. LEARNING BARRIERS / SPECIAL NEEDS CHANGE FROM LAST VISIT?NO BARRIERS TO LEARNING?NO HEARING IMPAIRED?NO VISION IMPAIRED?YES COGNITIVELY IMPAIRED?NO :CORRECTIVE LENSES READINESS TO LEARN?YES LEARNING PREFERENCES?NO LEARNING CAPABILITIES PRESENT?YES EMOTIONAL BARRIERS?NO SPECIAL DEVICES?YES :CANE, WALKER, WHEELCHAIR AEROSPACE MECHANIC NEEDED?NO PAIN CLINIC PFS, CLERGY, PUBLIC HEALTH REFERRALS HAS THE PATIENT BEEN EDUCATED REGARDING HIS/HER PLAN OF CARE?YES HAS THE PATIENT BEEN EDUCATED REGARDING PAIN, THE RISK FOR PAIN, THE IMPORTANCE OF EFFECTIVE PAIN MANAGEMENT, AND THE PAIN ASSESSMENT PROCESS?YES LATEX QUESTIONNAIRE LATEX ALLERGY : HAVE YOU EVER DEVELOPED ANY TYPE OF REACTION AFTER HANDLING LATEX PRODUCTS SUCH RUBBER GLOVES, CONDOMS, DIAPHRAGMS, BALLOONS, SOCKS, OR UNDERWEAR?NO LATEX ALLERGY : HAVE YOU EVER DEVELOPED ANY TYPE OF REACTION DURING OR AFTER DENTAL APPOINTMENT, VAGINAL/RECTAL EXAMINATION, SURGICAL PROCEDURE, OR ANY OTHER EXPOSURE?NO LATEX RISK : HAVE YOU EVER HAD ANY DIFFICULTY BREATHING OR HIVES AFTER EATING OR HANDLING ANY FRUITS, OR VEGETABLES; SUCH KIWI, BANANAS, STONE FRUITS, OR CHESTNUTSNO LATEX RISK : DO YOU HAVE A PREVIOUS PERSONAL HISTORY OF MORE THAN NINE SURGERIES, SPINA BIFIDA, OR REPEATED CATHERIZATIONS? NO LATEX RISK : ARE YOU FREQUENTLY EXPOSED TO LATEX PRODUCTS IN YOUR OCCUPATION?NO DATE ASKED : 09/18/2018 CAFFEINE CAFFEINE USE?YES HOW OFTEN AND HOW MUCH? DAILY ADVANCE DIRECTIVE ADVANCE DIRECTIVE DISCUSSED WITH PATIENT:YES 07/21/2019 PT HAS NO ADVANCED DIRECTIVES, DECLINES HCP INFORMATION AT THIS TIME. JS RESTORATION [id number] MANDAEISM MARITAL STATUS: .. ALCOHOL SCREENING DID YOU HAVE A DRINK CONTAINING ALCOHOL IN THE PAST YEAR?YES HOW MANY DRINKS DID YOU HAVE ON A TYPICAL DAY WHEN YOU WERE DRINKING IN THE PAST YEAR?1 OR 2 (0 POINTS) HOW OFTEN DID YOU HAVE A DRINK CONTAINING ALCOHOL IN THE PAST YEAR?TWO TO FOUR TIMES A MONTH (2 POINTS) POINTS2 INTERPRETATIONNEGATIVE OCCUPATION: DIABLED. SEXUAL HX HAD SEX IN THE LAST 12 MONTHS (VAGINAL, ORAL, OR ANAL)?NO HAVE YOU EVER HAD AN STD?NO REVIEWED WITH PT 03/12/18 1507 LASREVIEWED WITH PATIENT 03/26/18 1332 JSREVIEWED WITH PATIENT 05/26/18 1358 JSREVIEWED WITH PATIENT 06/25/18 1320 JSREVIEWED WITH PATIENT 09/18/18 1324 JSREVIEWED WITH PATIENT 01/12/19 1400 LASREVIEWED WITH PATIENT 10/21/18 1439 JSREVIEWED WITH PT 03/08/19 1340 NLJREVIEWED WITH PATIENT 07/21/2019 1041 JS. HOSPITALIZATION/MAJOR DIAGNOSTIC PROCEDURE SYNCOPAL EPISODE 03/09-03/12/2016 JAUNDICE, ELECTROLYTE IMBALANCE 03/2016 SURGERY RELATED LBP WITH SYNCOPE/BACK PAIN 06/2019 REVIEW OF SYSTEMS REVIEWED BY: PROVIDER: RAGHAVENDRA LE . CONSTITUTIONAL: ANY CHANGE IN YOUR MEDICAL CONDITION? NO . CHILLS NO . FEVER NO . INFECTION: DO YOU HAVE NEW INFECTIONS? NO . DO YOU HAVE HISTORY OF MRSA? NO . MUSCULOSKELETAL: ANY NEW PATTERNS OF PAIN OR NUMBNESS? NO . GASTROENTEROLOGY: ANY NEW CHANGE IN BOWEL CONTROL? NO . GENITOURINARY: ANY NEW CHANGE IN BLADDER CONTROL? NO . IS THERE A CHANCE YOU COULD BE ? NO . HEMATOLOGY/LYMPH: DO YOU TAKE ANY BLOOD THINNERS? (FOR EXAMPLE- COUMADIN, PLAVIX, AGGRENOX, PLATEL, PRADAXA, OR XARELTO) NO . WHEN WAS YOUR LAST DOSE? DATE: TIME: . NEUROLOGY: HAVE YOU FALLEN IN THE PAST 12 MONTHS? YES, STATES PRIOR TO LAST VISIT, DISCUSSED AT PREVIOUS VISIT . ANY NEW EXTREMITY NUMBNESS OR WEAKNESS? NO . CARDIOLOGY: DO YOU HAVE A PACEMAKER OR DEFIBRILLATOR? NO . RESPIRATORY: HAVE YOU BEEN SICK IN THE PAST WEEK? NO . FEVER NO . FLU LIKE SYMPTOMS? NO . COUGH NO . INTEGUMENTARY: DO YOU HAVE ANY RASHES OR OPEN SORES? NO . ALLERGIC/IMMUNO: ARE YOU ALLERGIC TO IV DYE? NO . ANY NEW ALLERGIES? NO . PSYCHIATRIC: DO YOU HAVE THOUGHTS OF HURTING YOURSELF OR SOMEONE ELSE? NO . ARE YOU ABUSED, NEGLECTED, OR IN AN UNSAFE ENVIRONMENT? NO . ENDOCRINOLOGY: ARE YOU DIABETIC? NO . OTHER: DO YOU NEED ANY PRESCRIPTIONS? NO . IF YES, PLEASE LIST: ____ . ANY NEW PROBLEMS WITH YOUR MEDICATIONS? NO . WHEN DID YOU LAST EAT? ____ . WHEN DID YOU LAST DRINK? ____ . WHAT DID YOU LAST DRINK? ____ . NAME OF PERSON DRIVING YOU HOME? ____ . DO YOU HAVE ANY OTHER QUESTIONS OR CONCERNS NO . VITAL SIGNS WT 160.2 LBS, HT 69 IN, BMI 23.65 INDEX, BP 116/64 MM HG, HR 99 /MIN, RR 18 /MIN, TEMP 97.8 F, OXYGEN SAT % 98%, SAFE IN ENV? (Y/N) YES, REVIEWED BY: HOLDEN. EXAMINATION GENERAL EXAMINATION: GENERAL ALERT,NO DISTRESS . PSYCH AFFECT NORMAL . LUNGS: LUNG SOUNDS ARE CLEAR . HEART: HEART RATE REGULAR . MUSCULOSKELETAL: MST 5/5 BILAT. LOWER EXTREMITIES . LUMBAR: TENDERNESS BILAT. SIJ . DIAGNOSTIC TESTS REVIEWEDMRI L/S [id number] . ASSESSMENTS SACROILIITIS - M46.1 (PRIMARY) PIRIFORMIS MUSCLE PAIN - M79.18 TREATMENT SACROILIITIS CONTINUE HYDROCODONE-ACETAMINOPHEN TABLET, 10-325 MG, 1 TABLETS NEEDED, ORALLY, EVERY 6 HRS CONTINUE CARISOPRODOL TABLET, 350 MG, 1 TABLET, ORALLY, THREE TIMES DAILY MDD 3 TABLETS NOTES: JEFF PORTILLO, ISTOP REGISTRY REVIEWED AND DEMONSTRATES COMPLLIANCE. PATIENT FORGOT TO BRING IN MEDICATION TODAY FOR RECONCILIATION PER CLINIC POLICY. ADVISED THAT I WOULD NEED TO SEE HER MEDICATIONS IN 2 WEEKS AT FOLLOW-UP. SHE WOULD NEED TO BRING THEM TO ALL APPOINTMENTS AT OUR CLINIC PER CLINIC POLICY IN FUTURE., RISKS OF NARCOTIC/OPIOD MEDICATIONS INCLUDES BUT IS NOT LIMITED TO RISK OF DEPENDANCE/DEVELOPMENT OF ADDICTION, MOOD DISTURBANCE AND DEPRESSION, OSTEOPOROSIS, HORMONAL AND LABIDAL CHANGES, RESPIRATORY DEPRESSION AND . PATIENT IS ADVISED NOT TO DRIVE OR DRINK ALCOHOL WHILE ON THESE MEDICATIONS. [facility] RE[facility]ON:RIGHT LEG PAIN/WEAKNES.UNABLE TO TOLERATE WALKING.RECENT HOSPITALIZATION DUE TO LBP AND RIGHT LEG WEAKNESS PREVENTIVE MEDICINE PAIN CLINIC TEACHING: PROCEDURE TEACHING REVIEWED INFORMATION ON SACROILIAC JOINT INJECTION PROCEDURE WITH PATIENT. ALSO REVIEWED PRE-PROCEDURE INSTRUCTIONS. PATIENT VERBALIZED AN UNDERSTANDING. GIUSEPPE SERRANO 07/21/2019 3:51:22 PM > . PROCEDURE CODES FA211 ESTABILISHED PATIENT [facility] CHARGE DISPOSITION & COMMUNICATION FOLLOW UP POST/2WK F/U W ME SQUEEZE IN -MED MGMNT (REASON: JEFF PORTILLO) ELECTRONICALLY SIGNED BY REY MANJARREZ ON 08/05/2019 AT 12:08 PM EST DISCLAIMER : THIS IS A VISIT SUMMARY EXTRACTED FROM THE [employer] CHART. IT IS NOT A COPY OF THE [employer] PROGRESS NOTE. JOSÉ MIGUELD
== END ==
LOC: M PAIN 10:15
PROVIDERS: ATTEND Nurse Practitioner Family
DX: M46.1 Sacroiliitis, not elsewhere classified (principal); M79.18 Myalgia, other site

== ENCOUNTER → 2019-07-28 | Outpatient (CLI) | payer MEDICARE ==
--- NOTE | 2019-07-28 16:00 | REPMRS ---
Patient History The patient states she had a clinical breast exam in 2019. Family history of unknown cancer at age 73 in father. Took hormonal contraceptives for 3 years. Taking estrogen for 2 years. Digital Woman Screen Mammo: July 28, 2019 - Exam #: [id number] Bilateral CC and MLO view(s) were taken. Technologist: Yaritza Doss, Technologist Prior study comparison: December 11, 2017, bilateral digital mammo screening bilat, performed at [facility]. December 06, 2013, bilateral bilat screen digital mammo, performed at [facility] ([facility]). October 21, 2011, bilateral bilat screen digital mammo, performed at [facility] ([facility]). FINDINGS: The breast tissue is heterogeneously dense. This may lower the sensitivity of mammography. There is a moderate amount of heterogeneously dense fibroglandular tissue which is fairly symmetric. There is no interval development of dominant mass, architectural distortion, or grouped microcalcification typical of malignancy. There has been no change in the appearance of the mammogram from the prior studies. 3-D tomosynthesis shows no additional findings. Assessment: BI-RADS/ACR category 1 mammogram. Negative Mammogram. Recommendation Routine screening mammogram of both breasts in 1 year (for women over age 40). This patient's Lifetime Breast Cancer RIsk is estimated at 10.2 %. This mammogram was interpreted with the aid of an FDA-approved computer-aided dectection system. Electronically Signed By: Abdiaziz Still MD 07/28/19 [id number]
== END ==
LOC: M WHC 14:35
PROVIDERS: ATTEND Family Medicine
DX: Z12.31 Encounter for screening mammogram for malignant neoplasm of breast (principal)

== ENCOUNTER → 2019-08-11 | Outpatient (CLI) | payer MEDICARE ==
[~2019-08-11] MED LIST changes: +BUPIVACAINE HCL 0.25% 30 ML VIAL As Ordered ONE; +ISOVUE-M 300 61% 15ML VIAL (Q9967) As Ordered ONE; +LIDOCAINE 1% SDV INJ 30 ML VIAL As Ordered ONE; +TRIAMCINOLONE ACETONIDE SUSP 40 MG/ML VIAL (J3301) As Ordered ONE; +diazePAM 5 MG TAB As Ordered ONE; +diphenhydrAMINE 25 MG CAP As Ordered ONE; +oxyCODONE 5MG TAB As Ordered ONE
--- NOTE | 2019-08-11 11:56 | REP ---
C-ARM VIEWS BILATERAL SACROILIAC JOINTS: Six C-arm views of bilateral sacroiliac joints performed during injection by Dr. Varma. Needle is seen overlying each sacroiliac joint. 32 seconds fluoroscopy time utilized. Electronically Signed by Sahil Owen MD 08/11/2019 04:08 P
--- NOTE | 2019-08-17 01:31 | ECWPNPC ---
PATIENT NAME: JUAN MIGUEL VALENCIA : 1960 GENDER: FEMALE VISIT DATE: 08/11/2019 DISCHARGE DATE: 08/11/19 1152 VISIT LOCKED DATE TIME: PHYSICIAN: SUSANNE AMOR MD RESOURCE: SUSANNE AMOR MD REASON FOR APPOINTMENT 1. QAMAR SIJ HISTORY OF PRESENT ILLNESS HISTORY OF PRESENT ILLNESS: PAIN THE PATIENT DESCRIBES THE PAIN... FALL RISK SCREENING: SCREENING :NO FALLS REPORTED IN THE LAST YEAR PAST MEDICAL HISTORY ULCERATIVE COLITIS- DR. EARLY CHRONIC BACK PAIN - FOLLOWS WITH PAIN CLINIC "MILD" PR DUE TO HIGH BP WITH SUBSEQUENT NORMAL STRESS TEST H/O ACUTE TOXIC ENCEPHALOPATHY SECONDARY TO OPIATES MIGRAINE HEADACHES H/O SHINGLES HYPERTENSION ASCVD 10-YEAR RISK 1.9% IN 04/2018. HYPOTENSIVE EPISODE - 08/2018 LEFT KNEE ARTHRITIS ALLERGIES CEFAZOLIN SODIUM: RASH - ALLERGY SURGICAL HISTORY TONSILS/ADENOIDS/TUBES HYSTERECTOMY FOR MENORRHAGIA BILATERAL CARPAL TUNNEL BACK SURGERY DORSAL COLUMN STIMULATOR TOTAL HIP REPLACEMENT RIGHT D & C X2 COLONOSCOPY: SHARATH: DIVERTICULOSIS 05/2016 EGD: SHARATH: SMALL HIATAL HERNIA 05/2016 PARAFORMIS INJ - DR. AMOR DORSAL COLUM STIMULATOER REMOVED 12/17/2018 FAMILY HISTORY FATHER: ALIVE 83 YRS, COPD, GWEN CELL, DIAGNOSED WITH HYPERTENSION MOTHER: ALIVE 82 YRS, HYPERTENSION SIBLINGS: BROTHER: HTN SISTER: HEP C, HTN SON(S): ANXIETY AND DEPRESSION DAUGHTER(S): PITUITARY TUMOR, MIGRAINE, SEIZURE DISORDER 1 BROTHER(S) , 1 SISTER(S) . 1 SON(S) , 1 DAUGHTER(S) . SOCIAL HISTORY GENERAL: TOBACCO USE ARE YOU A:NONSMOKER HIV / HEP-C SCREENING HIV TEST OFFERED TO PATIENT:YES DATE OFFERED:09/02/2016 TEST ACCEPTED: PREV TESTED HEP-C TEST OFFERED TO PATIENT:YES DATE OFFERED:09/02/2016 TEST ACCEPTED: PREV TESTED OTHERS AT HOME: CHILDREN. EDUCATION LEVEL OF EDUCATION:COLLEGE DIET: REGULAR. LANGUAGE LANGUAGES SPOKEN:CAMEROONIAN DOMESTIC VIOLENCE STATUS: NEW PATIENT PAIN DIARY TODAY'S VISIT NOTES, FROM 0-10, WHAT LEVEL IS YOUR PAIN TODAY? 0. RECREATIONAL DRUG USE DRUG USE?NO PATIENT DENIES ABUSE OR MISSUSED OF ANY MEDICATION. PATIENT DENIES USE OF ANY ILLEGAL SUBSTANCE INCLUDING MARIJUANA OR COCAINE. EXERCISE: WALKS. LEARNING BARRIERS / SPECIAL NEEDS CHANGE FROM LAST VISIT?NO BARRIERS TO LEARNING?NO HEARING IMPAIRED?NO VISION IMPAIRED?YES COGNITIVELY IMPAIRED?NO :CORRECTIVE LENSES READINESS TO LEARN?YES LEARNING PREFERENCES?NO LEARNING CAPABILITIES PRESENT?YES EMOTIONAL BARRIERS?NO SPECIAL DEVICES?YES :CANE, WALKER, WHEELCHAIR GAS PLUMBER NEEDED?NO PAIN CLINIC PFS, CLERGY, PUBLIC HEALTH REFERRALS HAS THE PATIENT BEEN EDUCATED REGARDING HIS/HER PLAN OF CARE?YES HAS THE PATIENT BEEN EDUCATED REGARDING PAIN, THE RISK FOR PAIN, THE IMPORTANCE OF EFFECTIVE PAIN MANAGEMENT, AND THE PAIN ASSESSMENT PROCESS?YES LATEX QUESTIONNAIRE LATEX ALLERGY : HAVE YOU EVER DEVELOPED ANY TYPE OF REACTION AFTER HANDLING LATEX PRODUCTS SUCH RUBBER GLOVES, CONDOMS, DIAPHRAGMS, BALLOONS, SOCKS, OR UNDERWEAR?NO LATEX ALLERGY : HAVE YOU EVER DEVELOPED ANY TYPE OF REACTION DURING OR AFTER DENTAL APPOINTMENT, VAGINAL/RECTAL EXAMINATION, SURGICAL PROCEDURE, OR ANY OTHER EXPOSURE?NO LATEX RISK : HAVE YOU EVER HAD ANY DIFFICULTY BREATHING OR HIVES AFTER EATING OR HANDLING ANY FRUITS, OR VEGETABLES; SUCH KIWI, BANANAS, STONE FRUITS, OR CHESTNUTSNO LATEX RISK : DO YOU HAVE A PREVIOUS PERSONAL HISTORY OF MORE THAN NINE SURGERIES, SPINA BIFIDA, OR REPEATED CATHERIZATIONS? NO LATEX RISK : ARE YOU FREQUENTLY EXPOSED TO LATEX PRODUCTS IN YOUR OCCUPATION?NO DATE ASKED : 08/02/2019 CAFFEINE CAFFEINE USE?YES HOW OFTEN AND HOW MUCH? DAILY ADVANCE DIRECTIVE ADVANCE DIRECTIVE DISCUSSED WITH PATIENT:YES 07/21/2019 PT HAS NO ADVANCED DIRECTIVES, DECLINES HCP INFORMATION AT THIS TIME. FAITH [id number] ISLAM MARITAL STATUS: .. ALCOHOL SCREENING DID YOU HAVE A DRINK CONTAINING ALCOHOL IN THE PAST YEAR?YES HOW MANY DRINKS DID YOU HAVE ON A TYPICAL DAY WHEN YOU WERE DRINKING IN THE PAST YEAR?1 OR 2 (0 POINTS) HOW OFTEN DID YOU HAVE A DRINK CONTAINING ALCOHOL IN THE PAST YEAR?TWO TO FOUR TIMES A MONTH (2 POINTS) POINTS2 INTERPRETATIONNEGATIVE OCCUPATION: DIABLED. SEXUAL HX HAD SEX IN THE LAST 12 MONTHS (VAGINAL, ORAL, OR ANAL)?NO HAVE YOU EVER HAD AN STD?NO REVIEWED WITH PT 03/12/18 1507 LASREVIEWED WITH PATIENT 03/26/18 1332 JSREVIEWED WITH PATIENT 05/26/18 1358 JSREVIEWED WITH PATIENT 06/25/18 1320 JSREVIEWED WITH PATIENT 09/18/18 1324 JSREVIEWED WITH PATIENT 01/12/19 1400 LASREVIEWED WITH PATIENT 10/21/18 1439 JSREVIEWED WITH PT 03/08/19 1340 NLJREVIEWED WITH PATIENT 07/21/2019 1041 JSPRE PROCEDURE PHONE CALL COMPLETED 08/02/2019 3610 NLJ. HOSPITALIZATION/MAJOR DIAGNOSTIC PROCEDURE SYNCOPAL EPISODE 03/09-03/12/2016 JAUNDICE, ELECTROLYTE IMBALANCE 03/2016 SURGERY RELATED LBP WITH SYNCOPE/BACK PAIN 06/2019 REVIEW OF SYSTEMS REVIEWED BY: PROVIDER: . CONSTITUTIONAL: ANY CHANGE IN YOUR MEDICAL CONDITION? NO . CHILLS NO . FEVER NO . INFECTION: DO YOU HAVE NEW INFECTIONS? NO . DO YOU HAVE HISTORY OF MRSA? NO . MUSCULOSKELETAL: ANY NEW PATTERNS OF PAIN OR NUMBNESS? NO . GASTROENTEROLOGY: ANY NEW CHANGE IN BOWEL CONTROL? NO . GENITOURINARY: ANY NEW CHANGE IN BLADDER CONTROL? NO . IS THERE A CHANCE YOU COULD BE ? NO . HEMATOLOGY/LYMPH: DO YOU TAKE ANY BLOOD THINNERS? (FOR EXAMPLE- COUMADIN, PLAVIX, AGGRENOX, PLATEL, PRADAXA, OR XARELTO) NO . WHEN WAS YOUR LAST DOSE? DATE: TIME: . NEUROLOGY: HAVE YOU FALLEN IN THE PAST 12 MONTHS? HOSPITALIZED AND IS PRTAKING WITH PT CURRENTLY . ANY NEW EXTREMITY NUMBNESS OR WEAKNESS? NO . CARDIOLOGY: DO YOU HAVE A PACEMAKER OR DEFIBRILLATOR? NO . RESPIRATORY: HAVE YOU BEEN SICK IN THE PAST WEEK? NO . FEVER NO . FLU LIKE SYMPTOMS? NO . COUGH NO . INTEGUMENTARY: DO YOU HAVE ANY RASHES OR OPEN SORES? NO . ALLERGIC/IMMUNO: ARE YOU ALLERGIC TO IV DYE? NO . ANY NEW ALLERGIES? NO . PSYCHIATRIC: DO YOU HAVE THOUGHTS OF HURTING YOURSELF OR SOMEONE ELSE? NO . ARE YOU ABUSED, NEGLECTED, OR IN AN UNSAFE ENVIRONMENT? NO . ENDOCRINOLOGY: ARE YOU DIABETIC? NO . OTHER: DO YOU NEED ANY PRESCRIPTIONS? NO . IF YES, PLEASE LIST: ____ . ANY NEW PROBLEMS WITH YOUR MEDICATIONS? NO . WHEN DID YOU LAST EAT? ____08-10-19 2100 . WHEN DID YOU LAST DRINK? ____08-11-19 0900 . WHAT DID YOU LAST DRINK? ____WATER . NAME OF PERSON DRIVING YOU HOME? ____JOHN-FATHER . DO YOU HAVE ANY OTHER QUESTIONS OR CONCERNS NO . VITAL SIGNS WT 160.8 LBS, HT 69 IN, BMI 23.74 INDEX, BP 141/82 MM HG, HR 88 /MIN, RR 18 /MIN, TEMP 98.8 F, OXYGEN SAT % 96%, NA INITIALS AW 1011. ASSESSMENTS SACROILIITIS - M46.1 (PRIMARY) TREATMENT SACROILIITIS [facility] GUIDANCE (PAIN) PROCEDURES PN SI PRE PROCEDURE DIAGNOSIS SACROILIITIS, SACROILIAC JOINT DYSFUNCTION POST PROCEDURE DIAGNOSIS SACROILIITIS, SACROILIAC JOINT DYSFUNCTION PROCEDURE BILATERAL SACROILIAC JOINT BLOCK SURGEON DR. SUSANNE AMOR RETAIL TEAM LEADER NONE ANESTHESIA LOCAL PRE PROCEDURE NOTE PATIENT WITH HISTORY OF CHRONIC LOW BACK PAIN. I EVALUATED THE PATIENT AND REVIEWED THE CHART. I WENT OVER THE RISKS, ALTERNATIVES, AND BENEFITS ASSOCIATED WITH THIS PROCEDURE. THE PATIENT WOULD LIKE TO PROCEED AND GAVE CONSENT TO PERFORM THE PROCEDURE. THE PATIENT DENIES UNEXPLAINABLE WEIGHT LOSS, FEVER, CHILLS, OR NEW CHANGES IN URINARY OR BOWEL CONTROL DESCRIPTION OF PROCEDURE THE PATIENT WAS BROUGHT TO THE PROCEDURE ROOM AND PLACED IN THE PRONE POSITION. THE LUMBOSACRAL AREA WAS CLEANED WITH CHLORAPREP SOLUTION AND DRAPED ASEPTICALLY. THE PROCEDURE WAS DONE UNDER STERILE CONDITIONS. I CHECKED LATERALITY AND THE LEVEL WHERE THE PROCEDURE WAS GOING TO BE PERFORMED WITH THE PATIENT AND THE SUPPORTING STAFF AT THE MOMENT OF THE TIME OUT IN THE PROCEDURE ROOM. UNDER FLUOROSCOPIC GUIDANCE, TARGET POINT WAS SELECTED AT THE LOWER BORDER OF THE RIGHT AND LEFT SACROILIAC JOINT. TARGET POINT WAS SELECTED AFTER MEDIAL ROTATION AND TILT OF THE MAGNIFIER OF THE C-ARM. LIDOCAINE WAS USED TO NUMB THE SKIN AND SUBCUTANEOUS TISSUE BELOW IT. A SPINAL NEEDLE, 22-GAUGE, WAS ADVANCED UNDER FLUOROSCOPIC GUIDANCE AND FOLLOWING PATIENT FEEDBACK UNTIL THE TARGET AREA WAS TOUCHED. THE POSITION OF THE NEEDLE WAS VERIFIED WITH AP AND LATERAL VIEWS. AFTER PROPER POSITION OF THE NEEDLE WAS ACHIEVED, ISOVUE M DYE 30%, 0.25 ML, WAS INJECTED SHOWING SPREAD OF THE DYE. THEN, A SOLUTION OF 30 MG OF KENALOG WAS INJECTED IN RIGHT AND LEFT JOINT WITH 3 ML OF BUPIVACAINE 0.125%. THERE WAS NO EVIDENCE OF BLOOD, PARESTHESIA OR CEREBROSPINAL FLUID DURING THE PROCEDURE. THE PATIENT WAS SENT TO THE RECOVERY ROOM. THE PATIENT WAS MOVING THE EXTREMITIES AND DOING WELL. THERE WAS NO COMPLICATION DURING THE PROCEDURE. FLUOROSCOPY TIME WAS 32 SECONDS POST PROCEDURE NOTE THE PATIENT WILL BE SEEN IN A FOLLOW UP IN THE NEXT FEW WEEKS. INSTRUCTIONS WERE GIVEN, QUESTIONS WERE ANSWERED, AND THE PATIENT EXPRESSED UNDERSTANDING AND AGREED WITH THE PLAN. I, GRACE MICHAEL, DOCUMENTED THE ABOVE INFORMATION ACTING A SCRIBE FOR DR. AMOR. I HAVE REVIEWED THE ABOVE DOCUMENT, WRITTEN BY GRACE MICHAEL SCRIBMaria T AND I VERIFY THAT IT IS ACCURATE. PROCEDURE CODES 70303 INJECT SACROILIAC JOINT, MODIFIERS: [id number] RADXPS IN END [id number] PXD DISPOSITION & COMMUNICATION FOLLOW UP 3 WEEKS ELECTRONICALLY SIGNED BY SUSANNE AMOR MD, MD ON 08/16/2019 AT 03:36 PM EDT DISCLAIMER : THIS IS A VISIT SUMMARY EXTRACTED FROM THE [employer] CHART. IT IS NOT A COPY OF THE [employer] PROGRESS NOTE. JOSÉ MIGUELD
== END ==
LOC: M PAIN 10:00
PROVIDERS: ATTEND Anesthesiology
DX: M46.1 Sacroiliitis, not elsewhere classified (principal)
CPT/HCPCS: G0260; J3301; Q9967

== ENCOUNTER → 2019-08-24 | Outpatient (REF) | payer MEDICARE ==
[~2019-08-24] MED LIST changes: -BUPIVACAINE HCL 0.25% 30 ML VIAL As Ordered ONE; -ISOVUE-M 300 61% 15ML VIAL (Q9967) As Ordered ONE; -LIDOCAINE 1% SDV INJ 30 ML VIAL As Ordered ONE; -TRIAMCINOLONE ACETONIDE SUSP 40 MG/ML VIAL (J3301) As Ordered ONE; -diazePAM 5 MG TAB As Ordered ONE; -diphenhydrAMINE 25 MG CAP As Ordered ONE; -oxyCODONE 5MG TAB As Ordered ONE
[2019-08-24 13:15] LABS: BASO % 0.5 % (0.0-1.0); EOS # 0.1 10^3/uL (0.0-0.5); EOS % 1.6 % (0.0-3.0); HEMATOCRIT 36.2 % (36.0-47.0); HEMOGLOBIN 12.4 g/dl (12.0-15.5); LYMPH # 2.1 10^3/uL (1.5-5.0); LYMPH % 37.7 % (24.0-44.0); MEAN CORPUSCULAR HEMOGLOBIN 33.7 pg (27.0-33.0); MEAN CORPUSCULAR HGB CONC 34.3 g/dl (32.0-36.5); MEAN CORPUSCULAR VOLUME 98.4 fl (80.0-96.0); MONO # 0.3 10^3/uL (0.0-0.8); MONO % 5.9 % (0.0-5.0); NEUTROPHILS % 53.9 % (36.0-66.0); PLATELET COUNT, AUTOMATED 308 10^3/uL (150-450); RED BLOOD COUNT 3.68 10^6/uL (4.00-5.40); WHITE BLOOD COUNT 5.6 10^3/uL (4.0-10.0)
[2019-08-24 13:30] LABS: C REACTIVE PROTEIN QUANTITATIV 1.35 MG/DL (0.00-0.30); CPK CREATINE PHOSPHOKINASE 125 U/L (26-192); TOTAL PROTEIN 8.3 GM/DL (6.4-8.2)
[2019-08-24 13:31] LABS: FOLATE 6.4 NG/ML; VITAMIN B12 LEVEL 498 PG/ML
[2019-08-24 14:36] LABS: ERYTHROCYTE SEDIMENTATION RATE 49 mm/hr (0-30)
[2019-08-26 14:23] LABS: ALBUMIN % 49.4 % (55.8-66.1); ALPHA-1-GLOBULIN % 4.8 % (2.9-4.9); ALPHA-2-GLOBULINS 0.82 GM/DL (0.42-0.99); ALPHA-2-GLOBULINS % 9.9 % (7.1-11.8); BETA-1-GLOBULINS % 6.6 % (4.7-7.2); BETA-2-GLOBULINS % 7.2 % (3.2-6.5); GAMMA GLOBULIN % 22.1 % (11.1-18.8)
[2019-08-26 14:24] LABS: BETA-1-GLOBULINS 0.55 GM/DL (0.28-0.60); GAMMA GLOBULINS 1.83 GM/DL (0.65-1.58)
== END ==
LOC: M LABNEURO 12:47
PROVIDERS: ATTEND Psychiatry & Neurology Neurology
DX: E53.8 Deficiency of other specified B group vitamins (principal); G62.9 Polyneuropathy, unspecified

== ENCOUNTER → 2019-09-01 | Outpatient (CLI) | payer MEDICARE ==
--- NOTE | 2019-09-03 01:16 | ECWPNPC ---
PATIENT NAME: JUAN MIGUEL VALENCIA : 1960 GENDER: FEMALE VISIT DATE: 09/01/2019 DISCHARGE DATE: 09/01/19 1409 VISIT LOCKED DATE TIME: PHYSICIAN: RAGHAVENDRA SAN RESOURCE: RAGHAVENDRA SAN REASON FOR APPOINTMENT 1. POST BILATERAL THERAPEUTIC LUMBAR FACET BLOCK OST SIJ-PT RUNNING LATE,STATES WONT BE MORE THAN 10 MIN. HISTORY OF PRESENT ILLNESS HISTORY OF PRESENT ILLNESS: HERE FOR POST PROCEDURE FOLLOW-UP. HAD BILATERAL SIJ INJECTION ON 08/11/2019. REPORTING MARKED REDUCTION IN PAIN POST PROCEDURE WHICH CONTINUES TODAY. HAS BEEN FOLLOWING WITH DR. GAMINO [facility] PER OUR REFERRAL FOR RIGHT LOWER EXTREMITY WEAKNESS. HAD MRI OF THE CERVICAL AND BRAIN LAST WEEK. STATES THAT SHE WAS DOING FAIRLY WELL UNTIL THAT TIME. IN REGARDS TO PAIN CONTROL. NOW IS BACK TO USING A WALKER AFTER BEING BEDRIDDEN FOR A DAY AFTER MRI. RATING PAIN VAS 7/10. PAIN THE PATIENT DESCRIBES THE PAIN... FALL RISK SCREENING: SCREENING :NO FALLS REPORTED IN THE LAST YEAR CURRENT MEDICATIONS TAKING ALBUTEROL SULFATE HFA 108 (90 BASE) MCG/ACT AEROSOL SOLUTION 1 PUFF NEEDED INHALATION EVERY 4 HRS TAKING AMITRIPTYLINE HCL 25 MG TABLET 2 TABLET ORALLY BEFORE BEDTIME TAKING HYDROXYZINE HCL 50 MG TABLET 1 TABLET ORALLY BEFORE BEDTIME TAKING METOPROLOL SUCCINATE ER 50 MG TABLET EXTENDED RELEASE 24 HOUR 1 TABLET ORALLY ONCE A DAY TAKING OMEPRAZOLE 20 MG CAPSULE DELAYED RELEASE 1 CAPSULE ORALLY TWICE A DAY TAKING TOPIRAMATE 50 MG TABLET 1 TABLET ORALLY TWICE A DAY TAKING ZOFRAN 4 MG TABLET 1 TABLET ORALLY Q6 HRS PRN TAKING AMLODIPINE BESYLATE 2.5 MG TABLET 1 TABLET ORALLY ONCE A DAY TAKING IBUPROFEN 800 MG TABLET 1 TABLET WITH FOOD OR MILK NEEDED ORALLY THREE TIMES A DAY TAKING CARISOPRODOL 350 MG TABLET 1 TABLET ORALLY THREE TIMES DAILY MDD 3 TABLETS TAKING GABAPENTIN 300 MG CAPSULE 1 CAPSULE ORALLY THREE TIMES DAILY TAKING HYDROCODONE-ACETAMINOPHEN 10-325 MG TABLET 1 TABLETS NEEDED ORALLY EVERY 6 HRSMDD4 NOT-TAKING CLARITIN 10 MG TABLET 1 TABLET ORALLY ONCE A DAY NEEED NOT-TAKING COLACE 100 MG CAPSULE 1 CAPSULE NEEDED ORALLY ONCE A DAY MEDICATION LIST REVIEWED AND RECONCILED WITH THE PATIENT PAST MEDICAL HISTORY CHRONIC BACK PAIN - FOLLOWS WITH PAIN CLINIC ULCERATIVE COLITIS- DR. EARLY "MILD" CA DUE TO HIGH BP WITH SUBSEQUENT NORMAL STRESS TEST H/O ACUTE TOXIC ENCEPHALOPATHY SECONDARY TO OPIATES MIGRAINE HEADACHES H/O SHINGLES HYPERTENSION ASCVD 10-YEAR RISK 1.9% IN 04/2018. HYPOTENSIVE EPISODE - 08/2018 LEFT KNEE ARTHRITIS ALLERGIES CEFAZOLIN SODIUM: RASH - ALLERGY SURGICAL HISTORY TONSILS/ADENOIDS/TUBES HYSTERECTOMY FOR MENORRHAGIA BILATERAL CARPAL TUNNEL BACK SURGERY DORSAL COLUMN STIMULATOR TOTAL HIP REPLACEMENT RIGHT D & C X2 COLONOSCOPY: SHARATH: DIVERTICULOSIS 05/2016 EGD: SHARATH: SMALL HIATAL HERNIA 05/2016 PARAFORMIS INJ - DR. AMOR DORSAL COLUM STIMULATOER REMOVED 12/17/2018 FAMILY HISTORY FATHER: ALIVE 83 YRS, COPD, GWEN CELL, DIAGNOSED WITH HYPERTENSION MOTHER: ALIVE 82 YRS, HYPERTENSION SIBLINGS: BROTHER: HTN SISTER: HEP C, HTN SON(S): ANXIETY AND DEPRESSION DAUGHTER(S): PITUITARY TUMOR, MIGRAINE, SEIZURE DISORDER 1 BROTHER(S) , 1 SISTER(S) . 1 SON(S) , 1 DAUGHTER(S) . SOCIAL HISTORY GENERAL: TOBACCO USE ARE YOU A:NONSMOKER HIV / HEP-C SCREENING HIV TEST OFFERED TO PATIENT:YES DATE OFFERED:09/02/2016 TEST ACCEPTED: PREV TESTED HEP-C TEST OFFERED TO PATIENT:YES DATE OFFERED:09/02/2016 TEST ACCEPTED: PREV TESTED OTHERS AT HOME: CHILDREN. EDUCATION LEVEL OF EDUCATION:COLLEGE DIET: REGULAR. LANGUAGE LANGUAGES SPOKEN:LITHUANIAN DOMESTIC VIOLENCE STATUS: NEW PATIENT PAIN DIARY TODAY'S VISITNOTES 09/01/2019 PATIENT DESCRIBES PAIN :BURNING, HAVE IT ALL THE TIME, SHARP, THROBBING, OTHER FROM 0-10, WHAT LEVEL IS YOUR PAIN TODAY?7 RECREATIONAL DRUG USE DRUG USE?NO PATIENT DENIES ABUSE OR MISSUSED OF ANY MEDICATION. PATIENT DENIES USE OF ANY ILLEGAL SUBSTANCE INCLUDING MARIJUANA OR COCAINE. EXERCISE: WALKS. LEARNING BARRIERS / SPECIAL NEEDS CHANGE FROM LAST VISIT?NO BARRIERS TO LEARNING?NO HEARING IMPAIRED?NO VISION IMPAIRED?YES COGNITIVELY IMPAIRED?NO :CORRECTIVE LENSES READINESS TO LEARN?YES LEARNING PREFERENCES?NO LEARNING CAPABILITIES PRESENT?YES EMOTIONAL BARRIERS?NO SPECIAL DEVICES?YES :CANE, WALKER, WHEELCHAIR MANAGEMENT SME NEEDED?NO PAIN CLINIC PFS, CLERGY, PUBLIC HEALTH REFERRALS HAS THE PATIENT BEEN EDUCATED REGARDING HIS/HER PLAN OF CARE?YES HAS THE PATIENT BEEN EDUCATED REGARDING PAIN, THE RISK FOR PAIN, THE IMPORTANCE OF EFFECTIVE PAIN MANAGEMENT, AND THE PAIN ASSESSMENT PROCESS?YES LATEX QUESTIONNAIRE LATEX ALLERGY : HAVE YOU EVER DEVELOPED ANY TYPE OF REACTION AFTER HANDLING LATEX PRODUCTS SUCH RUBBER GLOVES, CONDOMS, DIAPHRAGMS, BALLOONS, SOCKS, OR UNDERWEAR?NO LATEX ALLERGY : HAVE YOU EVER DEVELOPED ANY TYPE OF REACTION DURING OR AFTER DENTAL APPOINTMENT, VAGINAL/RECTAL EXAMINATION, SURGICAL PROCEDURE, OR ANY OTHER EXPOSURE?NO LATEX RISK : HAVE YOU EVER HAD ANY DIFFICULTY BREATHING OR HIVES AFTER EATING OR HANDLING ANY FRUITS, OR VEGETABLES; SUCH KIWI, BANANAS, STONE FRUITS, OR CHESTNUTSNO LATEX RISK : DO YOU HAVE A PREVIOUS PERSONAL HISTORY OF MORE THAN NINE SURGERIES, SPINA BIFIDA, OR REPEATED CATHERIZATIONS? NO LATEX RISK : ARE YOU FREQUENTLY EXPOSED TO LATEX PRODUCTS IN YOUR OCCUPATION?NO DATE ASKED : 08/02/2019 CAFFEINE CAFFEINE USE?YES HOW OFTEN AND HOW MUCH? DAILY ADVANCE DIRECTIVE ADVANCE DIRECTIVE DISCUSSED WITH PATIENT:YES 09/01/2019 PT HAS NO ADVANCED DIRECTIVES, DECLINES HCP INFORMATION AT THIS TIME. JS CHRISTIAN [id number] GNOSTICISM MARITAL STATUS: .. ALCOHOL SCREENING DID YOU HAVE A DRINK CONTAINING ALCOHOL IN THE PAST YEAR?YES HOW MANY DRINKS DID YOU HAVE ON A TYPICAL DAY WHEN YOU WERE DRINKING IN THE PAST YEAR?1 OR 2 (0 POINTS) HOW OFTEN DID YOU HAVE A DRINK CONTAINING ALCOHOL IN THE PAST YEAR?TWO TO FOUR TIMES A MONTH (2 POINTS) POINTS2 INTERPRETATIONNEGATIVE OCCUPATION: DIABLED. SEXUAL HX HAD SEX IN THE LAST 12 MONTHS (VAGINAL, ORAL, OR ANAL)?NO HAVE YOU EVER HAD AN STD?NO HOSPITALIZATION/MAJOR DIAGNOSTIC PROCEDURE SYNCOPAL EPISODE 03/09-03/12/2016 JAUNDICE, ELECTROLYTE IMBALANCE 03/2016 SURGERY RELATED LBP WITH SYNCOPE/BACK PAIN 06/2019 REVIEW OF SYSTEMS REVIEWED BY: PROVIDER: RAGHAVENDRA LE . CONSTITUTIONAL: ANY CHANGE IN YOUR MEDICAL CONDITION? NO . CHILLS NO . FEVER NO . INFECTION: DO YOU HAVE NEW INFECTIONS? NO . DO YOU HAVE HISTORY OF MRSA? NO . MUSCULOSKELETAL: ANY NEW PATTERNS OF PAIN OR NUMBNESS? NO . GASTROENTEROLOGY: ANY NEW CHANGE IN BOWEL CONTROL? NO . GENITOURINARY: ANY NEW CHANGE IN BLADDER CONTROL? NO . IS THERE A CHANCE YOU COULD BE ? NO . HEMATOLOGY/LYMPH: DO YOU TAKE ANY BLOOD THINNERS? (FOR EXAMPLE- COUMADIN, PLAVIX, AGGRENOX, PLATEL, PRADAXA, OR XARELTO) NO . WHEN WAS YOUR LAST DOSE? DATE: TIME: . NEUROLOGY: HAVE YOU FALLEN IN THE PAST 12 MONTHS? YES, STATES PRIOR TO LAST VISIT, DISCUSSED AT PREVIOUS VISIT . ANY NEW EXTREMITY NUMBNESS OR WEAKNESS? NO . CARDIOLOGY: DO YOU HAVE A PACEMAKER OR DEFIBRILLATOR? NO . RESPIRATORY: HAVE YOU BEEN SICK IN THE PAST WEEK? NO . FEVER NO . FLU LIKE SYMPTOMS? NO . COUGH NO . INTEGUMENTARY: DO YOU HAVE ANY RASHES OR OPEN SORES? NO . ALLERGIC/IMMUNO: ARE YOU ALLERGIC TO IV DYE? NO . ANY NEW ALLERGIES? NO . PSYCHIATRIC: DO YOU HAVE THOUGHTS OF HURTING YOURSELF OR SOMEONE ELSE? NO . ARE YOU ABUSED, NEGLECTED, OR IN AN UNSAFE ENVIRONMENT? NO . ENDOCRINOLOGY: ARE YOU DIABETIC? NO . OTHER: DO YOU NEED ANY PRESCRIPTIONS? YES . IF YES, PLEASE LIST: ____HYDROCODONE, SOMA . ANY NEW PROBLEMS WITH YOUR MEDICATIONS? NO . WHEN DID YOU LAST EAT? ____ . WHEN DID YOU LAST DRINK? ____ . WHAT DID YOU LAST DRINK? ____ . NAME OF PERSON DRIVING YOU HOME? ____ . DO YOU HAVE ANY OTHER QUESTIONS OR CONCERNS NO . VITAL SIGNS WT 155 LBS, HT 69 IN, BMI 22.89 INDEX, BP 130/72 MM HG, HR 99 /MIN, RR 18 /MIN, TEMP 97.9 F, OXYGEN SAT % 100%, SAFE IN ENV? (Y/N) YES, NA INITIALS AW 1325, REVIEWED BY: HOLDEN. EXAMINATION GENERAL EXAMINATION: GENERALNO ACUTE DISTRESS, WELL NOURISHED AND HYDRATED. PSYCHAPPROPRIATE MOOD AND AFFECT . FACE:UNREMARKABLE. LUNGS:CLEAR TO AUSCULTATION BILATERALLY, NO WHEEZES, RHONCHI, RALES. HEART:NO MURMURS, REGULAR RATE AND RHYTHM. ASSESSMENTS SACROILIITIS - M46.1 (PRIMARY) TREATMENT SACROILIITIS REFILL CARISOPRODOL TABLET, 350 MG, 1 TABLET, ORALLY, THREE TIMES DAILY MDD 3 TABLETS, 30 DAYS, 90, REFILLS 1 REFILL GABAPENTIN CAPSULE, 300 MG, 1 CAPSULE, ORALLY, THREE TIMES DAILY, 30 DAYS, 90, REFILLS 2 REFILL HYDROCODONE-ACETAMINOPHEN TABLET, 10-325 MG, 1 TABLETS NEEDED, ORALLY, EVERY 6 HRSMDD4, 30 DAYS, 120, REFILLS 0 NOTES: URINE TOXICOLOGY WAS ATTEMPTED BUT URINE MISSED THE HAT. WE WILL HAVE PATIENT COME IN FOR URINE TOXICOLOGY TOMORROW., ISTOP REGISTRY REVIEWED AND DEMONSTRATES COMPLLIANCE. BRINGS IN MEDICATIONS WHICH IS APPROPRIATE FOR WHAT WAS DISPENSED. , RISKS OF NARCOTIC/OPIOD MEDICATIONS INCLUDES BUT IS NOT LIMITED TO RISK OF DEPENDANCE/DEVELOPMENT OF ADDICTION, MOOD DISTURBANCE AND DEPRESSION, OSTEOPOROSIS, HORMONAL AND LABIDAL CHANGES, RESPIRATORY DEPRESSION AND . PATIENT IS ADVISED NOT TO DRIVE OR DRINK ALCOHOL WHILE ON THESE MEDICATIONS. PROCEDURE CODES FA211 ESTABILISHED PATIENT [facility] CHARGE DISPOSITION & COMMUNICATION FOLLOW UP 6 WEEKS-URINE TOX TOMOROW ELECTRONICALLY SIGNED BY REY MANJARREZ ON 09/02/2019 AT 08:22 PM EDT DISCLAIMER : THIS IS A VISIT SUMMARY EXTRACTED FROM THE [employer] CHART. IT IS NOT A COPY OF THE [employer] PROGRESS NOTE. ROSY
== END ==
LOC: M PAIN 13:15
PROVIDERS: ATTEND Nurse Practitioner Family
DX: M46.1 Sacroiliitis, not elsewhere classified (principal)

== ENCOUNTER 2019-10-01 21:31 | Emergency (ER) | payer MEDICARE ==
[~2019-10-01] VITALS: Ht 175.3 cm; Wt 72.7 kg
[2019-10-01] MEDS ORDERED: NS 1,000 ML IV ONE (21:45)
[2019-10-01] MEDS ORDERED: BACL10TA2 PO (21:48)
[2019-10-01] MEDS ORDERED: NARC1SPR PO (21:48)
[2019-10-01 22:02] LABS: BASO # 0.1 10^3/uL (0.0-0.2); BASO % 0.6 % (0.0-1.0); EOS # 0.1 10^3/uL (0.0-0.5); EOS % 0.6 % (0.0-3.0); HEMATOCRIT 40.7 % (36.0-47.0); LYMPH # 3.1 10^3/uL (1.5-5.0); LYMPH % 32.6 % (24.0-44.0); MEAN CORPUSCULAR HEMOGLOBIN 33.6 pg (27.0-33.0); MEAN CORPUSCULAR HGB CONC 34.4 g/dl (32.0-36.5); MEAN CORPUSCULAR VOLUME 97.6 fl (80.0-96.0); MONO # 0.6 10^3/uL (0.0-0.8); MONO % 6.2 % (0.0-5.0); NEUTROPHILS # 5.6 10^3/uL (1.5-8.5); NEUTROPHILS % 59.1 % (36.0-66.0); PLATELET COUNT, AUTOMATED 287 10^3/uL (150-450); RED BLOOD COUNT 4.17 10^6/uL (4.00-5.40); WHITE BLOOD COUNT 9.4 10^3/uL (4.0-10.0)
[2019-10-01 22:36] LABS: ACETAMINOPHEN LEVEL < 2.0 UG/ML (10.0-30.0); ALBUMIN 3.4 GM/DL (3.2-5.2); ALT/SGPT 21 U/L (12-78); BILIRUBIN,DIRECT 0.1 MG/DL (0.0-0.2); BILIRUBIN,TOTAL 0.4 MG/DL (0.2-1.0); BLOOD UREA NITROGEN 11 MG/DL (7-18); CALCIUM LEVEL 9.1 MG/DL (8.5-10.1); CARBON DIOXIDE LEVEL 20 MEQ/L (21-32); CHLORIDE LEVEL 105 MEQ/L (98-107); CPK CREATINE PHOSPHOKINASE 76 U/L (26-192); CREATININE FOR GFR 0.78 MG/DL (0.55-1.30); ETHYL ALCOHOL (ETHANOL) 0.152 % (0.000-0.010); GLOMERULAR FILTRATION RATE > 60.0 (>51); GLUCOSE, FASTING 92 MG/DL (70-100); SALICYLATE LEVEL < 1.7 MG/DL (5.0-30.0); SODIUM LEVEL 141 MEQ/L (136-145); THYROID STIMULATING HORMONE 0.689 uIU/ML (0.358-3.740); TOTAL PROTEIN 8.1 GM/DL (6.4-8.2)
[2019-10-02 01:21] LABS: AMPHETAMINES LEVEL URINE NEGATIVE (NEGATIVE); BARBITURATES URINE NEGATIVE (NEGATIVE); BENZODIAZEPINES URINE NEGATIVE (NEGATIVE); CANNABINOIDS URINE NEGATIVE (NEGATIVE); COCAINE METABOLITE URINE NEGATIVE (NEGATIVE); METHADONE URINE NEGATIVE (NEGATIVE); OPIATES URINE POSITIVE (NEGATIVE); PHENCYCLIDINE URINE NEGATIVE (NEGATIVE)
[2019-10-02] MEDS ORDERED: MACR100C43 PO (01:36)
[2019-10-02] MEDS ORDERED: POTASSIUM CHLORIDE 10 MEQ SR TABLET PO ONE (01:45)
[2019-10-02] MEDS ORDERED: NITROFURANTOIN (MACROBID) 100 MG CAP PO ONE (01:45)
[2019-10-02 02:10] VITALS: BP 117/62
--- NOTE | 2019-10-02 08:58 | ECGEPIP ---
[facility] - ED Test Date: 2019-10-01 Pat Name: JUAN MIGUEL VALENCIA Department: Room: - Gender: Female Supervisor [employer]: : 1960 Requested By: GAGE Hernández Order Number: [id number] Reading MD: Chay Joshi Measurements Intervals [place] Rate: 102 P: 32 DC: 190 QRS: -9 QRSD: 87 T: 11 QT: 350 QTc: 456 Interpretive Statements SINUS TACHYCARDIA INFERIOR MYOCARDIAL INFARCTION, PROBABLY OLD BASELINE ARTIFACT AFFECTS INTERPRETATION SIMILAR TO 07/26/18 Electronically Signed on 10-02-2019 8:58:08 EDT by Chay Joshi
== END 2019-10-02 02:12 | disposition home or self-care (01) ==
LOC: M ED 21:31
DX: F10.120 Alcohol abuse with intoxication, uncomplicated (principal); Y90.0 Blood alcohol level of less than 20 mg/100 ml; F11.129 Opioid abuse with intoxication, unspecified; N39.0 Urinary tract infection, site not specified; G89.29 Other chronic pain; M54.9 Dorsalgia, unspecified; I10 Essential (primary) hypertension; Z90.710 Acquired absence of both cervix and uterus; Z96.649 Presence of unspecified artificial hip joint; Z88.1 Allergy status to other antibiotic agents
CPT/HCPCS: 36415; 80048; 80076; 80307; 81001; 82550; 84443; 85025; 87086; 93005; 93041; 94760; 96360; 96361; 99285; G0480

== ENCOUNTER 2019-11-09 18:13 | Inpatient (IN) | payer MEDICARE ==
[~2019-11-09] VITALS: Ht 172.7 cm; Wt 72.3 kg
[~2019-11-09 18:13] MED LIST changes: +MACR100C43 PO; +NARC1SPR PO
[2019-11-09 18:58] LABS: BASO # 0.1 10^3/uL (0.0-0.2); BASO % 0.5 % (0.0-1.0); EOS # 0.4 10^3/uL (0.0-0.5); EOS % 3.9 % (0.0-3.0); HEMATOCRIT 40.1 % (36.0-47.0); HEMOGLOBIN 14.1 g/dl (12.0-15.5); LYMPH # 2.2 10^3/uL (1.5-5.0); LYMPH % 22.9 % (24.0-44.0); MEAN CORPUSCULAR HEMOGLOBIN 33.8 pg (27.0-33.0); MEAN CORPUSCULAR HGB CONC 35.2 g/dl (32.0-36.5); MEAN CORPUSCULAR VOLUME 96.2 fl (80.0-96.0); MONO # 0.7 10^3/uL (0.0-0.8); MONO % 6.9 % (0.0-5.0); NEUTROPHILS # 6.3 10^3/uL (1.5-8.5); NEUTROPHILS % 65.4 % (36.0-66.0); PLATELET COUNT, AUTOMATED 270 10^3/uL (150-450); RED BLOOD COUNT 4.17 10^6/uL (4.00-5.40); WHITE BLOOD COUNT 9.7 10^3/uL (4.0-10.0)
[2019-11-09] MEDS ORDERED: ACETAMINOPHEN 325 MG TAB PO ONE (19:00)
[2019-11-09] MEDS ORDERED: MORPHINE 4 MG/ML 1ML VIAL/SYRINGE (J2270) IV ONE ×2 (19:00→21:15)
[2019-11-09] MEDS ORDERED: ONDANSETRON 4MG/2ML VIAL IV ONE (19:00)
[2019-11-09] MEDS ORDERED: DOXYCYCLINE HYCLATE 100 MG in D5W MINI-BAG PLUS 100 ML IV ONE (19:15)
[2019-11-09] MEDS ORDERED: AMLO2.5T3 PO (19:18)
[2019-11-09] MEDS ORDERED: ASPI81TA85 PO (19:18)
[2019-11-09 19:24] LABS: C REACTIVE PROTEIN QUANTITATIV 5.57 MG/DL (0.00-0.30)
--- NOTE | 2019-11-09 19:24 | REP ---
Clinical: Swelling with decreased range of motion . Technique: AP, lateral, bilateral oblique views of the left elbow. Findings: No acute fracture or dislocation is appreciated. Joint spaces and surrounding soft tissues appear normal. Lateral view demonstrates normal positioning to the anterior and posterior fat pads without evidence for effusion/hemarthrosis. No subcutaneous emphysema or foreign body identified. Impression: Normal age-appropriate left elbow radiographs. Electronically Signed by Jatin Rice MD 11/09/2019 07:16 P
[2019-11-09 19:42] LABS: ERYTHROCYTE SEDIMENTATION RATE 45 mm/hr (0-30)
[2019-11-09] MEDS ORDERED: NS 1,000 ML IV ONE (19:45)
[2019-11-09] MEDS ORDERED: POTASSIUM CHLORIDE 10 MEQ SR TABLET PO ONE ×2 (20:00→23:00)
[2019-11-09 20:02] LABS: POTASSIUM SERUM 2.9 MEQ/L (3.5-5.1)
--- NOTE | 2019-11-09 20:12 | REPVR ---
PROCEDURE INFORMATION: Exam: US Duplex Left Upper Extremity Veins, Limited Exam date and time: 11/09/2019 7:53 PM Age: 59 years old Clinical indication: Pain; Edema, localized; Upper extremity, left; Other: Elbow; Additional info: Lue edema/erythema TECHNIQUE: Imaging protocol: Real-time Duplex ultrasound of the Left Upper Extremity with 2-D cheney scale, color Doppler flow and spectral waveform analysis with image documentation. Limited exam focused on the left upper extremity veins. COMPARISON: No relevant prior studies available. FINDINGS: Left deep veins: Unremarkable. Axillary and brachial veins are patent throughout without thrombus. Normal Doppler waveforms. Normal compressibility and/or augmentation response. Visualized internal jugular and subclavian veins are patent. Left superficial veins: Unremarkable. Visualized cephalic and basilic veins are patent without thrombus. Soft tissues: Complex hypoechoic mass measures 3 x 2.2 x 2.5 cm located in the antecubital region associated with overlying erythema and swelling with inflammation demonstrated in the overlying soft tissues and increased flow on Doppler. Echogenic foci demonstrated within the mass. Possibility of an abscess or mass of other etiology to be considered. No significant Doppler flow demonstrated within the lesion suggests vascular origin. Other findings: No DVT. IMPRESSION: 1. Complex hypoechoic mass in the antecubital region associated with overlying erythema and regional edema, findings suggesting the presence of an abscess. Percutaneous image guided aspiration suggested. 2. No DVT. Electronically signed by: Jerome Nick On 11/09/2019 20:12:37 PM
[2019-11-09] MEDS ORDERED: VANCOMYCIN HCL 750 MG, VIAL MATE ADAPTER 1 EACH in D5W 250 ML IV ONE ×6 (21:30)
[2019-11-09] MEDS ORDERED: VANCOMYCIN HCL 1,500 MG in D5W 250 ML IV ONE (21:30)
[2019-11-09] MEDS ORDERED: BACLOFEN 10 MG TAB PO PRN (22:30)
[2019-11-09] MEDS ORDERED: MOM 30ML SUSPENSION UDC PO PRN (22:30)
[2019-11-09] MEDS ORDERED: ASPIRIN 81 MG ENTERIC TAB PO PRN (22:30)
[2019-11-09] MEDS ORDERED: carisoprodoL 350 MG TAB PO PRN (22:30)
--- NOTE | 2019-11-09 23:00 | HPEPDOC ---
General Date of Admission 11/09/19 Date of Service: Nov 09, 2019 Chief Complaint The patient is a 59-year-old female admitted with a reason for visit of Arm Pain. Source: Patient History of Present Illness 59 year old female with PMH od hypertension, hep C treated, migraines, chronic back pain, s/p back surgery and back injections, sacroilietis, fibromyalgia, ulcerative colitis presented to the ED with Left arm and forearm swelling, redness and pain for 2 days. Patient first noticed a hard swelling in the left anticubital fossa yesterday. The surrounding area was red and warm it continued to become bigger. This morning she woke up with increased pain dull aching in n ature about 8/10 in intensity in that area with redness and swelling spreading both up into the mid arm and down up to the mid forearm. She also had fever and chills at home so came to the ED for evaluation. On arrival to the hospital she was febrile to 101 with elevated CRP. US of the area showed Complex hypoechoic mass in the antecubital region associated with overlying erythema and regional edema, findings suggesting the presence of an abscess. Elbow xray did not show any foreign body or gas. She was admitted for left anticubital fossa abscess and left arm and forearm cellulitis. Home Medications Scheduled Amitriptyline HCl (Amitriptyline HCl) 25 Mg Tab, 50 MG PO QHS, (Reported) Amlodipine Besylate (Amlodipine Besylate) 2.5 Mg Tablet, 2.5 MG PO DAILY, (Reported) Gabapentin (Neurontin) 300 Mg Cap, 300 MG PO TID, (Reported) Hydroxyzine HCl (Hydroxyzine HCl) 50 Mg Tablet, 50 MG PO QHS, (Reported) Omeprazole (Omeprazole) 40 Mg Capsule.dr, 40 MG PO QHS, (Reported) Topiramate (Topiramate) 50 Mg Tablet, 50 MG PO BID, (Reported) Scheduled PRN Aspirin (Aspir 81) 81 Mg Tablet.dr, 81 MG PO DAILY PRN for CHEST PAIN, (Reported) Baclofen (Baclofen) 10 Mg Tablet, 10 MG PO TID PRN for MUSCLE SPASMS, (Reported) Carisoprodol (Soma) 350 Mg Tablet, 350 MG PO BID PRN for MUSCLE SPASMS, (Reported) Ibuprofen (Ibuprofen) 800 Mg Tablet, 800 MG PO TID PRN for PAIN, (Reported) Allergies Coded Allergies: cefazolin (Verified Allergy, Intermediate, hives, 07/29/19) SEASONAL ALLERGIES (Verified Allergy, Unknown, 07/29/19) Past Medical History Medical History Hypertension Chronic back pain s/p back surgery with plates ans screws, follows with the pain clinic with steroid injections Sacroiliitis. ? CAD "MILD" OK DUE TO HIGH BP WITH SUBSEQUENT NORMAL STRESS TEST HTN GERD Migraines Asthma Osteoporosis Fibromylagia ULCERATIVE COLITIS- DR. EARLY HEPATITIS C - DR. FATIMA TREATED WITH 8 WEEKS HARVONI EORX 12/2016, GENOTYPE 1A HCV RNA 1110 H/O ACUTE TOXIC ENCEPHALOPATHY SECONDARY TO OPIATES H/O SHINGLES LEFT KNEE ARTHRITIS Alcohol use disorder Surgical History Hysterectomy Tonsillectomy Back surgery Bilateral carpal tunnel repair R hip replacement POST BILATERAL THERAPEUTIC LUMBAR FACET BLOCK POST SIJ TONSILS/ADENOIDS/TUBES DORSAL COLUMN STIMULATOR placement and removal in 2018 D & C X2 COLONOSCOPY: SHARATH: DIVERTICULOSIS 05/2016 EGD: SHARATH: SMALL HIATAL HERNIA 05/2016 PARAFORMIS INJ FAMILY HISTORY FATHER: ALIVE 83 YRS, COPD, GWEN CELL, DIAGNOSED WITH HYPERTENSION MOTHER: ALIVE 82 YRS, HYPERTENSION 1 BROTHER(S) , 1 SISTER(S) . 1 SON(S) , 1 DAUGHTER(S) . Family History Mother has a history of hypertension Father has a a history of hypertension and Celestina cell carcinoma, copd SIBLINGS: BROTHER: HTN SISTER: HEP C, HTN SON(S): ANXIETY AND DEPRESSION DAUGHTER(S): PITUITARY TUMOR, MIGRAINE, SEIZURE DISORDER Social History * Smoker: non-smoker Alcohol: occationally Drugs: denies A-FIB/CHADSVASC A-FIB History Current/History of A-Fib/PAF?: No Review of Systems Constitutional: Reports: Chills, Fever Eyes: Denies: Pain, Vision change ENT: Reports: Head Aches; Denies: Ear Pain, Dysphagia Skin: Reports: Rash, Lesions (left arm, forearam, anticubital fossa), Itching Pulmonary: Denies: Dyspnea, Cough Cardiovascular: Denies: Chest Pain, Palpitations, Orthopnea, Paroxysmal Noc. Dyspnea, Lt Headedness Gastrointestinal: Denies: Nausea, Vomiting, Abdominal Pain, Diarrhea Genitourinary: Denies: Dysuria, Frequency, Incontinence, Retention Hematologic: Denies: Bruising, Bleeding Excessively Musculoskeletal: Reports: Back Pain, Joint Pain Neurological: Denies: Weakness, Numbness, Change in speech, Confusion Physical Examination General Exam: Positive: Alert, Cooperative, No Acute Distress Eye Exam: Positive: PERRLA, Conjunctiva & lids normal, EOMI; Negative: Sclera icteric ENT Exam: Positive: Atraumatic, Mucous membr. moist/pink, Pharynx Normal Neck Exam: Positive: Supple; Negative: JVD, thyromegaly Chest Exam: Positive: Clear to auscultation, Normal air movement Heart Exam: Positive: Rate Normal, Regular Rhythm, Normal S1, Normal S2; Negative: Murmurs, Rubs Abdomen Exam: Positive: Normal bowel sounds, Soft; Negative: Tenderness, Hepatospenomegaly Extremity Exam: Negative: Clubbing, Cyanosis, Edema Skin Exam: Positive: Other skin issue (abscess at [facility] left anticubital fossa with surrounding inflammation of the fore arm and arm. ) Neuro Exam: Positive: Normal Speech, Strength at 5/5 X4 ext, Normal Tone Psych Exam: Positive: Mood NL, Memory Intact, Oriented x 3 Vital Signs Vital Signs Date Time Temp Pulse Resp B/P (MAP) Pulse Ox O2 Delivery O2 Flow Rate FiO2 11/09/19 21:48 18 11/09/19 21:07 100.0 100 118/67 (84) 96 Room Air Laboratory Data Labs 24H Laboratory Tests 2 11/09/19 18:42: Immature Granulocyte % (Auto) 0.4, Neutrophils (%) (Auto) 65.4, Lymphocytes (%) (Auto) 22.9L, Monocytes (%) (Auto) 6.9H, Eosinophils (%) (Auto) 3.9H, Basophils (%) (Auto) 0.5, Neutrophils # (Auto) 6.3, Lymphocytes # (Auto) 2.2, Monocytes # (Auto) 0.7, Eosinophils # (Auto) 0.4, Basophils # (Auto) 0.1, Nucleated Red Blood Cells % (auto) 0.0, Erythrocyte Sedimentation Rate 45H, Lactic Acid Level 2.9*H, C-Reactive Protein, Quantitative 5.57H 11/09/19 18:49: POC Glucose (Misc Panel) 89, POC Sodium (Misc Panel) 145, POC Potassium (Misc Panel) 2.8*L, POC Chloride (Misc Panel) 104, POC Total CO2 (Misc Panel) 23.0, POC Blood Urea Nitrogen (Misc Panel < 3L, POC Ionized Calcium (Misc Panel) 4.9, POC Creatinine (Misc Panel) 0.7, POC Hematocrit (Misc Panel) 42.0 CBC/BMP Laboratory Tests 11/09/19 18:42 Microbiology Microbiology 11/09/19 Blood Culture, Received Pending Assessment/Plan 59 year old female with PMH od hypertension, hepC treated, migraines, chronic back pain, s/p back surgery and back injections, sacroilietis, fibromyalgia, ulcerative colitis presented to the ED with Left arm and forearm swelling, redness and pain for 2 days. Patient first noticed a hard swelling in the left anticubital fossa yesterday. The surrounding area was red and warm it continued to become bigger. This morning she woke up with increased pain dull aching in nature about 8/10 in intensity in that area with redness and swelling spreading both up into the mid arm and down up to the mid forearm. She also had fever and chills at home so came to the ED for evaluation. On arrival to the hospital she was febrile to 101 with elevated CRP. US of the area showed Complex hypoechoic mass in the antecubital region associated with overlying erythema and regional edema, findings suggesting the presence of an abscess. Elbow xray did not show any foreign body or gas. She was admitted for left anticubital fossa abscess and left arm and forearm cellulitis with sepsis. Left upper extremity abscess and cellulitis with sepsis. Ebqu115.3, Pulse 118, elevated lactate, elevated crp will give vanco, blood cultures sent surgery consulted for I and D pain control with tylenol and ketorolac. Hypokalemia replaced will recheck Chronic back pain/ sacroiliitis/fibromyalgia gabapentin, baclofen, soma, amitriptyline ketorolac. Avoid narcotics, h/o dependence and overdose GERD omeprazole hypertension amlodipine Migraines topiramate. Plan / VTE VTE Prophylaxis Ordered?: Yes TYRONE ARMAS MD Nov 09, 2019 23:00
[2019-11-09 23:32] VITALS: BP 144/92
[2019-11-09 23:44] LABS: BLOOD UREA NITROGEN 5 MG/DL (7-18); CALCIUM LEVEL 8.7 MG/DL (8.5-10.1); CARBON DIOXIDE LEVEL 26 MEQ/L (21-32); CHLORIDE LEVEL 108 MEQ/L (98-107); CREATININE FOR GFR 0.45 MG/DL (0.55-1.30); GLOMERULAR FILTRATION RATE > 60.0 (>51); GLUCOSE, FASTING 101 MG/DL (70-100); POTASSIUM SERUM 3.4 MEQ/L (3.5-5.1); SODIUM LEVEL 142 MEQ/L (136-145)
[2019-11-10] MEDS: hydrOXYzine 50 MG TAB PO SCH ×2 (00:07→21:17)
[2019-11-10] MEDS: GABAPENTIN 300 MG CAP PO SCH ×4 (00:08→21:17)
[2019-11-10] MEDS: OMEPRAZOLE 20 MG CAP PO SCH ×2 (00:08→21:18)
[2019-11-10] MEDS: AMITRIPTYLINE 25 MG TAB PO SCH ×2 (00:08→21:18)
[2019-11-10] MEDS: TOPIRAMATE (TopAMAX) 25 MG TAB PO SCH ×3 (00:08→21:19)
[2019-11-10] MEDS: KETOROLAC 30 MG/ML 1ML VIAL IV PRN ×4 (00:10→21:19)
[2019-11-10] MEDS: NS 1,000 ML IV SCH ×3 (02:09→21:19)
[2019-11-10] MEDS: ACETAMINOPHEN 500 MG TAB PO PRN ×2 (02:53→16:40)
[2019-11-10 05:45] LABS: BASO % 0.3 % (0.0-1.0); EOS # 0.3 10^3/uL (0.0-0.5); EOS % 3.3 % (0.0-3.0); HEMATOCRIT 35.1 % (36.0-47.0); HEMOGLOBIN 12.2 g/dl (12.0-15.5); LYMPH # 1.5 10^3/uL (1.5-5.0); LYMPH % 14.1 % (24.0-44.0); MEAN CORPUSCULAR HEMOGLOBIN 33.7 pg (27.0-33.0); MEAN CORPUSCULAR HGB CONC 34.8 g/dl (32.0-36.5); NEUTROPHILS # 7.4 10^3/uL (1.5-8.5); NEUTROPHILS % 71.6 % (36.0-66.0); PLATELET COUNT, AUTOMATED 231 10^3/uL (150-450); RED BLOOD COUNT 3.62 10^6/uL (4.00-5.40); WHITE BLOOD COUNT 10.3 10^3/uL (4.0-10.0)
[2019-11-10 06:00] VITALS: BP 147/93
[2019-11-10 06:16] LABS: BLOOD UREA NITROGEN 5 MG/DL (7-18); CALCIUM LEVEL 8.7 MG/DL (8.5-10.1); CARBON DIOXIDE LEVEL 25 MEQ/L (21-32); CHLORIDE LEVEL 109 MEQ/L (98-107); CREATININE FOR GFR 0.52 MG/DL (0.55-1.30); GLOMERULAR FILTRATION RATE > 60.0 (>51); GLUCOSE, FASTING 113 MG/DL (70-100); POTASSIUM SERUM 4.2 MEQ/L (3.5-5.1); SODIUM LEVEL 140 MEQ/L (136-145)
--- NOTE | 2019-11-10 06:40 | ECGEPIP ---
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
[2019-11-10] MEDS: VANCOMYCIN HCL 1,000 MG, VIAL MATE ADAPTER 1 EACH in D5W 250 ML IV SCH ×3 (08:56→23:50)
[2019-11-10] MEDS: ENOXAPARIN 40MG/0.4ML SYRINGE (J1650 PER 10MG) SC SCH (08:57)
[2019-11-10] MEDS: POTASSIUM CHLORIDE 10 MEQ SR TABLET PO SCH (08:58)
--- NOTE | 2019-11-10 11:58 | IPNPDOC ---
Text Note Date of Service The patient was seen on 11/10/19. NOTE Subjective: Patient seen and examined at bedside. No acute overnight events reported. No new medical complaints. Objective: General: NAD, lying comfortably in bed HEENT: NC/AT, EOMI, PERRL Lungs: CTA B/L Heart: +S1S2, RRR Abd: soft, NT, +BS Ext: no edema LUE antecubital cellulitic area, warm to touch, improved from previously demarcated area A/P: 59 year old female with PMHx HTN, hep C, migraines, chronic back pain, s/p back surgery and back injections, sacroilietis, fibromyalgia, ulcerative colitis presented to the ED with Left arm and forearm swelling, redness and pain for 2 days. Patient first noticed a hard swelling in the left anticubital fossa. The surrounding area was red and warm it continued to become bigger. She woke up with increased pain dull aching in nature about 8/10 in intensity in that area with redness and swelling spreading both up into the mid arm and down up to the mid forearm. She also had fever and chills at home so came to the ED for citlali luation. On arrival to the hospital she was febrile to 101 with elevated CRP. US of the area showed Complex hypoechoic mass in the antecubital region associated with overlying erythema and regional edema, findings suggesting the presence of an abscess. Elbow xray did not show any foreign body or gas. She was admitted for left anticubital fossa abscess and left arm and forearm cellulitis. #LUE abscess and cellulitis with sepsis. - fever, tachy, elevated lactate, elevated crp - continue vanco, blood cultures sent - surgery consulted for I and D - pain control with tylenol and ketorolac. #Hypokalemia replaced will recheck #Chronic back pain/ sacroiliitis/fibromyalgia gabapentin, baclofen, soma, amitriptyline ketorolac. Avoid narcotics, h/o dependence and overdose #GERD omeprazole #HTN amlodipine #Migraines topiramate. #? CAD "MILD" OK DUE TO HIGH BP WITH SUBSEQUENT NORMAL STRESS TEST #ULCERATIVE COLITIS- DR. EARLY #HEPATITIS C - DR. FATIMA TREATED WITH 8 WEEKS HARVONI EORX 12/2016, GENOTYPE 1A HCV RNA 1110 #H/O ACUTE TOXIC ENCEPHALOPATHY SECONDARY TO OPIATES #H/O SHINGLES #LEFT KNEE ARTHRITIS #Alcohol use disorder #DVT prophylaxis Dispo: pending surgical intervention (I&D), continue IV abx VS,Fishbone, I+O VS, Fishbone, I+O Laboratory Tests 11/09/19 18:42 11/09/19 23:06 11/10/19 05:04 Vital Signs Date Time Temp Pulse Resp B/P (MAP) Pulse Ox O2 Delivery O2 Flow Rate FiO2 11/10/19 09:00 95 152/90 11/10/19 06:00 97.4 18 97 Room Air I&O- Last 24 Hours up to 6 AM 11/10/19 06:00 Intake Total 2205 ml Output Total 700 ml Balance 1505 ml NAY ESCOBEDO MD Nov 10, 2019 11:57
[2019-11-10 14:00] VITALS: BP 147/87
[2019-11-10] MEDS ORDERED: LIDOCAINE W/EPINEPHRINE 1% 20ML VIAL SC ONE (14:00)
--- NOTE | 2019-11-10 14:23 | ROOPDOC ---
[facility] Report Of Operation Report of Operation DATE OF PROCEDURE: 11/10/19 PREPROCEDURE DIAGNOSES: left antecubital abscess and cellulitis. POSTPROCEDURE DIAGNOSES: same. PROCEDURE: incision and drainage of subcutaneous abscess, left antecubital area. SURGEON: Ej Spain MD KETTLE OPERATOR: ANESTHESIA: Local anesthesia using 1% lidocaine containing epinephrine ESTIMATED BLOOD LOSS: Approximately 10 mL. COMPLICATIONS: none. REMARKS: foul smelling, purulent collection drained, 1/4" iodoform gauze packing. DESCRIPTION OF PROCEDURE: Patient remained in the room and positioned on her bed. Her left antecubital area was prepped and draped in usual sterile fashion with Betadine prep. Over her antecubital area is roughly about a 5 x 4 cm area of induration with a wide area of cellulitis past the indurated area, slight thinning/blistering of the i ndurated skin. This is tender to touch and warm to touch. The area of induration was liberally infiltrated with local anesthesia. A transverse incision was then created on top of the most fluctuant portion of the induration and a cruciate piece of skin was removed with resulting drainage of foul-smelling purulent fluid roughly about 25 mL's were drained. The wound bed was irrigated with the remaining lidocaine and debrided with 4 x 4 gauze. After hemostasis this was then packed with quarter inch iodoform gauze and a bulky gauze dressing placed on top for compression dressing. Patient tolerated the procedure well. EJ SPAIN MD Nov 10, 2019 14:23
[2019-11-10 22:00] VITALS: BP 144/83
[2019-11-11] MEDS ORDERED: VANCOMYCIN HCL 500 MG in D5W MINI-BAG PLUS 100 ML IV ONE (04:00)
[2019-11-11] MEDS: KETOROLAC 30 MG/ML 1ML VIAL IV PRN ×3 (04:22→18:16)
[2019-11-11 06:00] VITALS: BP 149/81
[2019-11-11 06:00] LABS: BASO % 0.4 % (0.0-1.0); EOS # 0.5 10^3/uL (0.0-0.5); EOS % 6.1 % (0.0-3.0); HEMATOCRIT 32.9 % (36.0-47.0); HEMOGLOBIN 11.2 g/dl (12.0-15.5); LYMPH # 1.9 10^3/uL (1.5-5.0); LYMPH % 23.5 % (24.0-44.0); MEAN CORPUSCULAR HEMOGLOBIN 32.9 pg (27.0-33.0); MEAN CORPUSCULAR VOLUME 96.8 fl (80.0-96.0); MONO # 0.7 10^3/uL (0.0-0.8); MONO % 8.5 % (0.0-5.0); NEUTROPHILS % 60.9 % (36.0-66.0); PLATELET COUNT, AUTOMATED 229 10^3/uL (150-450); WHITE BLOOD COUNT 8.2 10^3/uL (4.0-10.0)
[2019-11-11 06:20] LABS: BLOOD UREA NITROGEN 6 MG/DL (7-18); CARBON DIOXIDE LEVEL 21 MEQ/L (21-32); CHLORIDE LEVEL 110 MEQ/L (98-107); CREATININE FOR GFR 0.42 MG/DL (0.55-1.30); GLOMERULAR FILTRATION RATE > 60.0 (>51); GLUCOSE, FASTING 117 MG/DL (70-100); POTASSIUM SERUM 3.7 MEQ/L (3.5-5.1); SODIUM LEVEL 140 MEQ/L (136-145)
[2019-11-11] MEDS: VANCOMYCIN HCL 1,000 MG, VIAL MATE ADAPTER 1 EACH in D5W 250 ML IV SCH ×2 (08:10→16:30)
[2019-11-11] MEDS: GABAPENTIN 300 MG CAP PO SCH ×3 (08:14→21:20)
[2019-11-11] MEDS: POTASSIUM CHLORIDE 10 MEQ SR TABLET PO SCH (08:15)
[2019-11-11] MEDS: TOPIRAMATE (TopAMAX) 25 MG TAB PO SCH ×2 (08:15→21:20)
[2019-11-11] MEDS: ENOXAPARIN 40MG/0.4ML SYRINGE (J1650 PER 10MG) SC SCH (08:16)
[2019-11-11] MEDS: NS 1,000 ML IV SCH ×2 (08:18→17:23)
--- NOTE | 2019-11-11 12:10 | IPNPDOC ---
Text Note Date of Service The patient was seen on 11/11/19. NOTE Subjective: Patient seen and examined at bedside. Some erythematous areas noted along her scalp and hair line. Also extending the nape of her neck and behind her ears. She notes some itching with these regions. Objective: General: NAD, lying comfortably in bed HEENT: NC/AT, EOMI, PERRL Lungs: CTA B/L Heart: +S1S2, RRR Abd: soft, NT, +BS Ext: no edema LUE antecubital cellulitic area, warm to touch, improved from previously demarcated area A/P: 59 year old female with PMHx HTN, hep C, migraines, chronic back pain, s/p back surgery and back injections, sacroilietis, fibromyalgia, ulcerative colitis presented to the ED with Left arm and forearm swelling, redness and pain for 2 days. Patient first noticed a hard swelling in the left anticubital fossa. The surrounding area was red and warm it continued to become bigger. She woke up with increased pain dull aching in nature about 8/10 in intensity in that area with redness and swelling spreading both up into the mid arm and down up to the mid forearm. She also had fever and chills at home so came to the ED for evalu ation. On arrival to the hospital she was febrile to 101 with elevated CRP. US of the area showed Complex hypoechoic mass in the antecubital region associated with overlying erythema and regional edema, findings suggesting the presence of an abscess. Elbow xray did not show any foreign body or gas. She was admitted for left anticubital fossa abscess and left arm and forearm cellulitis. #LUE abscess and cellulitis with sepsis. - fever, tachy, elevated lactate, elevated crp - continue vanco, blood cultures sent - surgery s/p I&D, cultures pending - pain control with tylenol and ketorolac. #Hypokalemia replaced - recheck #Chronic back pain/ sacroiliitis/fibromyalgia gabapentin, baclofen, soma, amitriptyline ketorolac. Avoid narcotics, h/o dependence and overdose #GERD omeprazole #HTN amlodipine #Migraines topiramate. #? CAD "MILD" HI DUE TO HIGH BP WITH SUBSEQUENT NORMAL STRESS TEST #ULCERATIVE COLITIS- DR. EARLY #HEPATITIS C - DR. FATIMA TREATED WITH 8 WEEKS HARVONI EORX 12/2016, GENOTYPE 1A HCV RNA 1110 #H/O ACUTE TOXIC ENCEPHALOPATHY SECONDARY TO OPIATES #H/O SHINGLES #LEFT KNEE ARTHRITIS #Alcohol use disorder #DVT prophylaxis Dispo: pending cultures, continue IV abx, appears to be allergic reaction to hair coloring along scalp, VS,Fishbone, I+O VS, Fishbone, I+O Laboratory Tests 11/11/19 05:06 Vital Signs Date Time Temp Pulse Resp B/P (MAP) Pulse Ox O2 Delivery O2 Flow Rate FiO2 11/11/19 08:15 82 149/82 11/11/19 06:00 98.9 18 96 Room Air I&O- Last 24 Hours up to 6 AM 11/11/19 06:00 Intake Total 4275 ml Output Total 3500 ml Balance 775 ml NAY ESCOBEDO MD Nov 11, 2019 12:10
[2019-11-11 14:00] VITALS: BP 152/89
[2019-11-11] MEDS: OMEPRAZOLE 20 MG CAP PO SCH (21:19)
[2019-11-11] MEDS: AMITRIPTYLINE 25 MG TAB PO SCH (21:20)
[2019-11-11] MEDS: hydrOXYzine 50 MG TAB PO SCH (21:20)
[2019-11-11 22:00] VITALS: BP 153/89
--- NOTE | 2019-11-12 00:02 | REP ---
RIGHT UPPER EXTREMITY DUPLEX DOPPLER VENOUS ULTRASOUND: Real-time ultrasound evaluation and duplex Doppler interrogation of right upper extremity deep vein system is performed. Right jugular, subclavian, axillary, and brachial veins are fully compressible where accessible with transducer pressure and demonstrate normal spontaneous and phasic flow without evidence of deep venous thrombosis. There is a small focus of thrombus in the peripheral right basilic vein just inferior to the antecubital fossa at the site of a prior intravenous catheter. Electronically Signed by Sahil Owen MD 11/15/2019 09:29 P
[2019-11-12] MEDS: KETOROLAC 30 MG/ML 1ML VIAL IV PRN ×2 (00:24→06:24)
[2019-11-12] MEDS: NS 1,000 ML IV SCH (03:30)
[2019-11-12 06:00] VITALS: BP 148/56
[2019-11-12 07:20] LABS: BASO % 0.5 % (0.0-1.0); EOS # 0.5 10^3/uL (0.0-0.5); EOS % 8.4 % (0.0-3.0); HEMATOCRIT 33.9 % (36.0-47.0); HEMOGLOBIN 11.7 g/dl (12.0-15.5); LYMPH # 2.3 10^3/uL (1.5-5.0); LYMPH % 39.4 % (24.0-44.0); MEAN CORPUSCULAR HEMOGLOBIN 33.1 pg (27.0-33.0); MEAN CORPUSCULAR HGB CONC 34.5 g/dl (32.0-36.5); MONO # 0.5 10^3/uL (0.0-0.8); NEUTROPHILS # 2.5 10^3/uL (1.5-8.5); NEUTROPHILS % 43.2 % (36.0-66.0); PLATELET COUNT, AUTOMATED 264 10^3/uL (150-450); RED BLOOD COUNT 3.53 10^6/uL (4.00-5.40); WHITE BLOOD COUNT 5.7 10^3/uL (4.0-10.0)
[2019-11-12 07:45] LABS: BLOOD UREA NITROGEN 4 MG/DL (7-18); C REACTIVE PROTEIN QUANTITATIV 2.87 MG/DL (0.00-0.30); CALCIUM LEVEL 8.8 MG/DL (8.5-10.1); CARBON DIOXIDE LEVEL 19 MEQ/L (21-32); CHLORIDE LEVEL 114 MEQ/L (98-107); GLOMERULAR FILTRATION RATE > 60.0 (>51); GLUCOSE, FASTING 106 MG/DL (70-100); POTASSIUM SERUM 3.8 MEQ/L (3.5-5.1); SODIUM LEVEL 141 MEQ/L (136-145); VANCOMYCIN LEVEL TROUGH 18.5 UG/ML (10.0-20.0)
[2019-11-12 08:20] LABS: ERYTHROCYTE SEDIMENTATION RATE 49 mm/hr (0-30)
[2019-11-12] MEDS: VANCOMYCIN HCL 1,000 MG, VIAL MATE ADAPTER 1 EACH in D5W 250 ML IV SCH ×4 (08:43)
[2019-11-12] MEDS: ENOXAPARIN 40MG/0.4ML SYRINGE (J1650 PER 10MG) SC SCH (08:43)
[2019-11-12] MEDS: POTASSIUM CHLORIDE 10 MEQ SR TABLET PO SCH (08:44)
[2019-11-12] MEDS: TOPIRAMATE (TopAMAX) 25 MG TAB PO SCH (08:44)
[2019-11-12] MEDS: GABAPENTIN 300 MG CAP PO SCH (08:44)
[2019-11-12 08:46] VITALS: BP 161/93
[2019-11-12] MEDS ORDERED: LEVA1TAB2 PO (10:35)
--- NOTE | 2019-11-12 14:19 | DS.PDOC ---
Discharge Summary General Date of Admission Nov 09, 2019 at 22:22 Date of Discharge 11/12/19 Discharge Summary PROCEDURES PERFORMED DURING STAY: surgery - I&D left antecubital fossa abscess ADMITTING DIAGNOSES: 1. abscess/cellulitis Secondary DIAGNOSES: #LUE abscess and cellulitis with sepsis. #Hypokalemia #Chronic back pain/ sacroiliitis/fibromyalgia #GERD #HTN #Migraines #? CAD "MILD" RI DUE TO HIGH BP WITH SUBSEQUENT NORMAL STRESS TEST #ULCERATIVE COLITIS- DR. EARLY #HEPATITIS C - DR. FATIMA TREATED WITH 8 WEEKS HARVONI EORX 12/2016, GENOTYPE 1A HCV RNA 1110 #H/O ACUTE TOXIC ENCEPHALOPATHY SECONDARY TO OPIATES #H/O SHINGLES #LEFT KNEE ARTHRITIS #Alcohol use disorder COMPLICATIONS/CHIEF COMPLAINT: Cellulitis And Abscess Of Upper Arm And Forearm. HISTORY OF PRESENT ILLNESS: 59 year old female with PMH od hypertension, hep C treated, migraines, chronic back pain, s/p back surgery and back injections, sacroilietis, fibromyalgia, ulcerative colitis presented to the ED with Left arm and forearm swelling, redness and pain for 2 days. Patient first noticed a hard swelling in the left anticubital fossa yesterday. The surrounding area was red and warm it continued to become bigger. This morning she woke up with increased pain dull aching in nature about 8/10 in intensity in that area with redness and swelling spreading both up into the mid arm and down up to the mid forearm. She also had fever and chills at home so came to the ED for evaluation. On arrival to the hospital she was febrile to 101 with elevated CRP. US of the area showed Complex hypoechoic mass in the antecubital region associated with overlying erythema and regional edema, findings suggesting the presence of an abscess. Elbow xray did not show any foreign body or gas. She was admitted for left anticubital fossa abscess and left arm and forearm cellulitis. HOSPITAL COURSE: Seen by surgery, and underwent incision and drainage of her left arm abscess. Cultures sent, and still pending results. Followed up with surgery, with recs for o/p follow and oral abx. Hospital notable for right arm erythema, with superficial clot found on dopplers. She also developed some allergic reaction on her scalp from a recent hair coloring session. DISCHARGE MEDICATIONS: Please see below. ALLERGIES: Please see below. PHYSICAL EXAMINATION ON DISCHARGE: VITAL SIGNS: Please see below. General: NAD, lying comfortably in bed HEENT: NC/AT, EOMI, PERRL Lungs: CTA B/L Heart: +S1S2, RRR Abd: soft, NT, +BS Ext: no edema LUE antecubital cellulitic area, warm to touch, improved from previously demarcated area LABORATORY DATA: Please see below. ACTIVITY: [As tolerated]. DIET: 2gram sodium DISPOSITION: 01 Home, Self-Care. DISCHARGE INSTRUCTIONS: 1. Follow up PCP in 3-5 days 2. Follow up with surgery in 7-10 days as scheduled DISCHARGE CONDITION: [Stable]. TIME SPENT ON DISCHARGE: 35 minutes. Vital Signs/I&Os Vital Signs Date Time Temp Pulse Resp B/P (MAP) Pulse Ox O2 Delivery O2 Flow Rate FiO2 11/12/19 08:46 89 161/93 11/12/19 06:00 98.0 18 94 Room Air I&O- Last 24 Hours up to 6 AM 11/12/19 06:00 Intake Total 4670 ml Output Total 2800 ml Balance 1870 ml Laboratory Data Labs 24H Laboratory Tests 2 11/11/19 15:11: Vancomycin Level Trough 19.8 11/12/19 07:05: Vancomycin Level Trough 18.5, Immature Granulocyte % (Auto) 0.5, Neutrophils (%) (Auto) 43.2, Lymphocytes (%) (Auto) 39.4, Monocytes (%) (Auto) 8.0H, Eosinophils (%) (Auto) 8.4H, Basophils (%) (Auto) 0.5, Neutrophils # (Auto) 2.5, Lymphocytes # (Auto) 2.3, Monocytes # (Auto) 0.5, Eosinophils # (Auto) 0.5, Basophils # (Auto) 0.0, Nucleated Red Blood Cells % (auto) 0.0, Erythrocyte Sedimentation Rate 49H, Anion Gap 8, Glomerular Filtration Rate > 60.0, Calcium Level 8.8, C-Reactive Protein, Quantitative 2.87H CBC/BMP Laboratory Tests 11/12/19 07:05 Microbiology Microbiology 11/10/19 Gram Stain - Final, Resulted 11/10/19 Abscess Culture, Resulted Pending 11/09/19 Blood Culture - Preliminary, Resulted No Growth after 48 hours. All Specime... 11/09/19 Blood Culture - Preliminary, Resulted No Growth after 48 hours. All Specime... Discharge Medications Scheduled Amitriptyline HCl (Amitriptyline HCl) 25 Mg Tab, 50 MG PO QHS, (Reported) Amlodipine Besylate (Amlodipine Besylate) 2.5 Mg Tablet, 2.5 MG PO DAILY, (Reported) Gabapentin (Neurontin) 300 Mg Cap, 300 MG PO TID, (Reported) Levofloxacin (Levaquin) 500 Mg Tablet, 500 MG PO DAILY Omeprazole (Omeprazole) 40 Mg Capsule.dr, 40 MG PO QHS, (Reported) Topiramate (Topiramate) 50 Mg Tablet, 50 MG PO BID, (Reported) Scheduled PRN Aspirin (Aspir 81) 81 Mg Tablet.dr, 81 MG PO DAILY PRN for CHEST PAIN, (Reported) Baclofen (Baclofen) 10 Mg Tablet, 10 MG PO TID PRN for MUSCLE SPASMS, (Reported) Carisoprodol (Soma) 350 Mg Tablet, 350 MG PO BID PRN for MUSCLE SPASMS, (Reported) Allergies Coded Allergies: cefazolin (Verified Allergy, Intermediate, hives, 07/29/19) SEASONAL ALLERGIES (Verified Allergy, Unknown, 07/29/19) NAY ESCOBEDO MD Nov 12, 2019 14:19
== END 2019-11-12 12:10 | disposition home or self-care (01) | DRG 872 ==
LOC: M ED 18:13 → M ED INP 22:22 → ENRESERV 23:02 → M MSPAV 23:32
PROVIDERS: ADMIT Internal Medicine Nephrology; ATTEND Internal Medicine
PROC: 0HBEXZZ Excision of Left Lower Arm Skin, External Approach (ICD-10-PCS; principal; 2019-11-10)
DX: A41.9 Sepsis, unspecified organism (principal); L02.414 Cutaneous abscess of left upper limb; L03.114 Cellulitis of left upper limb; I10 Essential (primary) hypertension; G43.909 Migraine, unspecified, not intractable, without status migrainosus; M46.1 Sacroiliitis, not elsewhere classified; K21.9 Gastro-esophageal reflux disease without esophagitis; J45.909 Unspecified asthma, uncomplicated; M17.12 Unilateral primary osteoarthritis, left knee; M81.0 Age-related osteoporosis without current pathological fracture; E87.6 Hypokalemia; M79.7 Fibromyalgia; Z79.899 Other long term (current) drug therapy; Z88.1 Allergy status to other antibiotic agents

== ENCOUNTER → 2019-11-29 | Outpatient (CLI) | payer MEDICARE ==
[~2019-11-29] MED LIST changes: +AMLO2.5T3 PO; -ASPI81TA85 PO; +ASPI81TA86 PO; +LEVA1TAB2 PO
[2019-11-29 15:58] LABS: BASO # 0.1 10^3/uL (0.0-0.2); BASO % 1.4 % (0.0-1.0); EOS # 0.1 10^3/uL (0.0-0.5); EOS % 1.4 % (0.0-3.0); HEMATOCRIT 40.2 % (36.0-47.0); HEMOGLOBIN 13.6 g/dl (12.0-15.5); LYMPH # 1.8 10^3/uL (1.5-5.0); LYMPH % 51.4 % (24.0-44.0); MEAN CORPUSCULAR HEMOGLOBIN 32.5 pg (27.0-33.0); MEAN CORPUSCULAR HGB CONC 33.8 g/dl (32.0-36.5); MEAN CORPUSCULAR VOLUME 95.9 fl (80.0-96.0); MONO # 0.2 10^3/uL (0.0-0.8); MONO % 6.9 % (0.0-5.0); NEUTROPHILS # 1.4 10^3/uL (1.5-8.5); NEUTROPHILS % 38.6 % (36.0-66.0); PLATELET COUNT, AUTOMATED 271 10^3/uL (150-450); RED BLOOD COUNT 4.19 10^6/uL (4.00-5.40); WHITE BLOOD COUNT 3.5 10^3/uL (4.0-10.0)
[2019-11-29 16:29] LABS: ERYTHROCYTE SEDIMENTATION RATE 24 mm/hr (0-30)
== END ==
LOC: M PLALAB 11:53
PROVIDERS: ATTEND Psychiatry & Neurology Neurology
DX: M46.40 Discitis, unspecified, site unspecified (principal); M25.50 Pain in unspecified joint
CPT/HCPCS: 36415; 85025; 85652; 86140; G0463

== ENCOUNTER → 2019-12-17 | Outpatient (CLI) | payer MEDICARE | LOC: M LABSMTC 13:36 | PROVIDERS: ATTEND Anesthesiology | DX: Z01.818 Encounter for other preprocedural examination (principal); Z11.59 Encounter for screening for other viral diseases | CPT/HCPCS: C9803; U0003 ==

== ENCOUNTER 2019-12-21 08:31 | Day surgery (SDC) | payer MEDICARE ==
[~2019-12-21] VITALS: Ht 174 cm; Wt 71.1 kg
[~2019-12-21 08:31] MED LIST changes: +LIDOCAINE 2% 100MG/5ML SDV (FOR ANES.) As Ordered ONE; +NS 1,000 ML IV ONE; +propofoL 200 MG/20 ML VIAL As Ordered ONE
--- NOTE | 2019-12-21 09:49 | ROOR ---
Patient Name: Kady Allison Procedure Date: 12/21/2019 9:07 AM Date of : 1960 Age: 59 Room: [facility] ED Gender: Female Note Status: Finalized Procedure: Colonoscopy Indications: Follow-up of ulcerative colitis, Change in bowel habits Providers: Siva ORTIZ MD Referring MD: Shannan Fox MD Requesting Provider: Medicines: Monitored Anesthesia Care Complications: No immediate complications. Procedure: Pre-Anesthesia Assessment: - The heart rate, respiratory rate, oxygen saturations, blood pressure, adequacy of pulmonary ventilation, and response to care were monitored throughout the procedure. The Colonoscope was introduced through the anus and advanced to 5 cm into the ileum. The colonoscopy was performed without difficulty. The patient tolerated the procedure well. The quality of the bowel preparation was good. Findings: The perianal exam findings include mild mucosal prolapse and non-thrombosed external hemorrhoids. Mild sigmoid diverticulosis and small internal hemorrhoids. The sigmoid colon was moderately redundant. The exam was otherwise without abnormality. Biopsies for histology were taken with a cold forceps from the entire colon for evaluation of microscopic colitis. Impression: - Mild rectal mucosal prolapse and Non-thrombosed external hemorrhoids found on perianal exam. - Redundant sigmoid colon with mild sigmoid diverticulosis. - The examination was otherwise normal. Colitis is not seen. - Biopsies were taken with a cold forceps from the entire colon for evaluation of microscopic colitis. Recommendation: - Use fiber, for example Citrucel, Fibercon, Konsyl or Metamucil. - Return to referring physician as previously scheduled. - Telephone endoscopist for pathology results in 2 weeks. Siva Ortiz MD Siva ORTIZ MD 12/21/2019 9:49:21 AM Electronically signed by Siva ORTIZ MD Number of Addenda: 0 Note Initiated On: 12/21/2019 9:07 AM Estimated Blood Loss: Estimated blood loss: none.
--- NOTE | 2019-12-21 09:50 | ROOR ---
Patient Name: Kady Allison Procedure Date: 12/21/2019 9:05 AM Date of : 1960 Age: 59 Room: [facility] Gender: Female Note Status: Finalized Procedure: Upper GI endoscopy Indications: Dysphagia Providers: Siva ORTIZ MD Referring MD: Shannan Fox MD Requesting Provider: Medicines: Monitored Anesthesia Care Complications: No immediate complications. Procedure: Pre-Anesthesia Assessment: - The heart rate, respiratory rate, oxygen saturations, blood pressure, adequacy of pulmonary ventilation, and response to care were monitored throughout the procedure. The Endoscope was introduced through the mouth, and advanced to the second part of duodenum. The upper GI endoscopy was accomplished without difficulty. The patient tolerated the procedure well. Findings: A web was found in the proximal esophagus. The scope was withdrawn. Dilation was performed with a Owens dilator with mild resistance at 54 Fr. The dilation site was examined following endoscope reinsertion and showed mild mucosal disruption. The exam of the esophagus was otherwise normal. Biopsies were taken with a cold forceps in the upper third of the esophagus and in the middle third of the esophagus for histology. Mild gastritis, Biopsies were taken with a cold forceps for Helicobacter pylori testing. The examined duodenum was normal. Impression: - Slight mucosal web in the proximal esophagus. Dilated. - Mild gastritis. Biopsied. - Normal examined duodenum. - Biopsies were taken with a cold forceps for histology in the upper third of the esophagus and in the middle third of the esophagus. Recommendation: - Observe patient's clinical course. - Telephone endoscopist for pathology results in 2 weeks. Siva Ortiz MD Siva ORTIZ MD 12/21/2019 9:49:51 AM Electronically signed by Siva ORTIZ MD Number of Addenda: 0 Note Initiated On: 12/21/2019 9:05 AM Estimated Blood Loss: Estimated blood loss: none.
[2019-12-21 10:00] VITALS: BP 159/98
== END 2019-12-21 10:16 | disposition home or self-care (01) ==
LOC: M OPP 08:31
PROVIDERS: ATTEND Internal Medicine Gastroenterology
DX: K64.4 Residual hemorrhoidal skin tags (principal); K51.90 Ulcerative colitis, unspecified, without complications; R19.4 Change in bowel habit; Q43.8 Other specified congenital malformations of intestine; Q39.4 Esophageal web; R13.10 Dysphagia, unspecified; K64.8 Other hemorrhoids; K21.9 Gastro-esophageal reflux disease without esophagitis; Z79.899 Other long term (current) drug therapy; Z88.8 Allergy status to other drugs, medicaments and biological substances

== ENCOUNTER → 2020-01-25 | Outpatient (CLI) | payer MEDICARE ==
[~2020-01-25] MED LIST changes: -LIDOCAINE 2% 100MG/5ML SDV (FOR ANES.) As Ordered ONE; -NS 1,000 ML IV ONE; -propofoL 200 MG/20 ML VIAL As Ordered ONE
--- NOTE | 2020-03-03 07:27 | REP ---
WHOLE BODY BONE SCAN HISTORY: Evaluate right hip uptake and lumbar uptake. Fracture of the second lumbar vertebra. TECHNIQUE: 22.0 mCi of Technetium-99m MDP is infected and standard whole body bone scan imaging is acquired. SCINTIGRAPHIC FINDINGS: There is uptake in bilateral kidneys and in the urinary bladder. There is uptake along the medial aspect of the proximal femur at the site of a right hip prosthesis. There is also focally increased uptake at the distal tip of the stem of the femoral prosthesis on the right. These changes may reflect loosening. There is mild arthritic uptake in the knees, left greater than right. There are multiple foci of linearly opposed uptake in the anterior rib cage on the right consistent with healing fractures. There is degenerative uptake in the shoulders. There is horizontal distribution of uptake at two levels in the mid lumbar spine and at the thoracolumbar junction. This is consistent with degenerative spondylolysis or degenerative disk uptake. This is most pronounced at L3-4. There is no evidence to suggest skeletal metastatic uptake. Some degenerative spondylosis uptake is seen in the cervical spine. IMPRESSION: Degenerative spondylosis related uptake pattern in the cervical and lumbar spine. Healing rib fractures. Uptake associated with right hip arthroplasty as above, questioning loosening. MTDD
== END ==
LOC: M RAD 10:00
PROVIDERS: ATTEND Orthopaedic Surgery
DX: S32.028A Other fracture of second lumbar vertebra, initial encounter for closed fracture (principal); M47.816 Spondylosis without myelopathy or radiculopathy, lumbar region; M47.812 Spondylosis without myelopathy or radiculopathy, cervical region; Z96.651 Presence of right artificial knee joint; M19.011 Primary osteoarthritis, right shoulder; M19.012 Primary osteoarthritis, left shoulder; X58.XXXA Exposure to other specified factors, initial encounter; Y92.9 Unspecified place or not applicable

== ENCOUNTER → 2020-02-23 | Outpatient (CLI) | payer MEDICARE ==
[2020-02-23 17:45] LABS: CALCIUM LEVEL 9.7 MG/DL (8.8-10.2); PHOSPHORUS LEVEL 2.5 MG/DL (2.5-4.9); THYROID STIMULATING HORMONE 0.455 uIU/ML (0.358-3.740)
[2020-02-23 17:47] LABS: TOTAL 25(OH) VITAMIN D 13.1 NG/ML (30.0-100.0)
[2020-02-23 17:48] LABS: PTH INTACT 48.9 PG/ML (18.5-88.0)
== END ==
LOC: M PLALAB 14:25
PROVIDERS: ATTEND Internal Medicine Endocrinology, Diabetes & Metabolism
DX: M81.0 Age-related osteoporosis without current pathological fracture (principal); E55.9 Vitamin D deficiency, unspecified

== ENCOUNTER → 2020-05-31 | Outpatient (REF) | payer MEDICARE ==
[2020-05-31 13:02] LABS: INR 1.44; PROTHROMBIN TIME 17.9 SECONDS (12.5-14.3)
== END ==
LOC: M SHH 11:58
DX: Z79.01 Long term (current) use of anticoagulants (principal)

== ENCOUNTER → 2020-06-05 | Outpatient (REF) | payer MEDICARE ==
[2020-06-05 12:41] LABS: INR 1.25
== END ==
LOC: M SHH 12:21
DX: Z79.01 Long term (current) use of anticoagulants (principal)

== ENCOUNTER → 2020-06-08 | Outpatient (REF) | payer MEDICARE ==
[2020-06-08 16:19] LABS: INR 2.5; PROTHROMBIN TIME 27.6 SECONDS (12.5-14.3)
== END ==
LOC: M SHH 15:19
PROVIDERS: ATTEND Orthopaedic Surgery
DX: Z79.01 Long term (current) use of anticoagulants (principal)

== ENCOUNTER → 2020-06-12 | Outpatient (REF) | payer MEDICARE ==
[2020-06-12 17:23] LABS: INR 4.54; PROTHROMBIN TIME 44.1 SECONDS (12.5-14.3)
== END ==
LOC: M SHH 15:50
DX: Z79.01 Long term (current) use of anticoagulants (principal)

== ENCOUNTER → 2020-06-15 | Outpatient (REF) | payer MEDICARE ==
[2020-06-15 11:47] LABS: INR 2.62; PROTHROMBIN TIME 28.6 SECONDS (12.5-14.3)
== END ==
LOC: M SHH 11:13
DX: Z79.01 Long term (current) use of anticoagulants (principal)

== ENCOUNTER → 2020-06-19 | Outpatient (REF) | payer MEDICARE ==
[~2020-06-19] MED LIST changes: -AMIT25TA PO; +AMIT25TA17 PO
[2020-06-19 14:59] LABS: INR 3.95; PROTHROMBIN TIME 39.6 SECONDS (12.5-14.3)
== END ==
LOC: M SHH 14:34
DX: Z51.81 Encounter for therapeutic drug level monitoring (principal); Z79.01 Long term (current) use of anticoagulants

== ENCOUNTER → 2020-06-28 | Outpatient (CLI) | payer MEDICARE ==
[~2020-06-28] MED LIST changes: -LISI-542 PO; +LISI-898 PO
[2020-06-28 20:23] LABS: TOTAL 25(OH) VITAMIN D 37.9 NG/ML (30.0-100.0)
== END ==
LOC: M PLALAB 15:26
PROVIDERS: ATTEND Nurse Practitioner Family
DX: E55.9 Vitamin D deficiency, unspecified (principal); Z79.899 Other long term (current) drug therapy

== ENCOUNTER → 2020-09-11 | Outpatient (REF) | payer MEDICARE ==
[2020-09-11 18:50] LABS: CALCIUM LEVEL 10.2 MG/DL (8.8-10.2)
[2020-09-11 19:05] LABS: TOTAL 25(OH) VITAMIN D 35.4 NG/ML (30.0-100.0)
== END ==
LOC: M PLALAB 16:40
PROVIDERS: ATTEND Internal Medicine Endocrinology, Diabetes & Metabolism
DX: E55.9 Vitamin D deficiency, unspecified (principal)

== ENCOUNTER 2021-03-02 12:57 | Emergency (ER) | payer MEDICARE ==
[~2021-03-02] VITALS: Ht 162.6 cm; Wt 75.7 kg
[~2021-03-02 12:57] MED LIST changes: +OMEP40CA4 PO; -OMEP40CA97 PO
[2021-03-02] MEDS ORDERED: PERCOCET 5MG/325MG TAB PO ONE (15:25)
[2021-03-02 15:38] LABS: BASO % 0.4 % (0.0-1.0); EOS # 0.2 10^3/uL (0.0-0.5); EOS % 2.6 % (0.0-3.0); HEMATOCRIT 35.8 % (36.0-47.0); HEMOGLOBIN 12.3 g/dl (12.0-15.5); LYMPH # 1.8 10^3/uL (1.5-5.0); LYMPH % 23.5 % (24.0-44.0); MEAN CORPUSCULAR HEMOGLOBIN 32.4 pg (27.0-33.0); MEAN CORPUSCULAR HGB CONC 34.4 g/dl (32.0-36.5); MEAN CORPUSCULAR VOLUME 94.2 fl (80.0-96.0); MONO # 0.9 10^3/uL (0.0-0.8); NEUTROPHILS # 4.8 10^3/uL (1.5-8.5); PLATELET COUNT, AUTOMATED 205 10^3/uL (150-450); WHITE BLOOD COUNT 7.7 10^3/uL (4.0-10.0)
[2021-03-02 16:01] LABS: ALBUMIN 3.3 GM/DL (3.2-5.2); BILIRUBIN,DIRECT 0.2 MG/DL (0.0-0.2); BILIRUBIN,TOTAL 0.5 MG/DL (0.2-1.0); C REACTIVE PROTEIN QUANTITATIV 2.74 MG/DL (0.00-0.30); TOTAL PROTEIN 7.2 GM/DL (6.4-8.2)
[2021-03-02 16:03] LABS: ERYTHROCYTE SEDIMENTATION RATE 26 mm/hr (0-30)
--- NOTE | 2021-03-02 16:23 | REP ---
INDICATION: swelling. COMPARISON: None. TECHNIQUE: CT left forearm and wrist with sagittal and coronal reconstruction images. FINDINGS: There is no acute fracture or dislocation. 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 The overlying cortex is intact. Joint spaces at the wrist are unremarkable. There is superficial soft tissue edema in the anterior forearm, with focal nonspecific moderate anterior superficial soft tissue swelling and edema at the wrist. IMPRESSION: No acute fracture or dislocation. Anterior superficial soft tissue edema and swelling of the forearm and predominantly at the level of the wrist. 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 <Electronically signed by Sahil Owen > 03/02/21 [id number]
[2021-03-02] MEDS ORDERED: methylPREDNISolone 125MG 2ML VIAL IV ONE (17:35)
[2021-03-02] MEDS ORDERED: DOXYCYCLINE HYCLATE 100 MG in D5W MINI-BAG PLUS 100 ML IV ONE (17:45)
[2021-03-02] MEDS ORDERED: LIDOCAINE 1% MDV 20ML VIAL SC ONE (19:10)
[2021-03-02] MEDS ORDERED: DOXY1CAP62 PO (19:32)
[2021-03-02] MEDS ORDERED: OXYCODONE/APAP 5MG/325MG(BULK FOR ED) 1 TABLET PO ONE (19:35)
[2021-03-02 20:10] VITALS: BP 182/88
--- NOTE | 2021-03-03 16:20 | ED PDOC ---
Post-Departure Follow-Up Called patient today to see how she was doing. Discussed that it would be better if she followed up with surgery on Friday than her primary care provider but patient states that her redness has gone past the buck I made last night. Told patient she would need to return for failed outpatient treatment and most likely be admitted for more IV antibiotics. Patient agreed and will come back to ED for reevaluation pavan. YOLI BROWN PA-C Mar 03, 2021 16:20
== END 2021-03-02 20:15 | disposition home or self-care (01) ==
LOC: M ED 12:57
DX: L03.114 Cellulitis of left upper limb (principal); I10 Essential (primary) hypertension; I25.2 Old myocardial infarction; F17.200 Nicotine dependence, unspecified, uncomplicated
CPT/HCPCS: 73200; 80047; 80076; 83605; 83690; 85025; 85652; 86140; 87040; 87070; 87077; 87186; 87205; 96365; 96375; 99284; J2930

== ENCOUNTER 2021-03-03 22:57 | Emergency (ER) | payer MEDICARE ==
[~2021-03-03] VITALS: Ht 162.6 cm; Wt 77.4 kg
[~2021-03-03 22:57] MED LIST changes: +DOXY1CAP62 PO
[2021-03-04 05:00] LABS: BASO % 0.5 % (0.0-1.0); EOS # 0.1 10^3/uL (0.0-0.5); EOS % 1.7 % (0.0-3.0); HEMATOCRIT 33.4 % (36.0-47.0); HEMOGLOBIN 11.6 g/dl (12.0-15.5); LYMPH # 3.4 10^3/uL (1.5-5.0); LYMPH % 42.9 % (24.0-44.0); MEAN CORPUSCULAR HEMOGLOBIN 32.1 pg (27.0-33.0); MEAN CORPUSCULAR HGB CONC 34.7 g/dl (32.0-36.5); MEAN CORPUSCULAR VOLUME 92.5 fl (80.0-96.0); MONO # 0.7 10^3/uL (0.0-0.8); MONO % 8.1 % (2.0-8.0); NEUTROPHILS # 3.7 10^3/uL (1.5-8.5); NEUTROPHILS % 46.6 % (36.0-66.0); PLATELET COUNT, AUTOMATED 235 10^3/uL (150-450); RED BLOOD COUNT 3.61 10^6/uL (4.00-5.40)
[2021-03-04 05:15] LABS: BLOOD UREA NITROGEN 14 MG/DL (7-18); C REACTIVE PROTEIN QUANTITATIV 2.62 MG/DL (0.00-0.30); CALCIUM LEVEL 9.2 MG/DL (8.8-10.2); CARBON DIOXIDE LEVEL 24 MEQ/L (21-32); CHLORIDE LEVEL 110 MEQ/L (98-107); CREATININE FOR GFR 0.48 MG/DL (0.55-1.30); GLOMERULAR FILTRATION RATE > 60.0 (>45); GLUCOSE, FASTING 93 MG/DL (70-100); POTASSIUM SERUM 3.8 MEQ/L (3.5-5.1); SODIUM LEVEL 142 MEQ/L (136-145)
[2021-03-04] MEDS ORDERED: MYRB25TA PO (06:12)
[2021-03-04] MEDS ORDERED: HYDR-3363 PO (06:12)
[2021-03-04] MEDS ORDERED: TOPR50TA PO (06:12)
[2021-03-04] MEDS ORDERED: CLINDAMYCIN 900 MG in IV 1 EA IV ONE (06:30)
[2021-03-04 08:23] VITALS: BP 146/82
== END 2021-03-04 08:25 | disposition home or self-care (01) ==
LOC: M ED 22:57
DX: L03.114 Cellulitis of left upper limb (principal); R11.0 Nausea; R51.9 Headache, unspecified; I25.2 Old myocardial infarction; I10 Essential (primary) hypertension; J30.2 Other seasonal allergic rhinitis; Z88.8 Allergy status to other drugs, medicaments and biological substances; Z79.899 Other long term (current) drug therapy

== ENCOUNTER → 2021-03-14 | Outpatient (CLI) | payer MEDICARE ==
[~2021-03-14] MED LIST changes: +HYDR-3363 PO; +MYRB25TA PO
[2021-03-14 16:20] LABS: CALCIUM LEVEL 9.9 MG/DL (8.8-10.2)
[2021-03-14 16:37] LABS: TOTAL 25(OH) VITAMIN D 28.6 NG/ML (30.0-100.0)
== END ==
LOC: M PLALAB 12:59
PROVIDERS: ATTEND Nurse Practitioner Family
DX: E55.9 Vitamin D deficiency, unspecified (principal)

== ENCOUNTER 2021-06-10 04:50 | Emergency (ER) | payer MEDICARE ==
[~2021-06-10] VITALS: Ht 167.6 cm; Wt 155.0 kg
[~2021-06-10 04:50] MED LIST changes: +DOXY-443 PO; -DOXY1CAP62 PO
[2021-06-10] MEDS ORDERED: LEXA5TAB13 (05:01)
--- NOTE | 2021-06-10 06:21 | REPVR ---
PROCEDURE INFORMATION: Exam: XR Right Knee Exam date and time: 06/10/2021 5:26 AM Age: 61 years old Clinical indication: Pain; Knee; Right; Fall TECHNIQUE: Imaging protocol: XR Right knee. Views: 4 or more views. COMPARISON: CR KNEE COMPLETE 08/10/2018 12:05 PM FINDINGS: Bones/joints: No fracture. No dislocation. Joint spaces are preserved. Moderate knee joint effusion. Soft tissues: Normal. IMPRESSION: 1. No acute fracture. 2. Moderate knee joint effusion. Evaluate for possible internal knee injury. Electronically signed by: Jared Jacobs On 06/10/2021 06:21:21 AM
[2021-06-10] MEDS ORDERED: ACETAMINOPHEN TAB 650MG DOSE (2X325MG) PO ONE (06:50)
== END 2021-06-10 07:43 | disposition home or self-care (01) ==
LOC: EDBD 04:50 → M ED 04:50
DX: M25.461 Effusion, right knee (principal); M25.561 Pain in right knee; W01.0XXA Fall on same level from slipping, tripping and stumbling without subsequent striking against object, initial encounter; Y92.009 Unspecified place in unspecified non-institutional (private) residence as the place of occurrence of the external cause; Y93.9 Activity, unspecified; Y99.9 Unspecified external cause status; I10 Essential (primary) hypertension; N32.81 Overactive bladder; F41.9 Anxiety disorder, unspecified; Z79.899 Other long term (current) drug therapy

== ENCOUNTER → 2021-09-28 | Outpatient (CLI) | payer MEDICARE ==
[~2021-09-28] MED LIST changes: +LEXA5TAB13; -LISI-898 PO; +LISI5TAB11 PO; -OMEP-221 PO; +OMEP40CA5 PO
[2021-09-28 18:12] LABS: CALCIUM LEVEL 10.2 MG/DL (8.8-10.2)
[2021-09-28 18:29] LABS: TOTAL 25(OH) VITAMIN D 27.1 NG/ML (30.0-100.0)
== END ==
LOC: M PLALAB 15:47
PROVIDERS: ATTEND Nurse Practitioner Family
DX: M81.0 Age-related osteoporosis without current pathological fracture (principal); E55.9 Vitamin D deficiency, unspecified

== ENCOUNTER → 2021-10-16 | Outpatient (CLI) | payer MEDICARE ==
[2021-10-16 14:23] LABS: ALBUMIN 3.5 GM/DL (3.2-5.2); ALT/SGPT 249 U/L (12-78); BILIRUBIN,TOTAL 0.7 MG/DL (0.2-1.0); BLOOD UREA NITROGEN 11 MG/DL (7-18); CALCIUM LEVEL 8.9 MG/DL (8.8-10.2); CARBON DIOXIDE LEVEL 28 MEQ/L (21-32); CHLORIDE LEVEL 111 MEQ/L (98-107); CHOLESTEROL LEVEL 132 MG/DL (<200); CHOLESTEROL RISK RATIO 2.588 (<5); CREATININE FOR GFR 0.63 MG/DL (0.55-1.30); GLOMERULAR FILTRATION RATE > 60.0 (>45); GLUCOSE, FASTING 95 MG/DL (70-100); HDL CHOLESTEROL 51 MG/DL (>40); LDL CHOLESTEROL 56 MG/DL (<100); NON-HDL-C 81 MG/DL; POTASSIUM SERUM 4.3 MEQ/L (3.5-5.1); SODIUM LEVEL 143 MEQ/L (136-145); TOTAL PROTEIN 7.5 GM/DL (6.4-8.2); TRIGLYCERIDES LEVEL 125 MG/DL (<150)
== END ==
LOC: M PLALAB 09:25
PROVIDERS: ATTEND Family Medicine
DX: I10 Essential (primary) hypertension (principal)

== ENCOUNTER → 2021-10-17 | Outpatient (CLI) | payer MEDICARE ==
[2021-10-17 14:14] LABS: HEMATOCRIT 38.1 % (36.0-47.0); HEMOGLOBIN 13.1 g/dl (12.0-15.5); MEAN CORPUSCULAR HEMOGLOBIN 33.4 pg (27.0-33.0); MEAN CORPUSCULAR HGB CONC 34.4 g/dl (32.0-36.5); MEAN CORPUSCULAR VOLUME 97.2 fl (80.0-96.0); PLATELET COUNT, AUTOMATED 150 10^3/uL (150-450); RED BLOOD COUNT 3.92 10^6/uL (4.00-5.40); WHITE BLOOD COUNT 2.7 10^3/uL (4.0-10.0)
[2021-10-17 14:18] LABS: ALBUMIN 3.6 GM/DL (3.2-5.2); ALT/SGPT 240 U/L (12-78); BILIRUBIN,DIRECT 0.3 MG/DL (0.0-0.2); BILIRUBIN,TOTAL 0.8 MG/DL (0.2-1.0); FERRITIN 487 NG/ML (8-252); INR 1.01; IRON (FE) 221 UG/DL (50-170); PERCENT SATURATION 74.4 % (13.2-45.0); PROTHROMBIN TIME 13.7 SECONDS (12.7-14.5); TOTAL IRON BINDING CAPACITY 297 UG/DL (250-450); TOTAL PROTEIN 7.8 GM/DL (6.4-8.2)
[2021-10-17 14:36] LABS: HEPATITIS B SURFACE ANTIGEN NEGATIVE (NEGATIVE)
== END ==
LOC: M PLALAB 10:40
PROVIDERS: ATTEND Family Medicine
DX: R79.89 Other specified abnormal findings of blood chemistry (principal)
CPT/HCPCS: 36415; 80076; 82728; 83550; 85027; 85610; 86704; 87340; 87522; G0472

== ENCOUNTER → 2021-10-30 | Outpatient (CLI) | payer MEDICARE | LOC: M WHC 08:39 | PROVIDERS: ATTEND Family Medicine | DX: R79.89 Other specified abnormal findings of blood chemistry (principal) ==

== ENCOUNTER → 2021-10-30 | Outpatient (CLI) | payer MEDICARE ==
[2021-10-30 13:18] LABS: ALBUMIN 3.6 GM/DL (3.2-5.2); BILIRUBIN,DIRECT 0.4 MG/DL (0.0-0.2); BILIRUBIN,TOTAL 0.9 MG/DL (0.2-1.0); TOTAL PROTEIN 7.9 GM/DL (6.4-8.2)
[2021-10-30 13:19] LABS: BASO # 0.1 10^3/uL (0.0-0.2); BASO % 1.1 % (0.0-1.0); EOS # 0.2 10^3/uL (0.0-0.5); EOS % 3.9 % (0.0-3.0); HEMATOCRIT 36.5 % (36.0-47.0); HEMOGLOBIN 12.3 g/dl (12.0-15.5); LYMPH # 1.8 10^3/uL (1.5-5.0); LYMPH % 38.8 % (24.0-44.0); MEAN CORPUSCULAR HEMOGLOBIN 32.9 pg (27.0-33.0); MEAN CORPUSCULAR HGB CONC 33.7 g/dl (32.0-36.5); MEAN CORPUSCULAR VOLUME 97.6 fl (80.0-96.0); MONO # 0.5 10^3/uL (0.0-0.8); MONO % 10.5 % (2.0-8.0); NEUTROPHILS # 2.1 10^3/uL (1.5-8.5); NEUTROPHILS % 45.3 % (36.0-66.0); PLATELET COUNT, AUTOMATED 227 10^3/uL (150-450); RED BLOOD COUNT 3.74 10^6/uL (4.00-5.40); WHITE BLOOD COUNT 4.6 10^3/uL (4.0-10.0)
== END ==
LOC: M PLALAB 09:33
PROVIDERS: ATTEND Family Medicine
DX: R79.89 Other specified abnormal findings of blood chemistry (principal)

== ENCOUNTER → 2022-07-25 | Outpatient (CLI) | payer MEDICARE ==
[2022-07-25 15:35] LABS: BASO # 0.1 10^3/uL (0.0-0.2); BASO % 0.8 % (0.0-1.0); EOS # 0.3 10^3/uL (0.0-0.5); EOS % 4.6 % (0.0-3.0); HEMATOCRIT 39.9 % (36.0-47.0); HEMOGLOBIN 13.3 g/dl (12.0-15.5); LYMPH % 31.3 % (24.0-44.0); MEAN CORPUSCULAR HEMOGLOBIN 31.4 pg (27.0-33.0); MEAN CORPUSCULAR HGB CONC 33.3 g/dl (32.0-36.5); MEAN CORPUSCULAR VOLUME 94.3 fl (80.0-96.0); MONO # 0.6 10^3/uL (0.0-0.8); MONO % 8.7 % (2.0-8.0); NEUTROPHILS # 3.4 10^3/uL (1.5-8.5); PLATELET COUNT, AUTOMATED 253 10^3/uL (150-450); RED BLOOD COUNT 4.23 10^6/uL (4.00-5.40); WHITE BLOOD COUNT 6.3 10^3/uL (4.0-10.0)
[2022-07-25 15:49] LABS: ERYTHROCYTE SEDIMENTATION RATE 18 mm/hr (0-30)
[2022-07-25 15:58] LABS: ALBUMIN 3.3 G/DL (3.2-5.2); ALKALINE PHOSPHATASE 105 U/L (46-116); ALT/SGPT 21 U/L (7.0-40); AST/SGOT 27 U/L (<34); BILIRUBIN,TOTAL 0.8 MG/DL (0.3-1.2); BLOOD UREA NITROGEN 19 MG/DL (9-23); CALCIUM LEVEL 9.5 MG/DL (8.3-10.6); CARBON DIOXIDE LEVEL 27 MMOL/L (20-31); CHLORIDE LEVEL 106 MMOL/L (98-107); CREATININE FOR GFR 0.58 MG/DL (0.55-1.30); GLOMERULAR FILTRATION RATE > 60.0 (>45); GLUCOSE, FASTING 99 MG/DL (74-106); MAGNESIUM LEVEL 1.9 MG/DL (1.8-2.4); POTASSIUM SERUM 4.6 MMOL/L (3.5-5.1); SODIUM LEVEL 139 MMOL/L (136-145)
== END ==
LOC: M PLALAB 14:09
PROVIDERS: ATTEND Physician Assistant
DX: S81.801A Unspecified open wound, right lower leg, initial encounter (principal); W18.30XA Fall on same level, unspecified, initial encounter; Y92.009 Unspecified place in unspecified non-institutional (private) residence as the place of occurrence of the external cause

== ENCOUNTER → 2022-09-11 | Outpatient (CLI) | payer MEDICARE ==
[~2022-09-11] MED LIST changes: +TOPI-254; +TOPI-254 PO; -TOPI50TA9; -TOPI50TA9 PO
[2022-09-11 14:09] LABS: ALBUMIN 3.4 G/DL (3.2-5.2); ALKALINE PHOSPHATASE 112 U/L (46-116); ALT/SGPT 32 U/L (7.0-40); AST/SGOT 34 U/L (<34); BILIRUBIN,TOTAL 0.6 MG/DL (0.3-1.2); BLOOD UREA NITROGEN 16 MG/DL (9-23); CALCIUM LEVEL 9.3 MG/DL (8.3-10.6); CARBON DIOXIDE LEVEL 25 MMOL/L (20-31); CHLORIDE LEVEL 107 MMOL/L (98-107); CREATININE FOR GFR 0.55 MG/DL (0.55-1.30); GLOMERULAR FILTRATION RATE > 60.0 (>45); GLUCOSE, FASTING 109 MG/DL (74-106); POTASSIUM SERUM 3.8 MMOL/L (3.5-5.1); SODIUM LEVEL 138 MMOL/L (136-145); TOTAL PROTEIN 7.2 G/DL (5.7-8.2)
== END ==
LOC: M LAB 13:08
PROVIDERS: ATTEND Physician Assistant
DX: R79.89 Other specified abnormal findings of blood chemistry (principal)

== ENCOUNTER → 2022-09-12 | Outpatient (CLI) | payer MEDICARE ==
[~2022-09-12] MED LIST changes: +ARTIDRO4 OU; -POLYOPD OU
== END ==
LOC: M RAD 10:08
PROVIDERS: ATTEND Physician Assistant
DX: L97.912 Non-pressure chronic ulcer of unspecified part of right lower leg with fat layer exposed (principal); R68.89 Other general symptoms and signs

== ENCOUNTER → 2022-09-13 | Outpatient (REF) | payer MEDICARE | LOC: M SFHCPLAZ 10:28 | PROVIDERS: ATTEND Physician Assistant | DX: R63.5 Abnormal weight gain (principal) ==

== ENCOUNTER → 2022-09-18 | Outpatient (CLI) | payer MEDICARE ==
[2022-09-18 10:46] LABS: FREE T4 0.84 NG/DL (0.89-1.76); THYROID STIMULATING HORMONE 0.816 uIU/ML (0.55-4.78)
== END ==
LOC: M LAB 09:08
PROVIDERS: ATTEND Physician Assistant
DX: R63.5 Abnormal weight gain (principal); I87.311 Chronic venous hypertension (idiopathic) with ulcer of right lower extremity; L97.912 Non-pressure chronic ulcer of unspecified part of right lower leg with fat layer exposed

== ENCOUNTER → 2022-09-18 | Outpatient (CLI) | payer MEDICARE | LOC: M RAD 09:04 | PROVIDERS: ATTEND Physician Assistant | DX: I87.311 Chronic venous hypertension (idiopathic) with ulcer of right lower extremity (principal); L97.912 Non-pressure chronic ulcer of unspecified part of right lower leg with fat layer exposed; R63.5 Abnormal weight gain ==

== ENCOUNTER → 2023-05-23 | Outpatient (CLI) | payer MEDICARE, MEDICAID ==
[~2023-05-23] MED LIST changes: -AMIT25TA17 PO; +AMIT25TA19 PO; -OXYB5TAB10 PO; +OXYB5TAB11 PO; +TOPI-21; +TOPI-21 PO; -TOPI-254; -TOPI-254 PO
[2023-05-23 15:13] LABS: BASO % 0.5 % (0.0-1.0); EOS # 0.5 10^3/uL (0.0-0.5); EOS % 7.2 % (0.0-3.0); HEMATOCRIT 38.7 % (36.0-47.0); HEMOGLOBIN 13.4 g/dl (12.0-15.5); LYMPH # 2.4 10^3/uL (1.5-5.0); MEAN CORPUSCULAR HGB CONC 34.6 g/dl (32.0-36.5); MEAN CORPUSCULAR VOLUME 92.4 fl (80.0-96.0); MONO # 0.6 10^3/uL (0.0-0.8); MONO % 9.5 % (2.0-8.0); NEUTROPHILS % 46.2 % (36.0-66.0); PLATELET COUNT, AUTOMATED 228 10^3/uL (150-450); RED BLOOD COUNT 4.19 10^6/uL (4.00-5.40); WHITE BLOOD COUNT 6.6 10^3/uL (4.0-10.0)
[2023-05-23 15:21] LABS: ALBUMIN 3.5 G/DL (3.2-5.2); ALKALINE PHOSPHATASE 91 U/L (46-116); ALT/SGPT 45 U/L (7.0-40); AST/SGOT 50 U/L (<34); BILIRUBIN,TOTAL 0.7 MG/DL (0.3-1.2); BLOOD UREA NITROGEN 18 MG/DL (9-23); CALCIUM LEVEL 9.4 MG/DL (8.3-10.6); CARBON DIOXIDE LEVEL 24 MMOL/L (20-31); CHLORIDE LEVEL 107 MMOL/L (98-107); CHOLESTEROL LEVEL 133 MG/DL (<200); CHOLESTEROL RISK RATIO 2.82 (<5); CREATININE FOR GFR 0.49 MG/DL (0.55-1.30); FREE T4 0.96 NG/DL (0.89-1.76); GLOMERULAR FILTRATION RATE > 60.0 (>45); GLUCOSE, FASTING 99 MG/DL (74-106); LDL CHOLESTEROL 69.2 MG/DL (<100); POTASSIUM SERUM 3.7 MMOL/L (3.5-5.1); SODIUM LEVEL 139 MMOL/L (136-145); THYROID PEROXIDASE ANTIBODY 34 U/ML (<60.0); THYROID STIMULATING HORMONE 1.484 uIU/ML (0.55-4.78); TOTAL PROTEIN 7.1 G/DL (5.7-8.2); TRIGLYCERIDES LEVEL 84 MG/DL (<150)
[2023-05-23 15:25] LABS: THYROGLOBULIN ANTIBODY < 15.0 U/ML (<60.0)
[2023-05-23 15:30] LABS: HEMOGLOBIN A1c 4.4 % (4.0-6.0)
== END ==
LOC: M PLALAB 11:00
PROVIDERS: ATTEND Physician Assistant
DX: R60.0 Localized edema (principal); R63.5 Abnormal weight gain; R06.09 Other forms of dyspnea; I10 Essential (primary) hypertension; E83.42 Hypomagnesemia; Z13.1 Encounter for screening for diabetes mellitus; Z13.220 Encounter for screening for lipoid disorders; Z79.899 Other long term (current) drug therapy

== ENCOUNTER 2023-10-03 17:11 | Observation (INO) | payer MEDICAID, MEDICARE, OTHER ==
[~2023-10-03] VITALS: Ht 165.1 cm; Wt 83.0 kg
[~2023-10-03 17:11] MED LIST changes: +DOXY-323 PO; -DOXY-443 PO; -OXYB5TAB11 PO; +OXYB5TAB14 PO
[2023-10-03] MEDS ORDERED: ISOVUE-370 76% 100ML VIAL As Ordered ONE (18:05)
[2023-10-03 18:32] LABS: BASO % 0.5 % (0.0-1.0); EOS # 0.5 10^3/uL (0.0-0.5); EOS % 6.3 % (0.0-3.0); HEMATOCRIT 38.7 % (36.0-47.0); HEMOGLOBIN 13.7 g/dl (12.0-15.5); LYMPH # 2.5 10^3/uL (1.5-5.0); LYMPH % 32.4 % (24.0-44.0); MEAN CORPUSCULAR HEMOGLOBIN 32.2 pg (27.0-33.0); MEAN CORPUSCULAR HGB CONC 35.4 g/dl (32.0-36.5); MEAN CORPUSCULAR VOLUME 91.1 fl (80.0-96.0); MONO # 0.6 10^3/uL (0.0-0.8); MONO % 7.9 % (2.0-8.0); NEUTROPHILS % 52.6 % (36.0-66.0); PLATELET COUNT, AUTOMATED 254 10^3/uL (150-450); RED BLOOD COUNT 4.25 10^6/uL (4.00-5.40); WHITE BLOOD COUNT 7.6 10^3/uL (4.0-10.0)
[2023-10-03 18:53] LABS: ALBUMIN 3.5 G/DL (3.2-5.2); BILIRUBIN,DIRECT 0.3 MG/DL (<0.4); BILIRUBIN,TOTAL 0.9 MG/DL (0.3-1.2); TOTAL PROTEIN 7.3 G/DL (5.7-8.2)
[2023-10-03 20:11] LABS: INR 1.06; PARTIAL THROMBOPLASTIN TIME 23.3 SECONDS (24.8-34.2); PROTHROMBIN TIME 13.5 SECONDS (12.5-14.5)
[2023-10-03 20:14] LABS: ETHYL ALCOHOL (ETHANOL) 0.019 % (0.000-0.010)
[2023-10-03] MEDS: FUROSEMIDE 20MG/2ML VIAL IV ONE (20:17)
[2023-10-03] MEDS ORDERED: IRBE75TA11 PO (21:05)
[2023-10-03] MEDS ORDERED: TORS20TA2 PO (21:05)
[2023-10-03] MEDS ORDERED: LEXA1TAB PO (21:05)
[2023-10-03] MEDS ORDERED: HOME MED LIST COMPLETE! XX SCH (21:10)
[2023-10-03 21:46] LABS: BARBITURATES URINE NEGATIVE (NEGATIVE); BENZODIAZEPINES URINE NEGATIVE (NEGATIVE)
[2023-10-03 21:47] LABS: CANNABINOIDS URINE NEGATIVE (NEGATIVE); COCAINE METABOLITE URINE NEGATIVE (NEGATIVE); METHADONE URINE NEGATIVE (NEGATIVE); OPIATES URINE NEGATIVE (NEGATIVE); PHENCYCLIDINE URINE NEGATIVE (NEGATIVE)
[2023-10-03 21:54] LABS: AMPHETAMINES LEVEL URINE POSITIVE (NEGATIVE)
[2023-10-03] MEDS: ASPIRIN 81MG CHEW TABLET PO ONE (22:08)
[2023-10-03] MEDS ORDERED: BACLOFEN 10 MG TAB PO PRN (22:40)
[2023-10-03] MEDS ORDERED: PILL CUTTER 1 EACH XX PRN (22:50)
[2023-10-03 23:30] VITALS: BP 125/75; TEMP 98.1; O2SAT 98
[2023-10-04] MEDS: hydrOXYzine 50 MG TAB PO SCH (00:07)
[2023-10-04 05:28] VITALS: BP 138/73; TEMP 97.7; O2SAT 97
[2023-10-04 06:43] LABS: HEMOGLOBIN A1c 4.2 % (4.0-6.0)
[2023-10-04 06:59] LABS: CHOLESTEROL RISK RATIO 2.99 (<5); HDL CHOLESTEROL 49.4 MG/DL (>40); LDL CHOLESTEROL 86.2 MG/DL (<100); NON-HDL-C 98.6 MG/DL
[2023-10-04 07:06] LABS: BLOOD UREA NITROGEN 14 MG/DL (9-23); CALCIUM LEVEL 9.7 MG/DL (8.3-10.6); CARBON DIOXIDE LEVEL 27 MMOL/L (20-31); CHLORIDE LEVEL 104 MMOL/L (98-107); GLOMERULAR FILTRATION RATE > 60.0 (>45); GLUCOSE, FASTING 89 MG/DL (74-106); POTASSIUM SERUM 5.8 MMOL/L (3.5-5.1); SODIUM LEVEL 137 MMOL/L (136-145)
[2023-10-04] MEDS ORDERED: ENOXAPARIN 40MG/0.4ML SYRINGE (J1650 PER 10MG) SC SCH (09:00)
[2023-10-04] MEDS: GABAPENTIN 300 MG CAP PO SCH (09:22)
[2023-10-04] MEDS: ASPIRIN 81MG CHEW TABLET PEG SCH (09:23)
[2023-10-04] MEDS: TORSEMIDE 20 MG TAB PO SCH (09:23)
[2023-10-04 09:24] VITALS: BP 139/74
[2023-10-04] MEDS: IRBESARTAN 150MG TAB PO SCH (09:24)
[2023-10-04] MEDS: ESCITALOPRAM OXALATE 10 MG TAB (LEXAPRO) PO SCH (09:24)
[2023-10-04] MEDS: FUROSEMIDE 40MG/4ML VIAL IV SCH (12:08)
[2023-10-04 14:27] VITALS: BP 101/51; TEMP 97.9; O2SAT 95
[2023-10-04 15:18] VITALS: BP 96/54
[2023-10-04 17:44] VITALS: BP 123/60
[2023-10-04 21:13] VITALS: BP 117/60; TEMP 97.9; O2SAT 98
[2023-10-05 00:22] VITALS: BP 120/85
[2023-10-05 05:35] VITALS: BP 107/68; TEMP 98.2; O2SAT 98
[2023-10-05 06:31] LABS: BASO # 0.1 10^3/uL (0.0-0.2); BASO % 0.4 % (0.0-1.0); EOS # 0.6 10^3/uL (0.0-0.5); EOS % 4.8 % (0.0-3.0); HEMATOCRIT 43.2 % (36.0-47.0); HEMOGLOBIN 15.1 g/dl (12.0-15.5); LYMPH # 2.3 10^3/uL (1.5-5.0); LYMPH % 20.3 % (24.0-44.0); MEAN CORPUSCULAR HEMOGLOBIN 32.1 pg (27.0-33.0); MEAN CORPUSCULAR VOLUME 91.7 fl (80.0-96.0); MONO # 1.1 10^3/uL (0.0-0.8); MONO % 9.7 % (2.0-8.0); NEUTROPHILS # 7.3 10^3/uL (1.5-8.5); NEUTROPHILS % 64.3 % (36.0-66.0); PLATELET COUNT, AUTOMATED 280 10^3/uL (150-450); RED BLOOD COUNT 4.71 10^6/uL (4.00-5.40); WHITE BLOOD COUNT 11.4 10^3/uL (4.0-10.0)
[2023-10-05 06:54] LABS: BLOOD UREA NITROGEN 19 MG/DL (9-23); CALCIUM LEVEL 9.1 MG/DL (8.3-10.6); CARBON DIOXIDE LEVEL 30 MMOL/L (20-31); CHLORIDE LEVEL 101 MMOL/L (98-107); CREATININE FOR GFR 0.82 MG/DL (0.55-1.30); GLOMERULAR FILTRATION RATE > 60.0 (>45); GLUCOSE, FASTING 96 MG/DL (74-106); POTASSIUM SERUM 3.5 MMOL/L (3.5-5.1); SODIUM LEVEL 140 MMOL/L (136-145)
[2023-10-05] MEDS: IBUPROFEN 800 MG TAB PO ONE (08:10)
[2023-10-05] MEDS: ASPIRIN 81MG CHEW TABLET PO SCH (08:10)
[2023-10-05] MEDS ORDERED: METO25TA PO (10:56)
[2023-10-05 11:00] VITALS: BP 96/52
[2023-10-05 12:16] VITALS: BP 104/58
== END 2023-10-05 12:28 | disposition home or self-care (01) ==
LOC: M ED 17:11 → M ED INP 17:12 → M MSPAV 23:24
PROVIDERS: ADMIT Internal Medicine; ATTEND Internal Medicine Nephrology
DX: R55 Syncope and collapse (principal); R40.0 Somnolence; R47.81 Slurred speech; I50.30 Unspecified diastolic (congestive) heart failure; I87.2 Venous insufficiency (chronic) (peripheral); R60.0 Localized edema; R21 Rash and other nonspecific skin eruption; I11.0 Hypertensive heart disease with heart failure; F15.10 Other stimulant abuse, uncomplicated; F10.20 Alcohol dependence, uncomplicated; R63.5 Abnormal weight gain; Z86.19 Personal history of other infectious and parasitic diseases; L29.9 Pruritus, unspecified; M54.50 Low back pain, unspecified; G89.29 Other chronic pain; K51.90 Ulcerative colitis, unspecified, without complications; K76.0 Fatty (change of) liver, not elsewhere classified; K21.9 Gastro-esophageal reflux disease without esophagitis; G43.909 Migraine, unspecified, not intractable, without status migrainosus; M19.90 Unspecified osteoarthritis, unspecified site; F41.9 Anxiety disorder, unspecified; Z96.641 Presence of right artificial hip joint; Z98.890 Other specified postprocedural states; Z90.710 Acquired absence of both cervix and uterus; Z82.49 Family history of ischemic heart disease and other diseases of the circulatory system; Z80.8 Family history of malignant neoplasm of other organs or systems; Z88.1 Allergy status to other antibiotic agents; J30.1 Allergic rhinitis due to pollen; Z79.899 Other long term (current) drug therapy
CPT/HCPCS: 36415; 70450; 70496; 70498; 70551; 71045; 76705; 80047; 80048; 80061; 80076; 80307; 82077; 82140; 83036; 83880; 85025; 85610; 85730; 93005; 93041; 93306; 94760; 96374; 96376; 97161; 99285; G0378; J1940; Q9967

== ENCOUNTER → 2024-02-16 | Outpatient (CLI) | payer MEDICARE ==
[~2024-02-16] MED LIST changes: +IRBE75TA11 PO; +LEXA1TAB PO; +METO25TA PO; +TORS20TA2 PO
[2024-02-16 19:29] LABS: BASO # 0.1 10^3/uL (0.0-0.2); BASO % 0.7 % (0.0-1.0); EOS # 0.3 10^3/uL (0.0-0.5); EOS % 3.5 % (0.0-3.0); HEMATOCRIT 41.4 % (36.0-47.0); HEMOGLOBIN 14.2 g/dl (12.0-15.5); LYMPH % 27.6 % (24.0-44.0); MEAN CORPUSCULAR HEMOGLOBIN 32.7 pg (27.0-33.0); MEAN CORPUSCULAR HGB CONC 34.3 g/dl (32.0-36.5); MEAN CORPUSCULAR VOLUME 95.4 fl (80.0-96.0); MONO # 0.7 10^3/uL (0.0-0.8); MONO % 9.4 % (2.0-8.0); NEUTROPHILS # 4.2 10^3/uL (1.5-8.5); NEUTROPHILS % 58.4 % (36.0-66.0); PLATELET COUNT, AUTOMATED 235 10^3/uL (150-450); RED BLOOD COUNT 4.34 10^6/uL (4.00-5.40); WHITE BLOOD COUNT 7.2 10^3/uL (4.0-10.0)
[2024-02-16 19:45] LABS: ALBUMIN 3.5 G/DL (3.2-5.2); ALKALINE PHOSPHATASE 113 U/L (46-116); ALT/SGPT 45 U/L (7.0-40); AST/SGOT 50 U/L (<34); BILIRUBIN,TOTAL 0.8 MG/DL (0.3-1.2); BLOOD UREA NITROGEN 12 MG/DL (9-23); CALCIUM LEVEL 10.3 MG/DL (8.3-10.6); CARBON DIOXIDE LEVEL 24 MMOL/L (20-31); CHLORIDE LEVEL 110 MMOL/L (98-107); GLOMERULAR FILTRATION RATE > 60.0 (>45); GLUCOSE, FASTING 93 MG/DL (74-106); MAGNESIUM LEVEL 1.8 MG/DL (1.8-2.4); POTASSIUM SERUM 4.1 MMOL/L (3.5-5.1); SODIUM LEVEL 141 MMOL/L (136-145); TOTAL PROTEIN 7.5 G/DL (5.7-8.2)
== END ==
LOC: M PLALAB 15:02
PROVIDERS: ATTEND Physician Assistant
DX: I10 Essential (primary) hypertension (principal); R60.0 Localized edema; E83.42 Hypomagnesemia; K76.0 Fatty (change of) liver, not elsewhere classified

== ENCOUNTER → 2024-03-19 | Outpatient (REF) | payer MEDICARE ==
[~2024-03-19] MED LIST changes: -DOXY-323 PO; +DOXY-441 PO
[2024-03-19 13:25] LABS: APPEARANCE, URINE CLEAR (CLEAR); BACTERIA, URINE AUTO NEGATIVE (NEGATIVE); BILIRUBIN, URINE AUTO NEGATIVE (NEGATIVE); BLOOD, URINE BLOOD NEGATIVE (NEGATIVE); COLOR, URINE YELLOW (YELLOW); GLUCOSE, URINE (UA) AUTO NEGATIVE (NEGATIVE); KETONE, URINE AUTO NEGATIVE (NEGATIVE); LEUKOCYTE ESTERASE, URINE AUTO TRACE (NEGATIVE); NITRITE, URINE AUTO NEGATIVE (NEGATIVE); PROTEIN, URINE AUTO NEGATIVE (NEGATIVE); RBC, URINE AUTO 1 /HPF (0-3); SPECIFIC GRAVITY URINE AUTO 1.014 (1.002-1.035); SQUAMOUS EPITHELIAL CELL UR AU 1 /HPF (0-6); UROBILINOGEN, URINE AUTO 0.2 mg/dL (0.0-2.0); WBC, URINE AUTO 5 /HPF (0-3)
== END ==
LOC: M SMT 12:35
PROVIDERS: ATTEND Nurse Practitioner Family
DX: R39.15 Urgency of urination (principal)

== ENCOUNTER → 2024-03-31 | Outpatient (CLI) | payer MEDICARE | LOC: M RAD 08:04 | PROVIDERS: ATTEND Physician Assistant | DX: R10.11 Right upper quadrant pain (principal) ==

== ENCOUNTER → 2024-06-12 | Outpatient (CLI) | payer MEDICARE ==
[2024-06-12 15:02] LABS: APPEARANCE, URINE CLEAR (CLEAR); BACTERIA, URINE AUTO NEGATIVE (NEGATIVE); BILIRUBIN, URINE AUTO NEGATIVE (NEGATIVE); BLOOD, URINE BLOOD NEGATIVE (NEGATIVE); COLOR, URINE AMBER (YELLOW); GLUCOSE, URINE (UA) AUTO NEGATIVE (NEGATIVE); KETONE, URINE AUTO NEGATIVE (NEGATIVE); LEUKOCYTE ESTERASE, URINE AUTO 1+ (NEGATIVE); NITRITE, URINE AUTO NEGATIVE (NEGATIVE); PROTEIN, URINE AUTO NEGATIVE (NEGATIVE); RBC, URINE AUTO 0 /HPF (0-3); SPECIFIC GRAVITY URINE AUTO 1.021 (1.002-1.035); SQUAMOUS EPITHELIAL CELL UR AU 1 /HPF (0-6); WBC, URINE AUTO 31 /HPF (0-3)
== END ==
LOC: M LAB 14:25
PROVIDERS: ATTEND Urology
DX: N32.81 Overactive bladder (principal)

== ENCOUNTER → 2025-03-08 | Outpatient (CLI) | payer MEDICARE ==
[~2025-03-08] MED LIST changes: +CARI-555 PO; -CARI1TAB7 PO; +MORP-138 PO; -MORP15TASA PO
[2025-03-08 14:26] LABS: BASO # 0.1 10^3/uL (0.0-0.2); BASO % 0.7 % (0.0-1.0); EOS # 0.3 10^3/uL (0.0-0.5); EOS % 4.2 % (0.0-3.0); LYMPH # 3.8 10^3/uL (1.5-5.0); LYMPH % 50.1 % (24.0-44.0); MONO # 0.7 10^3/uL (0.0-0.8); MONO % 8.7 % (2.0-8.0); NEUTROPHILS # 2.7 10^3/uL (1.5-8.5); NEUTROPHILS % 36.0 % (36.0-66.0); PLATELET COUNT, AUTOMATED 209 10^3/uL (150-450)
[2025-03-08 14:43] LABS: ESTIMATED AVERAGE GLUCOSE 85.0 MG/DL (60-110)
[2025-03-08 14:59] LABS: ALT/SGPT 40 U/L (7.0-40); AST/SGOT 46 U/L (<34); CALCIUM LEVEL 10.0 MG/DL (8.3-10.6); CARBON DIOXIDE LEVEL 29 MMOL/L (20-31); CHLORIDE LEVEL 103 MMOL/L (98-107); CHOLESTEROL LEVEL 197 MG/DL (<200); CHOLESTEROL RISK RATIO 3.17 (<5); CREATININE FOR GFR 0.57 MG/DL (0.55-1.30); GLOMERULAR FILTRATION RATE > 90.0 (>45); LDL CHOLESTEROL 101.0 MG/DL (<100); NON-HDL-C 135.0 MG/DL; POTASSIUM SERUM 4.8 MMOL/L (3.5-5.1); SODIUM LEVEL 142 MMOL/L (136-145); TRIGLYCERIDES LEVEL 170 MG/DL (<150)
== END ==
LOC: M LAB 13:22
PROVIDERS: ATTEND Student in an Organized Health Care Education/Training Program
DX: Z00.00 Encounter for general adult medical examination without abnormal findings (principal); I10 Essential (primary) hypertension; M96.1 Postlaminectomy syndrome, not elsewhere classified; F51.01 Primary insomnia; K21.9 Gastro-esophageal reflux disease without esophagitis; F33.41 Major depressive disorder, recurrent, in partial remission; K59.00 Constipation, unspecified; Z79.899 Other long term (current) drug therapy